=== PATIENT | female | born 1935 | race Caucasian/White ===

== ENCOUNTER 2022-08-09 04:10 | Day surgery (SDC) | payer MEDICARE, SELFPAY ==
[2022-08-06 17:20] VITALS: BMI 31.4
[2022-08-09] VITALS (9 sets, daily range): BP systolic 117–183; BP diastolic 61–91; PULSE 51–86; RESP 16–27; TEMP 36.6; O2SAT 96–98; BMI 34.6
--- NOTE | 2022-08-09 | ECG_ITS ---
Measurements Intervals [place] Rate: 76 P: 41 AK: 220 QRS: -6 QRSD: 93 T: 75 QT: 387 QTc: 436 Interpretive Statements SINUS RHYTHM WITH FIRST DEGREE AV BLOCK ATRIAL PREMATURE COMPLEX DELAYED PRECORDIAL R/S TRANSITION CONSIDER INFERIOR INFARCT, AGE INDETERMINATE BORDERLINE T WAVE ABNORMALITY- HIGH LATERAL LEADS BASELINE ARTIFACT- II, III, AVL ABNORMAL ECG COMPARED TO ECG 08/09/2022 14:21:09 SINUS RHYTHM NOW PRESENT FIRST DEGREE AV BLOCK NOW PRESENT Electronically Signed On 08-09-2022 15:43:46 CDT by Torrey Wood D.O.
--- NOTE | 2022-08-09 10:30 | ECG_ITS ---
Measurements Intervals [place] Rate: 80 P: [place]: 0 QRS: -6 QRSD: 92 T: 75 QT: 371 QTc: 430 Interpretive Statements ATRIAL FIBRILLATION DELAYED PRECORDIAL R/S TRANSITION CONSIDER INFERIOR INFARCT, AGE INDETERMINATE ABNORMAL ECG NO PREVIOUS ECG AVAILABLE FOR COMPARISON Electronically Signed On 08-09-2022 11:44:51 CDT by Torrey Wood D.O.
--- NOTE | 2022-08-09 10:30 | ECG_ITS ---
Measurements Intervals [place] Rate: 46 P: [place]: 0 QRS: -4 QRSD: 86 T: 109 QT: 432 QTc: 380 Interpretive Statements SINUS BRADYCARDIA WITH INTERMITTENT JUNCTIONAL RHYTHM VENTRICULAR PREMATURE COMPLEX CONSIDER INFERIOR INFARCT, AGE INDETERMINATE BORDERLINE ST-T WAVE ABNORMALITY- HIGH LATERAL LEADS ABNORMAL ECG COMPARED TO ECG 08/09/2022 11:41:34 NO SIGNIFICANT CHANGES Electronically Signed On 08-09-2022 14:32:41 CDT by Torrey Wood D.O.
--- NOTE | 2022-08-09 11:50 | WPDHPUPDATE1 ---
History and Physical Update Update Date/Time: 08/09/22 11:50 History and Physical has been reviewed, including an updated exam of the patient. There are NO changes in the patient's condition. Risks, benefits, and alternatives have been discussed and questions answered. Patient agrees to proceed with procedure.
[2022-08-09 12:15] LABS: Magnesium 2.1 mg/dL (1.6-2.3)
[2022-08-09 12:16] LABS: Anion Gap 10 mmol/L (8-16); Blood Urea Nitrogen 26 mg/dL (7-17); Carbon Dioxide 24 mmol/L (22-30); Chloride 105 mmol/L (98-107); Estimated CRCL calculation 34 ml/min; Estimated Glomerular Filt Rate 39; Glucose 96 mg/dL (65-110); Potassium 4.4 mmol/L (3.4-5.0); Sodium 139 mmol/L (137-145)
--- NOTE | 2022-08-09 13:20 | WPDANESEPPF ---
Anes - Initial Pre Proc Eval Procedure: Operation Date: 08/09/22 13:45 Proposed Procedures p Trans Esophageal Echo - Dariel Quintero MD s Possible Electrical Cardioversion - Dariel Quintero MD Date/Time: 08/09/22 13:20 Surgeon: Dariel Quintero MD Pre Op Diagnosis: A-FIB Patient Data Age: 86 Gender: F Height: 1.7 m Weight: 100.3 kg Last Vital Signs Temp 97.8 F 08/09/22 12:00 Pulse 86 08/09/22 12:00 Resp 20 08/09/22 12:00 BP 183/91 H 08/09/22 12:00 Pulse Ox 96 08/09/22 12:00 O2 Del Method Room Air 08/09/22 12:00 Allergies Allergy/AdvReac Type Severity Reaction Status Date / Time No Known Allergies Allergy Verified 08/06/22 17:13 Home Medications Medication Instructions Recorded Confirmed Type aspirin 81 mg tablet,delayed 81 mg PO DAILY 01/11/19 08/06/22 History release cholecalciferol (vitamin D3) 125 5,000 unit PO DAILY 01/11/19 08/06/22 History mcg (5,000 unit) capsule spironolactone 25 mg tablet 25 mg PO DAILY 01/11/19 08/06/22 History levothyroxine 50 mcg tablet See Rx Instructions .Route 09/17/21 08/06/22 Rx .COMPLEX #90 tabs diltiazem HCl 300 mg 300 mg PO DAILY #90 caps 06/29/22 08/06/22 Rx capsule,extended release 24 hr (Cartia XT) lisinopril 40 mg tablet See Rx Instructions .Route 06/29/22 08/06/22 Rx .COMPLEX #90 tabs apixaban 5 mg tablet (Eliquis) 5 mg PO BID 08/06/22 08/06/22 History diphenhydramine HCl 25 mg capsule 25 mg PO HS 08/06/22 08/06/22 History (Benadryl) Laboratory Tests 08/09/22 11:57 Sodium 139 mmol/L (137-145) Potassium 4.4 mmol/L (3.4-5.0) Chloride 105 mmol/L (98-107) Carbon Dioxide 24 mmol/L (22-30) Anion Gap 10 mmol/L (8-16) BUN 26 H mg/dL (7-17) Creatinine 1.30 H mg/dL (0.7-1.0) Estim Creat Clear Calc 34 ml/min Estimated GFR 39 L (59 - ) Glucose 96 mg/dL (65-110) Calcium 10.0 mg/dL (8.4-10.2) Magnesium 2.1 mg/dL (1.6-2.3) Patient hx anesthesia problems: none Family hx anesthesia problems: none Results Review: All pre-operative results and documents have been reviewed as part of the pre-operative evaluation. [facility] Past Medical History Medical History Anxiety Aortic stenosis moderate Hypertensive CKD (chronic kidney disease) Obesity Family History Family History Mother Patient's mother is in good health Father Family history of lung cancer Patient's father is Sibling Family history of coronary artery disease Social History Social History Years smoked: 15 Smoking status: Former smoker Tobacco type: cigarettes Second hand tobacco smoke exposure: No Smoking end date: 02/07/1966 Additional smoking assessment comments: Stopped in 60 or 70's Alcohol intake: never Substance use: never Substance use type: does not use Living arrangements: with family Occupation/Education: retired Gender identity (if verbalized by the patient): Female Spiritual care concerns: No Anes - Eval Final PreProcedure Day of Procedure 08/09/22 13:20 Patient weight: obese Heart: regular rate and rhythm Lungs: clear to auscultation Airway: Mallampati scale class III Neurological: alert and oriented Last oral intake: >/= 8 hours ASA classification: IV Emergent: no Anesthetic plan: proceed Anesthesia type and monitoring: general GIVS and standard monitoring Results Review: All pre-operative results and documents have been reviewed as part of the pre-operative evaluation. Informed Consent: The patient's anesthetic plan and its attendant risks and benefits were discussed with the patient/family/POA. Questions were solicited and answers provided to the satisfaction of the patient/family/POA.
--- NOTE | 2022-08-09 14:48 | WPDTECDV ---
MARCIE with Cardioversion Date of procedure: 08/09/22 Procedure Type: Transesophageal echocardiogram guided elective electrical cardioversion Diagnosis: Atrial fibrillation with rapid ventricular response Indications: Atrial fibrillation with rapid ventricular response Description of Procedure: Brief history present illness: Patient is a pleasant?86-year-old female with a history of hypertension, moderate aortic stenosis, hyperlipidemia, CKD stage 3 who recently developed atrial fibrillation with rapid ventricular response with complaints of worsening fatigue and lower extremity edema?referred for transesophageal echocardiogram-guided elective electrical cardioversion in attempt to restore sinus rhythm. Procedure in detail: After verbal and written informed consent was obtained the patient risks, benefits, and alternatives explained in detail the patient agreed to proceed with the plan of care as outlined above.? Patient was evaluated at bedside in the gastroenterology procedure room.? On examination, neck was supple with normal range of motion, no restrictions to opening of the oral cavity, jaw angle and posterior hypopharynx was clear.? Lungs were clear to auscultation. Patient was placed in appropriate 30 to 45 degree angle in a supine, slight left lateral decubitus position.? Patient was monitored throughout the study with telemetry, oxygen saturation, end-tidal CO2 monitoring, blood pressure, heart rate, and respirations.? Anterior and posterior defibrillator pads placed in the appropriate positions. The posterior hypopharynx was then locally anesthetized using administration of Hurricaine spray by Anesthesiology. After local anesthetic of the posterior hypopharynx was achieved and the oral bite block placed, sedation was administered by Anesthesiology. Through the oral bite block, the transesophageal echocardiogram probe was advanced into the posterior hypopharynx and into the esophagus easily and without complication.? Multiple, multiplanar echocardiographic images were obtained in multiple standard re-projections.? Pulsed wave, continuous-wave, and color-flow Doppler were utilized in conjunction with this study.? At the conclusion of the study, the transesophageal echocardiogram probe was removed easily and without complication.? Patient tolerated the procedure well without difficulty.? Patient was in atrial fibrillation throughout the study. Sedation: Moderate Sedation/Anesthesia administration: Patient denied previous intolerance or complications with anesthesia/sedation.? Please see Anesthesiology documentation for details and protocol. Findings: FINDINGS: LEFT VENTRICLE: Size and systolic function were within normal limits without wall motion abnormalities with ejection fraction of 60% and mild concentric left ventricular hypertrophy. RIGHT VENTRICLE:? Size and systolic function within normal limits. LEFT ATRIUM:? Upper limits of normal left atrial size. RIGHT ATRIUM: Normal size. INTERATRIAL SEPTUM:? ?Interatrial septum is anatomically normal without evidence of shunt with color-flow Doppler MITRAL VALVE:? ?Mitral valve is anatomically normal mildly thickened with preserved leaflet excursion and mild regurgitation with 2 small regurgitant jets identified.? AORTIC VALVE: The aortic valve was an anatomically normal 3 leaflet structure with [id number] calcification and mild to moderately reduced leaflet excursion. No regurgitation identified.? TRICUSPID VALVE: The tricuspid valve is anatomically normal with normal leaflet excursion with mild regurgitation identified.? No mobile elements identified.? PULMONIC VALVE: Pulmonic valve was not well visualized, however, trivial regurgitation was identified.?? LEFT ATRIAL APPENDAGE:? Large, anatomically normal structure with prominent pectinate muscles without thrombus or vegetation identified.? ?Left atrial appendage velocities averaged approximately 60-75 centimeters/second.?? LEFT UPPER PULM
== END 2022-08-09 17:08 | disposition home or self-care (01) ==
PROVIDERS: PCP Family Medicine; Visit Provider Internal Medicine Cardiovascular Disease
PROC: 5A2204Z Restoration of Cardiac Rhythm, Single (ICD-10-PCS; principal; 2022-08-09 13:45)
PROC: (CPT 93312; 2022-08-09 13:45)
DX: I48.91 Unspecified atrial fibrillation (principal); I12.9 Hypertensive chronic kidney disease with stage 1 through stage 4 chronic kidney disease, or unspecified chronic kidney disease; N18.30 Chronic kidney disease, stage 3 unspecified; I35.0 Nonrheumatic aortic (valve) stenosis; E78.2 Mixed hyperlipidemia; Z87.891 Personal history of nicotine dependence; Z79.82 Long term (current) use of aspirin; E66.9 Obesity, unspecified; Z68.34 Body mass index [BMI] 34.0-34.9, adult
CPT/HCPCS: 36415; 80048; 83735; 92960; 93312; 93320; 93325; J2704

== ENCOUNTER 2023-09-20 17:02 | Outpatient (CLI) | payer MEDICARE, SELFPAY ==
--- NOTE | ~2023-09-20 | XR_ITS ---
3 VIEWS LUMBAR SPINE Ordering provider: Timothy Oh MD History: . WORSENING LOW BACK PAIN. UNABLE TO LAY FLAT . Comparison: None. FINDINGS: VERTEBRAL BODIES: Anterolisthesis at the level of L5-S1. Dextroscoliosis. No visible fracture or sub luxation. Degenerative changes of the spine. DISK SPACES: Narrowing of the disc L3-L4, L4-L5 and L5-S1. Multilevel facet joint disease in the lowe r lumbar area SOFT TISSUES: Aortic calcification. IMPRESSION: No acute osseous abnormality lumbar spine. Anterolisthesis at the level of L5-S1. Multilevel degenerative disc disease. Reviewed, dictated and finalized at location A.
== END 2023-09-20 17:03 | disposition home or self-care (01) ==
PROVIDERS: PCP Family Medicine; Visit Provider Family Medicine
DX: M54.16 Radiculopathy, lumbar region (principal); M51.36 Other intervertebral disc degeneration, lumbar region
CPT/HCPCS: 72100

== ENCOUNTER 2024-02-28 16:08 | Inpatient (IN) | payer MEDICARE, SELFPAY ==
--- NOTE | ~2024-02-28 | XR_ITS ---
Exam: Abdomen 1V HISTORY: nausea, constipation COMPARISON: None. TECHNIQUE: Supine images of the abdomen. FINDINGS: Fecal stasis within the rectum, distending the rectum to almost 10 cm. Otherwise, nonspecific, nonobstructive bowel gas pattern. Lung bases are unremarkable. IMPRESSION: Findings suggesting fecal impaction, as detailed above. Reviewed, dictated and finalized at location A. TREE FARMER
--- NOTE | ~2024-02-28 | XR_ITS ---
EXAMINATION: XR abdomen/kub 1V DATE: 03/03/2024 10:37 INDICATION: Reassess fecal impaction TECHNIQUE: A supine view of the abdomen on 2 radiographs was obtained. COMPARISON: 02/28/2024 FINDINGS: The previously seen large ball of stool at the rectum has resolved. There is small to moderate amount of gas scattered throughout the large and small bowel with no dilated loops of bowel to suggest obst ruction. Elevation the right hemidiaphragm. Mild streaky atelectasis at the bilateral lower lung zone s. Heart size within normal limits for AP technique. Mild lumbar dextrocurvature with severe spondylo sis. IMPRESSION: 1. Nonspecific nonobstructive bowel gas pattern with resolution of the large ball of stool previously seen at the rectum. Reviewed, dictated and finalized at location A. ERING MACHINE FEEDER IMPRESSION: 1. Nonspecific nonobstructive bowel gas pattern with resolution of the large ba ll of stool previously seen at the rectum.
--- NOTE | ~2024-02-28 | CT_ITS ---
Non-contrast Head CT History: Status post fall Technique: Axial non-contrast imaging of the brain was performed. Dose reduction technique was used on this scan by utilizing automated exposure control and iterative reconstruction technique. The dose -length product (DLP) was 529.67 mGy-cm. Findings: There is no evidence of intracranial hemorrhage, mass lesion, or acute infarct. Brain par enchyma appears normal. The ventricles and subarachnoid spaces are normal in size. The calvarium ap pears normal. The visualized paranasal sinuses and mastoid air cells are clear. Impression: No significant abnormality seen. Reviewed, dictated and finalized at location . OGEN POWER PLANT MANAGER Impression: No significant abnormality seen.
[2024-02-28 12:58] VITALS: BMI 54.2
--- NOTE | 2024-02-28 13:13 | ADMGEN ---
This patient, Marina Forbes, was admitted to 3 [facility] Surg Room 305-01. Patient/family oriented to hospital policies and general routines including ID bracelet, bed and alarms, visiting hours, pain management, procedures, bathroom and other care routines, personal items, smoking policy, room service/diet, and visiting hours. Information on how to activate the Rapid Response Team has been discussed. Patient/Family are encouraged to report perceived risks to care and to ask questions if they do not understand what they are told or what they should do.
[2024-02-28 14:00] VITALS: BP 125/70; PULSE 84; RESP 18; TEMP 36.6; O2SAT 100
--- NOTE | 2024-02-28 17:24 | PM.IMHP ---
H&P: HPI History of Present Illness Date/Time: 02/28/24 17:24 Chief Complaint: Rectal bleeding Narrative: 88-year-old female presents here with rectal bleeding with PMH of hypertension, atrial fibrillation on anticoagulation, CKD, and hypothyroidism. The patient presents here from [facility] general surgery office for further evaluation of rectal bleeding. She reports she has had bleeding and pain with bowel movements for the past 3 months in the presence of hemorrhoids. She has a history of chronic constipation. The rectal bleeding is also accompanied by nausea, vomiting, intermittent abdominal pain (cramping), and decreased urine output. Denies fever, chills, body aches. The patient's last bowel movement was today. It was hard, small, and painful. She is currently on Eliquis secondary to atrial fibrillation. She does not have a history of GI bleeds. Initial VS at presentation: 97.8? F, HR 84, RR 18, 125/70, and 100% on RA. Review of Systems Review of Systems: All systems reviewed & are unremarkable except as noted in HPI and below PMFSH Past Medical History Medical History HLD (hyperlipidemia) Hypothyroidism CKD (chronic kidney disease), stage III Hypertension Cancer Lumbar degenerative disc disease Paroxysmal A-fib s/p cardioversion Aortic stenosis moderate Obesity Anxiety Family History Family History Mother Patient's mother is in good health Father Family history of lung cancer Patient's father is Sibling Family history of coronary artery disease Social History Social History Years smoked: 15 Smoking status: Former smoker Second hand tobacco smoke exposure: No Additional smoking assessment comments: Stopped in 60 or 70's Alcohol intake: never Drinks per week: 0 Substance use: never Substance use type: does not use Do You Feel Safe in your Home?: Yes Lack of Transportation: No Lack of Food: Never True Current Housing: I Have Housing Concerned About Future Housing: No Difficulty Paying Gas/Electric Bills: No Difficulty Paying for Meds: No Currently Unemployed: No Education: High School Diploma/GED Difficulty w/ Childcare or Family Care: No Living arrangements: with family Occupation/Education: retired Gender identity (if verbalized by the patient): Female Spiritual care concerns: No Meds Home Medications and Allergies Home Medications ?Medication ?Instructions ?Recorded ?Confirmed ?Type aspirin 81 mg tablet,delayed 81 mg PO DAILY 01/11/19 02/28/24 History release diltiazem HCl 300 mg 300 mg PO DAILY #90 caps 03/17/23 02/28/24 Rx capsule,extended release 24 hr (Cartia XT) levothyroxine 50 mcg tablet See Rx Instructions .Route 08/15/23 02/28/24 Rx .COMPLEX #90 tabs furosemide 20 mg tablet 20 mg PO BID #60 tabs 01/13/24 02/28/24 Rx acetaminophen 500 mg tablet 1,000 mg PO Q6H PRN fever or pain 02/28/24 02/28/24 History apixaban 5 mg tablet (Eliquis) 2.5 mg PO BID 02/28/24 02/28/24 History oxycodone 30 mg tablet 30 mg PO Q8H PRN pain 02/28/24 02/28/24 History oxycodone 5 mg tablet 5 mg PO Q6H PRN pain 02/28/24 02/28/24 History Allergies Allergy/AdvReac Type Severity Reaction Status Date / Time shellfish Allergy Unknown Unknown Uncoded 02/28/24 10:03 Vital Signs Vital Signs - 24 hr 02/28/24 14:00 Temperature 97.8 F Pulse Rate 84 Respiratory Rate 18 Blood Pressure 125/70 Pulse Oximetry 100 Exam Const: General: comfortable and no acute distress Other: , female, elderly, nontoxic appearance HENMT: Face/Nose/Sinus: Normal nares present Mouth: Yes moist mucous membranes Eyes: General: appearance normal, both eyes and all related structures Sclera: sclerae normal Pupils: Equal, round and reactive pupils present EOM: EOMs intact bilaterally Resp: Effort & Inspection: normal respiratory effort Auscultation: clear to auscultation bilaterally Cardio: Rate: regular rate Rhythm: regular rhythm Other: Occasional ectopy, no murmur or rub. GI: Other: Abdomen soft, nondistended. Diffuse tenderness with moderate palpation. Skin: General skin exam: normal color and no rashes or lesions noted Wounds: no wounds Neuro: Speech: normal speech Motor exam (neuro): 5/5 motor strength present throughout Sensory Exam: normal sensation Other: A&O x4 Extrem: Other: Trace nonpitting edema to bilateral ankles, symmetric. Psych: Mental Status: mental status grossly normal Affect: normal affect Other: Fair insight and judgment. Assessment and Plan Assessment and plan (1) Rectal bleeding: Code(s): K62.5 - Hemorrhage of anus and rectum Status: Acute Assessment and Plan: - CBC, BMP, and coags ordered - general surgery consulted - GI consulted - pantoprazole IV - monitor CBC and BP - hold Eliquis, will continue aspirin. Add SCDs. (2) Nausea and vomiting: Qualifiers: Vomiting type: unspecified Qualified Code(s): R11.2 - Nausea with vomiting, unspecified Code(s): R11.2 - Nausea with vomiting, unspecified Status: Acute Assessment and Plan: - KUB one view ordered - pantoprazole IV - antiemetic p.r.n. (3) CKD (chronic kidney disease), stage III: Qualifiers: Chronic kidney disease stage 3 subtype: unspecified whether 3a or 3b Qualified Code(s): N18.30 - Chronic kidney disease, stage 3 unspecified Code(s): N18.3 - Chronic kidney disease, stage 3 (moderate) Status: Chronic Assessment and Plan: - creatinine 2.35 and GFR 20 on 01/11/2024, CMP ordered - trend renal function - trend electrolytes, correct as needed 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 Qualified Code(s): I15.2 - Hypertension secondary to endocrine disorders Code(s): I10 - Essential (primary) hypertension Status: Chronic Assessment and Plan: - chronic, currently 125/70 - continue home medications: Diltiazem, Lasix - monitor Plan Diet: Heart healthy GI Prophylaxis: Pantoprazole DVT Prophylaxis: Hold Eliquis, SCDs Lines: Peripheral Code Status: DNR Quality VTE Prophylaxis VTE prophylaxis: mechanical ordered If No VTE Prophylaxis Answer both mechanical and pharmacologic: Reason no pharmacologic proph: medical contraindication Hospitalist MIPS Advance Care Plan I have confirmed that the patient's Advanced Care Plan is present, code status is documented, or surrogate decision maker is listed in patient medical record.: Yes Medication Reconciliation I have utilized all available resources to obtain, update and review the patients current medications (includes all prescriptions, OTC, herbals, cannabis, and nutritional supplements).: Yes
--- NOTE | 2024-02-28 18:10 | WPDCN ---
Assessment and Plan Assessment and plan (1) Nausea and vomiting: Qualifiers: Vomiting type: unspecified Qualified Code(s): R11.2 - Nausea with vomiting, unspecified Code(s): R11.2 - Nausea with vomiting, unspecified Status: Acute Assessment and Plan: Patient been having some nausea vomiting which could be to severe constipation/obstipation. Will see if this improves with promoting bowel movements. (2) Rectal bleeding: Code(s): K62.5 - Hemorrhage of anus and rectum Status: Acute Assessment and Plan: Patient does not have any obvious external bleeding hemorrhoids. There is old dark blood draining from the rectum on exam today. Digital rectal exam was difficult due to the amount of stool in the rectal vault. She may have bleeding hemorrhoids but she may also have rectal or colon neoplasm causing the bleeding. Recommend admission to the hospital for management of her pain and to workup for lower GI bleeding. (3) Abdominal pain: Qualifiers: Abdominal location: generalized Qualified Code(s): R10.84 - Generalized abdominal pain Code(s): R10.9 - Unspecified abdominal pain Status: Acute Assessment and Plan: May be due to her constipation/obstipation. We will see if this improves with abdomen is laxatives. (4) Metastatic malignant neuroendocrine tumor to liver: Code(s): C7B.8 - Other secondary neuroendocrine tumors Status: Acute Assessment and Plan: Apparently recent diagnosed with this condition at [facility]. Defer treatment to her oncologist. HPI Data of Consult Date/Time: 02/28/24 18:10 Requesting Physician: Miroslava Borja MD Primary Care Provider: Timothy Oh MD Consult Narrative Reason for consult: Lower GI bleeding, abdominal pain, nausea and vomiting Narrative: Marina Forbes is a 88 year old female who was referred to see me initially in the outpatient office today complaining of painful and bleeding hemorrhoids. Patient stations he has had fairly constant dripping of blood into the toilet when she tries to have bowel movements and spontaneous drainage of blood from her rectum. She has not had previous hemorrhoid surgery. 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 She has been getting radiation treatments to her right hip for metastatic disease. She states she has not been having good bowel movements for about the last 6 weeks. More recent last few days she has been had a very painful bowel movements with the bleeding. She was also complaining having some severe lower abdominal pain which she needed to have bowel movements and this more she had nausea and vomiting. The patient has chronic AFib which is resistant to cardioversion. She is on systemic anticoagulation with Eliquis. He has been continue take her Eliquis despite having lower GI bleeding. She also has advanced stage kidney disease but is not on dialysis. Review of Systems Review of Systems: The remainder of the review of systems to include constitutional, HEENT, cardiovascular, respiratory, GI, , integumentary, musculoskeletal, endocrine, immunologic, hematologic, psychiatric, and neurologic are all negative except for which is mentioned above in the HPI. [facility] Past Medical History Medical History HLD (hyperlipidemia) Hypothyroidism CKD (chronic kidney disease), stage III Hypertension Cancer Lumbar degenerative disc disease Paroxysmal A-fib s/p cardioversion Aortic stenosis moderate Obesity Anxiety Family History Family History Mother Patient's mother is in good health Father Family history of lung cancer Patient's father is Sibling Family history of coronary artery disease Social History Social History Years smoked: 15 Smoking status: Former smoker Second hand tobacco smoke exposure: No Additional smoking assessment comments: Stopped in 60 or 70's Alcohol intake: never Drinks per week: 0 Substance use: never Substance use type: does not use Do You Feel Safe in your Home?: Yes Lack of Transportation: No Lack of Food: Never True Current Housing: I Have Housing Concerned About Future Housing: No Difficulty Paying Gas/Electric Bills: No Difficulty Paying for Meds: No Currently Unemployed: No Education: High School Diploma/GED Difficulty w/ Childcare or Family Care: No Living arrangements: with family Occupation/Education: retired Gender identity (if verbalized by the patient): Female Spiritual care concerns: No Meds Home Medications and Allergies Home Medications ?Medication ?Instructions ?Recorded ?Confirmed ?Type aspirin 81 mg tablet,delayed 81 mg PO DAILY 01/11/19 02/28/24 History release diltiazem HCl 300 mg 300 mg PO DAILY #90 caps 03/17/23 02/28/24 Rx capsule,extended release 24 hr (Cartia XT) levothyroxine 50 mcg tablet See Rx Instructions .Route 08/15/23 02/28/24 Rx .COMPLEX #90 tabs furosemide 20 mg tablet 20 mg PO BID #60 tabs 01/13/24 02/28/24 Rx acetaminophen 500 mg tablet 1,000 mg PO Q6H PRN fever or pain 02/28/24 02/28/24 History apixaban 5 mg tablet (Eliquis) 2.5 mg PO BID 02/28/24 02/28/24 History oxycodone 30 mg tablet 30 mg PO Q8H PRN pain 02/28/24 02/28/24 History oxycodone 5 mg tablet 5 mg PO Q6H PRN pain 02/28/24 02/28/24 History Allergies Allergy/AdvReac Type Severity Reaction Status Date / Time shellfish Allergy Unknown Unknown Uncoded 02/28/24 10:03 Vital Signs Vital Signs - 24 hr 02/28/24 14:00 Temperature 36.6 C Pulse Rate 84 Respiratory Rate 18 Blood Pressure 125/70 Pulse Oximetry 100 Exam Const: General: in distress (Patient complaining of severe rectal pain and finds it difficult to sit up.) severe HENMT: Mouth: Yes moist mucous membranes Eyes: General: appearance normal, both eyes and all related structures Sclera: sclerae normal Pupils: Equal, round and reactive pupils present EOM: EOMs intact bilaterally Neck: Neck: supple and no JVD Resp: Effort & Inspection: normal respiratory effort Auscultation: clear to auscultation bilaterally Cardio: Rhythm: abnormal rhythm irregularly irregular GI: Other: Abdomen is soft and minimally distended. No masses appreciated. No guarding. Some mild diffuse tenderness. No ventral hernias. Rectal exam reveals minor posterior hemorrhoid was nonthrombosed at the 6 o'clock position with the patient lithotomy. Digital rectal exam reveals a rectal vault and anal canal filled with soft stool. Difficult to palpate any hemorrhoid tissue or anal or rectal masses. Skin: General skin exam: normal color and no rashes or lesions noted Neuro: General: gait normal Speech: normal speech Motor exam (neuro): 5/5 motor strength present throughout Sensory Exam: normal sensation Extrem: General: normal to inspection Psych: Mental Status: mental status grossly normal Affect: normal affect
[2024-02-28 18:31] LABS: Basophils Percent Auto 0.4 % (0.2-1.2); Eosinophils Percent Auto 0.3 % (0-4.4); Hemoglobin 10.4 g/dL (12.0-15.0); Immature Granulocyte Absolute 0.05 K/mm3 (0.00-0.031); Immature Granulocyte Percent A 0.5 % (0-0.5); Lymphocytes Absolute Auto 0.54 K/mm3 (0.9-3.2); Lymphocytes Percent Auto 5.2 % (18.3-44.2); Mean Corpuscular HGB Conc 31.5 g/dl (32-36); Mean Corpuscular Hemoglobin 32.5 pg (26-34); Mean Corpuscular Volume 103.1 fl (80-100); Mean Platelet Volume 9.8 fl (7.4-10.4); Monocytes Absolute Auto 0.7 K/mm3 (0.1-0.6); Monocytes Percent Auto 6.9 % (2.6-8.5); Neutrophils Percent Auto 86.7 % (45.5-73.1); Platelet Count Result 363 k/mm3 (150-375); Red Cell Distribution Width 14.6 % (11.5-14.5); White Blood Count 10.3 K/mm3 (4.5-10.0)
[2024-02-28 18:41] LABS: INR 1.1; Prothrombin Time 14.5 Seconds (11.1-14.7)
[2024-02-28 18:46] LABS: Alanine Aminotransferase 13 U/L (6-35); Albumin Level 3.4 g/dL (3.5-5.1); Alkaline Phosphatase 126 U/L (38-126); Anion Gap 11 mmol/L (4-12); Aspartate Amino Transferase 39 U/L (14-36); Bilirubin,Total 0.5 mg/dL (0.2-1.3); Blood Urea Nitrogen 53 mg/dL (7-17); Calcium 9.8 mg/dL (8.4-10.2); Carbon Dioxide 17 mmol/L (22-30); Chloride 107 mmol/L (98-107); Estimated CRCL calculation 27 ml/min; Estimated Glomerular Filt Rate 22; Glucose 149 mg/dL (65-110); Potassium 4.9 mmol/L (3.4-5.0); Sodium 135 mmol/L (137-145)
[2024-02-28] MEDS: oxyCODONE HCL (*CRX) 5 MG TAB IR PO (20:17)
[2024-02-28] MEDS: MAGNESIUM HYDROXIDE SUSP 30 ML UDC PO (20:18)
[2024-02-28 21:53] VITALS: BP 130/60; PULSE 106; RESP 16; TEMP 36.7; O2SAT 98
[2024-02-29] MEDS: oxyCODONE HCL (*CRX) 5 MG TAB IR PO ×3 (03:57→21:00)
[2024-02-29] MEDS: LEVOTHYROXINE SODIUM 50 MCG TABLET PO (05:48)
[2024-02-29 06:00] VITALS: BP 118/63; PULSE 106; RESP 18; TEMP 36.6; O2SAT 98
[2024-02-29 06:29] LABS: Hematocrit 30.7 % (37.0-47.0); Hemoglobin 9.7 g/dL (12.0-15.0); Mean Corpuscular HGB Conc 31.6 g/dl (32-36); Mean Corpuscular Hemoglobin 32.7 pg (26-34); Mean Corpuscular Volume 103.4 fl (80-100); Platelet Count Result 331 k/mm3 (150-375); Red Blood Count 2.97 M/mm3 (4.2-5.4); Red Cell Distribution Width 14.6 % (11.5-14.5); White Blood Count 8.8 K/mm3 (4.5-10.0)
[2024-02-29 06:38] LABS: Anion Gap 6 mmol/L (4-12); Blood Urea Nitrogen 56 mg/dL (7-17); Calcium 9.5 mg/dL (8.4-10.2); Carbon Dioxide 21 mmol/L (22-30); Chloride 109 mmol/L (98-107); Estimated CRCL calculation 31 ml/min; Estimated Glomerular Filt Rate 27; Glucose 94 mg/dL (65-110); Potassium 4.9 mmol/L (3.4-5.0); Sodium 136 mmol/L (137-145)
[2024-02-29 08:30] VITALS: BP 144/69; PULSE 99; O2SAT 100
[2024-02-29] MEDS: dilTIAZem HCL CD 300 MG CAP.24HR PO (08:39)
[2024-02-29] MEDS: TAMSULOSIN HCL 0.4 MG CAPSULE PO (08:39)
[2024-02-29] MEDS: PANTOPRAZOLE SODIUM IV 40 MG VIAL IV PUSH (08:39)
[2024-02-29] MEDS: FUROSEMIDE 20 MG TABLET PO ×2 (08:39→17:08)
[2024-02-29] MEDS: DOCUSATE SODIUM 100 MG CAPSULE PO ×2 (08:39→20:17)
[2024-02-29] MEDS: ASPIRIN 81 MG ENTERIC TABLET PO (08:39)
--- NOTE | 2024-02-29 09:21 | P.PNIM_ITS ---
Progress Note: A&P Assessment and Plan (1) Rectal bleeding: Code(s): K62.5 - Hemorrhage of anus and rectum Status: Acute Assessment and Plan: * Unknown cause Internal GI bleed vs hemorrhoids versus colon neoplasm * general surgery consulted * GI consulted * pantoprazole IV * may need colonoscopy * hold Eliquis, will continue aspirin. * Pain management (2) Nausea and vomiting: Qualifiers: Vomiting type: unspecified Qualified Code(s): R11.2 - Nausea with vomiting, unspecified Code(s): R11.2 - Nausea with vomiting, unspecified Status: Acute Assessment and Plan: * KUB showed fecal impaction could be cause * Need to monitor bowel obstruction if worsening my need NG tube for decompression * Unable to due CT ABD contrast due to CKD * monitor and replenish electrolytes * antiemetic p.r.n. (3) CKD (chronic kidney disease), stage III: Qualifiers: Chronic kidney disease stage 3 subtype: unspecified whether 3a or 3b Qualified Code(s): N18.30 - Chronic kidney disease, stage 3 unspecified Code(s): N18.3 - Chronic kidney disease, stage 3 (moderate) Status: Chronic Assessment and Plan: Acute on chronic renal failure * creatinine 2.09 POA>1.80 today 02/28 * Avoid nephrotoxic drugs. * Monitor antihypertensive drug therapy. * Avoid NSAIDs. * Routine CMP monitoring GFR. * Monitor electrolytes especially potassium. 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 Qualified Code(s): I15.2 - Hypertension secondary to endocrine disorders Code(s): I10 - Essential (primary) hypertension Status: Chronic Assessment and Plan: * chronic, currently 125/70 * continue home medications: Diltiazem, Lasix * BP per unit protocol (5) Fecal impaction in rectum: Code(s): K56.41 - Fecal impaction Status: Acute Assessment and Plan: * KUB showing fecal impaction in the rectum * Bowel regiment started * Surgery with limited evaluation to assess for hemorrhoids during digital exam due to fecal stasis Plan Code status: Full code per patient DVT prophylaxis: SCD's hold ASA and Eliquis Stress ulcer prophylaxis: Protonix 40 daily PT/OT notes: Pending Disposition: patient continues admission for possible GI bleed surgery and GI consulted and are following for further evaluation recommendations. will continue to monitor H&H transfuse if need patient may need colonoscopy. Time Spent With Patient Time with patient: 15 - 25 minutes Subjective Date/time seen: 02/29/24 09:21 Interval history: Patient was admitted for further evaluation of possible GI bleed, fecal impaction and N/V. Surgery and GI consulted for further evaluation hemorrhage anemia stable in to determine if bleeding continues hemorrhoids versus possible colon neoplasm/ 02/29/24: Assumed Care Patient still reporting rectum tenderness, ABD with scant distention but soft with minimal tenderness. HGb stable, started bowel regimen. Review of Systems Review of Systems: All systems reviewed & are unremarkable except as noted in HPI and below Exam Narrative: * GENERAL: Alert and oriented x 3. No acute distress. * HEENT: Moist mucous membranes. * LUNGS: Clear to auscultation bilaterally. No accessory muscle use. * CARDIOVASCULAR: Regular rate and rhythm. * ABDOMEN: Soft, tenderness and mild distention. No palpable masses. * EXTREMITIES: No edema. Non-tender * SKIN: No rashes or lesions. Skin warm, dry. * NEUROLOGIC: No focal neurological deficits. CN II-XII grossly intact * PSYCHIATRIC: Appropriate mood and affect. Objective Data Vital Signs Vital Signs: Vital Signs - 24 hr 02/28/24 14:00 02/28/24 20:00 02/28/24 21:53 Temperature 97.8 F 98.0 F Pulse Rate 84 106 H Respiratory Rate 18 16 Blood Pressure 125/70 130/60 Pulse Oximetry 100 98 Oxygen Delivery Room Air 02/29/24 06:00 02/29/24 08:30 02/29/24 08:30 Temperature 97.9 F Pulse Rate 106 H 99 Respiratory Rate 18 Blood Pressure 118/63 144/69 H Pulse Oximetry 98 100 Oxygen Delivery Room Air Intake/Output Intake/Output: Intake & Output 02/26/24 02/27/24 02/28/24 02/29/24 23:59 23:59 23:59 23:59 Intake Total 120 100 Output Total 950 Balance 120 -850 Meds/Results Medications: Active Medications Generic Name Dose Route Start Last Admin Trade Name Freq PRN Reason Stop Dose Admin Acetaminophen 650 mg 02/28/24 17:21 Acetaminophen 325 Mg Tablet PO Q4H PRN Mild Pain (1-3) or Fever Hydrocodone Bitart/Acetaminophen 1 tab 02/28/24 17:21 Hydrocodone/Acetaminophen (*Crx) 5-325 Mg Tablet PO Q4H PRN Moderate Pain (4-6) Aspirin 81 mg 02/29/24 09:00 02/29/24 08:39 Aspirin 81 Mg Enteric Tablet PO 81 mg DAILY [facility] Administration Diltiazem HCl 300 mg 02/29/24 09:00 02/29/24 08:39 Diltiazem Hcl Cd 300 Mg Cap.24hr PO 300 mg DAILY [facility] Administration Docusate Sodium 100 mg 02/28/24 21:00 02/29/24 08:39 Docusate Sodium 100 Mg Capsule PO 100 mg Q12HR [facility] Administration Furosemide 20 mg 02/29/24 09:00 02/29/24 08:39 Furosemide 20 Mg Tablet PO 20 mg BID [facility] Administration Lactulose 20 gm 02/29/24 12:00 Lactulose 20 Gm/30 Ml Udc PO Q6HR [facility] Levothyroxine Sodium 50 mcg 02/29/24 06:30 02/29/24 05:48 Levothyroxine Sodium 50 Mcg Tablet PO 50 mcg DAILY@0630 [facility] Administration Ondansetron HCl 4 mg 02/28/24 17:21 Ondansetron Inj 4 Mg/2 Ml Vial IV PUSH Q6H PRN Nausea And Vomiting Oxycodone HCl 5 mg 02/28/24 17:23 02/29/24 03:57 Oxycodone Hcl (*Crx) 5 Mg Tab Ir PO 5 mg Q6H PRN Administration pain 7-10 Pantoprazole Sodium 40 mg 02/29/24 09:00 02/29/24 08:39 Pantoprazole Sodium Iv 40 Mg Vial IV PUSH 40 mg QAM [facility] Administration Tamsulosin HCl 0.4 mg 02/29/24 09:00 02/29/24 08:39 Tamsulosin Hcl 0.4 Mg Capsule PO 0.4 mg QAM [facility] Administration Radiology Results: ITS Impressions Abdomen X-Ray 02/28/24 18:51 IMPRESSION: Findings suggesting fecal impaction, as detailed above. Labs Labs: Laboratory Results - last 24 hr 02/28/24 02/29/24 18:26 05:54 WBC 10.3 H 8.8 RBC 3.20 L 2.97 L Hgb 10.4 L 9.7 L Hct 33.0 L 30.7 L MCV 103.1 H 103.4 H MCH 32.5 32.7 MCHC 31.5 L 31.6 L RDW 14.6 H 14.6 H Plt Count 363 331 MPV 9.8 10.0 Immature Gran % (Auto) 0.5 Neut % (Auto) 86.7 H Lymph % (Auto) 5.2 L [place] % (Auto) 6.9 Eos % (Auto) 0.3 Baso % (Auto) 0.4 Lymph # (Auto) 0.54 L [place] # (Auto) 0.7 H Eos # (Auto) 0.0 Baso # (Auto) 0.0 Abs Immat Gran (auto) 0.05 H Absolute Neuts (auto) 9.0 H Absolute Nucleated RBC 0.000 Nucleated RBC % 0.0 PT 14.5 INR 1.1 APTT 38.0 H Sodium 135 L 136 L Potassium 4.9 4.9 Chloride 107 109 H Carbon Dioxide 17 L 21 L Anion Gap 11 6 BUN 53 H D 56 H Creatinine 2.09 H 1.80 H Estim Creat Clear Calc 27 31 Estimated GFR 22 L 27 L Glucose 149 H 94 Calcium 9.8 9.5 Total Bilirubin 0.5 AST 39 H ALT 13 Alkaline Phosphatase 126 Total Protein 6.0 L Albumin 3.4 L Quality VTE Prophylaxis VTE prophylaxis: mechanical ordered -Patient's previous records reviewed on admission -ER notes reviewed in detail on admission -discussed all findings and current treatment plan with patient/Family/POA -Consultations reviewed for recommendations -Patient's disposition for safe discharge discussed with protective services case worker Dictation performed by [employer] direct speech recognition software, therefore bread slicer machine variants and typographical errors may occur. Hospitalist MIPS Advance Care Plan I have confirmed that the patient's Advanced Care Plan is present, code status is documented, or surrogate decision maker is listed in patient medical record.: Yes Medication Reconciliation I have utilized all available resources to obtain, update and review the patients current medications (includes all prescriptions, OTC, herbals, cannabis, and nutritional supplements).: Yes The patient is not eligible for med reconciliation; the patient is in a emergent medical situation where delaying treatment would jeopardize the patients health.: No
--- NOTE | 2024-02-29 10:29 | PC.NURSE ---
This RN was given report that an enema was administered. During medication pass/assessment patient was requesting an enema. RN asked if patient had received one already. Patient stated no. This RN looked back at charting. Dr Mari ordered an enema to be administered once on patient yesterday 02/27/2023. Previous charting shows it was not administered. RN informed clinic mgr and manager eligibility. RN also put out a page to Dr. Mari at 1030 to figure out why enema was not administered and if RN can administer one as patient is in discomfort due to fecal impaction.
--- NOTE | 2024-02-29 10:51 | P.PN_ITS ---
Progress Note: A&P Assessment and Plan (1) Paroxysmal A-fib: Code(s): I48.0 - Paroxysmal atrial fibrillation Status: Acute Assessment and Plan: Rate controlled. Continue current medications. Will hold systemic anticoagulation for right out due to her lower GI bleeding. (2) Rectal bleeding: Code(s): K62.5 - Hemorrhage of anus and rectum Status: Acute Assessment and Plan: No obvious bleeding right now. Will need to evaluate the rectum large amount of stool present and then further evaluate for possible colonoscopy. (3) Fecal impaction in rectum: Code(s): K56.41 - Fecal impaction Status: Acute Assessment and Plan: We will give her fleets enema this morning. Also give her some GoLYTELY slowly to see if we can get her bowels moving. (4) Abdominal pain: Qualifiers: Abdominal location: generalized Qualified Code(s): R10.84 - Generalized abdominal pain Code(s): R10.9 - Unspecified abdominal pain Status: Acute Assessment and Plan: Likely due to obstipation. No evidence of small-bowel obstruction (5) Metastatic malignant neuroendocrine tumor to liver: Code(s): C7B.8 - Other secondary neuroendocrine tumors Status: Acute Assessment and Plan: Currently being managed by her oncologist. Subjective Date/time seen: 02/29/24 10:51 Interval history: Patient continues to complain of lower abdominal pain. A Fleet enema was ordered for yesterday but was not given last night. Patient is requesting the have an enema this morning. KUB yesterday showed a normal gas pattern but a very large amount of stool in the rectum was distention of the rectum to 10cm in diameter. Patient denies any nausea or vomiting. She did get some milk of magnesia last night. White blood count is normal. Electrolytes are it creatinine is slightly elevated likely due to poor p.o. intake. It was 2.1 on admission is now down to 1.8 with hydration. Eliquis was held has been placed on aspirin for now. Exam GI: Other: Abdomen is mildly distended. It is soft. She has some diffuse tenderness to palpation in lower quadrants. No rebound tenderness or guarding. Rectal exam no active bleeding. Objective Data Vital Signs Vital Signs: Vital Signs - 24 hr 02/28/24 14:00 02/28/24 20:00 02/28/24 21:53 Temperature 36.6 C 36.7 C Pulse Rate 84 106 H Respiratory Rate 18 16 Blood Pressure 125/70 130/60 Pulse Oximetry 100 98 Oxygen Delivery Room Air 02/29/24 06:00 02/29/24 08:30 02/29/24 08:30 Temperature 36.6 C Pulse Rate 106 H 99 Respiratory Rate 18 Blood Pressure 118/63 144/69 H Pulse Oximetry 98 100 Oxygen Delivery Room Air Intake/Output Intake/Output: Intake & Output 02/26/24 02/27/24 02/28/24 02/29/24 23:59 23:59 23:59 23:59 Intake Total 120 340 Output Total 950 Balance 120 -610 Meds/Results Medications: Active Medications Generic Name Dose Route Start Last Admin Trade Name Freq PRN Reason Stop Dose Admin Acetaminophen 650 mg 02/28/24 17:21 Acetaminophen 325 Mg Tablet PO Q4H PRN Mild Pain (1-3) or Fever Hydrocodone Bitart/Acetaminophen 1 tab 02/28/24 17:21 Hydrocodone/Acetaminophen (*Crx) 5-325 Mg Tablet PO Q4H PRN Moderate Pain (4-6) Aspirin 81 mg 02/29/24 09:00 02/29/24 08:39 Aspirin 81 Mg Enteric Tablet PO 81 mg DAILY [facility] Administration Diltiazem HCl 300 mg 02/29/24 09:00 02/29/24 08:39 Diltiazem Hcl Cd 300 Mg Cap.24hr PO 300 mg DAILY [facility] Administration Docusate Sodium 100 mg 02/28/24 21:00 02/29/24 08:39 Docusate Sodium 100 Mg Capsule PO 100 mg Q12HR [facility] Administration Furosemide 20 mg 02/29/24 09:00 02/29/24 08:39 Furosemide 20 Mg Tablet PO 20 mg BID [facility] Administration Lactulose 20 gm 02/29/24 12:00 Lactulose 20 Gm/30 Ml Udc PO Q6HR [facility] Levothyroxine Sodium 50 mcg 02/29/24 06:30 02/29/24 05:48 Levothyroxine Sodium 50 Mcg Tablet PO 50 mcg DAILY@0630 [facility] Administration Ondansetron HCl 4 mg 02/28/24 17:21 Ondansetron Inj 4 Mg/2 Ml Vial IV PUSH Q6H PRN Nausea And Vomiting Oxycodone HCl 5 mg 02/28/24 17:23 02/29/24 03:57 Oxycodone Hcl (*Crx) 5 Mg Tab Ir PO 5 mg Q6H PRN Administration pain 7-10 Pantoprazole Sodium 40 mg 02/29/24 09:00 02/29/24 08:39 Pantoprazole Sodium Iv 40 Mg Vial IV PUSH 40 mg QAM [facility] Administration Tamsulosin HCl 0.4 mg 02/29/24 09:00 02/29/24 08:39 Tamsulosin Hcl 0.4 Mg Capsule PO 0.4 mg QAM [facility] Administration Radiology Results: ITS Impressions Abdomen X-Ray 02/28/24 18:51 IMPRESSION: Findings suggesting fecal impaction, as detailed above. Labs Labs: Laboratory Results - last 24 hr 02/28/24 02/29/24 18:26 05:54 WBC 10.3 H 8.8 RBC 3.20 L 2.97 L Hgb 10.4 L 9.7 L Hct 33.0 L 30.7 L MCV 103.1 H 103.4 H MCH 32.5 32.7 MCHC 31.5 L 31.6 L RDW 14.6 H 14.6 H Plt Count 363 331 MPV 9.8 10.0 Immature Gran % (Auto) 0.5 Neut % (Auto) 86.7 H Lymph % (Auto) 5.2 L [place] % (Auto) 6.9 Eos % (Auto) 0.3 Baso % (Auto) 0.4 Lymph # (Auto) 0.54 L [place] # (Auto) 0.7 H Eos # (Auto) 0.0 Baso # (Auto) 0.0 Abs Immat Gran (auto) 0.05 H Absolute Neuts (auto) 9.0 H Absolute Nucleated RBC 0.000 Nucleated RBC % 0.0 PT 14.5 INR 1.1 APTT 38.0 H Sodium 135 L 136 L Potassium 4.9 4.9 Chloride 107 109 H Carbon Dioxide 17 L 21 L Anion Gap 11 6 BUN 53 H D 56 H Creatinine 2.09 H 1.80 H Estim Creat Clear Calc 27 31 Estimated GFR 22 L 27 L Glucose 149 H 94 Calcium 9.8 9.5 Total Bilirubin 0.5 AST 39 H ALT 13 Alkaline Phosphatase 126 Total Protein 6.0 L Albumin 3.4 L
[2024-02-29] MEDS: LACTULOSE 20 GM/30 ML UDC PO ×3 (12:19→23:56)
[2024-02-29] MEDS: PEG (High)/E-LYTE SOLN 4,000 ML BTL 3000 ML PO (12:19)
[2024-02-29 13:14] VITALS: BMI 25.0
[2024-02-29 14:00] VITALS: BP 115/64; PULSE 86; RESP 18; TEMP 35.9; O2SAT 96
--- NOTE | 2024-02-29 16:08 | WPDGICN ---
Assessment and Plan Assessment and plan (1) Rectal bleeding: Code(s): K62.5 - Hemorrhage of anus and rectum Status: Acute Assessment and Plan: The patient's rectal bleeding is likely due to hemorrhoids, although higher colonic sources like a colo rectal neoplasm cannot be entirely ruled out. She is currently on a strict laxative regimen, which should be continued until adequate bowel clearance is achieved. While colonoscopy is recommended to evaluate for other potential causes, optimal bowel preparation may require several days. Once adequate bowel evacuation is achieved, a formal two-day inpatient bowel preparation regimen will be discussed prior to scheduling the colonoscopy. Will continue to follow. 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 The patient has chronic constipation, always having [place] type 1 bowel movements in the best case scenario, sometimes spending more than a week without a bowel movement. She has been experiencing mixed bright and dark -maroon stools since yesterday. She has not had a colonoscopy in more than 30 years. Review of Systems Review of Systems: All systems reviewed & are unremarkable except as noted in HPI and below PMFSH Past Medical History Medical History HLD (hyperlipidemia) Hypothyroidism CKD (chronic kidney disease), stage III Hypertension Cancer Lumbar degenerative disc disease Paroxysmal A-fib s/p cardioversion Aortic stenosis moderate Obesity Anxiety Family History Family History Mother Patient's mother is in good health Father Family history of lung cancer Patient's father is Sibling Family history of coronary artery disease Social History Social History Years smoked: 15 Smoking status: Former smoker Second hand tobacco smoke exposure: No Additional smoking assessment comments: Stopped in 60 or 70's Alcohol intake: never Drinks per week: 0 Substance use: never Substance use type: does not use Do You Feel Safe in your Home?: Yes Lack of Transportation: No Lack of Food: Never True Current Housing: I Have Housing Concerned About Future Housing: No Difficulty Paying Gas/Electric Bills: No Difficulty Paying for Meds: No Currently Unemployed: No Education: High School Diploma/GED Difficulty w/ Childcare or Family Care: No Living arrangements: with family Occupation/Education: retired Gender identity (if verbalized by the patient): Female Spiritual care concerns: No Meds Home Medications and Allergies Home Medications ?Medication ?Instructions ?Recorded ?Confirmed ?Type aspirin 81 mg tablet,delayed 81 mg PO DAILY 01/11/19 02/28/24 History release diltiazem HCl 300 mg 300 mg PO DAILY #90 caps 03/17/23 02/28/24 Rx capsule,extended release 24 hr (Cartia XT) levothyroxine 50 mcg tablet See Rx Instructions .Route 08/15/23 02/28/24 Rx .COMPLEX #90 tabs furosemide 20 mg tablet 20 mg PO BID #60 tabs 01/13/24 02/28/24 Rx acetaminophen 500 mg tablet 1,000 mg PO Q6H PRN fever or pain 02/28/24 02/28/24 History apixaban 5 mg tablet (Eliquis) 2.5 mg PO BID 02/28/24 02/28/24 History oxycodone 30 mg tablet 30 mg PO Q8H PRN pain 02/28/24 02/28/24 History oxycodone 5 mg tablet 5 mg PO Q6H PRN pain 02/28/24 02/28/24 History Allergies Allergy/AdvReac Type Severity Reaction Status Date / Time shellfish Allergy Unknown Unknown Uncoded 02/28/24 10:03 Vital Signs Vital Signs - 24 hr 02/28/24 20:00 02/28/24 21:53 02/29/24 06:00 Temperature 98.0 F 97.9 F Pulse Rate 106 H 106 H Respiratory Rate 16 18 Blood Pressure 130/60 118/63 Pulse Oximetry 98 98 Oxygen Delivery Room Air 02/29/24 08:30 02/29/24 08:30 02/29/24 14:00 Temperature 96.7 F L Pulse Rate 99 86 Respiratory Rate 18 Blood Pressure 144/69 H 115/64 Pulse Oximetry 100 96 Oxygen Delivery Room Air Exam Narrative: Abdomen soft, nontender, nondistended. Rectal: Visible and tender prolapsed internal hemorrhoids. Rectal vault with brown stools mixed with blood. The rest of the exam within normal limits. Results Labs 02/29/24 05:54 02/29/24 05:54 Labs: Short CBC 02/28/24 02/29/24 Range/Units 18:26 05:54 WBC 10.3 H 8.8 (4.5-10.0) K/mm3 Hgb 10.4 L 9.7 L (12.0-15.0) g/dL Hct 33.0 L 30.7 L (37.0-47.0) % Plt Count 363 331 (150-375) k/mm3 BMP 02/28/24 02/29/24 18:26 05:54 Sodium 135 L 136 L Potassium 4.9 4.9 Chloride 107 109 H Carbon Dioxide 17 L 21 L BUN 53 H D 56 H Creatinine 2.09 H 1.80 H Glucose 149 H 94 Calcium 9.8 9.5 Liver Function 02/28/24 Range/Units 18:26 Total Bilirubin 0.5 (0.2-1.3) mg/dL AST 39 H (14-36) U/L ALT 13 (6-35) U/L Alkaline Phosphatase 126 (38-126) U/L Albumin 3.4 L (3.5-5.1) g/dL
[2024-02-29] MEDS: polyethylene glycoL 3350 17 GM POWD.PACK PO ×3 (17:08→23:56)
[2024-02-29 21:23] VITALS: BP 136/60; PULSE 106; RESP 14; TEMP 36.7; O2SAT 94
[2024-03-01] MEDS: oxyCODONE HCL (*CRX) 5 MG TAB IR PO ×4 (00:50→16:46)
[2024-03-01 02:10] VITALS: BP 117/61; PULSE 101; RESP 20; TEMP 37.2; O2SAT 100
--- NOTE | 2024-03-01 02:21 | PC.NURSE ---
In patient fall occurred around 0150. Pt assessed, vital signs taken, MD made aware, head CT ordered and to be obtained, post fall assessment and reassessment added to work list. Attempted to call patients at 0220- no answer.
[2024-03-01] MEDS: polyethylene glycoL 3350 17 GM POWD.PACK PO ×3 (04:16→12:01)
[2024-03-01] MEDS: LACTULOSE 20 GM/30 ML UDC PO ×3 (05:17→17:31)
[2024-03-01] MEDS: LEVOTHYROXINE SODIUM 50 MCG TABLET PO (05:17)
[2024-03-01 05:27] VITALS: BP 122/58; PULSE 95; RESP 14; TEMP 36.6; O2SAT 97
--- NOTE | 2024-03-01 06:52 | P.PNCROSS_ITS ---
Event Note Event Note Event Note: I was called overnight because patient was trying to get out of bed and fell st riking the left side of her head on the ground. Patient did not lose consciousness but did seem confused. She denied neck pain or any other injury. CT scan of head ordered as patient is on aspirin. CT was negative for bleed or acute findings.
--- NOTE | 2024-03-01 06:59 | PC.NURSE ---
This patient, Marina Forbes, was received from IMU on 03/01/24 at 0655. Patient/family oriented to unit policies and routines
[2024-03-01 08:49] VITALS: BP 119/51; PULSE 99; O2SAT 97
[2024-03-01] MEDS: dilTIAZem HCL CD 300 MG CAP.24HR PO (08:49)
[2024-03-01] MEDS: DOCUSATE SODIUM 100 MG CAPSULE PO ×2 (08:49→21:06)
[2024-03-01] MEDS: ASPIRIN 81 MG ENTERIC TABLET PO (08:49)
[2024-03-01] MEDS: TAMSULOSIN HCL 0.4 MG CAPSULE PO (08:49)
[2024-03-01] MEDS: FUROSEMIDE 20 MG TABLET PO ×2 (08:49→17:28)
--- NOTE | 2024-03-01 09:59 | P.PNIM_ITS ---
Progress Note: A&P Assessment and Plan (1) Rectal bleeding: Code(s): K62.5 - Hemorrhage of anus and rectum Status: Acute Assessment and Plan: * Unknown cause Internal GI bleed vs hemorrhoids versus colon neoplasm * general surgery consulted * GI consulted * pantoprazole IV * may need colonoscopy * hold Eliquis, will continue aspirin. * Pain management (2) Nausea and vomiting: Qualifiers: Vomiting type: unspecified Qualified Code(s): R11.2 - Nausea with vomiting, unspecified Code(s): R11.2 - Nausea with vomiting, unspecified Status: Acute Assessment and Plan: * KUB showed fecal impaction could be cause * Need to monitor bowel obstruction if worsening my need NG tube for decompression * Unable to due CT ABD contrast due to CKD * monitor and replenish electrolytes * antiemetic p.r.n. no acute issues since she had been here-monitor (3) CKD (chronic kidney disease), stage III: Qualifiers: Chronic kidney disease stage 3 subtype: unspecified whether 3a or 3b Qualified Code(s): N18.30 - Chronic kidney disease, stage 3 unspecified Code(s): N18.3 - Chronic kidney disease, stage 3 (moderate) Status: Chronic Assessment and Plan: Acute on chronic renal failure * creatinine 2.09 POA>1.80 today 02/28 * Avoid nephrotoxic drugs. * Monitor antihypertensive drug therapy. * Avoid NSAIDs. * Routine CMP monitoring GFR. * Monitor electrolytes especially potassium. 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 Qualified Code(s): I15.2 - Hypertension secondary to endocrine disorders Code(s): I10 - Essential (primary) hypertension Status: Chronic Assessment and Plan: * chronic, reviewed-stable * continue home medications: Diltiazem, Lasix * BP per unit protocol (5) Fecal impaction in rectum: Code(s): K56.41 - Fecal impaction Status: Acute Assessment and Plan: * KUB showing fecal impaction in the rectum * Bowel regiment started * Surgery with limited evaluation to assess for hemorrhoids during digital exam due to fecal stasis continue bowel regimen-gi following (6) Fall: Code(s): W19.XXXA - Unspecified fall, initial encounter Status: Acute Assessment and Plan: trying to get out of bed, fell hititng the left side of her head on the ground. Patient did not lose consciousness but confused per chart review (cross cover note). She denied neck pain or any other injury CT scan of head ordered -CT was negative for bleed or acute findings continue fall precautions, call light within reach Plan Code status: Full code per patient DVT prophylaxis: SCD's hold ASA and Eliquis Stress ulcer prophylaxis: Protonix 40 daily PT/OT notes: Pending Disposition: patient continues admission for possible GI bleed surgery and GI consulted and are following for further evaluation recommendations. will continue to monitor H&H transfuse if need patient may need colonoscopy. Time Spent With Patient Time with patient: 25 - 35 minutes Subjective Date/time seen: 03/01/24 09:59 Interval history: Patient was admitted for further evaluation of possible GI bleed, fecal impaction and N/V. Surgery and GI consulted for further evaluation hemorrhage anemia stable in to determine if bleeding continues hemorrhoids versus possible colon neoplasm/ 03/01 assuming care. Pt is seen and examined. reports abdominal discomfort is better. HGb stable, started bowel regimen. Documented 2 BMs . Per chart review- pt was trying to get out of bed and fell-hit her head on the ground. NO LOC. CT was ordered and completed. Negative for bleed or acute findings. Pt is doing well. Still have some discomfort but having BMs. NO headache or any discomfort from the fall earlier. at the bedside-both updated on care. Review of Systems Review of Systems: All systems reviewed & are unremarkable except as noted in HPI and below Exam Narrative: * GENERAL: Alert and oriented x 3. No acute distress. * HEENT: Moist mucous membranes. * LUNGS: Clear to auscultation bilaterally. No accessory muscle use. * CARDIOVASCULAR: Regular rate and rhythm. * ABDOMEN: Soft, tenderness and mild distention. No palpable masses. * EXTREMITIES: No edema. Non-tender * SKIN: No rashes or lesions. Skin warm, dry. * NEUROLOGIC: No focal neurological deficits. CN II-XII grossly intact * PSYCHIATRIC: Appropriate mood and affect. Const: General: comfortable and no acute distress Other: , female, elderly, nontoxic appearance HENMT: Face/Nose/Sinus: Normal nares present Mouth: Yes moist mucous membranes Eyes: General: appearance normal, both eyes and all related structures Sclera: sclerae normal Pupils: Equal, round and reactive pupils present EOM: EOMs intact bilaterally Resp: Effort & Inspection: normal respiratory effort Auscultation: clear to auscultation bilaterally Cardio: Rate: regular rate Rhythm: regular rhythm Other: Occasional ectopy, no murmur or rub. GI: Other: Abdomen soft, nondistended. Diffuse tenderness with moderate palpation. Skin: General skin exam: normal color and no rashes or lesions noted Wounds: no wounds Neuro: Cranial nerves: Yes Equal, round and reactive pupils present Speech: normal speech Motor exam (neuro): 5/5 motor strength present throughout Sensory Exam: normal sensation Other: A&O x4 Extrem: Other: Trace nonpitting edema to bilateral ankles, symmetric. Psych: Mental Status: mental status grossly normal Affect: normal affect Other: Fair insight and judgment. Objective Data Vital Signs Vital Signs: Vital Signs - 24 hr 02/29/24 14:00 02/29/24 21:23 03/01/24 02:10 Temperature 96.7 F L 98.1 F 99 F Pulse Rate 86 106 H 101 H Respiratory Rate 18 14 20 Blood Pressure 115/64 136/60 117/61 Pulse Oximetry 96 94 100 03/01/24 05:27 Temperature 97.9 F Pulse Rate 95 Respiratory Rate 14 Blood Pressure 122/58 L Pulse Oximetry 97 Intake/Output Intake/Output: Intake & Output 02/27/24 02/28/24 02/29/24 03/01/24 23:59 23:59 23:59 23:59 Intake Total 120 340 100 Output Total 1400 650 Balance 120 -1060 -550 Meds/Results Medications: Active Medications Generic Name Dose Route Start Last Admin Trade Name Freq PRN Reason Stop Dose Admin Acetaminophen 650 mg 02/28/24 17:21 Acetaminophen 325 Mg Tablet PO Q4H PRN Mild Pain (1-3) or Fever Hydrocodone Bitart/Acetaminophen 1 tab 02/28/24 17:21 Hydrocodone/Acetaminophen (*Crx) 5-325 Mg Tablet PO Q4H PRN Moderate Pain (4-6) Aspirin 81 mg 02/29/24 09:00 03/01/24 08:49 Aspirin 81 Mg Enteric Tablet PO 81 mg DAILY LAVON Administration Diltiazem HCl 300 mg 02/29/24 09:00 03/01/24 08:49 Diltiazem Hcl Cd 300 Mg Cap.24hr PO 300 mg DAILY LAVON Administration Docusate Sodium 100 mg 02/28/24 21:00 03/01/24 08:49 Docusate Sodium 100 Mg Capsule PO 100 mg Q12HR LAVON Administration Furosemide 20 mg 02/29/24 09:00 03/01/24 08:49 Furosemide 20 Mg Tablet PO 20 mg BID LAVON Administration Lactulose 20 gm 02/29/24 12:00 03/01/24 05:17 Lactulose 20 Gm/30 Ml Udc PO 20 gm Q6HR LAVON Administration Levothyroxine Sodium 50 mcg 02/29/24 06:30 03/01/24 05:17 Levothyroxine Sodium 50 Mcg Tablet PO 50 mcg DAILY@0630 LAVON Administration Ondansetron HCl 4 mg 02/28/24 17:21 Ondansetron Inj 4 Mg/2 Ml Vial IV PUSH Q6H PRN Nausea And Vomiting Oxycodone HCl 5 mg 02/28/24 17:23 03/01/24 05:17 Oxycodone Hcl (*Crx) 5 Mg Tab Ir PO 5 mg Q6H PRN Administration pain 7-10 Polyethylene Glycol 17 gm 02/29/24 16:15 03/01/24 08:49 Polyethylene Glycol 3350 17 Gm Powd.Pack PO 17 gm Q4H LAVON Administration Tamsulosin HCl 0.4 mg 02/29/24 09:00 03/01/24 08:49 Tamsulosin Hcl 0.4 Mg Capsule PO 0.4 mg QAM LAVON Administration Radiology Results: ITS Impressions Abdomen X-Ray 02/28/24 18:51 IMPRESSION: Findings suggesting fecal impaction, as detailed above. Head CT 03/01/24 05:44 Impression: No significant abnormality seen. Quality VTE Prophylaxis VTE prophylaxis: mechanical ordered
[2024-03-01] MEDS: polyethylene glycoL 3350 238 GM BOTTLE 119 GM PO (13:31)
[2024-03-01 13:56] VITALS: BP 118/55; PULSE 94; RESP 16; TEMP 36.4; O2SAT 96
--- NOTE | 2024-03-01 15:12 | WPDGIPROGNO ---
Progress Note: A&P Assessment and Plan (1) Rectal bleeding: Code(s): K62.5 - Hemorrhage of anus and rectum Status: Acute Assessment and Plan: The patient is experiencing severe constipation refractory to frequent doses of MiraLax. Her , the primary caregiver, reports a history of chronic constipation with limited response to previous stool softeners and laxatives. I emphasized the critical importance of establishing effective bowel movements to facilitate a diagnostic colonoscopy to investigate the source of her current bleeding. Achieving adequate bowel preparation may require time. I have prescribed MiraLax 32 oz every 8 hours to be continued until a bowel movement is achieved, which may take 24-48 hours or longer. A conventional colonoscopy preparation will be initiated after good bowel movements are evidenced. (2) Fecal impaction in rectum: Code(s): K56.41 - Fecal impaction Status: Acute Time Spent With Patient Time with patient: less than 15 minutes Subjective Date/time seen: 03/01/24 15:12 Interval history: The patient only had very small amounts of stool despite taking MiraLax 17 g every 4 hours. The stools still show some evidence of bleeding. However, she remains hemodynamically stable. Objective Data Vital Signs Vital Signs: Vital Signs - 24 hr 02/29/24 21:23 03/01/24 02:10 03/01/24 05:27 Temperature 98.1 F 99 F 97.9 F Pulse Rate 106 H 101 H 95 Respiratory Rate 14 20 14 Blood Pressure 136/60 117/61 122/58 L Pulse Oximetry 94 100 97 Oxygen Delivery 03/01/24 08:49 03/01/24 08:49 03/01/24 13:56 Temperature 97.6 F Pulse Rate 99 94 Respiratory Rate 16 Blood Pressure 119/51 L 118/55 L Pulse Oximetry 97 96 Oxygen Delivery Room Air Intake/Output Intake/Output: Intake & Output 02/27/24 02/28/24 02/29/24 03/01/24 23:59 23:59 23:59 23:59 Intake Total 120 340 100 Output Total 1400 650 Balance 120 -1060 -550 Meds/Results Medications: Active Medications Generic Name Dose Route Start Last Admin Trade Name Freq PRN Reason Stop Dose Admin Acetaminophen 650 mg 02/28/24 17:21 Acetaminophen 325 Mg Tablet PO Q4H PRN Mild Pain (1-3) or Fever Hydrocodone Bitart/Acetaminophen 1 tab 02/28/24 17:21 Hydrocodone/Acetaminophen (*Crx) 5-325 Mg Tablet PO Q4H PRN Moderate Pain (4-6) Aspirin 81 mg 02/29/24 09:00 03/01/24 08:49 Aspirin 81 Mg Enteric Tablet PO 81 mg DAILY LAVON Administration Diltiazem HCl 300 mg 02/29/24 09:00 03/01/24 08:49 Diltiazem Hcl Cd 300 Mg Cap.24hr PO 300 mg DAILY LAVON Administration Docusate Sodium 100 mg 02/28/24 21:00 03/01/24 08:49 Docusate Sodium 100 Mg Capsule PO 100 mg Q12HR LAVON Administration Furosemide 20 mg 02/29/24 09:00 03/01/24 08:49 Furosemide 20 Mg Tablet PO 20 mg BID LAVON Administration Lactulose 20 gm 02/29/24 12:00 03/01/24 12:01 Lactulose 20 Gm/30 Ml Udc PO 20 gm Q6HR LAVON Administration Levothyroxine Sodium 50 mcg 02/29/24 06:30 03/01/24 05:17 Levothyroxine Sodium 50 Mcg Tablet PO 50 mcg DAILY@0630 LAVON Administration Ondansetron HCl 4 mg 02/28/24 17:21 Ondansetron Inj 4 Mg/2 Ml Vial IV PUSH Q6H PRN Nausea And Vomiting Oxycodone HCl 5 mg 02/28/24 17:23 03/01/24 11:15 Oxycodone Hcl (*Crx) 5 Mg Tab Ir PO 5 mg Q6H PRN Administration pain 7-10 Polyethylene Glycol 119 gm 03/01/24 12:50 03/01/24 13:31 Polyethylene Glycol 3350 238 Gm Bottle PO 03/05/24 04:51 119 gm Q8H LAVON Administration Tamsulosin HCl 0.4 mg 02/29/24 09:00 03/01/24 08:49 Tamsulosin Hcl 0.4 Mg Capsule PO 0.4 mg QAM LAVON Administration Radiology Results: ITS Impressions Abdomen X-Ray 02/28/24 18:51 IMPRESSION: Findings suggesting fecal impaction, as detailed above. Head CT 03/01/24 05:44 Impression: No significant abnormality seen.
--- NOTE | 2024-03-01 15:42 | PM.PNGS ---
Progress Note: A&P Assessment and Plan (1) Rectal bleeding: Code(s): K62.5 - Hemorrhage of anus and rectum Status: Acute Assessment and Plan: Minimal rectal bleeding today when trying to have a bowel movement. GI following and planning to attempt more aggressive bowel stimulation with a goal of eventually doing a colonoscopy once she is cleared out and can be adequately prepped. (2) Fecal impaction in rectum: Code(s): K56.41 - Fecal impaction Status: Acute Assessment and Plan: Still has a large fecal impaction on exam. I was able to manually disimpact some stool but difficult for the patient to tolerate manual disimpaction. Will give another enema today. GI has ordered 1/2 bottle of Miralax Q8H. (3) Abdominal pain: Qualifiers: Abdominal location: generalized Qualified Code(s): R10.84 - Generalized abdominal pain Code(s): R10.9 - Unspecified abdominal pain Status: Acute Assessment and Plan: Likely due to obstipation. No evidence of small-bowel obstruction (4) Paroxysmal A-fib: Code(s): I48.0 - Paroxysmal atrial fibrillation Status: Acute Assessment and Plan: Continue to hold systemic anticoagulation for now due to lower GI bleed. 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 Plan I have discussed the patient's case and plan of care with Dr. Mari. Subjective Subjective Date/Time Seen: 03/01/24 15:42 Patient reports: no new complaints and afebrile Interval history: Patient seen today with her at the bedside. Her bowel stimulation has been changed to half bottle of MiraLax every 8 hours. She is tolerating liquids okay today. No nausea or vomiting. She has had about 4 small pebble like bowel movements in the past 24 hours. No significant bowel movement. Exam Const: General: comfortable and no acute distress Orientation/consciousness: patient oriented x3 GI: Inspection: distended GI Palp: Yes Soft to palpation, No Tenderness to palpation present (GI) and No Guarding due to palpation present (GI) Auscultation: Hypoactive bowel sounds present Other: Digital rectal exam performed with large stool ball palpable almost immediately. I attempted to manually disimpact as much nilam-like soft stool as possible that the patient could tolerate, which was less than a moderate amount. Objective Data Vital Signs Vital Signs: Vital Signs - 24 hr 02/29/24 21:23 03/01/24 02:10 03/01/24 05:27 Temperature 98.1 F 99 F 97.9 F Pulse Rate 106 H 101 H 95 Respiratory Rate 14 20 14 Blood Pressure 136/60 117/61 122/58 L Pulse Oximetry 94 100 97 Oxygen Delivery 03/01/24 08:49 03/01/24 08:49 03/01/24 13:56 Temperature 97.6 F Pulse Rate 99 94 Respiratory Rate 16 Blood Pressure 119/51 L 118/55 L Pulse Oximetry 97 96 Oxygen Delivery Room Air Intake/Output Intake/Output: Intake & Output 02/27/24 02/28/24 02/29/24 03/01/24 23:59 23:59 23:59 23:59 Intake Total 120 340 100 Output Total 1400 1050 Balance 120 -1060 -950 Meds/Results Medications: Active Medications Generic Name Dose Route Start Last Admin Trade Name Freq PRN Reason Stop Dose Admin Acetaminophen 650 mg 02/28/24 17:21 Acetaminophen 325 Mg Tablet PO Q4H PRN Mild Pain (1-3) or Fever Hydrocodone Bitart/Acetaminophen 1 tab 02/28/24 17:21 Hydrocodone/Acetaminophen (*Crx) 5-325 Mg Tablet PO Q4H PRN Moderate Pain (4-6) Aspirin 81 mg 02/29/24 09:00 03/01/24 08:49 Aspirin 81 Mg Enteric Tablet PO 81 mg DAILY LAVON Administration Diltiazem HCl 300 mg 02/29/24 09:00 03/01/24 08:49 Diltiazem Hcl Cd 300 Mg Cap.24hr PO 300 mg DAILY LAVON Administration Docusate Sodium 100 mg 02/28/24 21:00 03/01/24 08:49 Docusate Sodium 100 Mg Capsule PO 100 mg Q12HR LAVON Administration Furosemide 20 mg 02/29/24 09:00 03/01/24 08:49 Furosemide 20 Mg Tablet PO 20 mg BID LAVON Administration Lactulose 20 gm 02/29/24 12:00 03/01/24 12:01 Lactulose 20 Gm/30 Ml Udc PO 20 gm Q6HR LAVON Administration Levothyroxine Sodium 50 mcg 02/29/24 06:30 03/01/24 05:17 Levothyroxine Sodium 50 Mcg Tablet PO 50 mcg DAILY@0630 LAVON Administration Ondansetron HCl 4 mg 02/28/24 17:21 Ondansetron Inj 4 Mg/2 Ml Vial IV PUSH Q6H PRN Nausea And Vomiting Oxycodone HCl 5 mg 02/28/24 17:23 03/01/24 11:15 Oxycodone Hcl (*Crx) 5 Mg Tab Ir PO 5 mg Q6H PRN Administration pain 7-10 Polyethylene Glycol 119 gm 03/01/24 12:50 03/01/24 13:31 Polyethylene Glycol 3350 238 Gm Bottle PO 03/05/24 04:51 119 gm Q8H LAVON Administration Tamsulosin HCl 0.4 mg 02/29/24 09:00 03/01/24 08:49 Tamsulosin Hcl 0.4 Mg Capsule PO 0.4 mg QAM LAVON Administration Radiology Results: ITS Impressions Abdomen X-Ray 02/28/24 18:51 IMPRESSION: Findings suggesting fecal impaction, as detailed above. Head CT 03/01/24 05:44 Impression: No significant abnormality seen.
--- OUTSIDE RECORDS SUMMARY | 2024-03-01 19:53 | XMS_ITS | Clinical Summary ---
Author Organization [facility] [address] Address [address] [place] [address] Care Team Providers Care Director Community Organization Name Role Phone Timothy Oh MD Primary Care Provider Abram Tabares MD Unavailable [phone] Moises Conde MD Unavailable [phone] Allergies Active Allergy Reactions Criticality Noted Date Comments Shellfish Swelling Medium 09/07/2019 Swelling Medications dilTIAZem CD (CARTIA XT) 300 mg 24 hr capsule take 1 capsule by oral route every day 0 0 7 Active aspirin 81 mg chewable tablet chew 1 tablet by oral route every day 0 0 7 Active levothyroxine (SYNTHROID) 50 mcg tablet Take 1 tablet (50 mcg total) 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 1 Active acetaminophen (TYLENOL) 500 mg tablet Take 1 tablet (500 mg total) by mouth every 6 (six) hours as needed for pain Active apixaban (ELIQUIS) 2.5 mg tabletIndication s:atrial fibrillation Take 1 tablet (2.5 mg total) by mouth every 12 (twelve) hours 180 tablet 3 4 025 Active furosemide (LASIX) 40 mg tablet Take 1 tablet (40 mg total) by mouth 2 (two) times a day 60 tablet 11 4 025 Active HYDROcodone-acet aminophen (NORCO) 5-325 mg per tablet Take 1 tablet by mouth every 6 (six) hours as needed for pain 4 024 Discontinu ed(Therapy completed) oxyCODONE (ROXICODONE) 5 mg immediate release tabletIndication s:Pain Take 1 tablet (5 mg total) by mouth every 6 (six) hours as needed for pain for up to 14 days 56 tablet 4 024 Discontinu ed(Reorder ) oxyCODONE (ROXICODONE) 5 mg immediate release tabletIndication s:Pain Take 1 tablet (5 mg total) by mouth every 6 (six) hours as needed for pain for up to 14 days 56 tablet 4 025 Active Problems Problem Noted Date Diagnosed Date Lung mass 01/10/2024 Neuroendocrine carcinoma metastatic to liver 04/2023 Leg swelling 01/01/2024 Obstructive uropathy 12/21/2023 JONO (acute kidney injury) 12/20/2023 Dehydration 12/20/2023 Hypertension 12/20/2023 Adrenal mass, right 12/20/2023 Lesion of liver 12/20/2023 Hyperkalemia 12/20/2023 Hypercalcemia 12/20/2023 Generalized weakness 12/20/2023 Edema 12/20/2023 Pressure ulcer 12/20/2023 Constipation 12/20/2023 Chronic low back pain 09/27/2023 Trochanteric bursitis of right hip 09/27/2023 Right hip pain 09/27/2023 Primary osteoarthritis of right hip 09/27/2023 Chronic anticoagulation 02/10/2023 Cough 02/10/2023 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 Paroxysmal atrial fibrillation (CMS/HCC) 023 Nonrheumatic aortic valve stenosis 12/17/2021 Mixed hyperlipidemia 06/08/2021 Labile hypertension 06/29/2019 Benign hypertensive heart and renal disease 02/2017 Hypertension 06/11/2016 Overview (07/02/2016): Uncontrolled hypertension Dizziness 06/11/2016 Overview (07/02/2016): Dizziness Chronic kidney disease 06/11/2016 Overview (07/02/2016): Chronic kidney disease, unspecified CKD stage Acquired hypothyroidism 06/11/2016 Overview (07/02/2016): Hypothyroidism (acquired) Resolved Problems Problem Noted Date Diagnosed Date Resolved Date Systolic murmur 05/29/2020 07/12/2022 Dyslipidemia 01/21/2020 06/08/2021 Lipid screening 03/20/2018 12/17/2021 Encounters Date Type Department Care Team Description 02/09/2024 3:00 PM [facility] Treatment [facility] Office Building 2 Radiation Oncology [address] [place] [id number] Moises Conde MD 02/09/[address] [facility] Office Building 2 Radiation Oncology [address] [place] [phone] Moises Conde MD 02/09/2024 OTV [facility] Office Building 2 Radiation Oncology [address] [place] [phone] Moises Conde MD 02/09/2024 Orders Only RAD ONC TREATMENTS Miscellaneous, Not In File 02/07/2024 3:[address] [facility] Office Building 2 Radiation Oncology [address] [place] [id number] 02/07/2024 Orders Only RAD ONC TREATMENTS Miscellaneous, Not In File 02/06/2024 3:00 PM [employer] Treatment [facility] Office Building 2 Radiation Oncology [address] [place] [address] 02/06/2024 Orders Only RAD ONC TREATMENTS Miscellaneous, Not In File 02/03/2024 1:[address] [facility] Office Building 2 Radiation Oncology [address] [place] [address] 02/03/2024 Orders Only RAD ONC TREATMENTS Miscellaneous, Not In File 02/02/2024 12:45 PM [employer] OPERATOR [facility] Medical Office Building 2 Radiation Oncology [address] [place] [address] Moises Conde MD 02/02/2024 12:30 PM [employer] O[employer] Treatment [facility] Building 2 Radiation Oncology [address] [place] [phone] Timothy Abel MD 02/02/2024 Orders Only RAD ONC TREATMENTS Miscellaneous, Not In File 01/25/2024 7:40 PM [employer] O[employer]ATOR Treatment [facility] Building 2 Radiation Oncology [address] [place] [address] 01/25/2024 2:45 PM [employer] OPER[employer] Office Visit [facility] Oncology [address] [place] [phone] Abram Tabares MD Lung mass; 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) 01/24/2024 12:00 PM [employer]E [employer] OPERATOR Lab [facility] [address] [place] [address] 01/24/2024 11:00 AM [employer] OPERATOR Treatment [facility] Building 2 Radiation Oncology [address] [place] [address] Moises Conde MD 01/24/2024 10:00 AM [employer] OPERATOR Consult [facility] Building 2 Radiation Oncology [address] [place] [phone] Moises Conde MD 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); 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); Lytic bone lesion of hip 01/18/2024 10:57 AM [employer] OPERATOR - 01/18/2024 11:59 PM [employer] OPERATOR Hospital Encounter [facility] - [facility] [address] [place] [address] Discharge Disposition: Discharge to home or self care 01/18/2024 10:57 AM [employer] OPERATOR - 01/18/2024 11:59 PM [employer] OPERATOR Hospital Encounter [facility] - PET [address] [place] [address] Neuroendocrine tumor Discharge Disposition: Discharge to home or self care 01/13/2024 1:35 PM AC[employer]E [employer] OPERATOR Lab [facility] [address] [place] [address] 01/11/2024 1:30 PM [employer] OPER[employer] Office Visit [facility] [address] [place] [phone] Abram Tabares MD Lung mass (Primary Dx); 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); Lesion of liver; Lytic bone lesion of hip 01/11/2024 Home Care Visit [address] [place] [address] Margie Mendieta, RN TELEPHONE ENCOUNTER 01/10/2024 SHOP/CHAP Initial Outreach [facility] OP CASE MANAGEMENT [address] [place] [phone] Carla Saul LCSW 01/10/2024 Home Care Visit [address] [place] [address] Naomi Balderrama, RN TELEPHONE ENCOUNTER 01/09/2024 Home Care Visit [address] [place] [address] Naomi Balderrama, RN TELEPHONE ENCOUNTER 01/09/2024 Home Care Visit [address] [place] [address] Pb Rushing, PT TELEPHONE ENCOUNTER 01/08/2024 Home Care Visit [address] [place] [address] Kelsea Velez, RN TELEPHONE ENCOUNTER 01/07/2024 Home Care Visit [address] [place] [address] Annie Sibley, PT TELEPHONE ENCOUNTER 01/06/2024 SHOP/CHAP Initial Outreach [facility] OP CASE MANAGEMENT [address] [place] [phone] Carla Saul, CABINET ABRASIVE SANDBLASTER 01/05/2024 SHOP/CHAP Initial Outreach [facility] OP CASE MANAGEMENT [address] [place] [address] Aysha Lucero, RN 01/05/2024 SHOP/CHAP Initial Eligibility Review [facility] OP CASE MANAGEMENT [address] [place] [address] Lela Edwards, CABINET ABRASIVE SANDBLASTER 01/02/2024 Documentation [facility] Social Work [address] [place] [address] Shaquille Redman, LAB TESTER 01/01/2024 6:47 PM [employer] - 01/04/2024 6:08 PM [employer] OPERATOR Hospital Encounter [address] [phone] Joseph Mensah MD PhD Freilich, Michelle Amanda, MD Li, Han, MD Leg swelling (Primary Dx); Urinary retention; Other hypervolemia; Acute diastolic heart failure (CMS/HCC) (HCC); Pressure injury of skin of contiguous region involving buttock and hip, unspecified injury stage, unspecified laterality; Edema, unspecified type; Generalized weakness; JONO (acute kidney injury) (HCC); Neuroendocrine tumor; Pressure injury of skin of buttock, unspecified injury stage, unspecified laterality Discharge Disposition: Discharge to home or self care 12/30/2023 Orders [address] [facility] [address] [facility] [facility] [address] [place] [phone] Mónica Britton RN Lesion of liver (Primary Dx); Lung mass 12/20/2023 7:05 AM [employer] OPERATOR - 12/30/2023 3:56 PM [employer] OPERATOR Hospital Encounter [address] [address] Jesus Hrat MD Winston, Jared Todd, MD Mustafa, Saim, DO Elizondo, Daniel Elias, MD Patel, Satyen V., MD Singh, Anjanya Devendra, MD Mahasneh, Omar Ali Mohammed, MD JONO (acute kidney injury) (HCC) (Primary Dx); Hyperkalemia; Abnormal CT of the abdomen; Atrial fibrillation and flutter (HCC); Dizziness; Stage 3 chronic kidney disease, unspecified whether stage 3a or 3b CKD (HCC) Discharge Disposition: Discharge to home or self care 12/19/2023 3:30 PM [employer] OPER[employer] Office Visit [facility] Orthopedics and Sports Medicine [address] [place] [address] [address] [place] [phone] Ariel Webster PA Primary osteoarthritis of right hip (Primary Dx); Right hip pain; Chronic bilateral low back pain, unspecified whether sciatica present 12/07/2023 Documentation [facility] OP Physical Therapy [address] [place] [address] [address] [place] [address] Eva Carpenter, PT from Last 3 Months Surgical History Surgery Date Site/Laterality Comments ARM SURGERY FLUORO GUIDED INJECTION HIP RIGHT 11/15/2023 Right US GUIDED BIOPSY LIVER 12/26/2023 N/A Medical History Medical History Date Comments Arthritis Arthritis Cataract of both eyes Cataracts Bladder infection Bladder infect ion Hypertension High blood press ure Atrial fibrillation (CMS/HCC) (HCC) Lumbar facet arthropathy DDD (degenerative disc disease), lumbar 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 (HCC ) Spondylolisthesis, lumbar region Family History Medical History Relation Name Comments Heart attack Brother 3 Myocardial infa rction; Cause of : Myocardial infarction Other Brother 4 Alive and well; Other Father Water retention ; Cause of : Water retention Alzheimer's disease Mother Alzheime r's disease; Cause of : Alzheimer's disease Other Sister 3 Alive and well; COPD Sister 4 COPD; Cause of : COPD Relation Name Status Comments Brother 1 (Age 55) Brother 2 Alive Brother 3 Brother 4 Father (Age 78) Mother (Age 83) Sister 1 Alive Sister 2 (Age 70) Sister 3 Sister 4 Social History Tobacco Use Types Packs/Day Years Used Date Smoking Tobacco: Former Cigarettes Q uit: 03/10/1979 Smokeless Tobacco: Never Tobacco Cessation:Counseling Given: Not Answered Alcohol Use Standard Drinks/Week Comments No 0 (1 standard drink = 0.6 oz pur e alcohol) [facility] Utilities Answer Date Recorded In the past 12 months has th e electric, gas, oil, or water [employer] threatened to shut off services in your home? No 01/02/2024 Humiliation, Afraid, Rape, and Kick questionnair e Answer Date Recorded Within the last year, have y ou been afraid of your partner or ex-partner? No 01/02/2024 Within the last year, have y ou been humiliated or emotionally abused in other ways by your partner or ex-partner? No Within the last year, have y ou been kicked, hit, slapped, or otherwise physically hurt by your partner or ex-partner? No 01/02/2024 Within the last year, have y ou been raped or forced to have any kind of sexual activity by your partner or ex-partner? No 01/02/2024 Social Connection and Isolat ion Panel [NHANES] Answer Date Recorded In a typical week, how many times do you talk on the phone with family, friends, or neighbors? More than three times a week 01/02/2024 How often do you get togethe r with friends or relatives? More than three times a week 01/02/2024 How often do you attend chur ch or tenriism services? More than 4 times per year 01/02/2024 Do you belong to any clubs o r organizations such as druze groups, unions, fraternal or athletic groups, or school groups? No 01/02/2024 How often do you attend meet ings of the clubs or organizations you belong to? Never 01/02/2024 Are you , , di vorced, , never , or living with a partner? 01/02/2024 AUDIT-C Answer Date Recorded Q1: How often do you have a drink containing alcohol? Never 01/25/2024 Q2: How many drinks containi ng alcohol do you have on a typical day when you are drinking? Patient does not drink Q3: How often do you have si x or more drinks on one occasion? Never 01/25/2024 Overall Financial Resource Strain (CARDIA) Answe r Date Recorded How hard is it for you to pa y for the very basics like food, housing, medical care, and heating? Not hard at all 01/02/2024 [facility] [place] [facility] - Occupational Stress Questionnaire Answer Date Recorded Do you feel stress - tense, restless, nervous, or anxious, or unable to sleep at night because your mind is troubled all the time - these days? Not at all 01/02/2024 Exercise Vital Sign Answer Date Recorde d On average, how many days pe r week do you engage in moderate to strenuous exercise (like a brisk walk)? 6 days 01/02/2024 On average, how many minutes do you engage in exercise at this level? 30 min 01/02/2024 Hunger Vital Sign Answer Date Recorded Within the past 12 months, y ou worried that your food would run out before you got the money to buy more. Never true 01/02/20 24 Within the past 12 months, t he food you bought just didn't last and you didn't have money to get more. Never true 01/02/2024 PRAPARE - Transportation Answer Date Re corded In the past 12 months, has l ack of transportation kept you from medical appointments or from getting medications? No 12/09 In the past 12 months, has l ack of transportation kept you from meetings, work, or from getting things needed for daily living? No 01/02/2024 Housing Stability Vital Sign Answer Jem e Recorded In the last 12 months, was t here a time when you were not able to pay the mortgage or rent on time? No 01/02/2024 In the past 12 months, how m any times have you moved where you were living? 0 01/02/2024 At any time in the past 12 m [facility], were you homeless or living in a senior living (including now)? No 01/02/2024 Personal Safety Answer Date Recorded Have you ever been in or are you currently in a harmful physical or emotional relationship or is someone making you feel afraid or unsafe? Denies 01/01/2024 Comments No Sex and Gender Information Value Date Recorded Sex Assigned at Not on file Legal Sex Female 2:27 AM [employer] OPERATOR Gender Identity Female 06/01/2021 7:29 AM CDT Sexual Orientation Straight 06/01/2021 7: 29 AM CDT Obstetrics History Last Filed Vital Signs Vital Sign Reading Time Taken Comments Blood Pressure 158/69 02/09/2024 3:15 PM [employer] OPERATOR Pulse 97 02/09/2024 3:15 PM [employer] OPERATOR Temperature 36.8 ??C (98.3 ??F) 01/25/2024 3 :06 PM [employer]E [employer] OPERATOR Respiratory Rate 18 01/25/2024 3:06 PM [employer]E [employer] OPERATOR Oxygen Saturation 100% 02/09/2024 3:1 5 PM [employer] OPERATOR Inhaled Oxygen Concentration - - Weight 81.2 kg (179 lb) 01/25/2024 3:06 PM [employer] OPERATOR wheelchair weighs 41.8lbs Height 170.2 cm (5' 7.01 ) 01/02/2024 8 :25 PM [employer] OPERATOR Body Mass Index 28.03 01/02/2024 8:25 PM [employer] OPERATOR Plan of Treatment Health Maintenance Due Date Last Done Comments Depression Screening 1936 DTaP/Tdap/Td Vaccine (1 - Tdap) 09/18/1947 Hepatitis B Screening 1954 Zoster Vaccine (1 of 2) 09/18/1955 Well Visit 65+ 2001 Pneumococcal vaccine 65+ (2 of 2 - PPSV23 or PCV20) 01/29/2015 12/04/2014 Influenza Vaccine (#1) 2023 9, 12/02/2017, 12/02/2016, Additional history exists Fall Risk Assessment 01/23/2025 01/24/2024, 01/04/20 24 Procedures Procedure Name Priority Date/Time Associated Diagnosis Comments RAD ONC ARIA SESSION SUMMARY 02/09/2024 3:07 PM [employer] OPERATOR RAD ONC ARIA SESSION SUMMARY 02/07/2024 3:02 PM [employer] OPERATOR RAD ONC ARIA SESSION SUMMARY 02/06/2024 3:17 PM [employer]E [employer] OPERATOR RAD ONC ARIA SESSION SUMMARY 02/03/2024 1:27 PM [employer]E [employer] OPERATOR RAD ONC ARIA SESSION SUMMARY 02/02/2024 12:59 PM [employer] OPERATOR EGFR Routine 01/24/2024 12:00 PM [employer] OPERATOR COMPREHENSIVE METABOLIC PANEL Routine 01/24/2024 12:00 PM AC[employer]E PLANT OPERATOR PET/CT GA-68 DOTATATE SKULL TO THIGH Schedule Routine, Read Routine (OP Routine) 01/18/2024 2:46 PM [employer] OPERATOR Neuroendocrine tumor EGFR Routine 01/13/2024 1:45 PM [employer] OPERATOR COMPREHENSIVE METABOLIC PANEL Routine 01/13/2024 1:45 PM [employer] OPERATOR EGFR Timed 01/04/2024 12:23 PM [employer] OPERATOR PHOSPHORUS Timed 01/04/2024 12:23 PM [employer] OPERATOR MAGNESIUM Timed 01/04/2024 12:23 PM [employer] OPERATOR BASIC METABOLIC PANEL Timed 01/04/2024 12:23 PM [employer] OPERATOR CBC WITHOUT DIFFERENTIAL Routine 01/04/2024 5:02 AM [employer] OPERATOR EGFR Timed 01/03/2024 8:11 PM [employer] OPERATOR CHROMOGRANIN A Routine 01/03/2024 8:11 PM [employer] OPERATOR PHOSPHORUS Timed 01/03/2024 8:11 PM AC[employer] OPERATOR MAGNESIUM Timed 01/03/2024 8:11 PM [employer] OPERATOR BASIC METABOLIC PANEL Timed 01/03/2024 8:11 PM [employer] OPERATOR INFECTION PREVENTION JERONIMO AURIS PCR, SURVEILLANCE Routine 01/03/2024 6:38 PM [employer]E [employer] OPERATOR TRANSTHORACIC ECHO (TTE) COMPLETE W DOPPLER/CF W CONTRAST ED 01/03/2024 8:37 AM [employer]E [employer]ANT OPERATOR URIC ACID Timed 01/03/2024 8:00 AM [employer] OPERATOR LACTATE DEHYDROGENASE Timed 01/03/2024 8:00 AM AC[employer] OPERATOR EGFR Timed 01/03/2024 8:00 AM AC[employer]E PLANT OPERATOR PHOSPHORUS Timed 01/03/2024 8:00 AM AC[employer]E PLANT OPERATOR MAGNESIUM Timed 01/03/2024 8:00 AM AC[employer]E PLANT OPERATOR BASIC METABOLIC PANEL Timed 01/03/2024 8:00 AM AC[employer]E [employer]ANT OPERATOR LACTATE Routine 01/03/2024 5:06 AM AC[employer]E [employer]ANT OPERATOR COPPER, SERUM Routine 01/03/2024 5:06 AM AC[employer]E PLANT OPERATOR G6PD QUALITATIVE WITH REFLEX TO QUANTITATIVE Routine 01/02/2024 11:19 PM AC[employer] OPERATOR EGFR Timed 01/02/2024 11:19 PM AC[employer]E [employer]ANT OPERATOR CBC WITHOUT DIFFERENTIAL Routine 01/02/2024 11:19 PM ACETY[employer]E PLANT OPERATOR PHOSPHORUS Timed 01/02/2024 11:19 PM ACETY[employer]E PLANT OPERATOR MAGNESIUM Timed 01/02/2024 11:19 PM AC[employer]E [employer]ANT OPERATOR BASIC METABOLIC PANEL Timed 01/02/2024 11:19 PM AC[employer]E [employer] OPERATOR SODIUM, URINE, RANDOM Routine 01/02/2024 5:16 PM AC[employer]E [employer] OPERATOR CREATININE, URINE, RANDOM Routine 01/02/2024 5:16 PM AC[employer]E [employer]ANT OPERATOR UREA NITROGEN, URINE, RANDOM Routine 01/02/2024 5:16 PM AC[employer]E [employer]ANT OPERATOR CERULOPLASMIN Routine 01/02/2024 2:04 PM [employer]E [employer]ANT OPERATOR EXTRA SLIDE PREPARATION Routine 01/02/2024 2:04 PM AC[employer]E [employer]ANT OPERATOR METHYLMALONIC ACID, SERUM Routine 01/02/2024 2:04 PM AC[employer]E PLANT OPERATOR VITAMIN D 25 HYDROXY Routine 01/02/2024 2:04 PM AC[employer]E [employer]ANT OPERATOR PTH Routine 01/02/2024 2:04 PM AC[employer]E PLANT OPERATOR TSH Routine 01/02/2024 2:04 PM AC[employer]E PLANT OPERATOR TROPONIN I HIGH-SENSITIVITY 2-HOUR Timed 01/01/2024 9:57 PM [employer]E [employer] OPERATOR URINALYSIS AND REFLEX TO MICROSCOPIC AND CULTURE STAT 01/01/2024 9:57 PM [employer]E [employer] OPERATOR XR CHEST 1 VIEW ED 01/01/2024 7:17 PM [employer]E [employer] OPERATOR EGFR STAT 01/01/2024 6:52 PM AC[employer]E [employer]ANT OPERATOR DIFFERENTIAL AUTO STAT 01/01/2024 6:5 2 PM [employer] OPERATOR PRO B-TYPE NATRIURETIC PEPTIDE STAT 01/01/2024 6:52 PM AC[employer]E PLANT OPERATOR TROPONIN I HIGH-SENSITIVITY SERIES (BASELINE, 2HR, 4HR, 6HR) STAT 01/01/2024 6:52 PM AC[employer]E [employer]ANT OPERATOR COMPREHENSIVE METABOLIC PANEL STAT 01/01/2024 6:52 PM AC[employer]E [employer]ANT OPERATOR CBC WITH AUTO DIFFERENTIAL STAT 01/01/2024 6:52 PM ACETY[employer]E PLANT OPERATOR ECG 12-LEAD STAT 01/01/2024 6:15 PM AC[employer]E [employer] OPERATOR EGFR Routine 12/30/2023 7:05 AM AC[employer]E PLANT OPERATOR DIFFERENTIAL AUTO Routine 12/30/2023 7:0 5 AM AC[employer]E PLANT OPERATOR COMPREHENSIVE METABOLIC PANEL Routine 12/30/2023 7:05 AM ACETY[employer]E PLANT OPERATOR MAGNESIUM Routine 12/30/2023 7:05 AM AC[employer]E PLANT OPERATOR PHOSPHORUS Routine 12/30/2023 7:05 AM ACETY[employer]E PLANT OPERATOR CBC WITH AUTO DIFFERENTIAL Routine 12/30/2023 7:05 AM ACETY[employer]E PLANT OPERATOR EGFR Routine 12/29/2023 9:06 AM ACETY[employer]E PLANT OPERATOR DIFFERENTIAL AUTO Routine 12/29/2023 9:0 6 AM ACETY[employer]E PLANT OPERATOR COMPREHENSIVE METABOLIC PANEL Routine 12/29/2023 9:06 AM ACETY[employer]E PLANT OPERATOR MAGNESIUM Routine 12/29/2023 9:06 AM ACETY[employer]E PLANT OPERATOR PHOSPHORUS Routine 12/29/2023 9:06 AM ACETY[employer]E PLANT OPERATOR CBC WITH AUTO DIFFERENTIAL Routine 12/29/2023 9:06 AM ACETY[employer]E PLANT OPERATOR EGFR Routine 12/28/2023 7:35 AM AC[employer]E PLANT OPERATOR DIFFERENTIAL AUTO Routine 12/28/2023 7:3 5 AM AC[employer]E PLANT OPERATOR COMPREHENSIVE METABOLIC PANEL Routine 12/28/2023 7:35 AM ACETYLENE PLANT OPERATOR MAGNESIUM Routine 12/28/2023 7:35 AM ACETY[employer]E PLANT OPERATOR PHOSPHORUS Routine 12/28/2023 7:35 AM ACETY[employer]E PLANT OPERATOR CBC WITH AUTO DIFFERENTIAL Routine 12/28/2023 7:35 AM AC[employer]E PLANT OPERATOR CT CHEST W CONTRAST IP Routine 12/27/2023 1 0:34 PM [employer]E [employer]ANT OPERATOR ERYTHROCYTE SEDIMENTATION RATE Routine 12/27/2023 2:49 PM AC[employer]E PLANT OPERATOR CRP (ACUTE PHASE) Routine 12/27/2023 2:4 9 PM AC[employer]E PLANT OPERATOR IRON PROFILE W/ IBC Routine 12/27/2023 2 :49 PM ACETY[employer]E [employer]ANT OPERATOR FERRITIN Routine 12/27/2023 2:49 PM ACETY[employer]E [employer]ANT OPERATOR FOLATE Routine 12/27/2023 2:49 PM ACETY[employer]E PLANT OPERATOR VITAMIN B12 Routine 12/27/2023 2:49 PM ACETY[employer]E PLANT OPERATOR RETICULOCYTES Routine 12/27/2023 2:49 PM ACETY[employer]E PLANT OPERATOR HEPATIC FUNCTION PANEL Routine 12/27/2023 5:46 AM ACETY[employer]E PLANT OPERATOR EGFR Routine 12/27/2023 5:46 AM ACETY[employer]E PLANT OPERATOR DIFFERENTIAL AUTO Routine 12/27/2023 5:4 6 AM ACETY[employer]E PLANT OPERATOR CBC WITH AUTO DIFFERENTIAL Routine 12/27/2023 5:46 AM ACETYLENE PLANT OPERATOR BASIC METABOLIC PANEL Routine 12/27/2023 5:46 AM ACETY[employer]E PLANT OPERATOR US GUIDED BIOPSY LIVER IP Routine 12/26/2023 3:31 PM ACETY[employer]E PLANT OPERATOR SURGICAL PATHOLOGY Routine 12/26/2023 2: 19 PM AC[employer]E [employer]ANT OPERATOR EGFR Routine 12/26/2023 6:55 AM ACETY[employer]E PLANT OPERATOR DIFFERENTIAL AUTO Routine 12/26/2023 6:5 5 AM ACETY[employer]E PLANT OPERATOR PROTIME-INR Routine 12/26/2023 6:55 AM ACETY[employer]E PLANT OPERATOR CBC WITH AUTO DIFFERENTIAL Routine 12/26/2023 6:55 AM ACETY[employer]E PLANT OPERATOR BASIC METABOLIC PANEL Routine 12/26/2023 6:55 AM ACETY[employer]E PLANT OPERATOR APTT Routine 12/26/2023 6:55 AM ACETY[employer]E PLANT OPERATOR EGFR Routine 12/25/2023 7:31 AM ACETY[employer]E PLANT OPERATOR BASIC METABOLIC PANEL Routine 12/25/2023 7:31 AM ACETYLENE PLANT OPERATOR EGFR Routine 12/24/2023 5:15 AM ACETYLENE PLANT OPERATOR BASIC METABOLIC PANEL Routine 12/24/2023 5:15 AM ACETYLENE PLANT OPERATOR EGFR Routine 12/23/2023 6:47 AM ACETYLENE PLANT OPERATOR DIFFERENTIAL AUTO Routine 12/23/2023 6:4 7 AM ACETY[employer]E PLANT OPERATOR CBC WITH AUTO DIFFERENTIAL Routine 12/23/2023 6:47 AM ACETY[employer]E PLANT OPERATOR BASIC METABOLIC PANEL Routine 12/23/2023 6:47 AM ACETYLENE PLANT OPERATOR US KIDNEY COMPLETE IP Routine 12/22/2023 3: 56 PM [employer] EGFR Routine 12/22/2023 7:12 AM [employer] OPERATOR DIFFERENTIAL AUTO Routine 12/22/2023 7:1 2 AM [employer] O[employer]ATOR TSH Routine 12/22/2023 7:12 AM [employer] O[employer] CBC WITH AUTO DIFFERENTIAL Routine 12/22/2023 7:12 AM [employer] OPERATOR BASIC METABOLIC PANEL Routine 12/22/2023 7:12 AM [employer] LACTATE DEHYDROGENASE Routine 12/21/2023 2:41 PM [employer] O[employer]ATOR CANCER ANTIGEN 19-9 Routine 12/21/2023 2 :41 PM [employer] O[employer] CEA Routine 12/21/2023 2:41 PM [employer] O[employer]ATOR US VEIN DUPLEX LOWER EXTREMITY BILATERAL COMPLETE IP Routine 12/21/2023 12:07 PM [employer] EGFR Routine 12/21/2023 9:16 AM [employer] OPERATOR DIFFERENTIAL AUTO Routine 12/21/2023 9:1 6 AM [employer] OPERATOR CBC WITH AUTO DIFFERENTIAL Routine 12/21/2023 9:16 AM [employer] OPERATOR BASIC METABOLIC PANEL Routine 12/21/2023 9:16 AM [employer] O[employer]ATOR PTH Routine 12/21/2023 9:16 AM [employer] O[employer]ATOR POTASSIUM LEVEL Timed 12/20/2023 8:12 PM [employer] O[employer]ATOR CALCIUM, IONIZED Routine 12/20/2023 5:24 PM [employer] O[employer]ATOR VITAMIN D 25 HYDROXY Routine 12/20/2023 5:24 PM [employer] O[employer] POCT GLUCOSE DEVICE Routine 12/20/2023 5 :05 PM [employer] O[employer] POCT GLUCOSE DEVICE Routine 12/20/2023 3 :02 PM [employer] O[employer]ATOR MAGNESIUM Timed 12/20/2023 11:25 AM [employer] OPERATOR POTASSIUM LEVEL Timed 12/20/2023 11:25 AM [employer] OPERATOR ECG 12-LEAD STAT 12/20/2023 9:47 AM [employer] OPERATOR XR CHEST 1 VIEW ED 12/20/2023 9:27 AM [employer] OPERATOR POCT GLUCOSE DEVICE Routine 12/20/2023 9 :14 AM [employer] OPER[employer] CT ABDOMEN PELVIS WO CONTRAST ED 12/20/2023 9:00 AM [employer] O[employer]ATOR SEPSIS LACTATE WITH REFLEX STAT 12/20/2023 8:46 AM [employer] OPERATOR BLOOD CULTURE STAT 12/20/2023 8:46 AM [employer] OPERATOR BLOOD CULTURE STAT 12/20/2023 8:32 AM [employer] OPERATOR URINALYSIS, MICROSCOPIC ONLY STAT 12/20/2023 7:30 AM [employer] OPERATOR URINALYSIS AND REFLEX TO MICROSCOPIC AND CULTURE STAT 12/20/2023 7:30 AM [employer] OPERATOR CREATINE KINASE (CK), TOTAL STAT 12/20/2023 5:32 AM [employer] OPERATOR EGFR STAT 12/20/2023 5:32 AM [employer] OPERATOR DIFFERENTIAL AUTO STAT 12/20/2023 5:3 2 AM [employer] OPERATOR COMPREHENSIVE METABOLIC PANEL STAT 12/20/2023 5:32 AM [employer] OPERATOR CBC WITH AUTO DIFFERENTIAL STAT 12/20/2023 5:32 AM [employer] OPERATOR from Last 3 Months Results * RAD ONC ARIA SESSION SUMMARY (02/09/2024 3:07 PM [employer] OPERATOR) Course Name [email or web address]_ 2023 ARIA Course Plan Date 01/24/2024 12:03 PM ARIA Elapsed Days 7 ARIA Treatment Start Date 02/02/2024 ARIA Treatment Site RT_HIP ARIA Dose Given To Date (cGy) 2,000 ARIA Session Dosage Given (cGy) 400 ARIA Plan ID RT_HIP ARIA Fractions Treated 5 ARIA Prescribed Dose Per Fraction (cGy) 400 ARIA Prescribed Total Dose (cGy) 2,000 ARIA 02/09/2024 3:07 PM [employer] OPERATOR us Not In File Miscellaneous RADIATION ONCOLOGY ORD ERABLES Final Result Performing Organization Address City/[facility] Co de Phone Number ARIAlen * RAD ONC ARIA SESSION SUMMARY (02/07/2024 3:02 PM [employer] OPERATOR) Course Name [email or web address]_ 2023 ARIA Course Plan Date 01/24/2024 12:03 PM ARIA Elapsed Days 5 ARIA Treatment Start Date 02/02/2024 ARIA Treatment Site RT_HIP ARIA Dose Given To Date (cGy) 1,600 ARIA Session Dosage Given (cGy) 400 ARIA Plan ID RT_HIP ARIA Fractions Treated 4 ARIA Prescribed Dose Per Fraction (cGy) 400 ARIA Prescribed Total Dose (cGy) 2,000 ARIA 02/07/2024 3:02 PM [employer] OPERATOR us Not In File Miscellaneous RADIATION ONCOLOGY ORD ERABLES Final Result Performing Organization Address City/State/[facility] Co de Phone Number ARIA * RAD ONC ARIA SESSION SUMMARY (02/06/2024 3:17 PM [employer] OPERATOR) Course Name [email or web address]_ 2023 ARIA Course Plan Date 01/24/2024 12:03 PM ARIA Elapsed Days 4 ARIA Treatment Start Date 02/02/2024 ARIA Treatment Site RT_HIP ARIA Dose Given To Date (cGy) 1,200 ARIA Session Dosage Given (cGy) 400 ARIA Plan ID RT_HIP ARIA Fractions Treated 3 ARIA Prescribed Dose Per Fraction (cGy) 400 ARIA Prescribed Total Dose (cGy) 2,000 ARIA 02/06/2024 3:17 PM [employer] OPERATOR us Not In File Miscellaneous RADIATION ONCOLOGY ORD ERABLES Final Result Performing Organization Address [facility] Co de Phone Number ARIA * RAD ONC ARIA SESSION SUMMARY (02/03/2024 1:27 PM [employer] OPERATOR) Course Name [id number] ARIA Course Plan Date 01/24/2024 12:03 PM ARIA Elapsed Days 1 ARIA Treatment Start Date 02/02/2024 ARIA Treatment Site RT_HIP ARIA Dose Given To Date (cGy) 800 ARIA Session Dosage Given (cGy) 400 ARIA Plan ID RT_HIP ARIA Fractions Treated 2 ARIA Prescribed Dose Per Fraction (cGy) 400 ARIA Prescribed Total Dose (cGy) 2,000 ARIA 02/03/2024 1:27 PM [employer] OPERATOR us Not In File Miscellaneous RADIATION ONCOLOGY ORD ERABLES Final Result ARIA * RAD ONC ARIA SESSION SUMMARY (02/02/2024 12:59 PM [employer] OPERATOR) Course Name C1_RT_[email or web address]_ 2023 ARIA Course Plan Date 01/24/2024 12:03 PM ARIA Elapsed Days 0 ARIA Treatment Start Date 02/02/2024 ARIA Treatment Site RT_HIP ARIA Dose Given To Date (cGy) 400 ARIA Session Dosage Given (cGy) 400 ARIA Plan ID RT_HIP ARIA Fractions Treated 1 ARIA Prescribed Dose Per Fraction (cGy) 400 ARIA Prescribed Total Dose (cGy) 2,000 ARIA 02/02/2024 12:5 9 PM [employer] OPERATOR us Not In File Miscellaneous RADIATION ONCOLOGY ORD ERABLES Final Result ROBIN * (ABNORMAL) eGFR (01/24/2024 12:00 PM [employer] OPERATOR) eGFR 29(L) >=60 mL/min/1. 73 m2 Comment: Interpretive Data Reference Interval Normal ?>/= 90 mL/min/1.73m2 Mildly decreased* ? 60 - 89 mL/min/1.73m2 Mildly to moderately decreased ?45 - 59 mL/min/1.73m2 Moderately to severely decreased ??30 - 44 mL/min/1.73m2 Severely decreased ?15 - 29 mL/min/1.73m2 Kidney Failure ?< 15 ??mL/min/1.73m2 *Relative to young adult level Estimated glomerular filtration rate is determined by the 2020 CKD-EPI equation recommended by the National Kidney Foundation (A Unifying Approach to GFR Estimation: Recommendations of the NKF-ASK Task Force on Reassessing the Inclusion of Race in Diagnosing Kidney Disease, JASN 2020). The CKD-EPI equation should not be used for patients with unstable renal function and has not been validated in children and those over 70. Current interpretive data was last reviewed 2020. Testing performed by: [facility], [address] [place] [address]., [id number] Blood 01/24/2024 12:0 0 PM [employer] OPERATOR 01/24/2024 1:49 PM [employer] OPERATOR us Asael GUSMAN LAB BLOOD ORDERABLES Kaci schuster Result [facility] [address] [facility] Department [place] [address] * (ABNORMAL) Comprehensive metabolic panel (01/24/2024 12:00 PM [employer] OPERATOR) Sodium 135 135 - 145 mmol/L Comment:Testing performed by : [address] [address] Potassium, pl 5.6(H) 3.3 - 4.9 mmol/L [facility] Comment:Testing performed by : [address] [address] Chloride 100 97 - 110 mmol/L [facility] Comment:Testing performed by : [address] [address] CO2 22 22 - 32 mmol/L [facility] Comment:Testing performed by : [address] [address] Anion gap 13 2 - 15 mmol/L [facility] Comment:Testing performed by : [address] [address] BUN 37(H) 6 - 25 mg/dL [facility] Comment:Testing performed by : [address] [address] Creatinine 1.70(H) 0.60 - 1.10 mg/dL [facility] Comment:Testing performed by : [address] [address] Glucose 97 70 - 199 mg/dL [facility] Comment: Interpretive Data Fasting glucose >/= 126 mg/dl is diagnostic for diabetes. ?? Fasting is defined as no caloric intake for at least 8 hours. Fasting glucose between 100 mg/dl to 125 mg/dl is diagnostic of prediabetes. In a patient with classic symptoms of hyperglycemia or hyperglycemic crisis, a random glucose >/= 200 mg/dl is diagnostic for diabetes. In the absence of unequivocal hyperglycemia, results should be confirmed by repeat testing. The classification and Diagnosis of Diabetes Diabetes Care 2021; 46: S19-S40. Current interpretive data was last revised 2022. Testing performed by: [address] [address] Calcium 10.4(H) 8.5 - 10.3 mg/dL [facility] Comment:Testing performed by : [address] [address] Bilirubin, total 0.2 0.1 - 1.2 mg/dL [facility] Comment:Testing performed by : [address] [address] Protein, pl 7.2 6.5 - 8.5 g/dL [facility] Comment:Testing performed by : [address] [address] Albumin 3.9 3.5 - 5.0 g/dL [facility] Comment:Testing performed by : [address] [address] Alk phos 134(H) 40 - 130 Units/L [facility] Comment:Testing performed by : [address] [address] ALT 15 7 - 45 Units/L [facility] Comment:Testing performed by : [address] [address] AST 33 10 - 45 Units/L [facility] Comment:Testing performed by : [address] [address] Blood 01/24/2024 12:0 0 PM [employer] OPERATOR 01/24/2024 1:49 PM [employer] OPERATOR Asael GUSMAN LAB BLOOD ORDERABLES Kaci l Result [facility] [address] [facility] Department of Laboratories [place], [place] [id number] * PET/CT Dotatate Skull to Thigh (01/18/2024 2:46 PM AC[employer] OPERATOR) Anatomical Region Laterality Modality Positron Emissio n Tomography (PET) 01/18/2024 4:10 PM [employer] OPERATOR Impressions 01/18/2024 5:47 PM [employer] OPERATOR 1. ??Minimally tracer avid right upper lobe pulmonary lesion, paratracheal lymph nodes, consistent with primary lung neuroendocrine tumor. ?? 2. Peripherally tracer avid hepatic and adrenal lesions, consistent with metastatic disease 3. ??minimally tracer avid right ischial lesion consistent with osseous metastatic disease. 4. Given the poor level of DOTATATE activity, this would likely be better characterized with FDG PET imaging. Modified Krenning score = 1 Dictated by: Jennifer Finnegan MD The radiology attending physician has personally reviewed this study, and had reviewed and/or edited this written report and agrees with it. Electronically signed by: DO Regi Ba 01/18/2024 5:47 PM [employer] OPERATOR EXAMINATION: Cu-64 DOTATATE -PET/CT IMAGING DATE OF STUDY: ??01/18/2024 SCANNER: [facility] (SQ1). ??This is a high-resolution scanner, which can result in higher SUVs (and even detection of new small lesions) compared to older scanners. RADIOPHARMACEUTICAL: 4.69 mCi Cu-64 DOTATATE i.v. 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 ??Concern for primary malignancy in the lung.. ??The study is requested for diagnosis. Initial treatment strategy. TECHNIQUE: ??After intravenous administration of the radiopharmaceutical, noncontrast CT images were obtained for attenuation correction and for fusion with emission PET images to allow for anatomical localization of PET findings. ??Emission PET images were then obtained. ??The study was interpreted on the As Seen on TV workstation. ?? The total scanned area was skull vertex to proximal thighs. Images of the body were obtained starting 47 minutes after injection of tracer. REFERENCE TISSUE MAXIMUM SUVs: Liver 10.3 Spleen 28.4 Focal DOTATATE tracer uptake (visually classified on MIP images) in reference lesions on PET is graded as follows (Modified Krenning Score): 0. ??No uptake (Negative) 1. ??Uptake < ??liver (Minimal) 2. ??Uptake = liver (Mild) 3. ??Uptake > liver, but < spleen (Moderate) 4. ??Uptake > spleen (Intense) COMPARISON: CT dated 12/27/2023, 12/20/2023 FINDINGS: A right upper lobe pulmonary soft tissue mass measuring approximately 33 x 20 mm reveals minimal tracer uptake. ??This mass abuts the medial mediastinum. ??There are adjacent right upper tracheal lymph nodes with minimal tracer uptake. ?? There is a large right adrenal lesion measuring approximately 62 x 36 mm. There is peripheral minimal tracer uptake with central photopenia. There is a hypoattenuating large liver lesion measuring approximately 86 x 56 mm in segment V/ which reveals peripheral mild tracer uptake. ?? Central more hypoattenuating areas within these lesions are photopenic. Another smaller hypoattenuating hepatic lesion is present in segment /VII measuring approximately 17 mm, ??better seen on recent CT, does not reveal increased tracer uptake, and likely represents a benign etiology. Heterogenous sclerotic lesion involving ??the right ischial bone and posterior lip of right acetabulum reveals minimal FDG uptake. Tracer uptake along the left cervical spine at the C3-C4 level is likely degenerative. Additional CT findings: Interval resolution of bilateral pleural effusion. ??Hiatal hernia. ??Aortic and coronary calcifications. Calcified lung nodules represent old granulomatous disease. Hyperdense contents in the gallbladder. ??Diverticulosis. ??Bilateral renal cysts. ??Small fat-containing para umbilical hernia. Fat-containing uterine lesion. ??Degenerative changes in the spine. Procedure Note Norm Negro DO - 01/18/2024 EXAMINATION: Cu-64 DOTATATE -PET/CT IMAGING DATE OF STUDY: 01/18/2024 SCANNER: [facility] (SQ1). This is a high-resolution scanner, which can result in higher SUVs (and even detection of new small lesions) compared to older scanners. RADIOPHARMACEUTICAL: 4.69 mCi Cu-64 DOTATATE i.v. 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 Concern for primary malignancy in the lung.. The study is requested for diagnosis. Initial treatment strategy. TECHNIQUE: After intravenous administration of the radiopharmaceutical, noncontrast CT images were obtained for attenuation correction and for fusion with emission PET images to allow for anatomical localization of PET findings. Emission PET images were then obtained. The study was interpreted on the As Seen on TV workstation. The total scanned area was skull vertex to proximal thighs. Images of the body were obtained starting 47 minutes after injection of tracer. REFERENCE TISSUE MAXIMUM SUVs: Liver 10.3 Spleen 28.4 Focal DOTATATE tracer uptake (visually classified on MIP images) in reference lesions on PET is graded as follows (Modified Krenning Score): 0. No uptake (Negative) 1. Uptake < liver (Minimal) 2. Uptake = liver (Mild) 3. Uptake > liver, but < spleen (Moderate) 4. Uptake > spleen (Intense) COMPARISON: CT dated 12/27/2023, 12/20/2023 FINDINGS: A right upper lobe pulmonary soft tissue mass measuring approximately 33 x 20 mm reveals minimal tracer uptake. This mass abuts the medial mediastinum. There are adjacent right upper tracheal lymph nodes with minimal tracer uptake. There is a large right adrenal lesion measuring approximately 62 x 36 mm. There is peripheral minimal tracer uptake with central photopenia. There is a hypoattenuating large liver lesion measuring approximately 86 x 56 mm in segment V/ which reveals peripheral mild tracer uptake. Central more hypoattenuating areas within these lesions are photopenic. Another smaller hypoattenuating hepatic lesion is present in segment /VII measuring approximately 17 mm, better seen on recent CT, does not reveal increased tracer uptake, and likely represents a benign etiology. Heterogenous sclerotic lesion involving the right ischial bone and posterior lip of right acetabulum reveals minimal FDG uptake. Tracer uptake along the left cervical spine at the C3-C4 level is likely degenerative. Additional CT findings: Interval resolution of bilateral pleural effusion. Hiatal hernia. Aortic and coronary calcifications. Calcified lung nodules represent old granulomatous disease. Hyperdense contents in the gallbladder. Diverticulosis. Bilateral renal cysts. Small fat-containing para umbilical hernia. Fat-containing uterine lesion. Degenerative changes in the spine. IMPRESSION: 1. Minimally tracer avid right upper lobe pulmonary lesion, paratracheal lymph nodes, consistent with primary lung neuroendocrine tumor. 2. Peripherally tracer avid hepatic and adrenal lesions, consistent with metastatic disease 3. minimally tracer avid right ischial lesion consistent with osseous metastatic disease. 4. Given the poor level of DOTATATE activity, this would likely be better characterized with FDG PET imaging. Modified Krenning score = 1 Dictated by: Jennifer Finnegan MD The radiology attending physician has personally reviewed this study, and had reviewed and/or edited this written report and agrees with it. Electronically signed by: Norm Negor DO us Subhash Aranda MD IMG PET PROCEDURES Final Result * (ABNORMAL) eGFR (01/13/2024 1:45 PM AC[employer]E [employer] OPERATOR) eGFR 20(L) >=60 mL/min/1. 73 m2 Comment: Interpretive Data Reference Interval Normal ?>/= 90 mL/min/1.73m2 Mildly decreased* ? 60 - 89 mL/min/1.73m2 Mildly to moderately decreased ?45 - 59 mL/min/1.73m2 Moderately to severely decreased ??30 - 44 mL/min/1.73m2 Severely decreased ?15 - 29 mL/min/1.73m2 Kidney Failure ?< 15 ??mL/min/1.73m2 *Relative to young adult level Estimated glomerular filtration rate is determined by the 2020 CKD-EPI equation recommended by the National Kidney Foundation (A Unifying Approach to GFR Estimation: Recommendations of the NKF-ASK Task Force on Reassessing the Inclusion of Race in Diagnosing Kidney Disease, JASN 2020). The CKD-EPI equation should not be used for patients with unstable renal function and has not been validated in children and those over 70. Current interpretive data was last reviewed 2020. Testing performed by: [facility], [address] [place] [address], [place]., [address] Blood 01/13/2024 1:45 PM AC[employer]E PLANT OPERATOR 01/13/2024 2:28 PM ACETY[employer]E PL[employer] OPERATOR us Asael GUSMAN LAB BLOOD ORDERABLES Kaci l Result [id number] [address] [facility] [place] [address] * (ABNORMAL) Comprehensive metabolic panel (01/13/2024 1:45 PM ACETYLENE PLANT OPERATOR) [facility] Signature Sodium 132(L) 135 - 145 mmol/L Comment:Testing performed by : [address] [address] Potassium, pl 4.8 3.3 - 4.9 mmol/L [facility] Comment:Testing performed by : [address] [address] Chloride 96(L) 97 - 110 mmol/L [facility] Comment:Testing performed by : [address] [address] CO2 22 22 - 32 mmol/L [facility] Comment:Testing performed by : [address] [address] Anion gap 14 2 - 15 mmol/L [facility] Comment:Testing performed by : [address] [address] BUN 53(H) 6 - 25 mg/dL [facility] Comment:Testing performed by : [address] [address] Creatinine 2.30(H) 0.60 - 1.10 mg/dL [facility] Comment:Testing performed by : [address] [address] Glucose 104 70 - 199 mg/dL [facility] Comment: Interpretive Data Fasting glucose >/= 126 mg/dl is diagnostic for diabetes. ?? Fasting is defined as no caloric intake for at least 8 hours. Fasting glucose between 100 mg/dl to 125 mg/dl is diagnostic of prediabetes. In a patient with classic symptoms of hyperglycemia or hyperglycemic crisis, a random glucose >/= 200 mg/dl is diagnostic for diabetes. In the absence of unequivocal hyperglycemia, results should be confirmed by repeat testing. The classification and Diagnosis of Diabetes Diabetes Care 202; 46: S19-S40. Current interpretive data was last revised 2022. Testing performed by: [address] [address] Calcium 9.9 8.5 - 10.3 mg/dL [facility] Comment:Testing performed by : [address] [address] Bilirubin, total 0.2 0.1 - 1.2 mg/dL [facility] Comment:Testing performed by : [address] [address] Protein, pl 7.1 6.5 - 8.5 g/dL [facility] Comment:Testing performed by : [address] [address] Albumin 3.8 3.5 - 5.0 g/dL [facility] Comment:Testing performed by : [address], [place]., [address] Alk phos 139(H) 40 - 130 Units/L [facility] Comment:Testing performed by : [address] [address] ALT 22 7 - 45 Units/L [facility] Comment:Testing performed by : [address] [address] AST 43 10 - 45 Units/L [facility] Comment:Testing performed by : [address] [address] Blood 01/13/2024 1:45 PM ACETY[employer]E PLANT OPERATOR 01/13/2024 2:28 PM ACETYLENE PLANT OPERATOR us Asael GUSMAN LAB BLOOD ORDERABLES Kaci l Result Performing Organization Address City/State/[facility] Co de Phone Number [facility] [address] [facility] Department of Laboratories [place], [place] [id number] * (ABNORMAL) eGFR (01/04/2024 12:23 PM ACETYLENE PLANT OPERATOR) eGFR 28(L) >=60 mL/min/1. 73 m2 Comment: Interpretive Data Reference Interval Normal ?>/= 90 mL/min/1.73m2 Mildly decreased* ? 60 - 89 mL/min/1.73m2 Mildly to moderately decreased ?45 - 59 mL/min/1.73m2 Moderately to severely decreased ??30 - 44 mL/min/1.73m2 Severely decreased ?15 - 29 mL/min/1.73m2 Kidney Failure ?< 15 ??mL/min/1.73m2 *Relative to young adult level Estimated glomerular filtration rate is determined by the 2020 CKD-EPI equation recommended by the National Kidney Foundation (A Unifying Approach to GFR Estimation: Recommendations of the NKF-ASK Task Force on Reassessing the Inclusion of Race in Diagnosing Kidney Disease, JASN 2020). The CKD-EPI equation should not be used for patients with unstable renal function and has not been validated in children and those over 70. Current interpretive data was last reviewed 2020. Blood 01/04/2024 12:2 3 PM AC[employer]E PL[employer] OPERATOR 01/04/2024 12:34 PM ACETYLENE PLANT OPERATOR Esther Alfonso MD LAB BLOOD ORDERABLES Final Result [facility] [place] [place] [address] * Phosphorus (01/04/2024 12:23 PM ACETYLENE PLANT OPERATOR) Phosphorus, pl 3.3 2.3 - 4.5 mg/dL Blood 01/04/2024 12:2 3 PM ACETY[employer]E PLANT OPERATOR 01/04/2024 12:34 PM ACETYLENE PLANT OPERATOR us Esther Alfonso MD LAB BLOOD ORDERABLES Final Result [facility] [place] [place] [address] * Magnesium (01/04/2024 12:23 PM ACETYLENE PLANT OPERATOR) Magnesium 2.5 1.4 - 2.5 mg/dL Blood 01/04/2024 12:2 3 PM ACETYLENE PLANT OPERATOR 01/04/2024 12:34 PM ACETYLENE PLANT OPERATOR Esther Alfonso MD LAB BLOOD ORDERABLES Final Result Performing Organization Address City/[facility]/ZIP Co de Phone Number [facility] Department [place] [address] * (ABNORMAL) Basic metabolic panel (01/04/2024 12:23 PM ACETYLENE PLANT OPERATOR) [facility] Sodium 139 135 - 145 mmol/L Potassium, pl 4.9 3.3 - 4.9 mmol/L [facility] Chloride 101 97 - 110 mmol/L [facility] CO2 27 22 - 32 mmol/L [facility] Anion gap 11 2 - 15 mmol/L [facility] BUN 28(H) 6 - 25 mg/dL [facility] Creatinine 1.74(H) 0.60 - 1.10 mg/dL [facility] Glucose 127 70 - 199 mg/dL [facility] Comment: Interpretive Data Fasting glucose >/= 126 mg/dl is diagnostic for diabetes. ?? Fasting is defined as no caloric intake for at least 8 hours. Fasting glucose between 100 mg/dl to 125 mg/dl is diagnostic of prediabetes. In a patient with classic symptoms of hyperglycemia or hyperglycemic crisis, a random glucose >/= 200 mg/dl is diagnostic for diabetes. In the absence of unequivocal hyperglycemia, results should be confirmed by repeat testing. The classification and Diagnosis of Diabetes Diabetes Care 2021; 46: S19-S40. Current interpretive data was last revised 2022. Calcium 9.4 8.5 - 10.3 mg/dL [facility] Blood 01/04/2024 12:2 3 PM ACETY[employer]E PLANT OPERATOR 01/04/2024 12:34 PM ACETY[employer]E PLANT OPERATOR us Esther Alfonso MD LAB BLOOD ORDERABLES Final Result Performing Organization Address [facility] Co de Phone Number [facility] Department [place] [address] * (ABNORMAL) CBC without differential (01/04/2024 5:02 AM ACETYLENE PLANT OPERATOR) [facility] WBC 7.8 3.8 - 9.9 K/cumm Hgb 9.3(L) 11.9 - 15.5 g/dL [facility] Hct 28.3(L) 35.6 - 45.5 % [facility] Plt 326 150 - 400 K/cumm [facility] MPV 10.5 9.1 - 12.3 fL [facility] RBC 2.89(L) 3.90 - 5.20 M/cumm [facility] MCV 97.9(H) 81.3 - 96.4 fL [facility] MCH 32.2 27.1 - 33.3 pg [facility] MCHC 32.9 32.3 - 35.7 g/dL [facility] RDW CV 16.1(H) 11.1 - 14.9 % [facility] RDW SD 58.3(H) 35.7 - 48.1 fL [facility] NRBC abs 0.00 0.00 - 0.01 K/cumm [facility] Blood 01/04/2024 5:02 AM ACETYLENE PLANT OPERATOR 01/04/2024 7:19 AM ACETYLENE PLANT OPERATOR us Esther Alfonso MD LAB BLOOD ORDERABLES Final Result Performing Organization Address City/State/[facility] Co de Phone Number [facility] Department [place] [address] * (ABNORMAL) eGFR (01/03/2024 8:11 PM ACETYLENE PLANT OPERATOR) [facility] eGFR 25(L) >=60 mL/min/1. 73 m2 Comment: Interpretive Data Reference Interval Normal ?>/= 90 mL/min/1.73m2 Mildly decreased* ? 60 - 89 mL/min/1.73m2 Mildly to moderately decreased ?45 - 59 mL/min/1.73m2 Moderately to severely decreased ??30 - 44 mL/min/1.73m2 Severely decreased ?15 - 29 mL/min/1.73m2 Kidney Failure ?< 15 ??mL/min/1.73m2 *Relative to young adult level Estimated glomerular filtration rate is determined by the 2020 CKD-EPI equation recommended by the National Kidney Foundation (A Unifying Approach to GFR Estimation: Recommendations of the NKF-ASK Task Force on Reassessing the Inclusion of Race in Diagnosing Kidney Disease, JASN 2020). The CKD-EPI equation should not be used for patients with unstable renal function and has not been validated in children and those over 70. Current interpretive data was last reviewed 2020. Blood 01/03/2024 8:11 PM ACETYLENE PLANT OPERATOR 01/03/2024 8:30 PM ACETYLENE PLANT OPERATOR Esther Alfonso MD LAB BLOOD ORDERABLES Final Result [facility] Department [place] [address] * (ABNORMAL) Chromogranin A (01/03/2024 8:11 PM ACETYLENE PLANT OPERATOR) Chromogranin A 959(H) <93 ng/mL [facility] Comment: Impaired renal or hepatic function or treatment with proton pump inhibitors may result in artifactual elevations of Chromogranin A. ADDITIONAL INFORMATION The testing method is a homogeneous time-resolved immunofluorescent assay manufactured by [employer] and performed on the [employer] KrHitlantisor Compact Plus. ? Values obtained with different assay methods or kits may be different and cannot be used interchangeably. ? Test results cannot be interpreted as absolute evidence for the presence or absence of malignant disease. In some immunoassays, the presence of unusually high concentrations of analyte may result in a high-dose hook effect. This may result in a lower or even normal measured analyte concentration. If the reported result is inconsistent with the clinical presentation, the laboratory should be alerted for troubleshooting. For diagnostic purposes, these immunoassay results should always be assessed in conjunction with the patients medical history, clinical examination and other findings. Test Performed by: [facility] [address] [place] [address] Booth Cleaner: Leyda Kasper Ph.D.; CLIA# [id number] Blood 01/03/2024 8:11 PM ACETYLENE PLANT OPERATOR 01/03/2024 9:39 PM ACETYLENE PLANT OPERATOR us Subhash Aranda MD LAB BLOOD ORDERABLES Final Resul t Performing Organization Address City/[facility]/ZIP Co de Phone Number [facility] [place] [employer] [place] [address] [facility] * Phosphorus (01/03/2024 8:11 PM ACETYLENE PLANT OPERATOR) Phosphorus, pl 3.4 2.3 - 4.5 mg/dL Blood 01/03/2024 8:11 PM ACETYLENE PLANT OPERATOR 01/03/2024 8:30 PM ACETYLENE PLANT OPERATOR Esther Alfonso MD LAB BLOOD ORDERABLES Final Result Performing Organization Address [facility] Co de Phone Number [facility] [place] [address] * Magnesium (01/03/2024 8:11 PM ACETYLENE PLANT OPERATOR) Magnesium 2.5 1.4 - 2.5 mg/dL Blood 01/03/2024 8:11 PM ACETYLENE PLANT OPERATOR 01/03/2024 8:30 PM ACETYLENE PLANT OPERATOR Esther Alfonso MD LAB BLOOD ORDERABLES Final Result [facility] [place] [address] * (ABNORMAL) Basic metabolic panel (01/03/2024 8:11 PM ACETYLENE PLANT OPERATOR) Sodium 136 135 - 145 mmol/L Potassium, pl 4.6 3.3 - 4.9 mmol/L [facility] Chloride 99 97 - 110 mmol/L [facility] CO2 28 22 - 32 mmol/L [facility] Anion gap 9 2 - 15 mmol/L [facility] BUN 31(H) 6 - 25 mg/dL [facility] Creatinine 1.93(H) 0.60 - 1.10 mg/dL [facility] Glucose 136 70 - 199 mg/dL [facility] Comment: Interpretive Data Fasting glucose >/= 126 mg/dl is diagnostic for diabetes. ?? Fasting is defined as no caloric intake for at least 8 hours. Fasting glucose between 100 mg/dl to 125 mg/dl is diagnostic of prediabetes. In a patient with classic symptoms of hyperglycemia or hyperglycemic crisis, a random glucose >/= 200 mg/dl is diagnostic for diabetes. In the absence of unequivocal hyperglycemia, results should be confirmed by repeat testing. The classification and Diagnosis of Diabetes Diabetes Care 2021; 46: S19-S40. Current interpretive data was last revised 2022. Calcium 9.4 8.5 - 10.3 mg/dL [facility] Blood 01/03/2024 8:11 PM ACETYLENE PLANT OPERATOR 01/03/2024 8:30 PM ACETYLENE PLANT OPERATOR Esther Alfonso MD LAB BLOOD ORDERABLES Final Result [facility] Department [place] [address] * Infection Prevention Jeronimo auris PCR, surveillance Axilla/Groin (01/03/2024 6:38 PM ACETYLENE PLANT OPERATOR) Pathologist [facility] Jeronimo auris DNA Not Detected Not Detected [facility] Comment: Interpretive Data Testing performed by [facility] Molecular Infectious Disease Laboratory using the [employer] Liaison MDX Jeronimo auris assay. ??This assay detects DNA from Jeronimo auris using Real-Time PCR. ??This assay is laboratory developed and is not cleared by the [place] Food and Drug Administration. ??The performance characteristics have been verified by the [facility] Molecular Infectious Disease Laboratory. Interpretive data was last reviewed on 06/01/2023 Axilla/Groin 01/03/2024 6:38 PM ACETYLENE PLANT OPERATOR 01/03/2024 7:29 PM ACETYLENE PLANT OPERATOR Clau Weaver MD LAB MICROBIOLOGY - GENERAL O RDERABLES Final Result [facility] [place] [address] [facility] * TRANSTHORACIC ECHO (TTE) COMPLETE W DOPPLER/CF W CONTRAST (01/03/2024 8:37 AM ACETYLENE PLANT OPERATOR) LV EF 64 % [facility] Anatomical Region Laterality Modality Ultrasound 01/03/2024 7:00 AM ACETYLENE PLANT OPERATOR Narrative 01/03/2024 10:54 AM ACETYLENE PLANT OPERATOR Patient name: Ryan Forbes Date of test: 01/03/2024 Type of test: TTE w/Doppler Hospital #: [id number] Date of : 1935 (F) Business Specialist: Mary aLguna RDCS Referring Physician: SUBHASH ARANDA MD Contrast Agent: 0.30 ml Definity Administered, (1.20 ml wasted). Contrast Administered by: Kacey Lin RN Supervised/Interpreted by: Carla Valencia MD Diagnosis: Location: [facility] Reason for test: heart failure MV Structure: Normal, ?MV Motion: Normal, ?? Mitral Annulus: Normal AV Structure: tricuspid and is moderately thickened, ?? AV Motion: restricted Aotic root: Normal, ?TM: Normal, ?? PV: Normal Valvular Vegetations: none seen, ?Mass/Thrombi: none seen RA: Normal Measurements: ?M-Mode ?Normal ? Aotic Root: ? <3.8 ? LA: ? <3.8 ? RV: ? <2.8 ? LV(ED): ? <5.7 ? LV(ES): ? Variable ?2D Linear Normal ? Aotic Root: 3.3 cm ?<3.6 ? Ao Indexed: 1.6 cm/M2 <2.0 ? LA: ? <3.8 ? RV: ? 3.4 cm ?<4.2 ? LV(ED): ? 5.6 cm ?<5.3 ? LV(ES): ? 3.1 cm ?<3.5 ?2D Vol. ?? Normal ?Indexed ?? Indexed Normal RA: ? 41.0 ml ? 20.5 ml/M2 ?9-33 ? LA: ? 58.0 ml ? 28.9 ml/M2 ?16-34 ? RV: ? <11.6 ? LV(ED): ? 69.0 ml ?? 46-106 ?34.4 ml/M2 ?<62 ? LV(ES): ? 25.0 ml ?? 14-42 ? 12.5 ml/M2 ?<25 ?3D Vol. ? Indexed Normal LV(ED): ?<62 ? LV(ES): ?<24 ? LV EF: 64 % ?? (Normal: >=54%) ?? LV Septum: 1.1 cm ?(Normal: <0.9 cm) Wall Motion Scoring (1=Normal 2=Hypo 3=Akinetic 4=Dyskin./Aneurysm 0=Not visualized) Parasternal [place]:MAS=1 BAS=1 MIL=1 RENATO=1 Parasternal [place]:MAS=1 MIS=1 DE=1 MIL=1 MAL=1 MA=1 Apical 4 Chambers:=1 MIS=1 BIS=1 BAL=1 MAL=1 AL=1 AC=1 Apical 2 Chambers:AI=1 DE=1 BI=1 BA=1 MA=1 AA=1 AC=1 LV Global Longitudinal Strain: RV Global Longitudinal Strain: LV Function: Normal LV Ejection Fraction, ??(EF=54-74%) RV Function: Normal Septal Motion: Normal Pericardial Effusion: none seen Atrial Septum: Normal DOPPLER/COLOR FLOW DOPPLER RESULTS: Diastolic Function: indeterminate Tricuspid Valve: mild TR Pulmonic Valve: normal PV AV Regurgitation: No AR seen AV Stenosis: moderate AV Area: 1.2 cm2 AV Pressure Gradient (mmHg): Mean: 13, Peak:21 MV Regurgitation: Mild MR MV Stenosis: no MS MV Area: ??cm2 MV Pressure Gradient (mmHg): Mean: 0 MV ERO: ??cm Regurg. Vol.: ??ml/beat Regurg. Frac.: ??% PA Pressure: 32 mmHg DOPPLER/COLOR FOLOW DOPPLER COMMENTS: No AR seen, Mild MR, moderate , no MS, mild TR, normal PV. Diastolic function: indeterminate LVOTd 2.0 cm. LVOT/AV TVI = XX/XX. CONTRAST: 0.30 ml Definity Administered, (1.20 ml wasted). SUMMARY: AFib with rapid ventricular response limits quality of exam (VR 105-115 bpm). Normal LV and RV size and systolic function. Strain quality inadequate for accurate reporting. Mild concentric LVH with septal prominence. Normal LA and RA size. Moderate (MANDIE 1.2 cm2; AVAI 0.60 cm2/m2; mean/peak PG 13/21 mmHg; SVI 27 mL/m2; peak AV leydi 2.3 m/s). Mild MR and TR. PASP 32 mmHg. LV diastolic function indeterminant due to arrhythmia. Normal IVC and aorta. No prior studies available for comparison. Confirmed on ??01/03/2024 - 10:54:07 by Carla Valencia MD By signing this report, the attending interior design instructor certifies that he or she has personally supervised and interpreted the echocardiogram and has reviewed and or edited and agrees with the written comments contained within the report. Procedure Note De Carla Payan MD - 01/03/2024 Patient name: Ryan Forbes Date of test: 01/03/2024 Type of test: TTE w/Doppler [facility] #: 0 Date of : 1935 (F) Business Specialist: Mary Laguna [facility] Referring Physician: SUBHASH ARANDA MD Contrast Agent: 0.30 ml Definity Administered, (1.20 ml wasted). Contrast Administered by: Kacey Lin RN Supervised/Interpreted by: Carla Valencia MD Diagnosis: Location: [facility] Reason for test: heart failure MV Structure: Normal, MV Motion: Normal, Mitral Annulus: Normal AV Structure: tricuspid and is moderately thickened, AV Motion: restricted Aotic root: Normal, TM: Normal, PV: Normal Valvular Vegetations: none seen, Mass/Thrombi: none seen RA: Normal Measurements: M-Mode Normal Aotic Root: <3.8 LA: <3.8 RV: <2.8 LV(ED): <5.7 LV(ES): Variable 2D Linear Normal Aotic Root: 3.3 cm <3.6 Ao Indexed: 1.6 cm/M2 <2.0 LA: <3.8 RV: 3.4 cm <4.2 LV(ED): 5.6 cm <5.3 LV(ES): 3.1 cm <3.5 2D Vol. Normal Indexed Indexed Normal RA: 41.0 ml 20.5 ml/M2 9-33 LA: 58.0 ml 28.9 ml/M2 16-34 RV: <11.6 LV(ED): 69.0 ml 46-106 34.4 ml/M2 <62 LV(ES): 25.0 ml 14-42 12.5 ml/M2 <25 3D Vol. Indexed Normal LV(ED): <62 LV(ES): <24 LV EF: 64 % (Normal: >=54%) LV Septum: 1.1 cm (Normal: <0.9 cm) Wall Motion Scoring (1=Normal 2=Hypo 3=Akinetic 4=Dyskin./Aneurysm 0=Not visualized) Parasternal [place]:MAS=1 BAS=1 MIL=1 RENATO=1 Parasternal [place]:MAS=1 MIS=1 DE=1 MIL=1 MAL=1 MA=1 Apical 4 Chambers:=1 MIS=1 BIS=1 BAL=1 MAL=1 AL=1 AC=1 Apical 2 Chambers:AI=1 DE=1 BI=1 BA=1 MA=1 AA=1 AC=1 LV Global Longitudinal Strain: RV Global Longitudinal Strain: LV Function: Normal LV Ejection Fraction, (EF=54-74%) RV Function: Normal Septal Motion: Normal Pericardial Effusion: none seen Atrial Septum: Normal DOPPLER/COLOR FLOW DOPPLER RESULTS: Diastolic Function: indeterminate Tricuspid Valve: mild TR Pulmonic Valve: normal PV AV Regurgitation: No AR seen AV Stenosis: moderate AV Area: 1.2 cm2 AV Pressure Gradient (mmHg): Mean: 13, Peak:21 MV Regurgitation: Mild MR MV Stenosis: no MS MV Area: cm2 MV Pressure Gradient (mmHg): Mean: 0 MV ERO: cm Regurg. Vol.: ml/beat Regurg. Frac.: % PA Pressure: 32 mmHg DOPPLER/COLOR FOLOW DOPPLER COMMENTS: No AR seen, Mild MR, moderate , no MS, mild TR, normal PV. Diastolic function: indeterminate LVOTd 2.0 cm. LVOT/AV TVI = XX/XX. CONTRAST: 0.30 ml Definity Administered, (1.20 ml wasted). SUMMARY: AFib with rapid ventricular response limits quality of exam (VR 105-115 bpm). Normal LV and RV size and systolic function. Strain quality inadequate for accurate reporting. Mild concentric LVH with septal prominence. Normal LA and RA size. Moderate (MANDIE 1.2 cm2; AVAI 0.60 cm2/m2; mean/peak PG 13/21 mmHg; SVI 27 mL/m2; peak AV leydi 2.3 m/s). Mild MR and TR. PASP 32 mmHg. LV diastolic function indeterminant due to arrhythmia. Normal IVC and aorta. No prior studies available for comparison. Confirmed on 01/03/2024 - 10:54:07 by Carla Valencia MD By signing this report, the attending interior design instructor certifies that he or she has personally supervised and interpreted the echocardiogram and has reviewed and or edited and agrees with the written comments contained within the report. us Subhash Aranda MD CV ECHO PROCEDURES Final Result * (ABNORMAL) eGFR (01/03/2024 8:00 AM ACETYLENE PLANT OPERATOR) [facility] eGFR 24(L) >=60 mL/min/1. 73 m2 Comment: Interpretive Data Reference Interval Normal ?>/= 90 mL/min/1.73m2 Mildly decreased* ? 60 - 89 mL/min/1.73m2 Mildly to moderately decreased ?45 - 59 mL/min/1.73m2 Moderately to severely decreased ??30 - 44 mL/min/1.73m2 Severely decreased ?15 - 29 mL/min/1.73m2 Kidney Failure ?< 15 ??mL/min/1.73m2 *Relative to young adult level Estimated glomerular filtration rate is determined by the 2020 CKD-EPI equation recommended by the National Kidney Foundation (A Unifying Approach to GFR Estimation: Recommendations of the NKF-ASK Task Force on Reassessing the Inclusion of Race in Diagnosing Kidney Disease, JASN 202). The CKD-EPI equation should not be used for patients with unstable renal function and has not been validated in children and those over 70. Current interpretive data was last reviewed 2020. Blood 01/03/2024 8:00 AM ACETYLENE PLANT OPERATOR 01/02/2024 11:33 PM ACETYLENE PLANT OPERATOR us Esther Alfonso MD LAB BLOOD ORDERABLES Final Result Performing Organization Address City/[facility] Co de Phone Number [facility] [place] [address] * (ABNORMAL) Uric acid (01/03/2024 8:00 AM ACETYLENE PLANT OPERATOR) Uric acid 10.4(H) 2.5 - 7.0 mg/dL Blood 01/03/2024 8:00 AM ACETYLENE PLANT OPERATOR 01/02/2024 11:33 PM ACETYLENE PLANT OPERATOR Subhash Aranda MD LAB BLOOD ORDERABLES Final Resul t Performing Organization Address [facility] de Phone Number [facility] [place] [address] * Phosphorus (01/03/2024 8:00 AM ACETYLENE PLANT OPERATOR) Phosphorus, pl 3.4 2.3 - 4.5 mg/dL Blood 01/03/2024 8:00 AM ACETYLENE PLANT OPERATOR 01/02/2024 11:33 PM ACETYLENE PLANT OPERATOR us Esther Alfonso MD LAB BLOOD ORDERABLES Final Result Performing Organization Address [facility] Co de Phone Number [facility] [place] [address] * (ABNORMAL) Magnesium (01/03/2024 8:00 AM ACETYLENE PLANT OPERATOR) Magnesium 2.6(H) 1.4 - 2.5 mg/dL Blood 01/03/2024 8:00 AM ACETYLENE PLANT OPERATOR 01/02/2024 11:33 PM ACETYLENE PLANT OPERATOR Esther Alfonso MD LAB BLOOD ORDERABLES Final Result Performing Organization Address City/[facility] Co de Phone Number [facility] Department [place] [address] * (ABNORMAL) Lactate dehydrogenase (LD) (01/03/2024 8:00 AM ACETYLENE PLANT OPERATOR) Pathologist [facility] Lactate dehydrogenase (LDH) 358(H) 100 - 250 Units/L Blood 01/03/2024 8:00 AM ACETYLENE PLANT OPERATOR 01/02/2024 11:33 PM ACETYLENE PLANT OPERATOR Subhash Aranda MD LAB BLOOD ORDERABLES Final Resul t [facility] [place] [address] * (ABNORMAL) Basic metabolic panel (01/03/2024 8:00 AM ACETYLENE PLANT OPERATOR) Pathologist [facility] Sodium 139 135 - 145 mmol/L Potassium, pl 4.7 3.3 - 4.9 mmol/L [facility] Chloride 103 97 - 110 mmol/L [facility] CO2 26 22 - 32 mmol/L [facility] Anion gap 10 2 - 15 mmol/L [facility] BUN 31(H) 6 - 25 mg/dL [facility] Creatinine 1.99(H) 0.60 - 1.10 mg/dL [facility] Glucose 95 70 - 199 mg/dL [facility] Comment: Interpretive Data Fasting glucose >/= 126 mg/dl is diagnostic for diabetes. ?? Fasting is defined as no caloric intake for at least 8 hours. Fasting glucose between 100 mg/dl to 125 mg/dl is diagnostic of prediabetes. In a patient with classic symptoms of hyperglycemia or hyperglycemic crisis, a random glucose >/= 200 mg/dl is diagnostic for diabetes. In the absence of unequivocal hyperglycemia, results should be confirmed by repeat testing. The classification and Diagnosis of Diabetes Diabetes Care 202; 46: S19-S40. Current interpretive data was last revised 2022. Calcium 9.6 8.5 - 10.3 mg/dL [facility] Blood 01/03/2024 8:00 AM ACETYLENE PLANT OPERATOR 01/02/2024 11:33 PM ACETYLENE PLANT OPERATOR us Esther Alfonso MD LAB BLOOD ORDERABLES Final Result Performing Organization Address City/[facility] Co de Phone Number [facility] [place] [address] * (ABNORMAL) Lactate (01/03/2024 5:06 AM ACETYLENE PLANT OPERATOR) [facility] Lactate 0.6(L) 0.7 - 2.0 mmol/L Blood 01/03/2024 5:06 AM ACETYLENE PLANT OPERATOR 01/03/2024 5:24 AM ACETYLENE PLANT OPERATOR Subhash Aranda MD LAB BLOOD ORDERABLES Final Resul t Performing Organization Address [facility] de Phone Number [facility] [place] [address] * Copper, serum (01/03/2024 5:06 AM ACETYLENE PLANT OPERATOR) [facility] Copper 114 77 - 206 mcg/dL [facility] Comment: ADDITIONAL INFORMATION This test was developed and its performance characteristics determined by [facility] in a manner consistent with CLIA requirements. This test has not been cleared or approved by the U.S. Food and Drug Administration. Test Performed by: [facility] [place] [address] Booth Cleaner: Leyda Kasper Ph.D.; CLIA# [id number] Blood 01/03/2024 5:06 AM ACETYLENE PLANT OPERATOR 01/03/2024 5:18 AM ACETYLENE PLANT OPERATOR Subhash Aranda MD LAB BLOOD ORDERABLES Final Resul t Performing Organization Address [facility] Co de Phone Number [facility] [place] [place] [address] [facility] * G6PD qualitative with reflex to quantitative (01/02/2024 11:19 PM ACETYLENE PLANT OPERATOR) G6PD Normal Normal Comment: Interp data: G6PD activity should be interpreted in the context of a patient's hematocrit. Hematocrit < 20% may lead to a falsely deficient result, while hematocrit > 50% may lead to a falsely normal result. Current interpretive data was last revised on 2019. Blood 01/02/2024 11:1 9 PM ACETYLENE PLANT OPERATOR 01/02/2024 11:38 PM ACETYLENE PLANT OPERATOR us Subhash Aranda MD LAB BLOOD ORDERABLES Final Resul t [facility] Department [place] [address] * (ABNORMAL) eGFR (01/02/2024 11:19 PM ACETYLENE PLANT OPERATOR) eGFR 24(L) >=60 mL/min/1. 73 m2 Comment: Interpretive Data Reference Interval Normal ?>/= 90 mL/min/1.73m2 Mildly decreased* ? 60 - 89 mL/min/1.73m2 Mildly to moderately decreased ?45 - 59 mL/min/1.73m2 Moderately to severely decreased ??30 - 44 mL/min/1.73m2 Severely decreased ?15 - 29 mL/min/1.73m2 Kidney Failure ?< 15 ??mL/min/1.73m2 *Relative to young adult level Estimated glomerular filtration rate is determined by the 2020 CKD-EPI equation recommended by the National Kidney Foundation (A Unifying Approach to GFR Estimation: Recommendations of the NKF-ASK Task Force on Reassessing the Inclusion of Race in Diagnosing Kidney Disease, JASN 2020). The CKD-EPI equation should not be used for patients with unstable renal function and has not been validated in children and those over 70. Current interpretive data was last reviewed 2020. Blood 01/02/2024 11:1 9 PM ACETYLENE PLANT OPERATOR 01/02/2024 11:34 PM ACETYLENE PLANT OPERATOR us Esther Alfonso MD LAB BLOOD ORDERABLES Final Result Performing Organization Address [facility] Co de Phone Number [facility] Department [place] [address] * (ABNORMAL) CBC without differential (01/02/2024 11:19 PM ACETYLENE PLANT OPERATOR) WBC 11.0(H) 3.8 - 9.9 K/cumm Hgb 10.0(L) 11.9 - 15.5 g/dL [facility] Hct 29.8(L) 35.6 - 45.5 % [facility] Plt 376 150 - 400 K/cumm [facility] MPV 10.4 9.1 - 12.3 fL [facility] RBC 3.12(L) 3.90 - 5.20 M/cumm [facility] MCV 95.5 81.3 - 96.4 fL [facility] MCH 32.1 27.1 - 33.3 pg [facility] MCHC 33.6 32.3 - 35.7 g/dL [facility] RDW CV 16.5(H) 11.1 - 14.9 % [facility] RDW SD 57.1(H) 35.7 - 48.1 fL [facility] NRBC abs 0.00 0.00 - 0.01 K/cumm [facility] Blood 01/02/2024 11:1 9 PM ACETYLENE PLANT OPERATOR 01/02/2024 11:34 PM ACETYLENE PLANT OPERATOR us Esther Alfonso MD LAB BLOOD ORDERABLES Final Result Performing Organization Address City/[facility]/ZIP Co de Phone Number [facility] [place] [address] * Phosphorus (01/02/2024 11:19 PM ACETYLENE PLANT OPERATOR) Phosphorus, pl 3.5 2.3 - 4.5 mg/dL Blood 01/02/2024 11:1 9 PM ACETYLENE PLANT OPERATOR 01/02/2024 11:34 PM ACETYLENE PLANT OPERATOR Esther Alfonso MD LAB BLOOD ORDERABLES Final Result Performing Organization Address City/[facility] Co de Phone Number [facility] [place] [address] * Magnesium (01/02/2024 11:19 PM ACETYLENE PLANT OPERATOR) Pathologist [facility] Magnesium 2.5 1.4 - 2.5 mg/dL Blood 01/02/2024 11:1 9 PM [employer]E [employer] OPERATOR 01/02/2024 11:34 PM [employer]E [employer] OPERATOR Esther Alfonso MD LAB BLOOD ORDERABLES Final Result Performing Organization Address [facility] de Phone Number [facility] [place] [address] * (ABNORMAL) Basic metabolic panel (01/02/2024 11:19 PM ACETYLENE PLANT OPERATOR) [facility] Sodium 139 135 - 145 mmol/L Potassium, pl 4.7 3.3 - 4.9 mmol/L [facility] Chloride 101 97 - 110 mmol/L [facility] CO2 25 22 - 32 mmol/L [facility] Anion gap 13 2 - 15 mmol/L [facility] BUN 31(H) 6 - 25 mg/dL [facility] Creatinine 1.97(H) 0.60 - 1.10 mg/dL [facility] Glucose 94 70 - 199 mg/dL [facility] Comment: Interpretive Data Fasting glucose >/= 126 mg/dl is diagnostic for diabetes. ?? Fasting is defined as no caloric intake for at least 8 hours. Fasting glucose between 100 mg/dl to 125 mg/dl is diagnostic of prediabetes. In a patient with classic symptoms of hyperglycemia or hyperglycemic crisis, a random glucose >/= 200 mg/dl is diagnostic for diabetes. In the absence of unequivocal hyperglycemia, results should be confirmed by repeat testing. The classification and Diagnosis of Diabetes Diabetes Care 2022; 46: S19-S40. Current interpretive data was last revised 2022. Calcium 9.1 8.5 - 10.3 mg/dL [facility] Blood 01/02/2024 11:1 9 PM [employer] OPERATOR 01/02/2024 11:34 PM ACETYLENE [employer]ANT OPERATOR us Esther Alfonso MD LAB BLOOD ORDERABLES Final Result Performing Organization Address City/[facility] Co de Phone Number [facility] [place] [address] * Urea nitrogen, urine, random (01/02/2024 5:16 PM AC[employer] OPERATOR) Urea nitrogen, ur 118 mg/dL Comment: Interpretive Data No reference range established. Current interpretive data was last revised 2018. Urine 01/02/2024 5:16 PM [employer] OPERATOR 01/02/2024 5:43 PM AC[employer]E [employer] OPERATOR Subhash Aranda MD LAB URINE ORDERABLES Final Resul t Performing Organization Address [facility] de Phone Number [facility] [place] [address] * Sodium, urine, random (01/02/2024 5:16 PM AC[employer] OPERATOR) Sodium, ur 117 mmol/L Comment: Interpretive Data No reference range established. Current interpretive data was last revised 2018. Urine 01/02/2024 5:16 PM AC[employer] OPERATOR 01/02/2024 5:43 PM ACETY[employer]E [employer] OPERATOR us Subhash Aranda MD LAB URINE ORDERABLES Final Resul t Performing Organization Address [facility] Co de Phone Number [facility] [place] [address] * Creatinine, urine, random (01/02/2024 5:16 PM AC[employer] OPERATOR) Creatinine Ur 18.3 mg/dL Comment: Interpretive Data No reference range established. Current interpretive data was last revised 2018. Urine 01/02/2024 5:16 PM AC[employer]E [employer] OPERATOR 01/02/2024 5:43 PM ACETYLENE [employer]ANT OPERATOR us Subhash Aranda MD LAB URINE ORDERABLES Final Resul t Performing Organization Address [facility] de Phone Number [facility] [place] [place] [address] * Extra slide preparation (01/02/2024 2:04 PM AC[employer] OPERATOR) Pathologist [facility] Extra slide prep Slide available for pickup from the lab. Blood 01/02/2024 2:04 PM AC[employer] OPERATOR 01/02/2024 2:23 PM ACETY[employer]E [employer]ANT OPERATOR Narrative [facility] - 01/02/2024 3:13 PM AC[employer]E [employer] OPERATOR Peripheral smear Subhash Aranda MD LAB BLOOD ORDERABLES Final Resul t Performing Organization Address [facility] de Phone Number [facility] [place] [employer] [place] [address] * Methylmalonic acid, serum (01/02/2024 2:04 PM AC[employer]E [employer] OPERATOR) Pathologist [facility] MMA 0.22 <=0.40 nmol/mL [facility] Comment: ADDITIONAL INFORMATION This test was developed and its performance characteristics determined by [facility] in a manner consistent with CLIA requirements. This test has not been cleared or approved by the U.S. Food and Drug Administration. Test Performed by: [address] [address] Booth Cleaner: Leyda Kasper Ph.D.; CLIA# [id number] Blood 01/02/2024 2:04 PM [employer] OPERATOR 01/02/2024 5:45 PM ACETY[employer]E [employer] OPERATOR us Subhash Aranda MD LAB BLOOD ORDERABLES Final Resul t [facility] [place] [employer] [place] [address] [facility] * Ceruloplasmin (01/02/2024 2:04 PM AC[employer]E [employer] OPERATOR) Ceruloplasmin 27.5 16.0 - 45.0 mg/dL Blood 01/02/2024 2:04 PM AC[employer] OPERATOR 01/02/2024 2:23 PM ACETYLENE [employer] OPERATOR us Subhash Aranda MD LAB BLOOD ORDERABLES Final Resul t Performing Organization Address City/[facility] Co de Phone Number [facility] [place] [employer] [place] [address] * Vitamin D 25 hydroxy (01/02/2024 2:04 PM AC[employer]E [employer] OPERATOR) Vitamin D 25-OH 74 30 - 80 ng/mL Blood 01/02/2024 2:04 PM AC[employer] OPERATOR 01/02/2024 2:23 PM ACETYLENE [employer] OPERATOR us Subhash Aranda MD LAB BLOOD ORDERABLES Final Resul t Performing Organization Address City/[facility]/ZIP Co de Phone Number [facility] [place] [place] [address] * TSH (01/02/2024 2:04 PM AC[employer]E [employer] OPERATOR) Thyroid Stimulating Hormone 2.66 0.30 - 4.20 mcIUnit/mL Blood 01/02/2024 2:04 PM AC[employer] OPERATOR 01/02/2024 2:23 PM ACETY[employer]E [employer] OPERATOR us Esther Alfonso MD LAB BLOOD ORDERABLES Final Result [facility] [place] [address] * PTH (01/02/2024 2:04 PM ACETY[employer]E [employer] OPERATOR) Pathologist [facility] PTH 54 15 - 65 pg/mL Blood 01/02/2024 2:04 PM AC[employer]E [employer] OPERATOR 01/02/2024 2:23 PM ACETYLENE [employer] OPERATOR Subhash Aranda MD LAB BLOOD ORDERABLES Final Resul t Performing Organization Address [facility] Co de Phone Number [facility] Department [place] [address] * Troponin I high-sensitivity 2-hour (01/01/2024 9:57 PM AC[employer]E PL[employer] OPERATOR) Pathologist [facility] Trop I hs 8 <=17 ng/L Comment: Interpretive Data For further hscTnI resources including the diagnostic algorithm and an aid in interpretation, copy and paste this link: https://bjhlab.testcatalog.org/show/[email or web address] Current Interpretive Data last revised 2019. Trop I hs delta See Comment ng/L [facility] Comment:Inappropriate collec tion time to report a delta. Trop I hs pct delta See Comment % [facility] Comment:Inappropriate collec tion time to report a delta. Trop I hs interp See Comment [facility] Comment:Inappropriate collec tion time to report a delta. Blood 01/01/2024 9:57 PM AC[employer]E [employer] OPERATOR 01/01/2024 10:19 PM ACETY[employer]E [employer] OPERATOR Boyd Chamorro MD LAB BLOOD ORDERABLES F inal Result Performing Organization Address [facility] Co de Phone Number [facility] [place] [address] * Urinalysis reflex to microscopic and culture Urine (01/01/2024 9:57 PM AC[employer]E [employer] OPERATOR) Color, ur Straw Yellow Clarity, ur Clear Clear [facility] Specific gravity, ur 1.007 1.003 - 1.030 [facility] pH, urine 6.0 [facility] Comment: Interpretive Data ? Urine pH is affected by diet, medications, systemic acid-base disturbances, and renal tubular function. ??pH may affect urinary stone formation. ??For example, urine pH below 6.0 may help reduce the tendency for calcium phosphate stones and pH greater than 6.0 may reduce the tendency for uric acid stone formation. Source: [facility] [employer] Current Interpretive Data was last revised on 2017 Protein, ur ql Negative Negative [facility] Glucose, ur ql Negative Negative [facility] Ketones, ur Negative Negative [facility] Bilirubin, ur Negative Negative [facility] Blood, ur Negative Negative [facility] Urobilinogen, ur <2.0 <2.0 mg/dL [facility] Nitrite, ur Negative Negative [facility] Leukocyte esterase, ur Negative Negative [facility] UA reflex comment Reflex conditions for microscopic UA and culture not met. [facility] Urine 01/01/2024 9:57 PM AC[employer]E [employer]ANT OPERATOR 01/01/2024 10:08 PM ACETYLENE PLANT OPERATOR Rissa Acosta MD LAB MICROBIOLOGY - GENE [facility] ORDERABLES Final Result [facility] [place] [address] * XR Chest 1 Vw Portable (01/01/2024 7:17 PM ACETY[employer]E PLANT OPERATOR) Anatomical Region Laterality Modality Body, Chest N/A Computed Radiogr aphy 01/01/2024 7:28 PM AC[employer]E PL[employer] OPERATOR Impressions 01/01/2024 7:51 PM ACETYLENE PLANT OPERATOR Comparison is made to chest radiograph of 12/20/2023. The patient is rotated. Mild bibasilar atelectasis. ??Small bilateral pleural effusions are better characterized by CT of 12/27/2023. ??No pneumothorax. Cardiomediastinal silhouette is similar to prior study accounting for patient rotation. Dictated by: Bobbi Cardenas MD The radiology attending physician has personally reviewed this study, and had reviewed and/or edited this written report and agrees with it. Electronically signed by: Reyna Kaiser M.D. Narrative 01/01/2024 7:51 PM AC[employer]E PL[employer] OPERATOR EXAMINATION: 1 view chest radiograph Procedure Note Reyna Kaiser MD - 01/01/2024 EXAMINATION: 1 view chest radiograph IMPRESSION: Comparison is made to chest radiograph of 12/20/2023. The patient is rotated. Mild bibasilar atelectasis. Small bilateral pleural effusions are better characterized by CT of 12/27/2023. No pneumothorax. Cardiomediastinal silhouette is similar to prior study accounting for patient rotation. Dictated by: Bobbi Cardenas MD The radiology attending physician has personally reviewed this study, and had reviewed and/or edited this written report and agrees with it. Electronically signed by: Reyna Kaiser M.D. us Boyd Chamorro MD IMG XR PROCEDURES Kaci l Result * Troponin I high-sensitivity series (baseline, 2hr, 4hr, 6hr) (01/01/2024 6:52 PM ACETYLENE PLANT OPERATOR) [facility] Trop I hs 8 <=17 ng/L Comment: Interpretive Data For further hscTnI resources including the diagnostic algorithm and an aid in interpretation, copy and paste this link: https://bjhlab.[email or web address]/show/[email or web address] Current Interpretive Data last revised 2019. Blood 01/01/2024 6:52 PM ACETYLENE PLANT OPERATOR 01/01/2024 7:32 PM ACETYLENE PLANT OPERATOR Boyd Chamorro MD LAB BLOOD ORDERABLES F inal Result [facility] Department [place] [address] * (ABNORMAL) eGFR (01/01/2024 6:52 PM ACETYLENE PLANT OPERATOR) [facility] eGFR 24(L) >=60 mL/min/1. 73 m2 Comment: Interpretive Data Reference Interval Normal ?>/= 90 mL/min/1.73m2 Mildly decreased* ? 60 - 89 mL/min/1.73m2 Mildly to moderately decreased ?45 - 59 mL/min/1.73m2 Moderately to severely decreased ??30 - 44 mL/min/1.73m2 Severely decreased ?15 - 29 mL/min/1.73m2 Kidney Failure ?< 15 ??mL/min/1.73m2 *Relative to young adult level Estimated glomerular filtration rate is determined by the 2020 CKD-EPI equation recommended by the National Kidney Foundation (A Unifying Approach to GFR Estimation: Recommendations of the NKF-ASK Task Force on Reassessing the Inclusion of Race in Diagnosing Kidney Disease, JASN 2020). The CKD-EPI equation should not be used for patients with unstable renal function and has not been validated in children and those over 70. Current interpretive data was last reviewed 2020. Blood 01/01/2024 6:52 PM ACETYLENE PLANT OPERATOR 01/01/2024 7:28 PM ACETYLENE PLANT OPERATOR us Boyd Chamorro MD LAB BLOOD ORDERABLES F inal Result [facility] [place] [address] * (ABNORMAL) Differential, auto (01/01/2024 6:52 PM ACETYLENE PLANT OPERATOR) Neutrophil abs 10.4(H) 1.5 - 6.5 K/cumm Imm gran abs 0.1 0.0 - 0.1 K/cumm [facility] Lymphocyte abs 0.9 0.8 - 3.3 K/cumm [facility] Monocyte abs 0.9(H) 0.2 - 0.8 K/cumm [facility] Eosinophil abs 0.0 0.0 - 0.5 K/cumm [facility] Basophil abs 0.0 0.0 - 0.1 K/cumm [facility] Neutrophil pct 84.1 % [facility] Comment: Interpretive Data Percent cell count reference ranges are not reported, since discordance with absolute values may lead to misinterpretation of CBC data. Current Interpretive Data was last revised on 2017. Imm gran pct 0.9 % [facility] Comment: Interpretive Data Percent cell count reference ranges are not reported, since discordance with absolute values may lead to misinterpretation of CBC data. Current Interpretive Data was last revised on 2017. Lymphocyte pct 7.3 % [facility] Comment: Interpretive Data Percent cell count reference ranges are not reported, since discordance with absolute values may lead to misinterpretation of CBC data. Current Interpretive Data was last revised on 2017. Monocyte pct 7.4 % [facility] Comment: Interpretive Data Percent cell count reference ranges are not reported, since discordance with absolute values may lead to misinterpretation of CBC data. Current Interpretive Data was last revised on 2017. Eosinophil pct 0.2 % [facility] Comment: Interpretive Data Percent cell count reference ranges are not reported, since discordance with absolute values may lead to misinterpretation of CBC data. Current Interpretive Data was last revised on 2017. Basophil pct 0.1 % [facility] Comment: Interpretive Data Percent cell count reference ranges are not reported, since discordance with absolute values may lead to misinterpretation of CBC data. Current Interpretive Data was last revised on 2017. Blood 01/01/2024 6:52 PM ACETYLENE PLANT OPERATOR 01/01/2024 7:27 PM ACETYLENE PLANT OPERATOR us Boyd Chamorro MD LAB BLOOD ORDERABLES F inal Result [facility] [place] [address] * (ABNORMAL) Pro B-type natriuretic peptide (01/01/2024 6:52 PM ACETYLENE PLANT OPERATOR) NT-proBNP 2,371(H) <=450 pg/mL Comment: Interpretive Comments: A. Dyspnea in Acute Care Setting All Ages: ?< 300 pg/ml, acute heart failure unlikely. < 50 yrs: ?300 - 450 pg/ml, further investigation warranted. ? > 450 pg/ml, acute heart failure likely. 50 - 74 yrs: ? 300 - 900 pg/ml, further investigation warranted. ? > 900 pg/ml, acute heart failure likely . > or = 75 yrs: ? 450 - 1800 pg/ml, further investigation warranted. ? > 1800 pg/ml, acute heart failure likely. B. Non-acute Setting < 75 yrs ? < 125 pg/ml, rules out heart failure. ? > or = 125 pg/ml, further investigation warranted. > or = 75 yrs ?< 450 pg/ml, rules out heart failure. ? > or = 450 pg/ml, further investigation warranted. - Knowledge of each individual patient's NT-proBNP range may be more useful than using similar cut-points for every patient. Please note that marked elevations in NT-proBNP levels may be observed in state other than Left Ventricular Congestive Failure, including: acute coronary syndromes, right heart strain/failure (including pulmonary embolism and cor pulmonale), critical illness, renal failure, as well as advanced age. - References: 1. Rubin ZIEGLER et.al. Eur Heart J. 2006:27:330-337. 2. Susy RW, Hussein TRAMMELL. J. AM Umesh Cardiol: Cardiovasc Imag. 2009;2: 216- 225. Interpretive Data Last Revised Date: 2017. Blood 01/01/2024 6:52 PM ACETYLENE PLANT OPERATOR 01/01/2024 7:28 PM ACETYLENE PLANT OPERATOR us Boyd Chamorro MD LAB BLOOD ORDERABLES F inal Result [facility] [place] [address] * (ABNORMAL) CBC with auto differential (01/01/2024 6:52 PM ACETYLENE PLANT OPERATOR) [facility] WBC 12.4(H) 3.8 - 9.9 K/cumm Hgb 9.6(L) 11.9 - 15.5 g/dL [facility] Hct 29.7(L) 35.6 - 45.5 % [facility] Plt 335 150 - 400 K/cumm [facility] MPV 10.5 9.1 - 12.3 fL [facility] RBC 3.05(L) 3.90 - 5.20 M/cumm [facility] MCV 97.4(H) 81.3 - 96.4 fL [facility] MCH 31.5 27.1 - 33.3 pg [facility] MCHC 32.3 32.3 - 35.7 g/dL [facility] RDW CV 16.5(H) 11.1 - 14.9 % [facility] RDW SD 58.4(H) 35.7 - 48.1 fL [facility] NRBC abs 0.00 0.00 - 0.01 K/cumm [facility] Blood 01/01/2024 6:52 PM ACETYLENE PLANT OPERATOR 01/01/2024 7:27 PM ACETYLENE PLANT OPERATOR Boyd Chamorro MD LAB BLOOD ORDERABLES F inal Result [facility] [place] [address] * (ABNORMAL) Comprehensive metabolic panel (01/01/2024 6:52 PM ACETYLENE PLANT OPERATOR) [facility] Sodium 136 135 - 145 mmol/L Potassium, pl 4.5 3.3 - 4.9 mmol/L [facility] Chloride 99 97 - 110 mmol/L [facility] CO2 23 22 - 32 mmol/L [facility] Anion gap 14 2 - 15 mmol/L [facility] BUN 34(H) 6 - 25 mg/dL [facility] Creatinine 1.96(H) 0.60 - 1.10 mg/dL [facility] Glucose 111 70 - 199 mg/dL [facility] Comment: Interpretive Data Fasting glucose >/= 126 mg/dl is diagnostic for diabetes. ?? Fasting is defined as no caloric intake for at least 8 hours. Fasting glucose between 100 mg/dl to 125 mg/dl is diagnostic of prediabetes. In a patient with classic symptoms of hyperglycemia or hyperglycemic crisis, a random glucose >/= 200 mg/dl is diagnostic for diabetes. In the absence of unequivocal hyperglycemia, results should be confirmed by repeat testing. The classification and Diagnosis of Diabetes Diabetes Care 2021; 46: S19-S40. Current interpretive data was last revised 2022. Calcium 9.6 8.5 - 10.3 mg/dL [facility] Bilirubin, total 0.2 0.1 - 1.2 mg/dL [facility] Protein, pl 6.6 6.5 - 8.5 g/dL [facility] Albumin 3.6 3.5 - 5.0 g/dL [facility] Alk phos 123 40 - 130 Units/L [facility] ALT 36 7 - 45 Units/L [facility] AST 106(H) 10 - 45 Units/L [facility] Blood 01/01/2024 6:52 PM ACETYLENE PLANT OPERATOR 01/01/2024 7:28 PM ACETYLENE PLANT OPERATOR Boyd Chamorro MD LAB BLOOD ORDERABLES F inal Result [facility] [place] [address] * ECG 12-LEAD (01/01/2024 6:15 PM ACETYLENE PLANT OPERATOR) Narrative [facility] - 01/01/2024 6:15 PM ACETYLENE PLANT OPERATOR Qasim Perez MD ? 01/01/2024 ??6:18 PM ECG 12 lead Date/Time: 01/01/2024 6:15 PM Performed by: Qasim Perez MD Authorized by: Qasim Perez MD ?? Rate: ??ECG rate: ??94 beats per minute ??ECG rate assessment: normal ?? Rhythm: ??Rhythm: atrial fibrillation ?? QRS: ??QRS axis: ??Normal ??QRS intervals: ??Normal Conduction: ??Conduction: normal ?? ST segments: ??ST segments: ??Normal T waves: ??T waves: normal ?? Previous ECG: ??Previous ECG: ??Compared to current ??Date of previous ECG: ??12/20/2023 ??Similarity: ??No change Interpretation: ??Interpretation: No significant change ?? Recommended Follow-up: ??Recommended follow up: further workup in the ED ?? Joseph Mensah MD PhD ECG ORDERABLES Fin al Result [facility] * (ABNORMAL) eGFR (12/30/2023 7:05 AM ACETYLENE PLANT OPERATOR) [facility] Signature eGFR 22(L) >=60 mL/min/1. 73 m2 Comment: Interpretive Data Reference Interval Normal ?>/= 90 mL/min/1.73m2 Mildly decreased* ? 60 - 89 mL/min/1.73m2 Mildly to moderately decreased ?45 - 59 mL/min/1.73m2 Moderately to severely decreased ??30 - 44 mL/min/1.73m2 Severely decreased ?15 - 29 mL/min/1.73m2 Kidney Failure ?< 15 ??mL/min/1.73m2 *Relative to young adult level Estimated glomerular filtration rate is determined by the 2020 CKD-EPI equation recommended by the National Kidney Foundation (A Unifying Approach to GFR Estimation: Recommendations of the NKF-ASK Task Force on Reassessing the Inclusion of Race in Diagnosing Kidney Disease, JASN 2020). The CKD-EPI equation should not be used for patients with unstable renal function and has not been validated in children and those over 70. Current interpretive data was last reviewed 2020. Blood 12/30/2023 7:05 AM ACETYLENE PLANT OPERATOR 12/30/2023 7:17 AM ACETYLENE PLANT OPERATOR Ramone Evans MD LAB BLOOD ORDERABL ES Final Result [facility] [address] [facility] [place] [address] * (ABNORMAL) Differential, auto (12/30/2023 7:05 AM ACETYLENE PLANT OPERATOR) Neutrophil abs 7.0(H) 1.5 - 6.5 K/cumm Imm gran abs 0.1 0.0 - 0.1 K/cumm [facility] Lymphocyte abs 0.9 0.8 - 3.3 K/cumm [facility] Monocyte abs 0.9(H) 0.2 - 0.8 K/cumm [facility] Eosinophil abs 0.0 0.0 - 0.5 K/cumm [facility] Basophil abs 0.0 0.0 - 0.1 K/cumm [facility] Neutrophil pct 78.3 % [facility] Comment: Interpretive Data Percent cell count reference ranges are not reported, since discordance with absolute values may lead to misinterpretation of CBC data. Current Interpretive Data was last revised on 2017. Imm gran pct 1.0 % [facility] Comment: Interpretive Data Percent cell count reference ranges are not reported, since discordance with absolute values may lead to misinterpretation of CBC data. Current Interpretive Data was last revised on 2017. Lymphocyte pct 10.2 % [facility] Comment: Interpretive Data Percent cell count reference ranges are not reported, since discordance with absolute values may lead to misinterpretation of CBC data. Current Interpretive Data was last revised on 2017. Monocyte pct 9.9 % [facility] Comment: Interpretive Data Percent cell count reference ranges are not reported, since discordance with absolute values may lead to misinterpretation of CBC data. Current Interpretive Data was last revised on 2017. Eosinophil pct 0.4 % [facility] Comment: Interpretive Data Percent cell count reference ranges are not reported, since discordance with absolute values may lead to misinterpretation of CBC data. Current Interpretive Data was last revised on 2017. Basophil pct 0.2 % [facility] Comment: Interpretive Data Percent cell count reference ranges are not reported, since discordance with absolute values may lead to misinterpretation of CBC data. Current Interpretive Data was last revised on 2017. Blood 12/30/2023 7:05 AM ACETYLENE PLANT OPERATOR 12/30/2023 7:17 AM ACETYLENE PLANT OPERATOR Julia Espinosa MD LAB BLOOD ORDERABLES Final Re sult Performing Organization Address City/[facility] Co de Phone Number [facility] [address] [facility] [place] [address] * (ABNORMAL) CBC with auto differential (12/30/2023 7:05 AM ACETYLENE PLANT OPERATOR) Pathologist [facility] WBC 9.0 3.8 - 9.9 K/cumm Hgb 9.4(L) 11.9 - 15.5 g/dL [facility] Hct 28.5(L) 35.6 - 45.5 % [facility] Plt 240 150 - 400 K/cumm [facility] MPV 10.4 9.1 - 12.3 fL [facility] RBC 2.93(L) 3.90 - 5.20 M/cumm [facility] MCV 97.3(H) 81.3 - 96.4 fL [facility] MCH 32.1 27.1 - 33.3 pg [facility] MCHC 33.0 32.3 - 35.7 g/dL [facility] RDW CV 17.1(H) 11.1 - 14.9 % [facility] RDW SD 60.4(H) 35.7 - 48.1 fL [facility] NRBC abs 0.00 0.00 - 0.01 K/cumm [facility] Blood 12/30/2023 7:05 AM ACETYLENE PLANT OPERATOR 12/30/2023 7:17 AM ACETYLENE PLANT OPERATOR us Julia Espinosa MD LAB BLOOD ORDERABLES Final Re sult Performing Organization Address City/State/[facility] Co de Phone Number [id number] [place] [address] * Phosphorus (12/30/2023 7:05 AM ACETYLENE PLANT OPERATOR) [facility] Phosphorus, pl 3.3 2.3 - 4.5 mg/dL Blood 12/30/2023 7:05 AM ACETYLENE PLANT OPERATOR 12/30/2023 7:17 AM ACETYLENE PLANT OPERATOR Ramone Evans MD LAB BLOOD ORDERABL ES Final Result Performing Organization Address [facility] Co de Phone Number [address] [place] [address] * Magnesium (12/30/2023 7:05 AM ACETYLENE PLANT OPERATOR) [facility] Magnesium 1.9 1.4 - 2.5 mg/dL Blood 12/30/2023 7:05 AM ACETYLENE PLANT OPERATOR 12/30/2023 7:17 AM ACETYLENE PLANT OPERATOR Ramone Evans MD LAB BLOOD ORDERABL ES Final Result Performing Organization Address [facility] de Phone Number [address] [place] [address] * (ABNORMAL) Comprehensive metabolic panel (12/30/2023 7:05 AM ACETYLENE PLANT OPERATOR) [facility] Sodium 135 135 - 145 mmol/L Potassium, pl 3.7 3.3 - 4.9 mmol/L [facility] Chloride 102 97 - 110 mmol/L [facility] CO2 24 22 - 32 mmol/L [facility] Anion gap 9 2 - 15 mmol/L [facility] BUN 22 6 - 25 mg/dL [facility] Creatinine 2.10(H) 0.60 - 1.10 mg/dL [facility] Glucose 79 70 - 199 mg/dL [facility] Comment: Interpretive Data Fasting glucose >/= 126 mg/dl is diagnostic for diabetes. ?? Fasting is defined as no caloric intake for at least 8 hours. Fasting glucose between 100 mg/dl to 125 mg/dl is diagnostic of prediabetes. In a patient with classic symptoms of hyperglycemia or hyperglycemic crisis, a random glucose >/= 200 mg/dl is diagnostic for diabetes. In the absence of unequivocal hyperglycemia, results should be confirmed by repeat testing. The classification and Diagnosis of Diabetes Diabetes Care 202; 46: S19-S40. Current interpretive data was last revised 2022. Calcium 9.4 8.5 - 10.3 mg/dL [facility] Bilirubin, total 0.2 0.1 - 1.2 mg/dL [facility] Protein, pl 5.3(L) 6.5 - 8.5 g/dL [facility] Albumin 3.0(L) 3.5 - 5.0 g/dL [facility] Alk phos 98 40 - 130 Units/L [facility] ALT 27 7 - 45 Units/L [facility] AST 106(H) 10 - 45 Units/L [facility] Blood 12/30/2023 7:05 AM ACETYLENE PLANT OPERATOR 12/30/2023 7:17 AM ACETYLENE PLANT OPERATOR Ramone Evans MD LAB BLOOD ORDERABL ES Final Result [facility] [address] [facility] Department [place] [address] * (ABNORMAL) eGFR (12/29/2023 9:06 AM ACETYLENE PLANT OPERATOR) eGFR 22(L) >=60 mL/min/1. 73 m2 Comment: Interpretive Data Reference Interval Normal ?>/= 90 mL/min/1.73m2 Mildly decreased* ? 60 - 89 mL/min/1.73m2 Mildly to moderately decreased ?45 - 59 mL/min/1.73m2 Moderately to severely decreased ??30 - 44 mL/min/1.73m2 Severely decreased ?15 - 29 mL/min/1.73m2 Kidney Failure ?< 15 ??mL/min/1.73m2 *Relative to young adult level Estimated glomerular filtration rate is determined by the 2020 CKD-EPI equation recommended by the National Kidney Foundation (A Unifying Approach to GFR Estimation: Recommendations of the NKF-ASK Task Force on Reassessing the Inclusion of Race in Diagnosing Kidney Disease, JASN 202). The CKD-EPI equation should not be used for patients with unstable renal function and has not been validated in children and those over 70. Current interpretive data was last reviewed 2020. Blood 12/29/2023 9:06 AM ACETYLENE PLANT OPERATOR 12/29/2023 9:21 AM ACETYLENE PLANT OPERATOR Ramone Evans MD LAB BLOOD ORDERABL ES Final Result [place] [id number] [facility] Department [place] [address] * (ABNORMAL) Differential, auto (12/29/2023 9:06 AM ACETYLENE PLANT OPERATOR) Neutrophil abs 7.9(H) 1.5 - 6.5 K/cumm Imm gran abs 0.1 0.0 - 0.1 K/cumm [facility] Lymphocyte abs 0.8 0.8 - 3.3 K/cumm [facility] Monocyte abs 0.8 0.2 - 0.8 K/cumm [facility] Eosinophil abs 0.0 0.0 - 0.5 K/cumm [facility] Basophil abs 0.0 0.0 - 0.1 K/cumm [facility] Neutrophil pct 81.3 % [facility] Comment: Interpretive Data Percent cell count reference ranges are not reported, since discordance with absolute values may lead to misinterpretation of CBC data. Current Interpretive Data was last revised on 2017. Imm gran pct 0.9 % [facility] Comment: Interpretive Data Percent cell count reference ranges are not reported, since discordance with absolute values may lead to misinterpretation of CBC data. Current Interpretive Data was last revised on 2017. Lymphocyte pct 8.5 % [facility] Comment: Interpretive Data Percent cell count reference ranges are not reported, since discordance with absolute values may lead to misinterpretation of CBC data. Current Interpretive Data was last revised on 2017. Monocyte pct 8.7 % [facility] Comment: Interpretive Data Percent cell count reference ranges are not reported, since discordance with absolute values may lead to misinterpretation of CBC data. Current Interpretive Data was last revised on 2017. Eosinophil pct 0.4 % [facility] Comment: Interpretive Data Percent cell count reference ranges are not reported, since discordance with absolute values may lead to misinterpretation of CBC data. Current Interpretive Data was last revised on 2017. Basophil pct 0.2 % [facility] Comment: Interpretive Data Percent cell count reference ranges are not reported, since discordance with absolute values may lead to misinterpretation of CBC data. Current Interpretive Data was last revised on 2017. Blood 12/29/2023 9:06 AM ACETYLENE PLANT OPERATOR 12/29/2023 9:21 AM ACETYLENE PLANT OPERATOR us Julia Espinosa MD LAB BLOOD ORDERABLES Final Re sult [facility] [address] [facility] Department [place] [address] * (ABNORMAL) CBC with auto differential (12/29/2023 9:06 AM ACETYLENE PLANT OPERATOR) WBC 9.7 3.8 - 9.9 K/cumm Hgb 9.6(L) 11.9 - 15.5 g/dL [facility] Hct 29.3(L) 35.6 - 45.5 % [facility] Plt 271 150 - 400 K/cumm [facility] MPV 10.4 9.1 - 12.3 fL [facility] RBC 2.99(L) 3.90 - 5.20 M/cumm [facility] MCV 98.0(H) 81.3 - 96.4 fL [facility] MCH 32.1 27.1 - 33.3 pg [facility] MCHC 32.8 32.3 - 35.7 g/dL [facility] RDW CV 17.3(H) 11.1 - 14.9 % [facility] RDW SD 60.7(H) 35.7 - 48.1 fL [facility] NRBC abs 0.00 0.00 - 0.01 K/cumm [facility] Blood 12/29/2023 9:06 AM ACETYLENE PLANT OPERATOR 12/29/2023 9:21 AM ACETYLENE PLANT OPERATOR Julia Espinosa MD LAB BLOOD ORDERABLES Final Re sult Performing Organization Address City/[facility]/ZIP Co de Phone Number [address] [place] [address] * Phosphorus (12/29/2023 9:06 AM ACETYLENE PLANT OPERATOR) [facility] Phosphorus, pl 2.8 2.3 - 4.5 mg/dL Blood 12/29/2023 9:06 AM ACETYLENE PLANT OPERATOR 12/29/2023 9:21 AM ACETYLENE PLANT OPERATOR Ramone Evans MD LAB BLOOD ORDERABL ES Final Result Performing Organization Address [facility] Co de Phone Number [address] [place] [address] * Magnesium (12/29/2023 9:06 AM ACETYLENE PLANT OPERATOR) [facility] Magnesium 1.6 1.4 - 2.5 mg/dL Blood 12/29/2023 9:06 AM ACETYLENE PLANT OPERATOR 12/29/2023 9:21 AM ACETYLENE PLANT OPERATOR Ramone Evans MD LAB BLOOD ORDERABL ES Final Result Performing Organization Address [facility] Co de Phone Number [address] [place] [address] * (ABNORMAL) Comprehensive metabolic panel (12/29/2023 9:06 AM ACETYLENE PLANT OPERATOR) [facility] Sodium 138 135 - 145 mmol/L Potassium, pl 3.8 3.3 - 4.9 mmol/L [facility] Chloride 103 97 - 110 mmol/L [facility] CO2 25 22 - 32 mmol/L [facility] Anion gap 10 2 - 15 mmol/L [facility] BUN 17 6 - 25 mg/dL [facility] Creatinine 2.15(H) 0.60 - 1.10 mg/dL [facility] Glucose 121 70 - 199 mg/dL [facility] Comment: Interpretive Data Fasting glucose >/= 126 mg/dl is diagnostic for diabetes. ?? Fasting is defined as no caloric intake for at least 8 hours. Fasting glucose between 100 mg/dl to 125 mg/dl is diagnostic of prediabetes. In a patient with classic symptoms of hyperglycemia or hyperglycemic crisis, a random glucose >/= 200 mg/dl is diagnostic for diabetes. In the absence of unequivocal hyperglycemia, results should be confirmed by repeat testing. The classification and Diagnosis of Diabetes Diabetes Care 202; 46: S19-S40. Current interpretive data was last revised 2022. Calcium 9.1 8.5 - 10.3 mg/dL [facility] Bilirubin, total 0.2 0.1 - 1.2 mg/dL [facility] Protein, pl 5.1(L) 6.5 - 8.5 g/dL [facility] Albumin 2.9(L) 3.5 - 5.0 g/dL [facility] Alk phos 98 40 - 130 Units/L [facility] ALT 28 7 - 45 Units/L [facility] AST 116(H) 10 - 45 Units/L [facility] Blood 12/29/2023 9:06 AM ACETYLENE PLANT OPERATOR 12/29/2023 9:21 AM ACETYLENE PLANT OPERATOR Ramone Evans MD LAB BLOOD ORDERABL ES Final Result [facility] [address] [facility] Department [place] [address] * (ABNORMAL) eGFR (12/28/2023 7:35 AM ACETYLENE PLANT OPERATOR) eGFR 30(L) >=60 mL/min/1. 73 m2 Comment: Interpretive Data Reference Interval Normal ?>/= 90 mL/min/1.73m2 Mildly decreased* ? 60 - 89 mL/min/1.73m2 Mildly to moderately decreased ?45 - 59 mL/min/1.73m2 Moderately to severely decreased ??30 - 44 mL/min/1.73m2 Severely decreased ?15 - 29 mL/min/1.73m2 Kidney Failure ?< 15 ??mL/min/1.73m2 *Relative to young adult level Estimated glomerular filtration rate is determined by the 2020 CKD-EPI equation recommended by the National Kidney Foundation (A Unifying Approach to GFR Estimation: Recommendations of the NKF-ASK Task Force on Reassessing the Inclusion of Race in Diagnosing Kidney Disease, JASN 2020). The CKD-EPI equation should not be used for patients with unstable renal function and has not been validated in children and those over 70. Current interpretive data was last reviewed 2020. Blood 12/28/2023 7:35 AM ACETYLENE PLANT OPERATOR 12/28/2023 8:12 AM ACETYLENE PLANT OPERATOR Ramone Evans MD LAB BLOOD ORDERABL ES Final Result [facility] [address] [facility] Department [place] [address] * (ABNORMAL) Differential, auto (12/28/2023 7:35 AM ACETYLENE PLANT OPERATOR) Neutrophil abs 8.1(H) 1.5 - 6.5 K/cumm Imm gran abs 0.1 0.0 - 0.1 K/cumm [facility] Lymphocyte abs 0.7(L) 0.8 - 3.3 K/cumm [facility] Monocyte abs 0.9(H) 0.2 - 0.8 K/cumm [facility] Eosinophil abs 0.1 0.0 - 0.5 K/cumm [facility] Basophil abs 0.0 0.0 - 0.1 K/cumm [facility] Neutrophil pct 82.2 % [facility] Comment: Interpretive Data Percent cell count reference ranges are not reported, since discordance with absolute values may lead to misinterpretation of CBC data. Current Interpretive Data was last revised on 2017. Imm gran pct 0.8 % [facility] Comment: Interpretive Data Percent cell count reference ranges are not reported, since discordance with absolute values may lead to misinterpretation of CBC data. Current Interpretive Data was last revised on 2017. Lymphocyte pct 7.5 % [facility] Comment: Interpretive Data Percent cell count reference ranges are not reported, since discordance with absolute values may lead to misinterpretation of CBC data. Current Interpretive Data was last revised on 2017. Monocyte pct 8.8 % [facility] Comment: Interpretive Data Percent cell count reference ranges are not reported, since discordance with absolute values may lead to misinterpretation of CBC data. Current Interpretive Data was last revised on 2017. Eosinophil pct 0.5 % [facility] Comment: Interpretive Data Percent cell count reference ranges are not reported, since discordance with absolute values may lead to misinterpretation of CBC data. Current Interpretive Data was last revised on 2017. Basophil pct 0.2 % [facility] Comment: Interpretive Data Percent cell count reference ranges are not reported, since discordance with absolute values may lead to misinterpretation of CBC data. Current Interpretive Data was last revised on 2017. Blood 12/28/2023 7:35 AM ACETYLENE PLANT OPERATOR 12/28/2023 8:12 AM ACETYLENE PLANT OPERATOR Julia Espinosa MD LAB BLOOD ORDERABLES Final Re sult [facility] [address] [facility] Department [place] [address] * (ABNORMAL) CBC with auto differential (12/28/2023 7:35 AM ACETYLENE PLANT OPERATOR) WBC 9.9 3.8 - 9.9 K/cumm Hgb 9.3(L) 11.9 - 15.5 g/dL [facility] Hct 28.3(L) 35.6 - 45.5 % [facility] Plt 259 150 - 400 K/cumm [facility] MPV 10.3 9.1 - 12.3 fL [facility] RBC 2.89(L) 3.90 - 5.20 M/cumm [facility] MCV 97.9(H) 81.3 - 96.4 fL [facility] MCH 32.2 27.1 - 33.3 pg [facility] MCHC 32.9 32.3 - 35.7 g/dL [facility] RDW CV 17.2(H) 11.1 - 14.9 % [facility] RDW SD 61.9(H) 35.7 - 48.1 fL [facility] NRBC abs 0.00 0.00 - 0.01 K/cumm [facility] Blood 12/28/2023 7:35 AM ACETYLENE PLANT OPERATOR 12/28/2023 8:12 AM ACETYLENE PLANT OPERATOR Julia Espinosa MD LAB BLOOD ORDERABLES Final Re sult Performing Organization Address City/[facility]/ZIP Co de Phone Number [address] [place] [address] * Phosphorus (12/28/2023 7:35 AM ACETYLENE PLANT OPERATOR) Phosphorus, pl 2.3 2.3 - 4.5 mg/dL Blood 12/28/2023 7:35 AM ACETYLENE PLANT OPERATOR 12/28/2023 8:12 AM ACETYLENE PLANT OPERATOR Ramone Evans MD LAB BLOOD ORDERABL ES Final Result Performing Organization Address [facility] Co de Phone Number [address] [place] [address] * Magnesium (12/28/2023 7:35 AM ACETYLENE PLANT OPERATOR) Magnesium 1.6 1.4 - 2.5 mg/dL Blood 12/28/2023 7:35 AM ACETYLENE PLANT OPERATOR 12/28/2023 8:12 AM ACETYLENE PLANT OPERATOR Ramone Evans MD LAB BLOOD ORDERABL ES Final Result Performing Organization Address [facility]/ZIP Co de Phone Number [facility] [address] [facility] Department [place] [address] * (ABNORMAL) Comprehensive metabolic panel (12/28/2023 7:35 AM ACETYLENE PLANT OPERATOR) Sodium 138 135 - 145 mmol/L Potassium, pl 3.9 3.3 - 4.9 mmol/L [facility] Chloride 108 97 - 110 mmol/L [facility] CO2 21(L) 22 - 32 mmol/L [facility] Anion gap 9 2 - 15 mmol/L [facility] BUN 13 6 - 25 mg/dL [facility] Creatinine 1.63(H) 0.60 - 1.10 mg/dL [facility] Glucose 100 70 - 199 mg/dL [facility] Comment: Interpretive Data Fasting glucose >/= 126 mg/dl is diagnostic for diabetes. ?? Fasting is defined as no caloric intake for at least 8 hours. Fasting glucose between 100 mg/dl to 125 mg/dl is diagnostic of prediabetes. In a patient with classic symptoms of hyperglycemia or hyperglycemic crisis, a random glucose >/= 200 mg/dl is diagnostic for diabetes. In the absence of unequivocal hyperglycemia, results should be confirmed by repeat testing. The classification and Diagnosis of Diabetes Diabetes Care 202; 46: S19-S40. Current interpretive data was last revised 2022. Calcium 9.3 8.5 - 10.3 mg/dL [facility] Bilirubin, total <0.2 0.1 - 1.2 mg/dL [facility] Protein, pl 4.9(L) 6.5 - 8.5 g/dL [facility] Albumin 3.0(L) 3.5 - 5.0 g/dL [facility] Alk phos 91 40 - 130 Units/L [facility] ALT 30 7 - 45 Units/L [facility] AST 106(H) 10 - 45 Units/L [facility] Blood 12/28/2023 7:35 AM ACETYLENE PLANT OPERATOR 12/28/2023 8:12 AM ACETYLENE PLANT OPERATOR Ramone Evans MD LAB BLOOD ORDERABL ES Final Result Performing Organization Address [facility]/ZIP Co de Phone Number [facility] [address] [facility] [place] [address] * CT chest with contrast (12/27/2023 10:34 PM ACETYLENE PLANT OPERATOR) Anatomical Region Laterality Modality Body N/A Computed Tomogra phy 12/28/2023 12:5 8 AM ACETYLENE PLANT OPERATOR Narrative 12/28/2023 1:05 AM ACETYLENE PLANT OPERATOR EXAM DESCRIPTION: CT CHEST W CONTRAST REASON FOR STUDY: evaluate for possible metastatic disease ?? Pt has liver mass, pt had a biopsy on the mass, concern for mets ? TECHNIQUE: CT scan of the chest performed with intravenous contrast using helical scanning technique with dynamic intravenous contrast injection. ?? Reconstructed coronal and sagittal MPR images reviewed. All images stored on PACS. ??Automated exposure control was used as a dose optimization technique for this examination. CONTRAST TYPE/DOSE: 100mL of IOVERSOL 350 MG IODINE/ML INTRAVENOUS SYRINGE ?? injected via ??intravenous COMPARISON: 12/20/2023 FINDINGS: LUNGS: ??There is 4 cm 3 cm mass of the right upper lung which abuts the right upper mediastinum. 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 ??No other definite lung parenchyma lesion is seen. ?? Patient motion somewhat hampers the exam. PLEURA: ??There is a small right pleural effusion and a tiny left pleural effusion. ??No definite pleural lesions are identified. MEDIASTINUM/RIKKI: ?? There are mildly prominent mediastinal lymph nodes in the paratracheal region close to the right lung mass. ??The largest measures about 1.2 cm in short axis diameter. HEART: ??Heart size is normal with no pericardial effusion. VASCULATURE: ??No thoracic aortic aneurysm. AXILLA: ??No adenopathy. CHEST WALL: ??No masses. ??No subcutaneous air. HARDWARE/LINES/TUBES: ?? None. UPPER ABDOMEN: ??Large hepatic mass and suspected right adrenal mass are again noted similar to previous. MUSCULOSKELETAL: ??There is a lucency in the anterior body of T9 which has an appearance most suggestive of a benign hemangioma. OTHER: ??No other significant abnormality. 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 Small right and tiny left pleural effusions. Mildly prominent mediastinal lymph nodes in the paratracheal region close to the right lung mass. Large hepatic mass and suspected right adrenal mass similar to previous. Lucent lesion in the anterior body of T9 which has an appearance most suggestive of a benign hemangioma. THIS IS AN ELECTRONICALLY VERIFIED FINAL REPORT 12/28/2023 1:05 AM - Electronically signed by ??Gunner Johnson M.D. D: ??12/28/2023 1:05 AM T: Report ID: [id number] Reading Location: ??[id number] Procedure Note Gunner Johnson MD - 12/28/2023 EXAM DESCRIPTION: CT CHEST W CONTRAST REASON FOR STUDY: evaluate for possible metastatic disease Pt has liver mass, pt had a biopsy on the mass, concern for mets TECHNIQUE: CT scan of the chest performed with intravenous contrast using helical scanning technique with dynamic intravenous contrast injection. Reconstructed coronal and sagittal MPR images reviewed. All images storedon PACS. Automated exposure control was used as a dose optimizationtechnique for this examination. CONTRAST TYPE/DOSE: 100mL of IOVERSOL 350 MG IODINE/ML INTRAVENOUS SYRINGE injected via intravenous COMPARISON: 12/20/2023 FINDINGS: LUNGS: There is 4 cm 3 cm mass of the right upper lung whichabuts the right upper mediastinum. This is a heterogeneous soft tissue massmost concerning for neoplasia. No other definite lung parenchyma lesion isseen. Patient motion somewhat hampers the exam. PLEURA: There is a small right pleural effusion and a tiny left pleural effusion. No definite pleural lesions are identified. MEDIASTINUM/RIKKI: There are mildly prominent mediastinal lymph nodes inthe paratracheal region close to the right lung mass. The largest measuresabout 1.2 cm in short axis diameter. HEART: Heart size is normal with no pericardial effusion. VASCULATURE: No thoracic aortic aneurysm. AXILLA: No adenopathy. CHEST WALL: No masses. No subcutaneous air. HARDWARE/LINES/TUBES: None. UPPER ABDOMEN: Large hepatic mass and suspected right adrenal mass areagain noted similar to previous. MUSCULOSKELETAL: There is a lucency in the anterior body of T9 which hasan appearance most suggestive of a benign hemangioma. OTHER: No other significant abnormality. 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 Small right and tiny left pleural effusions. Mildly prominent mediastinal lymph nodes in the paratracheal region closeto the right lung mass. Large hepatic mass and suspected right adrenal mass similar toprevious. Lucent lesion in the anterior body of T9 which has an appearance most suggestive of a benign hemangioma. THIS IS AN ELECTRONICALLY VERIFIED FINAL REPORT 12/28/2023 1:05 AM - Electronically signed by Gunner Johnson M.D. T: Report ID: [id number] Reading Location: [place] [id number] Stacia Meade NP IMG CT PROCEDURES Final Result * (ABNORMAL) Iron profile w/ IBC (12/27/2023 2:49 PM ACETYLENE PLANT OPERATOR) [facility] Iron 59 35 - 145 mcg/dL TIBC 205(L) 250 - 400 mcg/dL [facility] Transferrin saturation 29 20 - 50 % [facility] Blood 12/27/2023 2:49 PM ACETYLENE PLANT OPERATOR 12/27/2023 2:54 PM ACETYLENE PLANT OPERATOR Result [facility] Ramone Evans MD LAB BLOOD ORDERABL ES Final Result Performing Organization Address [facility] Co de Phone Number [address] [employer] [place] [address] * (ABNORMAL) Erythrocyte sedimentation rate (12/27/2023 2:49 PM AC[employer]LENE [employer] OPERATOR) [facility] Erythrocyte sedimentation rate 35(H) 1 - 30 mm/hr Blood 12/27/2023 2:49 PM [employer] OPERATOR 12/27/2023 2:54 PM [employer] OPERATOR Ramone Evans MD LAB BLOOD ORDERABL ES Final Result Performing Organization Address [facility] Co de Phone Number [address] [place] [address] * (ABNORMAL) Reticulocyte Count (12/27/2023 2:49 PM AC[employer] OPERATOR) [facility] Retics, absolute 0.040 0.020 - 0.087 M/cumm Retics 1.2 0.4 - 2.9 % [facility] Reticulocyte Hgb 39.0(H) 30.5 - 38.0 pg [facility] Blood 12/27/2023 2:49 PM [employer] OPERATOR 12/27/2023 2:54 PM [employer] OPERATOR Ramone Evans MD LAB BLOOD ORDERABL ES Final Result Performing Organization Address [facility] Co de Phone Number [address] [place] [address] * CRP (acute phase) (12/27/2023 2:49 PM AC[employer] OPERATOR) [facility] CRP 8.7 <=10.0 mg/L Blood 12/27/2023 2:49 PM [employer] OPERATOR 12/27/2023 2:54 PM [employer] OPERATOR Ramone Evans MD LAB BLOOD ORDERABL ES Final Result Performing Organization Address [facility] de Phone Number [address] [place] [address] * Folate (12/27/2023 2:49 PM AC[employer]E [employer] OPERATOR) [facility] Folic acid >20.0 >=5.0 ng/mL Blood 12/27/2023 2:49 PM [employer] OPERATOR 12/27/2023 2:54 PM [employer] OPERATOR Ramone Evans MD LAB BLOOD ORDERABL ES Final Result Performing Organization Address [facility] Co de Phone Number [address] [place] [address] * Ferritin (12/27/2023 2:49 PM AC[employer] OPERATOR) [facility] Ferritin 130 15 - 150 ng/mL Blood 12/27/2023 2:49 PM AC[employer] OPERATOR 12/27/2023 2:54 PM [employer] OPERATOR Ramone Evans MD LAB BLOOD ORDERABL ES Final Result Performing Organization Address [facility] Co de Phone Number [address] [address] * Vitamin B12 (12/27/2023 2:49 PM AC[employer]E [employer] OPERATOR) [facility] Vitamin B12 686 230 - 1,250 pg/mL Blood 12/27/2023 2:49 PM AC[employer] OPERATOR 12/27/2023 2:54 PM [employer] OPERATOR Ramone Evans MD LAB BLOOD ORDERABL ES Final Result Performing Organization Address [facility] de Phone Number [address] [place] [address] * (ABNORMAL) eGFR (12/27/2023 5:46 AM AC[employer]E [employer] OPERATOR) [facility] eGFR 35(L) >=60 mL/min/1. 73 m2 Comment: Interpretive Data Reference Interval Normal ?>/= 90 mL/min/1.73m2 Mildly decreased* ? 60 - 89 mL/min/1.73m2 Mildly to moderately decreased ?45 - 59 mL/min/1.73m2 Moderately to severely decreased ??30 - 44 mL/min/1.73m2 Severely decreased ?15 - 29 mL/min/1.73m2 Kidney Failure ?< 15 ??mL/min/1.73m2 *Relative to young adult level Estimated glomerular filtration rate is determined by the 2020 CKD-EPI equation recommended by the National Kidney Foundation (A Unifying Approach to GFR Estimation: Recommendations of the NKF-ASK Task Force on Reassessing the Inclusion of Race in Diagnosing Kidney Disease, JASN 2020). The CKD-EPI equation should not be used for patients with unstable renal function and has not been validated in children and those over 70. Current interpretive data was last reviewed 2020. Blood 12/27/2023 5:46 AM [employer] OPERATOR 12/27/2023 5:57 AM [employer]E [employer] OPERATOR Julia Espinosa MD LAB BLOOD ORDERABLES Final Re sult [facility] [address] [facility] Department of Laboratories [place], [place] [id number] * Differential, auto (12/27/2023 5:46 AM AC[employer]E [employer] OPERATOR) Neutrophil abs 5.8 1.5 - 6.5 K/cumm Imm gran abs 0.1 0.0 - 0.1 K/cumm [facility] Lymphocyte abs 0.9 0.8 - 3.3 K/cumm [facility] Monocyte abs 0.7 0.2 - 0.8 K/cumm [facility] Eosinophil abs 0.0 0.0 - 0.5 K/cumm [facility] Basophil abs 0.0 0.0 - 0.1 K/cumm [facility] Neutrophil pct 77.5 % [facility] Comment: Interpretive Data Percent cell count reference ranges are not reported, since discordance with absolute values may lead to misinterpretation of CBC data. Current Interpretive Data was last revised on 2017. Imm gran pct 1.3 % [facility] Comment: Interpretive Data Percent cell count reference ranges are not reported, since discordance with absolute values may lead to misinterpretation of CBC data. Current Interpretive Data was last revised on 2017. Lymphocyte pct 11.6 % [facility] Comment: Interpretive Data Percent cell count reference ranges are not reported, since discordance with absolute values may lead to misinterpretation of CBC data. Current Interpretive Data was last revised on 2017. Monocyte pct 8.9 % [facility] Comment: Interpretive Data Percent cell count reference ranges are not reported, since discordance with absolute values may lead to misinterpretation of CBC data. Current Interpretive Data was last revised on 2017. Eosinophil pct 0.4 % [facility] Comment: Interpretive Data Percent cell count reference ranges are not reported, since discordance with absolute values may lead to misinterpretation of CBC data. Current Interpretive Data was last revised on 2017. Basophil pct 0.3 % [facility] Comment: Interpretive Data Percent cell count reference ranges are not reported, since discordance with absolute values may lead to misinterpretation of CBC data. Current Interpretive Data was last revised on 2017. Blood 12/27/2023 5:46 AM [employer] OPERATOR 12/27/2023 5:57 AM AC[employer]E [employer] OPERATOR us Julia Espinosa MD LAB BLOOD ORDERABLES Final Re sult [place] [id number] [facility] [place] [address] * (ABNORMAL) CBC with auto differential (12/27/2023 5:46 AM AC[employer] OPERATOR) WBC 7.5 3.8 - 9.9 K/cumm Hgb 9.5(L) 11.9 - 15.5 g/dL [facility] Hct 29.6(L) 35.6 - 45.5 % [facility] Plt 266 150 - 400 K/cumm [facility] MPV 10.3 9.1 - 12.3 fL [facility] RBC 2.99(L) 3.90 - 5.20 M/cumm [facility] MCV 99.0(H) 81.3 - 96.4 fL [facility] MCH 31.8 27.1 - 33.3 pg [facility] MCHC 32.1(L) 32.3 - 35.7 g/dL [facility] RDW CV 17.0(H) 11.1 - 14.9 % [facility] RDW SD 60.2(H) 35.7 - 48.1 fL [facility] NRBC abs 0.00 0.00 - 0.01 K/cumm [facility] Blood 12/27/2023 5:46 AM AC[employer] OPERATOR 12/27/2023 5:57 AM AC[employer]E [employer] OPERATOR Julia Espinosa MD LAB BLOOD ORDERABLES Final Re sult Performing Organization Address [facility] Co de Phone Number [address] [place] [address] * (ABNORMAL) Hepatic function panel (12/27/2023 5:46 AM AC[employer]E [employer] OPERATOR) Pathologist [facility] Bilirubin, total <0.2 0.1 - 1.2 mg/dL Bilirubin, direct <0.2 0.1 - 0.3 mg/dL [facility] Protein, pl 5.2(L) 6.5 - 8.5 g/dL [facility] Albumin 2.9(L) 3.5 - 5.0 g/dL [facility] Alk phos 88 40 - 130 Units/L [facility] ALT 25 7 - 45 Units/L [facility] AST 60(H) 10 - 45 Units/L [facility] Blood 12/27/2023 5:46 AM AC[employer]E [employer] OPERATOR 12/27/2023 5:57 AM AC[employer]E [employer] OPERATOR Ramone Evans MD LAB BLOOD ORDERABL ES Final Result Performing Organization Address [facility] de Phone Number [address] [place] [address] * (ABNORMAL) Basic metabolic panel (12/27/2023 5:46 AM AC[employer]E [employer] OPERATOR) Pathologist [facility] Sodium 137 135 - 145 mmol/L Potassium, pl 4.7 3.3 - 4.9 mmol/L [facility] Chloride 112(H) 97 - 110 mmol/L [facility] CO2 18(L) 22 - 32 mmol/L [facility] Anion gap 7 2 - 15 mmol/L [facility] BUN 13 6 - 25 mg/dL [facility] Creatinine 1.45(H) 0.60 - 1.10 mg/dL [facility] Glucose 84 70 - 199 mg/dL [facility] Comment: Interpretive Data Fasting glucose >/= 126 mg/dl is diagnostic for diabetes. ?? Fasting is defined as no caloric intake for at least 8 hours. Fasting glucose between 100 mg/dl to 125 mg/dl is diagnostic of prediabetes. In a patient with classic symptoms of hyperglycemia or hyperglycemic crisis, a random glucose >/= 200 mg/dl is diagnostic for diabetes. In the absence of unequivocal hyperglycemia, results should be confirmed by repeat testing. The classification and Diagnosis of Diabetes Diabetes Care 2021; 46: S19-S40. Current interpretive data was last revised 2022. Calcium 9.3 8.5 - 10.3 mg/dL [facility] Blood 12/27/2023 5:46 AM AC[employer]E [employer] OPERATOR 12/27/2023 5:57 AM ACETY[employer]E PL[employer] OPERATOR us Julia Espinosa MD LAB BLOOD ORDERABLES Final Re sult [facility] [address] [facility] [place] [address] * US Guided Biopsy Liver (12/26/2023 3:31 PM ACETYLENE [employer] OPERATOR) Anatomical Region Laterality Modality Leg N/A Ultrasound, Comp uted Radiography 12/26/2023 3:40 PM AC[employer]E PL[employer] OPERATOR Narrative 12/26/2023 3:42 PM AC[employer]E [employer] OPERATOR EXAM DESCRIPTION: ?? US GUIDED BIOPSY LIVER HISTORY: ?? liver mass, concern for CA ?? COMPARISON: ?? CT abdomen and pelvis 12/20/2023 TECHNIQUE AND FINDINGS: Prior to the start of the procedure, a timeout was performed in which the patient's identity, site of procedure, and type of procedure was verified. The patient was placed in a supine position and a limited ultrasound of the liver was performed. An approach was chosen for biopsy of an inferior right hepatic lobe mass. ??The overlying skin was prepped and draped in sterile fashion. ??Local anesthesia was obtained with 1% lidocaine. Conscious sedation was administered with continuous monitoring of patients vital signs and oxygenation by a qualified dedicated nurse. Total monitored time was ??34 ??minutes. Medications administered as follows: Lidocaine 1% Versed ??0.5 ??mg, IV Fentanyl ??12.5 ??mcg, IV Under ultrasound guidance, a 17 gauge coaxial needle was advanced into the hyperechoic mass in the inferior right hepatic lobe. ??Needle placement was documented with sonographic images. Two 18 gauge core biopsies were obtained. ?? Sampling adequacy was confirmed by a pathologist. Estimated blood loss: ??<20 ??mL COMPLICATIONS: ?? None. IMPRESSION: ?? Successful ultrasound guided percutaneous core biopsy of a right hepatic lobe mass. THIS IS AN ELECTRONICALLY VERIFIED FINAL REPORT 12/26/2023 3:42 PM - Electronically signed by ??Gunner LASSITER D: ??12/26/2023 3:42 PM T: Report ID: [id number] Reading Location: ??[id number] Procedure Note Gunner Cassidy MD - 12/26/2023 EXAM DESCRIPTION: US GUIDED BIOPSY LIVER HISTORY: liver mass, concern for CA COMPARISON: CT abdomen and pelvis 12/20/2023 TECHNIQUE AND FINDINGS: Prior to the start of the procedure, a timeout was performed in which the patient's identity, site of procedure, and type of procedure was verified. The patient was placed in a supine position and a limited ultrasound ofthe liver was performed. An approach was chosen for biopsy of an inferiorright hepatic lobe mass. The overlying skin was prepped and draped in sterile fashion. Local anesthesia was obtained with 1% lidocaine. Conscious sedation was administered with continuous monitoring of patients vital signs and oxygenation by a qualified dedicated nurse. Totalmonitored time was 34 minutes. Medications administered as follows: Lidocaine 1% Versed 0.5 mg, IV Fentanyl 12.5 mcg, IV Under ultrasound guidance, a 17 gauge coaxial needle was advanced into the hyperechoic mass in the inferior right hepatic lobe. Needle placement was documented with sonographic images. Two 18 gauge core biopsies wereobtained. Sampling adequacy was confirmed by a pathologist. Estimated blood loss: <20 mL COMPLICATIONS: None. IMPRESSION: Successful ultrasound guided percutaneous core biopsy of aright hepatic lobe mass. THIS IS AN ELECTRONICALLY VERIFIED FINAL REPORT 12/26/2023 3:42 PM - Electronically signed by Gunner LASSITER T: Report ID: [id number] Reading Location: [id number] us Saim Gannon DO IMG US PROCEDURES Final Result * Surgical pathology (12/26/2023 2:19 PM AC[employer]E [employer] OPERATOR) Liver, Biopsy - [facility] 12/26/2023 2:19 PM ACETYLENE PLANT OPERATOR 12/26/2023 3:02 PM ACETYLENE PLANT OPERATOR Narrative 12/30/2023 4:03 PM ACETYLENE PLANT OPERATOR [facility] Department of Pathology [address] [place] [id number] ?? Note to Patients: ??This report may contain a detailed description of human tissue sent by a health care provider to the laboratory for pathologic evaluation. ??The content of this report is essential for diagnosis and may provide important critical findings. ??This information may be unfamiliar to patients to review without a medical professional present. ?? It is advised that the patient review this report in the presence of a health care provider who can answer questions and explain the details. Final Report Patient Name: RYAN FORBES : ??1935 (Age: 88) Gender: ??F Address: ??[address], [place] [facility] #: [id number] Service: Medical Location: Patient Type: [facility] INPATIENT ? Taken: 12/26/2023 Received: 12/26/2023 Accessioned: 12/27/2023 Reported: 12/30/2023 Physician(s): Gunner Cassidy M.D. DO Timothy Mo M.D. Diagnosis: A. ??Liver, mass, biopsy ? - Neuroendocrine neoplasm, favor atypical carcinoid Diagnosis Comment: This result was flagged as significant and was sent to Fide Reno NP via [employer] on 12/30/2023. Reason(s): To the best of our knowledge, this is the first diagnosis of this type of neoplasm rendered for this patient. Zhane Gonzales MD Report Electronically Reviewed and Signed Out By ??Zhane Gonzales MD 12/30/2023 16:03:08 Specimen(s) Received: A: Liver mass Intraoperative Diagnosis: Rapid On-Site Evaluation A. ??Liver mass, core biopsy touch prep Evaluation Episode #1: ??Adequate Preliminary Diagnosis if Provided: ??N/a Total Evaluation Episodes: 1 Dr. Tim Altman 12/26/2023 at 2:19 PM Tim Altman M.D. Microscopic Description: The tumor cells are positive for CK7, synaptophysin, and chromogranin. They are negative for CK20 and p63. Ki-67 highlights a proliferation index of 25%. The clinical history of a lung mass is noted. This is concerning for a metastasis from a lung primary. Correlation with imaging is recommended to exclude other sites. This case was reviewed in consultation with Dr. Tyler Gómez and she concurs. The tumor cells are positive for CK7, synaptophysin, and chromogranin. They are negative for CK20 and p63. Ki-67 highlights a proliferation index of 25%. The clinical history of a lung mass is noted. This is concerning for a metastasis from a lung primary. Correlation with imaging is recommended to exclude other sites. This case was reviewed in consultation with Dr. Tyler Gómez and she concurs. Clinical History: The patient is an 88-year-old woman with acute kidney injury, hyperkalemia, abnormal CT scan of the abdomen an atrial fibrillation and flutter. ??Operative procedure: ??Ultrasound-guided liver mass needle core biopsies. Gross Description Received in formalin, labeled with the patient? ? s identifiers and liver mass and consists of two arevalo to arevalo-brown, friable tissue cores each measuring 0.1 cm in diameter and 1.4-1.6 cm in length. ??Entirely submitted. ?? Labeled A1 to A2. Jar 0. ?? jjmhb/12/27/2023 08:33 RONALD Alvarez, [facility] ([facility] Microscopic slide review and interpretation for this case was performed at [facility], Department of Surgical Pathology, [address] [facility] [place] [id number], ??[place], [place] ??[address] ?? CLIA # [id number] us Gunner Cassidy MD LAB PATHOLOGY ORDERABL ES Final Result * (ABNORMAL) eGFR (12/26/2023 6:55 AM ACETYLENE PLANT OPERATOR) Pathologist [facility] eGFR 38(L) >=60 mL/min/1. 73 m2 Comment: Interpretive Data Reference Interval Normal ?>/= 90 mL/min/1.73m2 Mildly decreased* ? 60 - 89 mL/min/1.73m2 Mildly to moderately decreased ?45 - 59 mL/min/1.73m2 Moderately to severely decreased ??30 - 44 mL/min/1.73m2 Severely decreased ?15 - 29 mL/min/1.73m2 Kidney Failure ?< 15 ??mL/min/1.73m2 *Relative to young adult level Estimated glomerular filtration rate is determined by the 2020 CKD-EPI equation recommended by the National Kidney Foundation (A Unifying Approach to GFR Estimation: Recommendations of the NKF-ASK Task Force on Reassessing the Inclusion of Race in Diagnosing Kidney Disease, JASN 2020). The CKD-EPI equation should not be used for patients with unstable renal function and has not been validated in children and those over 70. Current interpretive data was last reviewed 2020. Blood 12/26/2023 6:55 AM ACETYLENE PLANT OPERATOR 12/26/2023 7:27 AM ACETYLENE PLANT OPERATOR us Julia Espinosa MD LAB BLOOD ORDERABLES Final Re sult [facility] [address] [employer] [facility] [place] [address] * Differential, auto (12/26/2023 6:55 AM ACETYLENE PLANT OPERATOR) Pathologist [facility] Neutrophil abs 5.8 1.5 - 6.5 K/cumm Imm gran abs 0.1 0.0 - 0.1 K/cumm [facility] Lymphocyte abs 0.9 0.8 - 3.3 K/cumm [facility] Monocyte abs 0.6 0.2 - 0.8 K/cumm [facility] Eosinophil abs 0.1 0.0 - 0.5 K/cumm [facility] Basophil abs 0.0 0.0 - 0.1 K/cumm [facility] Neutrophil pct 78.2 % [facility] Comment: Interpretive Data Percent cell count reference ranges are not reported, since discordance with absolute values may lead to misinterpretation of CBC data. Current Interpretive Data was last revised on 2017. Imm gran pct 1.4 % [facility] Comment: Interpretive Data Percent cell count reference ranges are not reported, since discordance with absolute values may lead to misinterpretation of CBC data. Current Interpretive Data was last revised on 2017. Lymphocyte pct 11.9 % [facility] Comment: Interpretive Data Percent cell count reference ranges are not reported, since discordance with absolute values may lead to misinterpretation of CBC data. Current Interpretive Data was last revised on 2017. Monocyte pct 7.5 % [facility] Comment: Interpretive Data Percent cell count reference ranges are not reported, since discordance with absolute values may lead to misinterpretation of CBC data. Current Interpretive Data was last revised on 2017. Eosinophil pct 0.7 % [facility] Comment: Interpretive Data Percent cell count reference ranges are not reported, since discordance with absolute values may lead to misinterpretation of CBC data. Current Interpretive Data was last revised on 2017. Basophil pct 0.3 % [facility] Comment: Interpretive Data Percent cell count reference ranges are not reported, since discordance with absolute values may lead to misinterpretation of CBC data. Current Interpretive Data was last revised on 2017. Blood 12/26/2023 6:55 AM ACETYLENE PLANT OPERATOR 12/26/2023 7:26 AM ACETYLENE PLANT OPERATOR us Julia Espinosa MD LAB BLOOD ORDERABLES Final Re sult [facility] [address] [place] [address] * (ABNORMAL) CBC with auto differential (12/26/2023 6:55 AM ACETYLENE PLANT OPERATOR) [facility] WBC 7.3 3.8 - 9.9 K/cumm Hgb 9.7(L) 11.9 - 15.5 g/dL [facility] Hct 30.5(L) 35.6 - 45.5 % [facility] Plt 243 150 - 400 K/cumm [facility] MPV 10.5 9.1 - 12.3 fL [facility] RBC 3.06(L) 3.90 - 5.20 M/cumm [facility] MCV 99.7(H) 81.3 - 96.4 fL [facility] MCH 31.7 27.1 - 33.3 pg [facility] MCHC 31.8(L) 32.3 - 35.7 g/dL [facility] RDW CV 17.0(H) 11.1 - 14.9 % [facility] RDW SD 61.6(H) 35.7 - 48.1 fL [facility] NRBC abs 0.00 0.00 - 0.01 K/cumm [facility] Blood 12/26/2023 6:55 AM ACETYLENE PLANT OPERATOR 12/26/2023 7:26 AM ACETYLENE PLANT OPERATOR Julia Espinosa MD LAB BLOOD ORDERABLES Final Re sult [address] [address] * aPTT (12/26/2023 6:55 AM ACETYLENE PLANT OPERATOR) [facility] aPTT 27 22 - 37 sec Comment: Interpretive data aPTT test has not been evaluated for monitoring heparin therapy. The anti-Xa is the preferred test. Current interpretive data was last revised on 2019. Blood 12/26/2023 6:55 AM ACETYLENE PLANT OPERATOR 12/26/2023 7:26 AM ACETYLENE PLANT OPERATOR Julia Espinosa MD LAB BLOOD ORDERABLES Final Re sul Performing Organization Address [facility] de Phone Number [address] [place] [address] * Protime-INR (12/26/2023 6:55 AM ACETYLENE PLANT OPERATOR) [facility] PT 13.1 12.0 - 14.6 sec INR 1.0 0.9 - 1.2 [facility] Comment: Ref Range High Interpretive data Oral anticoagulant therapeutic ranges: Venous thromboembolism prophylaxis or treatment: 2.0-3.0 CARDIOLOGY Standard range: 2.0-3.0 High-intensity range: 2.5-3.5 Refer to indication-specific guidelines for appropriate target ranges for prosthetic heart valve replacement. Current interpretive data was last revised on 2019. Blood 12/26/2023 6:55 AM ACETYLENE PLANT OPERATOR 12/26/2023 7:26 AM ACETYLENE PLANT OPERATOR Julia Espinosa MD LAB BLOOD ORDERABLES Final Re [facility] Performing Organization Address [facility] de Phone Number [place] [phone] [facility] [place] [employer] [place] [address] * (ABNORMAL) Basic metabolic panel (12/26/2023 6:55 AM ACETYLENE PLANT OPERATOR) [facility] Sodium 138 135 - 145 mmol/L Potassium, pl 4.6 3.3 - 4.9 mmol/L [facility] Chloride 114(H) 97 - 110 mmol/L [facility] CO2 17(L) 22 - 32 mmol/L [facility] Anion gap 7 2 - 15 mmol/L [facility] BUN 14 6 - 25 mg/dL [facility] Creatinine 1.35(H) 0.60 - 1.10 mg/dL [facility] Glucose 88 70 - 199 mg/dL [facility] Comment: Interpretive Data Fasting glucose >/= 126 mg/dl is diagnostic for diabetes. ?? Fasting is defined as no caloric intake for at least 8 hours. Fasting glucose between 100 mg/dl to 125 mg/dl is diagnostic of prediabetes. In a patient with classic symptoms of hyperglycemia or hyperglycemic crisis, a random glucose >/= 200 mg/dl is diagnostic for diabetes. In the absence of unequivocal hyperglycemia, results should be confirmed by repeat testing. The classification and Diagnosis of Diabetes Diabetes Care 202; 46: S19-S40. Current interpretive data was last revised 2022. Calcium 10.0 8.5 - 10.3 mg/dL GREGORIO Blood 12/26/2023 6:55 AM [employer] OPERATOR 12/26/2023 7:27 AM [employer]E [employer] OPERATOR us Julia Espinosa MD LAB BLOOD ORDERABLES Final Re sult GREGORIO [address] [facility] Department [place] [address] * (ABNORMAL) eGFR (12/25/2023 7:31 AM AC[employer]E [employer] OPERATOR) eGFR 35(L) >=60 mL/min/1. 73 m2 Comment: Interpretive Data Reference Interval Normal ?>/= 90 mL/min/1.73m2 Mildly decreased* ? 60 - 89 mL/min/1.73m2 Mildly to moderately decreased ?45 - 59 mL/min/1.73m2 Moderately to severely decreased ??30 - 44 mL/min/1.73m2 Severely decreased ?15 - 29 mL/min/1.73m2 Kidney Failure ?< 15 ??mL/min/1.73m2 *Relative to young adult level Estimated glomerular filtration rate is determined by the 2020 CKD-EPI equation recommended by the National Kidney Foundation (A Unifying Approach to GFR Estimation: Recommendations of the NKF-ASK Task Force on Reassessing the Inclusion of Race in Diagnosing Kidney Disease, JASN 202). The CKD-EPI equation should not be used for patients with unstable renal function and has not been validated in children and those over 70. Current interpretive data was last reviewed 2020. Blood 12/25/2023 7:31 AM [employer] OPERATOR 12/25/2023 7:47 AM [employer] OPERATOR Julia Espinosa MD LAB BLOOD ORDERABLES Final Re sult Performing Organization Address [facility] Co de Phone Number GREGORIO [address] [place] [address] * (ABNORMAL) Basic metabolic panel (12/25/2023 7:31 AM AC[employer]E PL[employer] OPERATOR) [facility] Sodium 138 135 - 145 mmol/L Potassium, pl 4.6 3.3 - 4.9 mmol/L [facility] Chloride 113(H) 97 - 110 mmol/L [facility] CO2 18(L) 22 - 32 mmol/L [facility] Anion gap 7 2 - 15 mmol/L [facility] BUN 17 6 - 25 mg/dL [facility] Creatinine 1.45(H) 0.60 - 1.10 mg/dL [facility] Glucose 84 70 - 199 mg/dL [facility] Comment: Interpretive Data Fasting glucose >/= 126 mg/dl is diagnostic for diabetes. ?? Fasting is defined as no caloric intake for at least 8 hours. Fasting glucose between 100 mg/dl to 125 mg/dl is diagnostic of prediabetes. In a patient with classic symptoms of hyperglycemia or hyperglycemic crisis, a random glucose >/= 200 mg/dl is diagnostic for diabetes. In the absence of unequivocal hyperglycemia, results should be confirmed by repeat testing. The classification and Diagnosis of Diabetes Diabetes Care 2021; 46: S19-S40. Current interpretive data was last revised 2022. Calcium 9.6 8.5 - 10.3 mg/dL [facility] Blood 12/25/2023 7:31 AM [employer] OPERATOR 12/25/2023 7:47 AM [employer] OPERATOR Julia Espinosa MD LAB BLOOD ORDERABLES Final Re sult Performing Organization Address [facility] Co de Phone Number [address] [place] [address] * (ABNORMAL) eGFR (12/24/2023 5:15 AM [employer] OPERATOR) eGFR 34(L) >=60 mL/min/1. 73 m2 Comment: Interpretive Data Reference Interval Normal ?>/= 90 mL/min/1.73m2 Mildly decreased* ? 60 - 89 mL/min/1.73m2 Mildly to moderately decreased ?45 - 59 mL/min/1.73m2 Moderately to severely decreased ??30 - 44 mL/min/1.73m2 Severely decreased ?15 - 29 mL/min/1.73m2 Kidney Failure ?< 15 ??mL/min/1.73m2 *Relative to young adult level Estimated glomerular filtration rate is determined by the 2020 CKD-EPI equation recommended by the National Kidney Foundation (A Unifying Approach to GFR Estimation: Recommendations of the NKF-ASK Task Force on Reassessing the Inclusion of Race in Diagnosing Kidney Disease, JASN 2020). The CKD-EPI equation should not be used for patients with unstable renal function and has not been validated in children and those over 70. Current interpretive data was last reviewed 2020. Testing performed by: [facility], [address] [place] [address]., [address] Blood 12/24/2023 5:15 AM [employer] OPERATOR 12/24/2023 5:25 AM ACETY[employer]E [employer] OPERATOR us Natalie GUSMAN LAB BLOOD ORDERABLES Final Re sult YESSICAHVZ [address] [facility] Department [place] [address] * (ABNORMAL) Basic metabolic panel (12/24/2023 5:15 AM AC[employer]E [employer] OPERATOR) Pathologist [facility] Sodium 139 135 - 145 mmol/L Comment:Testing performed by : [address] [address] Potassium, pl 4.8 3.3 - 4.9 mmol/L [facility] Comment:Testing performed by : [address] [address] Chloride 114(H) 97 - 110 mmol/L [facility] Comment:Testing performed by : [address] [address] CO2 17(L) 22 - 32 mmol/L [facility] Comment:Testing performed by : [address] [address] Anion gap 8 2 - 15 mmol/L [facility] Comment:Testing performed by : [address] [address] BUN 23 6 - 25 mg/dL [facility] Comment:Testing performed by : [address] [address] Creatinine 1.50(H) 0.60 - 1.10 mg/dL [facility] Comment:Testing performed by : [address] [address] Glucose 99 70 - 199 mg/dL [facility] Comment: Interpretive Data Fasting glucose >/= 126 mg/dl is diagnostic for diabetes. ?? Fasting is defined as no caloric intake for at least 8 hours. Fasting glucose between 100 mg/dl to 125 mg/dl is diagnostic of prediabetes. In a patient with classic symptoms of hyperglycemia or hyperglycemic crisis, a random glucose >/= 200 mg/dl is diagnostic for diabetes. In the absence of unequivocal hyperglycemia, results should be confirmed by repeat testing. The classification and Diagnosis of Diabetes Diabetes Care 202; 46: S19-S40. Current interpretive data was last revised 2022. Testing performed by: [address] [address] Calcium 10.1 8.5 - 10.3 mg/dL [facility] Comment:Testing performed by : [address] [address] Blood 12/24/2023 5:15 AM [employer] OPERATOR 12/24/2023 5:25 AM AC[employer]E [employer] OPERATOR us Natalie GUSMAN LAB BLOOD ORDERABLES Final Re sult Performing Organization Address [facility] Co de Phone Number GREGORIO [address] [facility] Department [place] [address] * (ABNORMAL) eGFR (12/23/2023 6:47 AM [employer] OPERATOR) eGFR 31(L) >=60 mL/min/1. 73 m2 Comment: Interpretive Data Reference Interval Normal ?>/= 90 mL/min/1.73m2 Mildly decreased* ? 60 - 89 mL/min/1.73m2 Mildly to moderately decreased ?45 - 59 mL/min/1.73m2 Moderately to severely decreased ??30 - 44 mL/min/1.73m2 Severely decreased ?15 - 29 mL/min/1.73m2 Kidney Failure ?< 15 ??mL/min/1.73m2 *Relative to young adult level Estimated glomerular filtration rate is determined by the 2020 CKD-EPI equation recommended by the National Kidney Foundation (A Unifying Approach to GFR Estimation: Recommendations of the NKF-ASK Task Force on Reassessing the Inclusion of Race in Diagnosing Kidney Disease, JASN 202). The CKD-EPI equation should not be used for patients with unstable renal function and has not been validated in children and those over 70. Current interpretive data was last reviewed 2020. Testing performed by: [facility], [address] [place] [address]., [address] Blood 12/23/2023 6:47 AM [employer] OPERATOR 12/23/2023 7:35 AM [employer] OPERATOR Natalie GUSMAN LAB BLOOD ORDERABLES Final Re sult Performing Organization Address [facility] Co de Phone Number GREGORIO [address] [facility] Department [place] [address] * (ABNORMAL) Differential, auto (12/23/2023 6:47 AM AC[employer] OPERATOR) Neutrophil abs 6.6(H) 1.5 - 6.5 K/cumm Comment:Testing performed by : [address] [address] Imm gran abs 0.1 0.0 - 0.1 K/cumm GREGORIO Comment:Testing performed by : [address] [address] Lymphocyte abs 0.8 0.8 - 3.3 K/cumm [facility] Comment:Testing performed by : [address] [address] Monocyte abs 0.7 0.2 - 0.8 K/cumm [facility] Comment:Testing performed by : [address] [address] Eosinophil abs 0.1 0.0 - 0.5 K/cumm [facility] Comment:Testing performed by : [address] [address] Basophil abs 0.0 0.0 - 0.1 K/cumm [facility] Comment:Testing performed by : [address] [address] Neutrophil pct 79.6 % [facility] Comment: Interpretive Data Percent cell count reference ranges are not reported, since discordance with absolute values may lead to misinterpretation of CBC data. Current Interpretive Data was last revised on 2017. Testing performed by: [address] [address] Imm gran pct 0.9 % [facility] Comment: Interpretive Data Percent cell count reference ranges are not reported, since discordance with absolute values may lead to misinterpretation of CBC data. Current Interpretive Data was last revised on 2017. Testing performed by: [address] [address] Lymphocyte pct 10.2 % CERNER Comment: Interpretive Data Percent cell count reference ranges are not reported, since discordance with absolute values may lead to misinterpretation of CBC data. Current Interpretive Data was last revised on 2017. Testing performed by: [address] [place] [address] Monocyte pct 8.0 % GREGORIO Comment: Interpretive Data Percent cell count reference ranges are not reported, since discordance with absolute values may lead to misinterpretation of CBC data. Current Interpretive Data was last revised on 2017. Testing performed by: [address] [address] Eosinophil pct 0.9 % GREGORIO Comment: Interpretive Data Percent cell count reference ranges are not reported, since discordance with absolute values may lead to misinterpretation of CBC data. Current Interpretive Data was last revised on 2017. Testing performed by: [address] [address] Basophil pct 0.4 % GREGORIO Comment: Interpretive Data Percent cell count reference ranges are not reported, since discordance with absolute values may lead to misinterpretation of CBC data. Current Interpretive Data was last revised on 2017. Testing performed by: [address] [address] Blood 12/23/2023 6:47 AM [employer] OPERATOR 12/23/2023 7:36 AM AC[employer]E [employer] OPERATOR us Natalie GUSMAN LAB BLOOD ORDERABLES Final Re sult GREGORIO [address] [facility] Department [place] [address] * (ABNORMAL) CBC with auto differential (12/23/2023 6:47 AM ACETY[employer]E PL[employer] OPERATOR) WBC 8.2 3.8 - 9.9 K/cumm Comment:Testing performed by : [address] [address] Hgb 10.2(L) 11.9 - 15.5 g/dL GREGORIO ENRIQUEZ Comment:Testing performed by : [address] [address] Hct 31.8(L) 35.6 - 45.5 % GREGORIO Comment:Testing performed by : [address] [address] Plt 249 150 - 400 K/cumm GREOGRIO ENRIQUEZ Comment:Testing performed by : [address] [address] MPV 11.2 9.1 - 12.3 fL GREGORIO ENRIQUEZ Comment:Testing performed by : [address] [address] RBC 3.22(L) 3.90 - 5.20 M/cumm GREGORIO ENRIQUEZ Comment:Testing performed by : [address] [address] MCV 98.8(H) 81.3 - 96.4 fL GREGORIO Comment:Testing performed by : [address], [address] MCH 31.7 27.1 - 33.3 pg GREGORIO Comment:Testing performed by : [address] [address] MCHC 32.1(L) 32.3 - 35.7 g/dL GREGORIO Comment:Testing performed by : [address], [address] RDW CV 16.4(H) 11.1 - 14.9 % GREGORIO Comment:Testing performed by : [address], [address] RDW SD 59.5(H) 35.7 - 48.1 fL GREGORIO Comment:Testing performed by : [address] [address] NRBC abs 0.00 0.00 - 0.01 K/cumm GREGORIO Comment:Testing performed by : [address], [address] Blood 12/23/2023 6:47 AM AC[employer] OPERATOR 12/23/2023 7:36 AM [employer]E [employer] OPERATOR us Natalie GUSMAN LAB BLOOD ORDERABLES Final Re sult GREGORIO [address] [facility] Department [place] [address] * (ABNORMAL) Basic metabolic panel (12/23/2023 6:47 AM AC[employer]E PL[employer] OPERATOR) Sodium 137 135 - 145 mmol/L Comment:Testing performed by : [facility], [address] [place] [address]., [address] Potassium, pl 4.6 3.3 - 4.9 mmol/L GREGORIO Comment:Testing performed by : [address], [place]., [address] Chloride 111(H) 97 - 110 mmol/L GREGORIO Comment:Testing performed by : [address], [place]., [address] CO2 16(L) 22 - 32 mmol/L GREGORIO Comment:Testing performed by : [address], [place]., [address] Anion gap 10 2 - 15 mmol/L GREGORIO Comment:Testing performed by : [address], [place]., [address] BUN 28(H) 6 - 25 mg/dL GREGORIO Comment:Testing performed by : [address] [address] Creatinine 1.60(H) 0.60 - 1.10 mg/dL GREGORIO Comment:Testing performed by : [address] [address] Glucose 86 70 - 199 mg/dL GREGORIO Comment: Interpretive Data Fasting glucose >/= 126 mg/dl is diagnostic for diabetes. ?? Fasting is defined as no caloric intake for at least 8 hours. Fasting glucose between 100 mg/dl to 125 mg/dl is diagnostic of prediabetes. In a patient with classic symptoms of hyperglycemia or hyperglycemic crisis, a random glucose >/= 200 mg/dl is diagnostic for diabetes. In the absence of unequivocal hyperglycemia, results should be confirmed by repeat testing. The classification and Diagnosis of Diabetes Diabetes Care 202; 46: S19-S40. Current interpretive data was last revised 2022. Testing performed by: [address], [place]., [address] Calcium 10.4(H) 8.5 - 10.3 mg/dL GREGORIO Comment:Testing performed by : [address], [place]., [address] Blood 12/23/2023 6:47 AM AC[employer]E [employer] OPERATOR 12/23/2023 7:35 AM AC[employer]E PLANT OPERATOR us Natalie GUSMAN LAB BLOOD ORDERABLES Final Re sult GREGORIO [address] [facility] Department [place] [address] * US Kidney Complete (aka RENAL) (12/22/2023 3:56 PM ACETY[employer]E PLANT OPERATOR) Anatomical Region Laterality Modality Kidney N/A Ultrasound 12/22/2023 5:59 PM ACETY[employer]E PLANT OPERATOR Narrative 12/22/2023 6:01 PM ACETY[employer]E PL[employer] OPERATOR EXAM DESCRIPTION: US KIDNEY COMPLETE REASON FOR STUDY: Kidney failure, acute ?? TECHNIQUE: Ultrasound of the kidneys and urinary bladder was performed with grayscale imaging. COMPARISON: CT abdomen and pelvis 12/20/2023 FINDINGS: RIGHT KIDNEY: The right kidney measures ??9.3 cm in length. ??There is no hydronephrosis. There is normal cortical thickness and echogenicity. ?? There is a 3.1 x 2.1 x 2.8 cm anechoic simple cyst in the upper pole of the right kidney. LEFT KIDNEY: The left kidney measures ??8.8 cm in length. ??There is no hydronephrosis. There is normal cortical thickness and echogenicity. ?? There is a 1.4 x 1.0 x 0.9 cm anechoic simple cyst in the interpolar left kidney URINARY BLADDER: ?? The urinary bladder, as visualized, appears unremarkable. The bilateral ureteral jets are visualized. OTHER: ?? No other additional findings. IMPRESSION: Simple bilateral renal cysts. No evidence of renal obstruction. THIS IS AN ELECTRONICALLY VERIFIED FINAL REPORT 12/22/2023 6:01 PM - Electronically signed by ??Megan Flores M.D. FT: FT D: ??12/22/2023 6:01 PM T: ??12/22/2023 6:01 PM Report ID: [id number] Reading Location: ??[id number] Procedure Note Megan Granados MD - 12/22/2023 EXAM DESCRIPTION: US KIDNEY COMPLETE REASON FOR STUDY: Kidney failure, acute TECHNIQUE: Ultrasound of the kidneys and urinary bladder was performedwith grayscale imaging. COMPARISON: CT abdomen and pelvis 12/20/2023 FINDINGS: RIGHT KIDNEY: The right kidney measures 9.3 cm in length.There is no hydronephrosis. There is normal cortical thickness and echogenicity. There is a 3.1 x 2.1 x 2.8 cm anechoic simple cyst in the upper pole ofthe right kidney. LEFT KIDNEY: The left kidney measures 8.8 cm in length. There is no hydronephrosis. There is normal cortical thickness and echogenicity.There is a 1.4 x 1.0 x 0.9 cm anechoic simple cyst in the interpolar left kidney URINARY BLADDER: The urinary bladder, as visualized, appearsunremarkable. The bilateral ureteral jets are visualized. OTHER: No other additional findings. IMPRESSION: Simple bilateral renal cysts. No evidence of renal obstruction. THIS IS AN ELECTRONICALLY VERIFIED FINAL REPORT 12/22/2023 6:01 PM - Electronically signed by Megan Flores M.D. FT: FT Report ID: [id number] Reading Location: [id number] us Evens Jh Collins MD IMG US PROCEDURES Final Re sult * (ABNORMAL) eGFR (12/22/2023 7:12 AM AC[employer]E PLANT OPERATOR) eGFR 27(L) >=60 mL/min/1. 73 m2 Comment: Interpretive Data Reference Interval Normal ?>/= 90 mL/min/1.73m2 Mildly decreased* ? 60 - 89 mL/min/1.73m2 Mildly to moderately decreased ?45 - 59 mL/min/1.73m2 Moderately to severely decreased ??30 - 44 mL/min/1.73m2 Severely decreased ?15 - 29 mL/min/1.73m2 Kidney Failure ?< 15 ??mL/min/1.73m2 *Relative to young adult level Estimated glomerular filtration rate is determined by the 2020 CKD-EPI equation recommended by the National Kidney Foundation (A Unifying Approach to GFR Estimation: Recommendations of the NKF-ASK Task Force on Reassessing the Inclusion of Race in Diagnosing Kidney Disease, JASN 2020). The CKD-EPI equation should not be used for patients with unstable renal function and has not been validated in children and those over 70. Current interpretive data was last reviewed 2020. Testing performed by: [address] [address] Blood 12/22/2023 7:12 AM AC[employer]E PLANT OPERATOR 12/22/2023 7:21 AM ACETY[employer]E PLANT OPERATOR us Natalie GUSMAN LAB BLOOD ORDERABLES Final Re sult GREGORIO [address] [facility] Department [place] [address] * (ABNORMAL) Differential, auto (12/22/2023 7:12 AM AC[employer]E PLANT OPERATOR) Neutrophil abs 7.6(H) 1.5 - 6.5 K/cumm Comment:Testing performed by : [address] [address] Imm gran abs 0.1 0.0 - 0.1 K/cumm GREGORIO Comment:Testing performed by : [address] [address] Lymphocyte abs 0.8 0.8 - 3.3 K/cumm GREGORIO Comment:Testing performed by : [address] [address] Monocyte abs 0.7 0.2 - 0.8 K/cumm GREGORIO Comment:Testing performed by : [address] [address] Eosinophil abs 0.1 0.0 - 0.5 K/cumm [facility] Comment:Testing performed by : [address] [address] Basophil abs 0.0 0.0 - 0.1 K/cumm [facility] Comment:Testing performed by : [address] [address] Neutrophil pct 82.1 % [facility] Comment: Interpretive Data Percent cell count reference ranges are not reported, since discordance with absolute values may lead to misinterpretation of CBC data. Current Interpretive Data was last revised on 2017. Testing performed by: [address] [address] Imm gran pct 1.3 % [facility] Comment: Interpretive Data Percent cell count reference ranges are not reported, since discordance with absolute values may lead to misinterpretation of CBC data. Current Interpretive Data was last revised on 2017. Testing performed by: [address] [address] Lymphocyte pct 8.4 % [facility] Comment: Interpretive Data Percent cell count reference ranges are not reported, since discordance with absolute values may lead to misinterpretation of CBC data. Current Interpretive Data was last revised on 2017. Testing performed by: [address] [address] Monocyte pct 7.2 % [facility] Comment: Interpretive Data Percent cell count reference ranges are not reported, since discordance with absolute values may lead to misinterpretation of CBC data. Current Interpretive Data was last revised on 2017. Testing performed by: [address] [address] Eosinophil pct 0.8 % [facility] Comment: Interpretive Data Percent cell count reference ranges are not reported, since discordance with absolute values may lead to misinterpretation of CBC data. Current Interpretive Data was last revised on 2017. Testing performed by: [address] [address] Basophil pct 0.2 % [facility] Comment: Interpretive Data Percent cell count reference ranges are not reported, since discordance with absolute values may lead to misinterpretation of CBC data. Current Interpretive Data was last revised on 2017. Testing performed by: [address] [address] Blood 12/22/2023 7:12 AM AC[employer]E PLANT OPERATOR 12/22/2023 7:25 AM ACETYLENE PLANT OPERATOR us Natalie GUSMAN LAB BLOOD ORDERABLES Final Re sult [facility] [address] [facility] Department [place] [address] * (ABNORMAL) CBC with auto differential (12/22/2023 7:12 AM ACETYLENE PLANT OPERATOR) WBC 9.2 3.8 - 9.9 K/cumm Comment:Testing performed by : [address] [address] Hgb 10.1(L) 11.9 - 15.5 g/dL GREGORIO Comment:Testing performed by : [address] [address] Hct 31.5(L) 35.6 - 45.5 % GREGORIO Comment:Testing performed by : [address] [address] Plt 234 150 - 400 K/cumm GREGORIO Comment:Testing performed by : [address] [address] MPV 10.8 9.1 - 12.3 fL GREGORIO Comment:Testing performed by : [address] [address] RBC 3.21(L) 3.90 - 5.20 M/cumm GREGORIO Comment:Testing performed by : [address] [address] MCV 98.1(H) 81.3 - 96.4 fL GREGORIO Comment:Testing performed by : [address] [address] MCH 31.5 27.1 - 33.3 pg GREGORIO Comment:Testing performed by : [address] [address] MCHC 32.1(L) 32.3 - 35.7 g/dL GREGORIO ENRIQUEZ Comment:Testing performed by : [address] [address] RDW CV 16.5(H) 11.1 - 14.9 % GREGORIO ENRIQUEZ Comment:Testing performed by : [address], [address] RDW SD 59.6(H) 35.7 - 48.1 fL GREGORIO Comment:Testing performed by : [address], [address] NRBC abs 0.00 0.00 - 0.01 K/cumm GREGORIO Comment:Testing performed by : [address], [address] Blood 12/22/2023 7:12 AM AC[employer]E PLANT OPERATOR 12/22/2023 7:25 AM ACETYLENE PLANT OPERATOR us Natalie GUSMAN LAB BLOOD ORDERABLES Final Re sult Performing Organization Address City/[facility]/ZIP Co de Phone Number [address] [place] [address] * TSH (12/22/2023 7:12 AM ACETYLENE PLANT OPERATOR) Pathologist [facility] Thyroid Stimulating Hormone 1.82 0.30 - 4.20 mcIUnit/mL Comment:Testing performed by : [address], [address] Blood 12/22/2023 7:12 AM ACETYLENE PLANT OPERATOR 12/22/2023 7:21 AM ACETYLENE PLANT OPERATOR us Evens Collins MD LAB BLOOD ORDERABLES Final Result Performing Organization Address City/[facility]/ZIP Co de Phone Number [address] [place] [address] * (ABNORMAL) Basic metabolic panel (12/22/2023 7:12 AM ACETYLENE PLANT OPERATOR) Pathologist [facility] Sodium 135 135 - 145 mmol/L Comment:Testing performed by : [address] [place] [address] Potassium, pl 5.0(H) 3.3 - 4.9 mmol/L [facility] Comment:Testing performed by : [address] [address] Chloride 110 97 - 110 mmol/L [facility] Comment:Testing performed by : [address] [address] CO2 16(L) 22 - 32 mmol/L [facility] Comment:Testing performed by : [address] [address] Anion gap 9 2 - 15 mmol/L [facility] Comment:Testing performed by : [address] [address] BUN 38(H) 6 - 25 mg/dL [facility] Comment:Testing performed by : [address] [address] Creatinine 1.80(H) 0.60 - 1.10 mg/dL [facility] Comment:Testing performed by : [address] [address] Glucose 80 70 - 199 mg/dL [facility] Comment: Interpretive Data Fasting glucose >/= 126 mg/dl is diagnostic for diabetes. ?? Fasting is defined as no caloric intake for at least 8 hours. Fasting glucose between 100 mg/dl to 125 mg/dl is diagnostic of prediabetes. In a patient with classic symptoms of hyperglycemia or hyperglycemic crisis, a random glucose >/= 200 mg/dl is diagnostic for diabetes. In the absence of unequivocal hyperglycemia, results should be confirmed by repeat testing. The classification and Diagnosis of Diabetes Diabetes Care 202; 46: S19-S40. Current interpretive data was last revised 2022. Testing performed by: [address] [address] Calcium 10.7(H) 8.5 - 10.3 mg/dL [facility] Comment:Testing performed by : [address] [id number] Blood 12/22/2023 7:12 AM [employer] OPERATOR 12/22/2023 7:21 AM [employer]E [employer] OPERATOR Natalie GUSMAN LAB BLOOD ORDERABLES Final Re sult Performing Organization Address [facility] de Phone Number [address] [place] [address] * Cancer antigen 19-9 (12/21/2023 2:41 PM AC[employer]E PLANT OPERATOR) Pathologist [facility] CA 19-9 ag 24.6 0.0 - 35.0 units/mL Comment: Interpretive Data The Rodrick CA 19-9 assay procedure was used. Results from different manufacturers or methods may not be comparable. Serial testing should be performed using the same method. Testing performed by: [facility], [address] [place] [address]., [id number] Blood 12/21/2023 2:41 PM [employer] OPERATOR 12/21/2023 3:05 PM ACETYLENE [employer]ANT OPERATOR Fide Reno NP LAB BLOOD ORDERABLES Edit ed Result - Final Performing Organization Address [facility] de Phone Number [address] [place] [address] * Lactate dehydrogenase (LD) (12/21/2023 2:41 PM [employer] OPERATOR) [facility] Lactate dehydrogenase (LDH) 203 100 - 250 Units/L Blood 12/21/2023 2:41 PM [employer] OPERATOR 12/21/2023 4:39 PM [employer] OPERATOR Fide Reno NP LAB BLOOD ORDERABLES Kaci l Result Performing Organization Address [facility] Co de Phone Number [address] [place] [address] * (ABNORMAL) CEA (12/21/2023 2:41 PM AC[employer]E [employer] OPERATOR) [facility] CEA 11.5(H) <=5.0 ng/mL Comment: Interpretive Data: Reference Range: Non-Smokers: 0.0 ? 5.0 ng/mL Smokers: 0.0 ? 6.5 ng/mL The Rodrick CEA assay procedure was used. Results from different manufacturers or methods may not be comparable. Serial testing should be performed using the same method. Current interpretive data was last revised 2022. Testing performed by: [facility], [address] [place] [address]., [id number] Blood 12/21/2023 2:41 PM [employer] OPERATOR 12/21/2023 3:05 PM [employer] OPERATOR us Fide Reno NP LAB BLOOD ORDERABLES Kaci schuster Result GREGORIO [address] [facility] Department [place] [address] * US Vein Duplex Lower Extremity Bilateral Complete (12/21/2023 12:07 PM AC[employer]E [employer] OPERATOR) Anatomical Region Laterality Modality Vascular Bilateral Ultrasound 12/21/2023 Narrative 12/26/2023 7:09 AM AC[employer]E PLANT OPERATOR LaunchSide Job ID: [id number] LaunchSide Document ID: [id number] Dictated date/time: [id number] BILATERAL LOWER EXTREMITY VENOUS DUPLEX. REASON FOR EXAM Edema. FINDINGS ON THE RIGHT The right common femoral, femoral, popliteal, posterior tibial, peroneal, greater saphenous demonstrate spontaneous phasic flow that augment and are compressible. FINDINGS ON THE LEFT The left common femoral, femoral, popliteal, posterior tibial, peroneal, greater saphenous demonstrate spontaneous phasic flow that augment and are compressible. INTERPRETATION No evidence of deep or superficial venous thrombosis in bilateral lower extremities. Job ID/Internal Job ID: ??[id number] Natalie GUSMAN IMG US PROCEDURES Final Resul t * (ABNORMAL) eGFR (12/21/2023 9:16 AM AC[employer]E [employer] OPERATOR) eGFR 22(L) >=60 mL/min/1. 73 m2 Comment: Interpretive Data Reference Interval Normal ?>/= 90 mL/min/1.73m2 Mildly decreased* ? 60 - 89 mL/min/1.73m2 Mildly to moderately decreased ?45 - 59 mL/min/1.73m2 Moderately to severely decreased ??30 - 44 mL/min/1.73m2 Severely decreased ?15 - 29 mL/min/1.73m2 Kidney Failure ?< 15 ??mL/min/1.73m2 *Relative to young adult level Estimated glomerular filtration rate is determined by the 2020 CKD-EPI equation recommended by the National Kidney Foundation (A Unifying Approach to GFR Estimation: Recommendations of the NKF-ASK Task Force on Reassessing the Inclusion of Race in Diagnosing Kidney Disease, JASN 2020). The CKD-EPI equation should not be used for patients with unstable renal function and has not been validated in children and those over 70. Current interpretive data was last reviewed 2020. Testing performed by: [address] [address] Blood 12/21/2023 9:16 AM [employer] OPERATOR 12/21/2023 9:21 AM ACETYLENE PLANT OPERATOR us Natalie GUSMAN LAB BLOOD ORDERABLES Final Re sult [facility] [address] [facility] Department [place] [address] * (ABNORMAL) Differential, auto (12/21/2023 9:16 AM [employer] OPERATOR) Neutrophil abs 8.7(H) 1.5 - 6.5 K/cumm Comment:Testing performed by : [address] [address] Imm gran abs 0.1 0.0 - 0.1 K/cumm GREGORIO Comment:Testing performed by : [address] [address] Lymphocyte abs 0.8 0.8 - 3.3 K/cumm GREGORIO Comment:Testing performed by : [address] [address] Monocyte abs 0.7 0.2 - 0.8 K/cumm [facility] Comment:Testing performed by : [address] [address] Eosinophil abs 0.1 0.0 - 0.5 K/cumm [facility] Comment:Testing performed by : [address] [address] Basophil abs 0.0 0.0 - 0.1 K/cumm [facility] Comment:Testing performed by : [address] [address] Neutrophil pct 84.2 % [facility] Comment: Interpretive Data Percent cell count reference ranges are not reported, since discordance with absolute values may lead to misinterpretation of CBC data. Current Interpretive Data was last revised on 2017. Testing performed by: [address] [address] Imm gran pct 0.7 % [facility] Comment: Interpretive Data Percent cell count reference ranges are not reported, since discordance with absolute values may lead to misinterpretation of CBC data. Current Interpretive Data was last revised on 2017. Testing performed by: [address] [address] Lymphocyte pct 7.5 % [facility] Comment: Interpretive Data Percent cell count reference ranges are not reported, since discordance with absolute values may lead to misinterpretation of CBC data. Current Interpretive Data was last revised on 2017. Testing performed by: [address] [address] Monocyte pct 6.9 % [facility] Comment: Interpretive Data Percent cell count reference ranges are not reported, since discordance with absolute values may lead to misinterpretation of CBC data. Current Interpretive Data was last revised on 2017. Testing performed by: [address] [address] Eosinophil pct 0.5 % [facility] Comment: Interpretive Data Percent cell count reference ranges are not reported, since discordance with absolute values may lead to misinterpretation of CBC data. Current Interpretive Data was last revised on 2017. Testing performed by: [address] [address] Basophil pct 0.2 % GREGORIO ENRIQUEZ Comment: Interpretive Data Percent cell count reference ranges are not reported, since discordance with absolute values may lead to misinterpretation of CBC data. Current Interpretive Data was last revised on 2017. Testing performed by: [address] [address] Blood 12/21/2023 9:16 AM [employer] OPERATOR 12/21/2023 9:21 AM AC[employer]E [employer] OPERATOR us Natalie GUSMAN LAB BLOOD ORDERABLES Final Re sult GREGORIO [facility] Department [place] [address] * (ABNORMAL) CBC with auto differential (12/21/2023 9:16 AM [employer] OPERATOR) WBC 10.3(H) 3.8 - 9.9 K/cumm Comment:Testing performed by : [address] [address] Hgb 10.9(L) 11.9 - 15.5 g/dL GREGORIO ENRIQUEZ Comment:Testing performed by : [address] [address] Hct 33.7(L) 35.6 - 45.5 % GREGORIO ENRIQUEZ Comment:Testing performed by : [address] [address] Plt 286 150 - 400 K/cumm GREGORIO ENRIQUEZ Comment:Testing performed by : [address] [address] MPV 10.7 9.1 - 12.3 fL GREGORIO ENRIQUEZ Comment:Testing performed by : [address] [address] RBC 3.42(L) 3.90 - 5.20 M/cumm GREGORIO ENRIQUEZ Comment:Testing performed by : [address] [address] MCV 98.5(H) 81.3 - 96.4 fL CERNER MH Comment:Testing performed by : [address] [address] MCH 31.9 27.1 - 33.3 pg GREGORIO ENRIQUEZ Comment:Testing performed by : [address] [address] MCHC 32.3 32.3 - 35.7 g/dL GREGORIO ENRIQUEZ Comment:Testing performed by : [address] [address] RDW CV 16.5(H) 11.1 - 14.9 % GREGORIO Comment:Testing performed by : [address], [address] RDW SD 59.5(H) 35.7 - 48.1 fL GREGORIO ENRIQUEZ Comment:Testing performed by : [address] [address] NRBC abs 0.00 0.00 - 0.01 K/cumm GREGORIO Comment:Testing performed by : [address], [address] Blood 12/21/2023 9:16 AM AC[employer]E [employer] OPERATOR 12/21/2023 9:21 AM ACETYLENE PLANT OPERATOR Naatlie GUSMAN LAB BLOOD ORDERABLES Final Re sult Performing Organization Address City/[facility]/ZIP Co de Phone Number [address] [place] [address] * PTH (12/21/2023 9:16 AM AC[employer]E PLANT OPERATOR) PTH 25 15 - 65 pg/mL Comment:Testing performed by : [address] [address] Blood 12/21/2023 9:16 AM AC[employer]E [employer] OPERATOR 12/21/2023 9:21 AM AC[employer]E [employer] OPERATOR Natalie GUSMAN LAB BLOOD ORDERABLES Final Re sult Performing Organization Address City/[facility]/ZIP Co de Phone Number YESSICA[address] [place] [address] * (ABNORMAL) Basic metabolic panel (12/21/2023 9:16 AM AC[employer]E [employer] OPERATOR) Sodium 138 135 - 145 mmol/L Comment:Testing performed by : [address] [address] Potassium, pl 5.3(H) 3.3 - 4.9 mmol/L GREGORIO Comment:Testing performed by : [address] [address] Chloride 112(H) 97 - 110 mmol/L GREGORIO Comment:Testing performed by : [address] [address] CO2 16(L) 22 - 32 mmol/L GREGORIO Comment:Testing performed by : [address] [address] Anion gap 10 2 - 15 mmol/L [facility] Comment:Testing performed by : [address] [address] BUN 47(H) 6 - 25 mg/dL [facility] Comment:Testing performed by : [address] [address] Creatinine 2.10(H) 0.60 - 1.10 mg/dL [facility] Comment:Testing performed by : [address] [address] Glucose 84 70 - 199 mg/dL [facility] Comment: Interpretive Data Fasting glucose >/= 126 mg/dl is diagnostic for diabetes. ?? Fasting is defined as no caloric intake for at least 8 hours. Fasting glucose between 100 mg/dl to 125 mg/dl is diagnostic of prediabetes. In a patient with classic symptoms of hyperglycemia or hyperglycemic crisis, a random glucose >/= 200 mg/dl is diagnostic for diabetes. In the absence of unequivocal hyperglycemia, results should be confirmed by repeat testing. The classification and Diagnosis of Diabetes Diabetes Care 202; 46: S19-S40. Current interpretive data was last revised 2022. Testing performed by: [address] [address] Calcium 12.1(H) 8.5 - 10.3 mg/dL [facility] Comment:Testing performed by : [facility], [address] [place] [address]., [address] Blood 12/21/2023 9:16 AM AC[employer]E PLANT OPERATOR 12/21/2023 9:21 AM AC[employer]E PLANT OPERATOR Natalie GUSMAN LAB BLOOD ORDERABLES Final Re sult Performing Organization Address City/[facility]/ZIP Co de Phone Number [address] [place] [address] * Potassium (12/20/2023 8:12 PM ACETYLENE PLANT OPERATOR) Potassium, pl 4.7 3.3 - 4.9 mmol/L Comment:Testing performed by : [facility], [address] [place] [address]., [address] Blood 12/20/2023 8:12 PM AC[employer]E PLANT OPERATOR 12/20/2023 8:32 PM AC[employer]E PL[employer] OPERATOR Jesus Hart MD LAB BLOOD ORDERABLES F inal Result Performing Organization Address [facility] Co de Phone Number [address] [address] * (ABNORMAL) Calcium, ionized (12/20/2023 5:24 PM ACETY[employer]E PLANT OPERATOR) Pathologist [facility] Calcium, Ionized 6.91(C) 4.50 - 5.10 mg/dL Comment:Critical result call ed to and read back by ÁNGELA Bashir on 12/20/2023 19:44:10 ACETYLENE PLANT OPERATOR to [id number]. Blood 12/20/2023 5:24 PM ACETYLENE PLANT OPERATOR 12/20/2023 6:39 PM ACETY[employer]E PL[employer] OPERATOR Natalie GUSMAN LAB BLOOD ORDERABLES Final Re sult Performing Organization Address City/[facility]/ZIP Co de Phone Number [address] [address] * (ABNORMAL) Vitamin D 25 hydroxy (12/20/2023 5:24 PM AC[employer]E PLANT OPERATOR) [facility] Vitamin D 25-OH 89.0(H) 30.0 - 80.0 ng/mL Blood 12/20/2023 5:24 PM AC[employer]E PLANT OPERATOR 12/20/2023 8:36 PM ACETYLENE PLANT OPERATOR Natalie GUSMAN LAB BLOOD ORDERABLES Final Re sult Performing Organization Address City/[facility]/ZIP Co de Phone Number [address] [place] [address] * POCT glucose (12/20/2023 5:05 PM ACETY[employer]E PLANT OPERATOR) [facility] Glucose, POC 77 70 - 199 mg/dL Comment:Testing performed by : [address] [address] Blood 12/20/2023 5:05 PM AC[employer]E PL[employer] OPERATOR 12/20/2023 5:05 PM ACETY[employer]E PLANT OPERATOR Evens Collins MD LAB POCT ORDERABLES - ANGEL CE Final Result Performing Organization Address [facility] Co de Phone Number [address] [address] * POCT glucose (12/20/2023 3:02 PM ACETY[employer]E PLANT OPERATOR) [facility] Glucose, POC 81 70 - 199 mg/dL Comment:Testing performed by : [address] [address] Blood 12/20/2023 3:02 PM ACETY[employer]E PLANT OPERATOR 12/20/2023 3:02 PM ACETYLENE PLANT OPERATOR Evens Collins MD LAB POCT ORDERABLES - ANGEL CE Final Result Performing Organization Address City/[facility] Co de Phone Number [address] [address] * Potassium (12/20/2023 11:25 AM ACETYLENE PLANT OPERATOR) [facility] Potassium, pl 4.9 3.3 - 4.9 mmol/L Comment:Testing performed by : [address] [address] Blood 12/20/2023 11:2 5 AM AC[employer]YLENE PLANT OPERATOR 12/20/2023 11:29 AM ACETYLENE PLANT OPERATOR us Jesus Hart MD LAB BLOOD ORDERABLES F inal Result Performing Organization Address [facility] Co de Phone Number YESSICA[address] [address] * (ABNORMAL) Magnesium (12/20/2023 11:25 AM ACETYLENE PLANT OPERATOR) [facility] Magnesium 2.6(H) 1.4 - 2.5 mg/dL Comment:Testing performed by : [address] [address] Blood 12/20/2023 11:2 5 AM ACETYLENE PLANT OPERATOR 12/20/2023 11:29 AM ACETYLENE PLANT OPERATOR us Evens Collins MD LAB BLOOD ORDERABLES Final Result Performing Organization Address [facility] de Phone Number [address] [address] * ECG 12 lead (12/20/2023 9:47 AM ACETYLENE PLANT OPERATOR) Pathologist [facility] Ventricular Rate EKG/Min 102 BPM [facility] Atrial Rate 375 BPM [facility] QRS-Interval (MSEC) 80 ms [facility] QT-Interval (MSEC) 286 ms [facility] QTc 372 ms [facility] R [employer] -3 degrees [facility] T [employer] -14 degrees [facility] Diagnosis Atrial fibrillation with rapid ventricular response 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 ([id number]) on 12/20/2023 2:43:17 PM [facility] 12/20/2023 9:47 AM ACETYLENE PLANT OPERATOR 12/20/2023 2:43 PM ACETYLENE PLANT OPERATOR us Jesus Hart MD ECG ORDERABLES Final Result [facility] * XR Chest 1 Vw Portable (12/20/2023 9:27 AM ACETYLENE PLANT OPERATOR) Anatomical Region Laterality Modality Body, Chest N/A Computed Radiogr aphy 12/20/2023 9:46 AM ACETYLENE PLANT OPERATOR Narrative 12/20/2023 9:48 AM ACETYLENE PLANT OPERATOR EXAM DESCRIPTION: XR CHEST 1 VIEW REASON FOR STUDY: dyspnea ?? Urinary symptoms, constipation, swelling to feet and ankles x2 days ?? TECHNIQUE: 1 ??radiographic view(s) of the chest. COMPARISON: None available FINDINGS: LUNGS: ??Small lung volumes. ??Mild bibasilar atelectasis. ??No overt pulmonary edema. ??There is small granuloma in the right lower lobe. ?? No pneumothorax. ??No pleural effusion. HEART/MEDIASTINUM: ??Mild cardiomegaly. ??Aortic calcifications are seen. LINES/TUBES: ??None. BONES: ??No acute osseous abnormality. IMPRESSION: No acute cardiopulmonary abnormality. THIS IS AN ELECTRONICALLY VERIFIED FINAL REPORT 12/20/2023 9:48 AM - Electronically signed by ??Gunner Jean M.D. KN: HERBERT D: ??12/20/2023 9:48 AM T: ??12/20/2023 9:48 AM Report ID: [id number] Reading Location: ??[id number] Procedure Note Gunner Jean MD - 12/20/2023 EXAM DESCRIPTION: XR CHEST 1 VIEW REASON FOR STUDY: dyspnea Urinary symptoms, constipation, swelling to feet and ankles x2 days TECHNIQUE: 1 radiographic view(s) of the chest. COMPARISON: None available FINDINGS: LUNGS: Small lung volumes. Mild bibasilar atelectasis. Noovert pulmonary edema. There is small granuloma in the right lower lobe. No pneumothorax. No pleural effusion. HEART/MEDIASTINUM: Mild cardiomegaly. Aortic calcifications are seen. LINES/TUBES: None. BONES: No acute osseous abnormality. IMPRESSION: No acute cardiopulmonary abnormality. THIS IS AN ELECTRONICALLY VERIFIED FINAL REPORT 12/20/2023 9:48 AM - Electronically signed by Gunner Jean M.D. KN: HERBERT Report ID: [id number] Reading Location: [id number] Jesus Hart MD IMG XR PROCEDURES Kaci l Result * POCT glucose (12/20/2023 9:14 AM ACETYLENE PLANT OPERATOR) Glucose, POC 106 70 - 199 mg/dL Comment:Testing performed by : [facility], [address] [place] [address]., [id number] Blood 12/20/2023 9:14 AM ACETYLENE PLANT OPERATOR 12/20/2023 9:14 AM ACETYLENE PLANT OPERATOR Jesus Hart MD LAB POCT ORDERABLES - DEVICE Final Result [facility] [address] [facility] Department [place] [address] * CT Abdomen Pelvis WO Contrast (12/20/2023 9:00 AM ACETYLENE PLANT OPERATOR) Anatomical Region Laterality Modality Body N/A Computed Tomogra phy 12/20/2023 9:06 AM ACETYLENE PLANT OPERATOR Narrative 12/20/2023 9:18 AM ACETYLENE PLANT OPERATOR EXAM DESCRIPTION: ?? CT ABDOMEN PELVIS WO CONTRAST REASON FOR STUDY: Sepsis ?? Urinary problems ?? TECHNIQUE: CT scan of the abdomen and pelvis performed without intravenous and ??without ??oral contrast using helical scanning technique. Reconstructed coronal and sagittal MPR images reviewed. All images stored on PACS. ?? Automated exposure control was used as a dose optimization technique for this examination. COMPARISON: None FINDINGS: The sensitivity for detection of visceral lesions is diminished without the use of intravenous contrast. LOWER CHEST: ??Coronary artery calcifications. LIVER: ??There is a 9 x 7.3 cm right hepatic lobe mass (axial image 45) and adjacent 1.8 cm right hepatic lobe lesion (axial image 36). GALLBLADDER: ??No radiodense gallstones. SPLEEN: ??Normal length. PANCREAS: ??No peripancreatic inflammation or fluid collection. ADRENALS: ?? Right adrenal mass measuring 5.8 x 3.7 cm. ??No left adrenal nodules. KIDNEYS/URINARY TRACT: ??No hydronephrosis. ?? There are water density renal cysts. ??There is a hyperdense left renal cyst. ??There is an indeterminate 5 mm right renal lesion (axial image 65) which is too small to accurately characterize. ?? No urolithiasis. ?? GI: ?? No bowel obstruction. ?? Colonic diverticulosis without acute diverticulitis. ??Normal appendix. ??Small hiatal hernia. PERITONEUM: ??No ascites or free air. VASCULATURE: ??No abdominal aortic aneurysm. ?? Vascular calcifications. MUSCULOSKELETAL: ??No acute skeletal abnormality. ?? Multilevel lumbar spondylosis. ??Grade 1 anterolisthesis of L4 on L5 and L5 on S1 T9 vertebral body hemangioma. ??Heterogeneous sclerotic lesion of the right ischium involving the posterior acetabulum. OTHER: ??Macroscopic fat containing uterine lesion measuring 9 mm. ??Small fat containing paraumbilical hernia. IMPRESSION: No acute findings to correspond with reported urinary symptoms. ?? Hepatic and right adrenal masses. ??In a patient of this age, malignancy would be of concern, and these should be further evaluated with multiphase CT or MRI. Indeterminate sclerotic right ischial lesion. ??The differential could include metastatic disease. Additional findings as above. ?? THIS IS AN ELECTRONICALLY VERIFIED FINAL REPORT 12/20/2023 9:18 AM - Electronically signed by ??Angel Shaffer M.D. JR: D: ??12/20/2023 9:18 AM T: ??12/20/2023 9:18 AM Report ID: [id number] Reading Location: ??[id number] Procedure Note Angel Shaffer MD - 12/20/2023 EXAM DESCRIPTION: CT ABDOMEN PELVIS WO CONTRAST REASON FOR STUDY: Sepsis Urinary problems TECHNIQUE: CT scan of the abdomen and pelvis performed without intravenousand without oral contrast using helical scanning technique. Reconstructed coronal and sagittal MPR images reviewed. All images stored on PACS. Automated exposure control was used as a dose optimization technique forthis examination. COMPARISON: None FINDINGS: The sensitivity for detection of visceral lesions is diminished without the use of intravenous contrast. LOWER CHEST: Coronary artery calcifications. LIVER: There is a 9 x 7.3 cm right hepatic lobe mass (axial image 45) and adjacent 1.8 cm right hepatic lobe lesion (axial image 36). GALLBLADDER: No radiodense gallstones. SPLEEN: Normal length. PANCREAS: No peripancreatic inflammation or fluid collection. ADRENALS: Right adrenal mass measuring 5.8 x 3.7 cm. No left adrenal nodules. KIDNEYS/URINARY TRACT: No hydronephrosis. There are water density renal cysts. There is a hyperdense left renal cyst. There is an indeterminate5 mm right renal lesion (axial image 65) which is too small to accurately characterize. No urolithiasis. GI: No bowel obstruction. Colonic diverticulosis without acute diverticulitis. Normal appendix. Small hiatal hernia. PERITONEUM: No ascites or free air. VASCULATURE: No abdominal aortic aneurysm. Vascular calcifications. MUSCULOSKELETAL: No acute skeletal abnormality. Multilevel lumbar spondylosis. Grade 1 anterolisthesis of L4 on L5 and L5 on S1 [id number] body hemangioma. Heterogeneous sclerotic lesion of the right ischium involving the posterior acetabulum. OTHER: Macroscopic fat containing uterine lesion measuring 9 mm. Smallfat containing paraumbilical hernia. IMPRESSION: No acute findings to correspond with reported urinary symptoms. Hepatic and right adrenal masses. In a patient of this age, malignancywould be of concern, and these should be further evaluated with multiphase CT or MRI. Indeterminate sclerotic right ischial lesion. The differential couldinclude metastatic disease. Additional findings as above. THIS IS AN ELECTRONICALLY VERIFIED FINAL REPORT 12/20/2023 9:18 AM - Electronically signed by Angel GUTIERREZ JR Report ID: [id number] Reading Location: [place] [id number] us Jesus Hart MD IMG CT PROCEDURES Kaci l Result * Sepsis Lactate w/ Reflex (12/20/2023 8:46 AM ACETYLENE PLANT OPERATOR) Sepsis Lactate 1.1 0.7 - 2.0 mmol/L Comment:Testing performed by : [facility], [address] [place] [address], [place]., [address] Blood 12/20/2023 8:46 AM ACETYLENE PLANT OPERATOR 12/20/2023 8:54 AM ACETYLENE PLANT OPERATOR us Jesus Hart MD LAB BLOOD ORDERABLES F inal Result [facility] [address] [facility] Department [place] [address] * Blood culture Blood Peripheral (12/20/2023 8:46 AM ACETYLENE PLANT OPERATOR) Pathologist [facility] Report Final Report: No growth Comment:Testing performed by : [facility], [address] [facility] [place] [address] Blood (Peripheral) 12/20/2023 8:46 AM ACETYLENE PLANT OPERATOR 12/20/2023 1:33 PM ACETYLENE PLANT OPERATOR Narrative GREGORIO - 12/24/2023 4:00 PM ACETYLENE PLANT OPERATOR From a different site than #1. Draw Blood cultures before administration of Antibiotics Collection->Peripheral 1. ?Blood cultures are incubated for 4 days on a continuously monitored blood culture system. The first report of a negative culture is issued within 24 hours of receipt of the specimen in the laboratory. 2. ?Positive culture results are reported as soon as they are detected. 3. ?The most important factor for detection of microbes in the setting of bloodstream infection is the volume of blood submitted for culture. Failure to collect an optimal blood volume can result in false negative blood cultures. For pediatric patients, the recommended blood volume to collect is 1 mL of blood per year of patient age (up to 20 mL) per blood culture set. For adult patients, 20 mL of blood, divided equally between aerobic and anaerobic blood culture bottles, is recommended for each blood culture set. 4. ?For blood cultures with Gram-positive cocci, a rapid molecular test for organism identification may be performed using the Paracosmigene Gram-Positive Blood Culture Assay. This assay detects microbial DNA in positive blood culture broth via hybridization of target DNA to capture oligonucleotides on a microarray. This assay has been cleared by the [place] Food and Drug Administration and its performance characteristics have been verified by the [facility]biology Laboratory. 5. ?For questions about this culture, contact the Microbiology Laboratory at [phone]. Interpretive data was last revised on 2019. Jesus Hart MD LAB MICROBIOLOGY - GEN ERAL ORDERABLES Final Result GREGORIO [address] [facility] Department [place] [address] * Blood culture Blood Peripheral (12/20/2023 8:32 AM ACETYLENE PLANT OPERATOR) Report Final Report: No growth Comment:Testing performed by : [facility], [address] [facility] [place]., [address] Blood (Peripheral) 12/20/2023 8:32 AM ACETYLENE PLANT OPERATOR 12/20/2023 1:33 PM ACETYLENE PLANT OPERATOR Narrative GREGORIO - 12/24/2023 4:00 PM ACETYLENE PLANT OPERATOR Draw Blood cultures before administration of Antibiotics Collection->Peripheral 1. ?Blood cultures are incubated for 4 days on a continuously monitored blood culture system. The first report of a negative culture is issued within 24 hours of receipt of the specimen in the laboratory. 2. ?Positive culture results are reported as soon as they are detected. 3. ?The most important factor for detection of microbes in the setting of bloodstream infection is the volume of blood submitted for culture. Failure to collect an optimal blood volume can result in false negative blood cultures. For pediatric patients, the recommended blood volume to collect is 1 mL of blood per year of patient age (up to 20 mL) per blood culture set. For adult patients, 20 mL of blood, divided equally between aerobic and anaerobic blood culture bottles, is recommended for each blood culture set. 4. ?For blood cultures with Gram-positive cocci, a rapid molecular test for organism identification may be performed using the Paracosmigene Gram-Positive Blood Culture Assay. This assay detects microbial DNA in positive blood culture broth via hybridization of target DNA to capture oligonucleotides on a microarray. This assay has been cleared by the [place] Food and Drug Administration and its performance characteristics have been verified by the [facility]biology Laboratory. 5. ?For questions about this culture, contact the Microbiology Laboratory at [phone]. Interpretive data was last revised on 2019. Jesus Hart MD LAB MICROBIOLOGY - GEN ERAL ORDERABLES Final Result [facility] [address] [facility] Department [place] [address] * (ABNORMAL) Urinalysis reflex to microscopic and culture Urine (12/20/2023 7:30 AM ACETYLENE PLANT OPERATOR) Color, ur Yellow Yellow Comment:Testing performed by : [address] [address] Clarity, ur Clear Clear GREGORIO Comment:Testing performed by : [address] [address] Specific gravity, ur 1.021 1.003 - 1.030 GREGORIO Comment:Testing performed by : [address] [address] pH, urine 5.0 GREGORIO Comment: Interpretive Data ? Urine pH is affected by diet, medications, systemic acid-base disturbances, and renal tubular function. ??pH may affect urinary stone formation. ??For example, urine pH below 6.0 may help reduce the tendency for calcium phosphate stones and pH greater than 6.0 may reduce the tendency for uric acid stone formation. Source: [facility] [employer] Current Interpretive Data was last revised on 2017 Testing performed by: [address] [address] Protein, ur ql Trace(A) Negative GREGORIO Comment:Testing performed by : [address] [address] Glucose, ur ql Negative Negative GREGORIO Comment:Testing performed by : [address] [address] Ketones, ur Negative Negative GREGORIO Comment:Testing performed by : [address] [address] Bilirubin, ur Negative Negative GREGORIO ENRIQUEZ Comment:Testing performed by : [facility] [address] [place] [address], [place]., [address] Blood, ur Negative Negative GREGORIO ENRIQUEZ Comment:Testing performed by : [address], [place]., [address] Urobilinogen, ur <2.0 <2.0 mg/dL GREGORIO ENRIQUEZ Comment:Testing performed by : [address], [place]., [address] Nitrite, ur Negative Negative GREGORIO ENRIQUEZ Comment:Testing performed by : [address], [place]., [address] Leukocyte esterase, ur Negative Negative GREGORIO ENRIQUEZ Comment:Testing performed by : [address], [place]., [address] UA reflex comment Reflex to microscopic UA will be performed. GREGORIO ENRIQUEZ Comment:Testing performed by : [address], [place]., [address] Urine 12/20/2023 7:30 AM ACETYLENE PLANT OPERATOR 12/20/2023 7:33 AM ACETYLENE PLANT OPERATOR us Jesus Hart MD LAB MICROBIOLOGY - GEN ERAL ORDERABLES Final Result GREGORIO ENRIQUEZ [address] [facility] Department [place] [address] * (ABNORMAL) Urinalysis, microscopic only (12/20/2023 7:30 AM ACETYLENE PLANT OPERATOR) WBC, ur 0-5 0 - 5 /HPF Comment:Testing performed by : [address] [address] RBC, ur 0-2 0 - 2 /HPF GREGORIO ENRIQUEZ Comment:Testing performed by : [address] [address] Mucous, ur Present(A) GREGORIO ENRIQUEZ Comment:Testing performed by : [address] [address] Hyaline casts, ur 1-5 0 - 10 /LPF GREGORIO ENRIQUEZ Comment:Testing performed by : [address] [address] Culture Reflex Comment Reflex conditions for urine culture (WBC >10) not met. GREGORIO Comment:Testing performed by : [facility], [address] [place] [address]., [address] Urine 12/20/2023 7:30 AM ACETYLENE PLANT OPERATOR 12/20/2023 7:33 AM ACETYLENE PLANT OPERATOR us Jesus Hart MD LAB URINE ORDERABLES F inal Result GREGORIO [address] [facility] Department [place] [address] * (ABNORMAL) eGFR (12/20/2023 5:32 AM ACETYLENE PLANT OPERATOR) eGFR 15(L) >=60 mL/min/1. 73 m2 Comment: Interpretive Data Reference Interval Normal ?>/= 90 mL/min/1.73m2 Mildly decreased* ? 60 - 89 mL/min/1.73m2 Mildly to moderately decreased ?45 - 59 mL/min/1.73m2 Moderately to severely decreased ??30 - 44 mL/min/1.73m2 Severely decreased ?15 - 29 mL/min/1.73m2 Kidney Failure ?< 15 ??mL/min/1.73m2 *Relative to young adult level Estimated glomerular filtration rate is determined by the 2020 CKD-EPI equation recommended by the National Kidney Foundation (A Unifying Approach to GFR Estimation: Recommendations of the NKF-ASK Task Force on Reassessing the Inclusion of Race in Diagnosing Kidney Disease, JASN 202). The CKD-EPI equation should not be used for patients with unstable renal function and has not been validated in children and those over 70. Current interpretive data was last reviewed 2020. Testing performed by: [facility], [address] [place] [address]., [address] Blood 12/20/2023 5:32 AM ACETYLENE PLANT OPERATOR 12/20/2023 5:35 AM ACETYLENE PLANT OPERATOR us Jesus Hart MD LAB BLOOD ORDERABLES F inal Result GREGORIO [address] [facility] Department [place] [address] * (ABNORMAL) Differential, auto (12/20/2023 5:32 AM ACETYLENE PLANT OPERATOR) Neutrophil abs 10.6(H) 1.5 - 6.5 K/cumm Comment:Testing performed by : [address] [address] Imm gran abs 0.1 0.0 - 0.1 K/cumm GREGORIO Comment:Testing performed by : [address] [address] Lymphocyte abs 1.1 0.8 - 3.3 K/cumm GREGORIO Comment:Testing performed by : [address] [address] Monocyte abs 1.1(H) 0.2 - 0.8 K/cumm GREGORIO Comment:Testing performed by : [address] [address] Eosinophil abs 0.0 0.0 - 0.5 K/cumm GREGORIO Comment:Testing performed by : [address] [address] Basophil abs 0.0 0.0 - 0.1 K/cumm GREGORIO Comment:Testing performed by : [address] [address] Neutrophil pct 82.1 % GREGORIO Comment: Interpretive Data Percent cell count reference ranges are not reported, since discordance with absolute values may lead to misinterpretation of CBC data. Current Interpretive Data was last revised on 2017. Testing performed by: [address] [address] Imm gran pct 0.7 % GREGORIO Comment: Interpretive Data Percent cell count reference ranges are not reported, since discordance with absolute values may lead to misinterpretation of CBC data. Current Interpretive Data was last revised on 2017. Testing performed by: [address] [address] Lymphocyte pct 8.3 % [facility] Comment: Interpretive Data Percent cell count reference ranges are not reported, since discordance with absolute values may lead to misinterpretation of CBC data. Current Interpretive Data was last revised on 2017. Testing performed by: [address] [address] Monocyte pct 8.5 % [facility] Comment: Interpretive Data Percent cell count reference ranges are not reported, since discordance with absolute values may lead to misinterpretation of CBC data. Current Interpretive Data was last revised on 2017. Testing performed by: [address] [address] Eosinophil pct 0.2 % [facility] Comment: Interpretive Data Percent cell count reference ranges are not reported, since discordance with absolute values may lead to misinterpretation of CBC data. Current Interpretive Data was last revised on 2017. Testing performed by: [address] [address] Basophil pct 0.2 % [facility] Comment: Interpretive Data Percent cell count reference ranges are not reported, since discordance with absolute values may lead to misinterpretation of CBC data. Current Interpretive Data was last revised on 2017. Testing performed by: [address] [address] Blood 12/20/2023 5:32 AM ACETYLENE PLANT OPERATOR 12/20/2023 5:35 AM ACETYLENE PLANT OPERATOR us Jesus Hart MD LAB BLOOD ORDERABLES F inal Result GREGORIO ENRIQUEZ [address] [facility] Department [place] [address] * (ABNORMAL) CBC with auto differential (12/20/2023 5:32 AM ACETYLENE PLANT OPERATOR) WBC 12.9(H) 3.8 - 9.9 K/cumm Comment:Testing performed by : [address] [address] Hgb 11.5(L) 11.9 - 15.5 g/dL GREGORIO Comment:Testing performed by : [address] [address] Hct 35.2(L) 35.6 - 45.5 % CERVELIA Comment:Testing performed by : [address] [address] Plt 315 150 - 400 K/cumm GREGORIO Comment:Testing performed by : [address], [address] MPV 10.6 9.1 - 12.3 fL GREGORIO Comment:Testing performed by : [address] [address] RBC 3.59(L) 3.90 - 5.20 M/cumm GREGORIO Comment:Testing performed by : [address], [address] MCV 98.1(H) 81.3 - 96.4 fL CERVELIA Comment:Testing performed by : [address] [address] MCH 32.0 27.1 - 33.3 pg CERVELIA Comment:Testing performed by : [address] [address] MCHC 32.7 32.3 - 35.7 g/dL CERVELIA Comment:Testing performed by : [address], [address] RDW CV 16.6(H) 11.1 - 14.9 % GREGORIO Comment:Testing performed by : [address], [address] RDW SD 59.3(H) 35.7 - 48.1 fL CERVELIA Comment:Testing performed by : [address], [address] NRBC abs 0.00 0.00 - 0.01 K/cumm GREGORIO Comment:Testing performed by : [address], [address] Blood 12/20/2023 5:32 AM ACETYLENE PLANT OPERATOR 12/20/2023 5:35 AM ACETYLENE PLANT OPERATOR Jesus Hart MD LAB BLOOD ORDERABLES F inal Result Performing Organization Address [facility] Co de Phone Number [email or web address] [address] * Creatine kinase (CK), total (12/20/2023 5:32 AM ACETYLENE PLANT OPERATOR) Pathologist [facility] CK 46 30 - 200 Units/L Comment:Testing performed by : [address] [address] Blood 12/20/2023 5:32 AM ACETYLENE PLANT OPERATOR 12/20/2023 5:35 AM ACETYLENE PLANT OPERATOR Jesus Hart MD LAB BLOOD ORDERABLES F inal Result Performing Organization Address [facility] de Phone Number [email or web address] [place] [address] * (ABNORMAL) Comprehensive metabolic panel (12/20/2023 5:32 AM ACETYLENE PLANT OPERATOR) [facility] Sodium 137 135 - 145 mmol/L Comment:Testing performed by : [address] [address] Potassium, pl 5.8(H) 3.3 - 4.9 mmol/L GREGORIO Comment:Testing performed by : [address] [address] Chloride 109 97 - 110 mmol/L GREGORIO Comment:Testing performed by : [address] [address] CO2 17(L) 22 - 32 mmol/L GREGORIO Comment:Testing performed by : [address] [address] Anion gap 11 2 - 15 mmol/L GREGORIO Comment:Testing performed by : [address] [address] BUN 62(H) 6 - 25 mg/dL GREGORIO Comment:Testing performed by : [address] [address] Creatinine 2.90(H) 0.60 - 1.10 mg/dL GREGORIO Comment:Testing performed by : [address] [address] Glucose 87 70 - 199 mg/dL GREGORIO Comment: Interpretive Data Fasting glucose >/= 126 mg/dl is diagnostic for diabetes. ?? Fasting is defined as no caloric intake for at least 8 hours. Fasting glucose between 100 mg/dl to 125 mg/dl is diagnostic of prediabetes. In a patient with classic symptoms of hyperglycemia or hyperglycemic crisis, a random glucose >/= 200 mg/dl is diagnostic for diabetes. In the absence of unequivocal hyperglycemia, results should be confirmed by repeat testing. The classification and Diagnosis of Diabetes Diabetes Care 2021; 46: S19-S40. Current interpretive data was last revised 2022. Testing performed by: [address] [address] Calcium 13.1(H) 8.5 - 10.3 mg/dL GREGORIO Comment:Testing performed by : [address] [address] Bilirubin, total 0.3 0.1 - 1.2 mg/dL GREGORIO Comment:Testing performed by : [address] [address] Protein, pl 6.7 6.5 - 8.5 g/dL GREGORIO Comment:Testing performed by : [address] [address] Albumin 3.7 3.5 - 5.0 g/dL GREGORIO Comment:Testing performed by : [address] [address] Alk phos 127 40 - 130 Units/L GREGORIO Comment:Testing performed by : [address] [address] ALT 23 7 - 45 Units/L GREGORIO Comment:Testing performed by : [address], [address] AST 51(H) 10 - 45 Units/L GREGORIO Comment:Testing performed by : [facility], [address] [place] [address]., [address] Blood 12/20/2023 5:32 AM ACETYLENE PLANT OPERATOR 12/20/2023 5:35 AM ACETYLENE PLANT OPERATOR us Jesus Hart MD LAB BLOOD ORDERABLES F inal Result YESSICANER [address] [facility] [place] [address] from Last 3 Months Insurance [employer] CHO[employer] MEDICARE PPO [employer] CHOICE MEDICARE PPO [employer] CHOICE MEDICARE PPO Advance Directives For more information, please contact: [phone] * LIMITED - No CPR (Latest Code Status on File) Date Activated Date Inactivated Comments 01/02/2024 1:05 PM 01/04/2024 10:08 PM Question Answer Comments Provide aggressive medical m anagement before a full cardiopulmonary arrest occurs. Use antibiotics, IV Fluids, and medical treatment unless specifically selected below: No intubation * Full Code Date Activated Date Inactivated Comments 12/20/2023 3:22 PM 12/30/2023 7:56 PM Care Teams Director Community Organization Relationship Specialty Start Date End Date Timothy Oh MD [address] [place] [address] PCP - General 05/26/16 Abram Tabares MD [address] [place] [address] Internal Medicine 01/12/24 Moises Conde MD [address] [facility] [address] [place] [address] Radiation Oncologist Radiation Oncology 01/12/24
--- OUTSIDE RECORDS SUMMARY | 2024-03-01 19:53 | XMS_ITS | Clinical Summary ---
Author Organization [facility] Address [address] [place] [address] Phone Care Team Providers Care Environmental Emergencies Assistant Name Role Phone Timothy Oh MD Primary Care Provider [phone] Allergies No known active allergies Medications Medication Sig Dispensed Refills Start Date End Date Status aspirin 81 MG chewable tablet 81 mg 06/11/2016 Active cholecalciferol, vitamin D3, (D-5000) 5,000 Units tablet tablet take 1 by Oral route once 06/11/2016 Active dilTIAZem CD (CARDIZEM CD) 300 MG 24 hr capsule 04/21/2020 Active hydrALAZINE (APRESOLINE) 50 MG tablet TK 1 T PO QID PRA 12/05/2019 Active levothyroxine (SYNTHROID) 50 MCG tablet 04/18/2020 Active lisinopril (PRINIVIL) 40 MG tablet 04/21/2020 Active spironolactone (ALDACTONE) 25 MG tablet 04/18/2020 Active Active Problems Problem Noted Date Diagnosed Date Systolic murmur 05/29/2020 Dyslipidemia 01/21/2020 Intermittent hypertension 06/29/2019 Overview (06/11/2020): Uncontrolled hypertension Patient encounter status 03/20/2018 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 Acquired hypothyroidism 06/11/2016 Overview (06/11/2020): Hypothyroidism (acquired) Chronic kidney disease 06/11/2016 Overview (06/11/2020): Chronic kidney disease, unspecified CKD stage Dizziness 06/11/2016 Overview (06/11/2020): Dizziness Family History Medical History Relation Comments Lung cancer Father Relation Status Comments Father Social History Tobacco Use Types Packs/Day Years Used Date Smoking Tobacco: Former Cigarettes Q uit: 02/07/1966 Smokeless Tobacco: Never Alcohol Use Standard Drinks/Week Comments Never 0 (1 standard drink = 0.6 oz pur e alcohol) AUDIT-C Answer Date Recorded Q1: How often do you have a drink containing alc ohol? Never 06/04/2020 Q2: How many drinks containi ng alcohol do you have on a typical day when you are drinking? Not asked 06/04/2020 Q3: How often do you have six or more drinks on one occasion? Never 06/04/2020 Sex and Gender Information Value Date Recorded Sex Assigned at Not on file Gender Identity Not on file Sexual Orientation Not on file Last Filed Vital Signs Vital Sign Reading Time Taken Comments Blood Pressure 164/88 06/04/2020 3:22 PM CDT Pulse - - Temperature 36.4 ??C (97.6 ??F) 06/04/2020 3:22 PM CD T Respiratory Rate 18 06/04/2020 3:22 PM CDT Oxygen Saturation - - Inhaled Oxygen Concentration - - Weight 99.3 kg (219 lb) 06/04/2020 3:22 PM CDT Height 167.6 cm (5' 6 ) 06/04/2020 3:22 PM CDT Body Mass Index 35.35 06/04/2020 3:22 PM CDT Plan of Treatment Health Maintenance Due Date Last Done Comments Pneumococcal PPSV23/PCV13 65 + Years / Low and Medium Risk (1 of 4 - PCV) 2001 Influenza Vaccine (#1) 2023 Care Teams Environmental Emergencies Assistant Relationship Specialty Start Date End Date Timothy Oh MD [address] [facility] [address] [place] [address] PCP - General Internal Medicine 04/16/20
--- OUTSIDE RECORDS SUMMARY | 2024-03-01 19:54 | XMS_ITS | Encounter Summary ---
Author Organization [facility] Address [address] [facility] [address] [place] [address] Care Team Providers Care Jigger Crown Pouncing Machine Operator Name Role Phone Timothy Oh MD Primary Care Provider Fide Reno NP Unavailable [phone] Carla Saul [facility] Unavailable [phone] Abram Tabares MD Unavailable [phone] Moises Conde MD Unavailable [phone] Encounter Details Date Type Department Care Team (Late st Contact Info) Description 06/25/2016 Orders Only [facility] Provider, MD [address] [place] [address] Social History Tobacco Use Types Packs/Day Years Used Date Smoking Tobacco: Never Alcohol Use Standard Drinks/Week Comments No 0 (1 standard drink = 0.6 oz pur e alcohol) Comments Unknown Sex and Gender Information Value Date Recorded Sex Assigned at Not on file 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 us Historical Provider [facility] ZEYNEP LIMON Final Result documented in this encounter Visit Diagnoses Not on filedocumented in this encounter Additional Health Concerns Infection Onset Date Last Indicated Resolved Time Ring Surveillance Comment:This flag is used to identify patient who are in house who are being monitored by Infection Prevention. If the patient is discharged and a swab has not been collected, if patient returns to hospital within 7 days a surveillance swab is to be collected (Reach out to IP for order) Patient does NOT need isolation, patient can travel off the floor. C auris 01/03/2024 01/03/2024 01/06/2024 11:22 AM APARTMENT MANAGER documented as of this encounter Care Teams Jigger Crown Pouncing Machine Operator Relationship Specialty Start Date End Date Timothy Oh MD [address] [facility] [address] [place] [address] PCP - General 05/26/16 Fide Reno NP [address] [place] [address] Nurse Practitioner Medical Oncology 12/30/23 01/23/24 Carla Saul [facility] [address] [facility] ([facility]) Mailstop [phone] [place] [address] [facility] Outpatient Commercial Appraiser 01/05/24 01/09/24 Abram Tabares MD [address] [place] [address] Internal Medicine 01/12/24 Moises Conde MD [address] [facility] [address] [place] [address] Radiation Oncologist Radiation Oncology 01/12/24 documented as of this encounter
--- OUTSIDE RECORDS SUMMARY | 2024-03-01 19:54 | XMS_ITS | Referral Summary ---
Author Organization [facility] [place] [address] Address [address] [place] [address] Care Team Providers Care Underwriting Sales Representative Name Role Phone Timothy Oh MD Primary Care Provider Abram Tabares MD Unavailable [phone] Moises Conde MD Unavailable [phone] Encounters Date Type Department Care Team Description 02/09/2024 Completion of Therapy [facility] Medical Office Building 2 Radiation Oncology [address] [place] [address] [phone] Moises Conde MD 02/09/2024 OTV [facility] Medical Office Building 2 Radiation Oncology [address] [place] [address] [phone] Moises Conde MD 02/09/2024 Orders Only RAD ONC TREATMENTS Miscellaneous, Not In File 02/09/2024 3:00 PM STENCIL MAKER Treatment [facility] Medical Office Building 2 Radiation Oncology [address] [place] [address] [phone] Moises Conde MD 02/07/2024 Orders Only RAD ONC TREATMENTS Miscellaneous, Not In File 02/07/2024 3:00 PM STENCIL MAKER Treatment [facility] Medical Office Building 2 Radiation Oncology [address] [place] [phone] 02/06/2024 Orders Only RAD ONC TREATMENTS Miscellaneous, Not In File 02/06/2024 3:00 PM STENCIL MAKER Treatment [facility] Medical Office Building 2 Radiation Oncology [address] [place] [phone] 02/03/2024 Orders Only RAD ONC TREATMENTS Miscellaneous, Not In File 02/03/2024 1:30 PM STENCIL MAKER Treatment [facility] Medical Office Building 2 Radiation Oncology [address] [place] [address] [phone] 02/02/2024 Orders Only RAD ONC TREATMENTS Miscellaneous, Not In File 02/02/2024 12:30 PM STENCIL MAKER Treatment [facility] Medical Office Building 2 Radiation Oncology [address] [place] [address] [phone] Timothy Abel MD 02/02/2024 12:45 PM STENCIL MAKER Treatment [facility] Medical Office Building 2 Radiation Oncology [address] [place] [address] [phone] Moises Conde MD 01/25/2024 7:40 PM STENCIL MAKER Treatment [facility] Medical Office Building 2 Radiation Oncology [address] [place] [phone] 01/25/2024 2:45 PM STENCIL MAKER Office Visit [facility] Oncology [address] [place] [phone] Abram Tabares MD Lung mass; 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) 01/24/2024 12:00 PM STENCIL MAKER Lab [facility] Lab [facility] [place] [address] 01/24/2024 11:00 AM STENCIL MAKER Treatment [facility] Medical Office Building 2 Radiation Oncology [address] [place] [address] [phone] Moises Conde MD 01/24/2024 10:00 AM STENCIL MAKER Consult [facility] Medical Office Building 2 Radiation Oncology [address] [place] [phone] Moises Conde MD 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); 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); Lytic bone lesion of hip 01/18/2024 10:57 AM STENCIL MAKER - 01/18/2024 11:59 PM STENCIL MAKER Hospital Encounter [facility] - PET [address] [facility] [address] [place] [address] Discharge Disposition: Discharge to home or self care 01/18/2024 10:57 AM STENCIL MAKER - 01/18/2024 11:59 PM STENCIL MAKER Hospital Encounter [facility] - PET [address] Floor 8 [place] [address] Neuroendocrine tumor Discharge Disposition: Discharge to home or self care 01/13/2024 1:35 PM STENCIL MAKER Lab [facility] Lab [address] [place] [address] 01/11/2024 Home Care Visit [address] [place] [address] Margie Mendieta, RN TELEPHONE ENCOUNTER 01/11/2024 1:30 PM STENCIL MAKER Office Visit [facility] Oncology [address] [facility] [address] [place] [address] Abram Tabares MD Lung mass (Primary Dx); 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); Lesion of liver; Lytic bone lesion of hip 01/10/2024 SHOP/CHAP Initial Outreach [facility] OP CASE MANAGEMENT 1 [place] [address] Carla Saul, CAITLIN 01/10/2024 Home Care Visit [address] [place] [address] Naomi Balderrama, RN TELEPHONE ENCOUNTER 01/09/2024 Home Care Visit [address] [place] [address] Naomi Balderrama, RN TELEPHONE ENCOUNTER 01/09/2024 Home Care Visit [address] [place] [address] Pb Rushing, PT TELEPHONE ENCOUNTER 01/08/2024 Home Care Visit [address] [place] [address] Kelsea Velez, RN TELEPHONE ENCOUNTER 01/07/2024 Home Care Visit [facility] [address] [facility] [address] [place] [address] Annie Sibley, PT TELEPHONE ENCOUNTER 01/06/2024 SHOP/CHAP Initial Outreach [facility] OP CASE MANAGEMENT 1 [place] [address] Carla Saul, KOSHER BUTCHER 01/05/2024 SHOP/CHAP Initial Outreach [facility] OP CASE MANAGEMENT 1 [place] [address] Aysha Lucero, RN 01/05/2024 SHOP/CHAP Initial Eligibility Review [facility] OP CASE MANAGEMENT 1 [place] [address] Lela Edwards, KOSHER BUTCHER 01/01/2024 6:47 PM STENCIL MAKER - 01/04/2024 6:08 PM STENCIL MAKER Hospital Encounter [address] [address] Joseph Mensah MD PhD Esther Alfonso MD Li, Han, MD Leg swelling (Primary [...] Disposition: Discharge to home or self care 01/02/2024 Documentation [facility] Social Work [address] [place] [address] [place] [address] Shaquille Redman, AUTOMATIC PATTERN EDGER 12/30/2023 Orders Only [facility] Oncology [address] [facility] [address] [place] [address] Mónica Britton RN Lesion of liver (Primary Dx); Lung mass 12/20/2023 7:05 AM STENCIL MAKER - 12/30/2023 3:56 PM STENCIL MAKER Hospital Encounter [facility] 2 Center [address] [place] [address] Jesus Hart MD Winston, MD Teressa Lainez Saim, DO Elizondo, MD Jesús Scales Satyen V., MD Singh, Anjanya Devendra, MD Mahasneh, Ramone Heaton MD JONO (acute kidney injury) (HCC) (Primary Dx); Hyperkalemia; Abnormal CT of the abdomen; Atrial fibrillation and flutter (HCC); Dizziness; Stage 3 chronic kidney disease, unspecified whether stage 3a or 3b CKD (HCC) Discharge Disposition: Discharge to home or self care 12/19/2023 3:30 PM STENCIL MAKER Office Visit [facility] [address] [place] [address] [address] [place] [phone] Ariel Webster PA Primary osteoarthritis of right hip (Primary Dx); Right hip pain; Chronic bilateral low back pain, unspecified whether sciatica present 12/07/2023 Documentation [facility] OP Physical Therapy [address] [place] [address] [address] [place] [address] Eva Carpenter, PT from Last 3 Months Allergies Active Allergy Reactions Criticality Noted Date [...] 1 tablet (50 mcg total) by mouth bottle dealer before breakfast 1 Active acetaminophen (TYLENOL) 500 [...] Dyslipidemia 01/21/2020 06/08/2021 Lipid screening 03/20/2018 12/17/2021 Social History Tobacco Use Types Packs/Day Years Used Date Smoking Tobacco: Former Cigarettes Q uit: 03/10/1979 Smokeless Tobacco: Never Tobacco Cessation:Counseling Given: Not Answered Alcohol Use Standard Drinks/Week Comments No 0 (1 standard drink = 0.6 oz pur e alcohol) [facility] [employer] Answer Date Recorded In the past 12 months has [employer], gas, oil, or water [employer] threatened to shut off services in your [...] 01/02/2024 How often do you attend chur or methodist services? More than 4 times per year 01/02/2024 Do you belong to any clubs o r organizations such as presybeterian groups, unions, fraternal or athletic groups, or [...] and heating? Not hard at all 01/02/2024 [facility] - Occupational Stress [...] any time in the past 12 m [facility], were you homeless or living in a fpc (including now)? No 01/02/2024 Personal Safety Answer Date Recorded Have you ever been in or are you currently in a harmful physical or emotional relationship or is someone making you feel afraid or unsafe? Denies 01/01/2024 Comments No Sex and Gender Information Value Date Recorded Sex Assigned at Not on file Legal Sex Female 2:27 AM STENCIL MAKER Gender Identity Female 06/01/2021 7:29 AM CDT Sexual Orientation Straight 06/01/2021 7: 29 AM CDT Last Filed Vital Signs Vital Sign Reading Time Taken Comments Blood Pressure 158/69 02/09/2024 3:15 PM STENCIL MAKER Pulse 97 02/09/2024 3:15 PM STENCIL MAKER Temperature 36.8 ??C (98.3 ??F) 01/25/2024 3 :06 PM STENCIL MAKER Respiratory Rate 18 01/25/2024 3:06 PM STENCIL MAKER Oxygen Saturation 100% 02/09/2024 3:1 5 PM STENCIL MAKER Inhaled Oxygen Concentration - - Weight 81.2 kg (179 lb) 01/25/2024 3:06 PM STENCIL MAKER wheelchair weighs 41.8lbs Height 170.2 cm (5' 7.01 ) 01/02/2024 8 :25 PM STENCIL MAKER Body Mass Index 28.03 01/02/2024 8:25 PM STENCIL MAKER Plan of Treatment Not on file Procedures Procedure Name Priority Date/Time Associated Diagnosis Comments RAD ONC ARIA SESSION SUMMARY 02/09/2024 3:07 PM STENCIL MAKER RAD ONC ARIA SESSION SUMMARY 02/07/2024 3:02 PM STENCIL MAKER RAD ONC ARIA SESSION SUMMARY 02/06/2024 3:17 PM STENCIL MAKER RAD ONC ARIA SESSION SUMMARY 02/03/2024 1:27 PM STENCIL MAKER RAD ONC ARIA SESSION SUMMARY 02/02/2024 12:59 PM STENCIL MAKER EGFR Routine 01/24/2024 12:00 PM STENCIL MAKER COMPREHENSIVE METABOLIC PANEL Routine 01/24/2024 12:00 PM STENCIL MAKER PET/CT GA-68 DOTATATE SKULL TO THIGH Schedule Routine, Read Routine (OP Routine) 01/18/2024 2:46 PM STENCIL MAKER Neuroendocrine tumor EGFR Routine 01/13/2024 1:45 PM STENCIL MAKER COMPREHENSIVE METABOLIC PANEL Routine 01/13/2024 1:45 PM STENCIL MAKER EGFR Timed 01/04/2024 12:23 PM STENCIL MAKER PHOSPHORUS Timed 01/04/2024 12:23 PM STENCIL MAKER MAGNESIUM Timed 01/04/2024 12:23 PM STENCIL MAKER BASIC METABOLIC PANEL Timed 01/04/2024 12:23 PM STENCIL MAKER CBC WITHOUT DIFFERENTIAL Routine 01/04/2024 5:02 AM STENCIL MAKER EGFR Timed 01/03/2024 8:11 PM STENCIL MAKER CHROMOGRANIN A Routine 01/03/2024 8:11 PM STENCIL MAKER PHOSPHORUS Timed 01/03/2024 8:11 PM STENCIL MAKER MAGNESIUM Timed 01/03/2024 8:11 PM STENCIL MAKER BASIC METABOLIC PANEL Timed 01/03/2024 8:11 PM STENCIL MAKER INFECTION PREVENTION JERONIMO AURIS PCR, SURVEILLANCE Routine 01/03/2024 6:38 PM STENCIL MAKER TRANSTHORACIC ECHO (TTE) COMPLETE W DOPPLER/CF W CONTRAST ED 01/03/2024 8:37 AM STENCIL MAKER URIC ACID Timed 01/03/2024 8:00 AM STENCIL MAKER LACTATE DEHYDROGENASE Timed 01/03/2024 8:00 AM STENCIL MAKER EGFR Timed 01/03/2024 8:00 AM STENCIL MAKER PHOSPHORUS Timed 01/03/2024 8:00 AM STENCIL MAKER MAGNESIUM Timed 01/03/2024 8:00 AM STENCIL MAKER BASIC METABOLIC PANEL Timed 01/03/2024 8:00 AM STENCIL MAKER LACTATE Routine 01/03/2024 5:06 AM STENCIL MAKER COPPER, SERUM Routine 01/03/2024 5:06 AM STENCIL MAKER G6PD QUALITATIVE WITH REFLEX TO QUANTITATIVE Routine 01/02/2024 11:19 PM STENCIL MAKER EGFR Timed 01/02/2024 11:19 PM STENCIL MAKER CBC WITHOUT DIFFERENTIAL Routine 01/02/2024 11:19 PM STENCIL MAKER PHOSPHORUS Timed 01/02/2024 11:19 PM STENCIL MAKER MAGNESIUM Timed 01/02/2024 11:19 PM STENCIL MAKER BASIC METABOLIC PANEL Timed 01/02/2024 11:19 PM STENCIL MAKER SODIUM, URINE, RANDOM Routine 01/02/2024 5:16 PM STENCIL MAKER CREATININE, URINE, RANDOM Routine 01/02/2024 5:16 PM STENCIL MAKER UREA NITROGEN, URINE, RANDOM Routine 01/02/2024 5:16 PM STENCIL MAKER CERULOPLASMIN Routine 01/02/2024 2:04 PM STENCIL MAKER EXTRA SLIDE PREPARATION Routine 01/02/2024 2:04 PM STENCIL MAKER METHYLMALONIC ACID, SERUM Routine 01/02/2024 2:04 PM STENCIL MAKER VITAMIN D 25 HYDROXY Routine 01/02/2024 2:04 PM STENCIL MAKER PTH Routine 01/02/2024 2:04 PM STENCIL MAKER TSH Routine 01/02/2024 2:04 PM STENCIL MAKER TROPONIN I HIGH-SENSITIVITY 2-HOUR Timed 01/01/2024 9:57 PM STENCIL MAKER URINALYSIS AND REFLEX TO MICROSCOPIC AND CULTURE STAT 01/01/2024 9:57 PM STENCIL MAKER XR CHEST 1 VIEW ED 01/01/2024 7:17 PM STENCIL MAKER EGFR STAT 01/01/2024 6:52 PM STENCIL MAKER DIFFERENTIAL AUTO STAT 01/01/2024 6:5 2 PM STENCIL MAKER PRO B-TYPE NATRIURETIC PEPTIDE STAT 01/01/2024 6:52 PM STENCIL MAKER TROPONIN I HIGH-SENSITIVITY SERIES (BASELINE, 2HR, 4HR, 6HR) STAT 01/01/2024 6:52 PM STENCIL MAKER COMPREHENSIVE METABOLIC PANEL STAT 01/01/2024 6:52 PM STENCIL MAKER CBC WITH AUTO DIFFERENTIAL STAT 01/01/2024 6:52 PM STENCIL MAKER ECG 12-LEAD STAT 01/01/2024 6:15 PM STENCIL MAKER EGFR Routine 12/30/2023 7:05 AM STENCIL MAKER DIFFERENTIAL AUTO Routine 12/30/2023 7:0 5 AM STENCIL MAKER COMPREHENSIVE METABOLIC PANEL Routine 12/30/2023 7:05 AM STENCIL MAKER MAGNESIUM Routine 12/30/2023 7:05 AM STENCIL MAKER PHOSPHORUS Routine 12/30/2023 7:05 AM STENCIL MAKER CBC WITH AUTO DIFFERENTIAL Routine 12/30/2023 7:05 AM STENCIL MAKER EGFR Routine 12/29/2023 9:06 AM STENCIL MAKER DIFFERENTIAL AUTO Routine 12/29/2023 9:0 6 AM STENCIL MAKER COMPREHENSIVE METABOLIC PANEL Routine 12/29/2023 9:06 AM STENCIL MAKER MAGNESIUM Routine 12/29/2023 9:06 AM STENCIL MAKER PHOSPHORUS Routine 12/29/2023 9:06 AM STENCIL MAKER CBC WITH AUTO DIFFERENTIAL Routine 12/29/2023 9:06 AM STENCIL MAKER EGFR Routine 12/28/2023 7:35 AM STENCIL MAKER DIFFERENTIAL AUTO Routine 12/28/2023 7:3 5 AM STENCIL MAKER COMPREHENSIVE METABOLIC PANEL Routine 12/28/2023 7:35 AM STENCIL MAKER MAGNESIUM Routine 12/28/2023 7:35 AM STENCIL MAKER PHOSPHORUS Routine 12/28/2023 7:35 AM STENCIL MAKER CBC WITH AUTO DIFFERENTIAL Routine 12/28/2023 7:[address] CHEST W CONTRAST IP Routine 12/27/2023 1 0:34 PM STENCIL MAKER ERYTHROCYTE SEDIMENTATION RATE Routine 12/27/2023 2:49 PM STENCIL MAKER CRP (ACUTE PHASE) Routine 12/27/2023 2:4 9 PM STENCIL MAKER IRON PROFILE W/ IBC Routine 12/27/2023 2 :49 PM STENCIL MAKER FERRITIN Routine 12/27/2023 2:49 PM STENCIL MAKER FOLATE Routine 12/27/2023 2:49 PM STENCIL MAKER VITAMIN B12 Routine 12/27/2023 2:49 PM STENCIL MAKER RETICULOCYTES Routine 12/27/2023 2:49 PM STENCIL MAKER HEPATIC FUNCTION PANEL Routine 12/27/2023 5:46 AM STENCIL MAKER EGFR Routine 12/27/2023 5:46 AM STENCIL MAKER DIFFERENTIAL AUTO Routine 12/27/2023 5:4 6 AM STENCIL MAKER CBC WITH AUTO DIFFERENTIAL Routine 12/27/2023 5:46 AM STENCIL MAKER BASIC METABOLIC PANEL Routine 12/27/2023 5:46 AM STENCIL MAKER US GUIDED BIOPSY LIVER IP Routine 12/26/2023 3:31 PM STENCIL MAKER SURGICAL PATHOLOGY Routine 12/26/2023 2: 19 PM STENCIL MAKER EGFR Routine 12/26/2023 6:55 AM STENCIL MAKER DIFFERENTIAL AUTO Routine 12/26/2023 6:5 5 AM STENCIL MAKER PROTIME-INR Routine 12/26/2023 6:55 AM STENCIL MAKER CBC WITH AUTO DIFFERENTIAL Routine 12/26/2023 6:55 AM STENCIL MAKER BASIC METABOLIC PANEL Routine 12/26/2023 6:55 AM STENCIL MAKER APTT Routine 12/26/2023 6:55 AM STENCIL MAKER EGFR Routine 12/25/2023 7:31 AM STENCIL MAKER BASIC METABOLIC PANEL Routine 12/25/2023 7:31 AM STENCIL MAKER EGFR Routine 12/24/2023 5:15 AM STENCIL MAKER BASIC METABOLIC PANEL Routine 12/24/2023 5:15 AM STENCIL MAKER EGFR Routine 12/23/2023 6:47 AM STENCIL MAKER DIFFERENTIAL AUTO Routine 12/23/2023 6:4 7 AM STENCIL MAKER CBC WITH AUTO DIFFERENTIAL Routine 12/23/2023 6:47 AM STENCIL MAKER BASIC METABOLIC PANEL Routine 12/23/2023 6:47 AM STENCIL MAKER US KIDNEY COMPLETE IP Routine 12/22/2023 3: 56 PM STENCIL MAKER EGFR Routine 12/22/2023 7:12 AM STENCIL MAKER DIFFERENTIAL AUTO Routine 12/22/2023 7:1 2 AM STENCIL MAKER TSH Routine 12/22/2023 7:12 AM STENCIL MAKER CBC WITH AUTO DIFFERENTIAL Routine 12/22/2023 7:12 AM STENCIL MAKER BASIC METABOLIC PANEL Routine 12/22/2023 7:12 AM STENCIL MAKER LACTATE DEHYDROGENASE Routine 12/21/2023 2:41 PM STENCIL MAKER CANCER ANTIGEN 19-9 Routine 12/21/2023 2 :41 PM STENCIL MAKER CEA Routine 12/21/2023 2:41 PM STENCIL MAKER US VEIN DUPLEX LOWER EXTREMITY BILATERAL COMPLETE IP Routine 12/21/2023 12:07 PM STENCIL MAKER EGFR Routine 12/21/2023 9:16 AM STENCIL MAKER DIFFERENTIAL AUTO Routine 12/21/2023 9:1 6 AM STENCIL MAKER CBC WITH AUTO DIFFERENTIAL Routine 12/21/2023 9:16 AM STENCIL MAKER BASIC METABOLIC PANEL Routine 12/21/2023 9:16 AM STENCIL MAKER PTH Routine 12/21/2023 9:16 AM STENCIL MAKER POTASSIUM LEVEL Timed 12/20/2023 8:12 PM STENCIL MAKER CALCIUM, IONIZED Routine 12/20/2023 5:24 PM STENCIL MAKER VITAMIN D 25 HYDROXY Routine 12/20/2023 5:24 PM STENCIL MAKER POCT GLUCOSE DEVICE Routine 12/20/2023 5 :05 PM STENCIL MAKER POCT GLUCOSE DEVICE Routine 12/20/2023 3 :02 PM STENCIL MAKER MAGNESIUM Timed 12/20/2023 11:25 AM STENCIL MAKER POTASSIUM LEVEL Timed 12/20/2023 11:25 AM STENCIL MAKER ECG 12-LEAD STAT 12/20/2023 9:47 AM STENCIL MAKER XR CHEST 1 VIEW ED 12/20/2023 9:27 AM STENCIL MAKER POCT GLUCOSE DEVICE Routine 12/20/2023 9 :[address] ABDOMEN PELVIS WO CONTRAST ED 12/20/2023 9:00 AM STENCIL MAKER SEPSIS LACTATE WITH REFLEX STAT 12/20/2023 8:46 AM STENCIL MAKER BLOOD CULTURE STAT 12/20/2023 8:46 AM STENCIL MAKER BLOOD CULTURE STAT 12/20/2023 8:32 AM STENCIL MAKER URINALYSIS, MICROSCOPIC ONLY STAT 12/20/2023 7:30 AM STENCIL MAKER URINALYSIS AND REFLEX TO MICROSCOPIC AND CULTURE STAT 12/20/2023 7:30 AM STENCIL MAKER CREATINE KINASE (CK), TOTAL STAT 12/20/2023 5:32 AM STENCIL MAKER EGFR STAT 12/20/2023 5:32 AM STENCIL MAKER DIFFERENTIAL AUTO STAT 12/20/2023 5:3 2 AM STENCIL MAKER COMPREHENSIVE METABOLIC PANEL STAT 12/20/2023 5:32 AM STENCIL MAKER CBC WITH AUTO DIFFERENTIAL STAT 12/20/2023 5:32 AM STENCIL MAKER from Last 3 Months Results * RAD ONC ARIA SESSION SUMMARY (02/09/2024 3:07 PM STENCIL MAKER) Course Name [email or web address]_[email or web address]_ 2023 ARIA Course Plan Date 01/24/2024 12:03 PM ARIA Elapsed Days 7 ARIA Treatment Start Date 02/02/2024 ARIA Treatment Site RT_HIP ARIA Dose Given To Date (cGy) 2,000 ARIA Session Dosage Given (cGy) 400 ARIA Plan ID RT_HIP ARIA Fractions Treated 5 ARIA Prescribed Dose Per Fraction (cGy) 400 ARIA Prescribed Total Dose (cGy) 2,000 ARIA 02/09/2024 3:07 PM STENCIL MAKER us Not In File Miscellaneous RADIATION ONCOLOGY ORD ERABLES Final Result ROBIN * RAD ONC ARIA SESSION SUMMARY (02/07/2024 3:02 PM STENCIL MAKER) Course Name [email or web address]_RT_[email or web address]_ 2023 ARIA Course Plan Date 01/24/2024 12:03 PM ARIA Elapsed Days 5 ARIA Treatment Start Date 02/02/2024 ARIA Treatment Site RT_HIP ARIA Dose Given To Date (cGy) 1,600 ARIA Session Dosage Given (cGy) 400 ARIA Plan ID RT_HIP ARIA Fractions Treated 4 ARIA Prescribed Dose Per Fraction (cGy) 400 ARIA Prescribed Total Dose (cGy) 2,000 ARIA 02/07/2024 3:02 PM STENCIL MAKER us Not In File Miscellaneous RADIATION ONCOLOGY ORD ERABLES Final Result ARIAlen * RAD ONC ARIA SESSION SUMMARY (02/06/2024 3:17 PM STENCIL MAKER) Course Name C1_RT_HIP_ 2023 ARIA Course Plan Date 01/24/2024 12:03 PM ARIA Elapsed Days 4 ARIA Treatment Start Date 02/02/2024 ARIA Treatment Site RT_HIP ARIA Dose Given To Date (cGy) 1,200 ARIA Session Dosage Given (cGy) 400 ARIA Plan ID RT_HIP ARIA Fractions Treated 3 ARIA Prescribed Dose Per Fraction (cGy) 400 ARIA Prescribed Total Dose (cGy) 2,000 ARIA 02/06/2024 3:17 PM STENCIL MAKER us Not In File Miscellaneous RADIATION ONCOLOGY ORD ERABLES Final Result Performing Organization Address [facility] de Phone Number ROBIN * RAD ONC ARIA SESSION SUMMARY (02/03/2024 1:27 PM STENCIL MAKER) Course Name C1_RT_HIP_ 2023 ARIA Course Plan Date 01/24/2024 12:03 PM ARIA Elapsed Days 1 ARIA Treatment Start Date 02/02/2024 ARIA Treatment Site RT_HIP ARIA Dose Given To Date (cGy) 800 ARIA Session Dosage Given (cGy) 400 ARIA Plan ID RT_HIP ARIA Fractions Treated 2 ARIA Prescribed Dose Per Fraction (cGy) 400 ARIA Prescribed Total Dose (cGy) 2,000 ARIA 02/03/2024 1:27 PM STENCIL MAKER us Not In File Miscellaneous RADIATION ONCOLOGY ORD ERABLES Final Result ROBIN * RAD ONC ARIA SESSION SUMMARY (02/02/2024 12:59 PM STENCIL MAKER) Course Name C1_RT_HIP_ 2023 ARIA Course Plan Date 01/24/2024 12:03 PM ARIA Elapsed Days 0 ARIA Treatment Start Date 02/02/2024 ARIA Treatment Site RT_HIP ARIA Dose Given To Date (cGy) 400 ARIA Session Dosage Given (cGy) 400 ARIA Plan ID RT_HIP ARIA Fractions Treated 1 ARIA Prescribed Dose Per Fraction (cGy) 400 ARIA Prescribed Total Dose (cGy) 2,000 ARIA 02/02/2024 12:5 9 PM STENCIL MAKER us Not In File Miscellaneous RADIATION ONCOLOGY ORD ERABLES Final Result ROBIN * (ABNORMAL) eGFR (01/24/2024 12:00 PM STENCIL MAKER) Pathologist [facility] [place] eGFR 29(L) >=60 mL/min/1. 73 m2 Comment: [...] was last reviewed 2020. Testing performed by: [address] [address] Blood 01/24/2024 12:0 0 PM STENCIL MAKER 01/24/2024 1:49 PM STENCIL MAKER us Asael [facility] LAB BLOOD ORDERABLES Kaci l Result [facility] [address] [facility] Department [place] [address] * (ABNORMAL) Comprehensive metabolic panel (01/24/2024 12:00 PM STENCIL MAKER) Sodium 135 135 - 145 mmol/L Comment:Testing performed by : [address] [address] Potassium, pl 5.6(H) 3.3 - 4.9 mmol/L [facility] Comment:Testing performed by : [address] [address] Chloride 100 97 - 110 mmol/L [facility] Comment:Testing performed by : [address] [address] CO2 22 22 - 32 mmol/L G[facility] Comment:Testing performed by : [address] [address] Anion gap 13 2 - 15 mmol/L G[facility]IO Comment:Testing performed by : [address] [address] BUN 37(H) 6 - 25 mg/dL [facility] Comment:Testing performed by : [address] [address] Creatinine 1.70(H) 0.60 - 1.10 mg/dL [facility] Comment:Testing performed by : [address] [address] Glucose 97 70 - 199 mg/dL GREG[facility]IO [...] was last revised 2022. Testing performed by: [address] [address] Calcium 10.4(H) 8.5 - 10.3 mg/dL G[facility]IO Comment:Testing performed by : [address] [address] Bilirubin, total 0.2 0.1 - 1.2 mg/dL G[facility]IO Comment:Testing performed by : [address] [address] Protein, pl 7.2 6.5 - 8.5 g/dL GREGROIO Comment:Testing performed by : [address] [address] Albumin 3.9 3.5 - 5.0 g/dL GREGORIO Comment:Testing performed by : [address] [address] Alk phos 134(H) 40 - 130 Units/L GREGORIO Comment:Testing performed by : [address] [address] ALT 15 7 - 45 Units/L GREGORIO Comment:Testing performed by : [address] [address] AST 33 10 - 45 Units/L GREG[facility]IO Comment:Testing performed by : [address] [address] Blood 01/24/2024 12:0 0 PM STENCIL MAKER 01/24/2024 1:49 PM STENCIL MAKER us Asael [facility] LAB BLOOD ORDERABLES Kaci schuster Result [facility] [address] [facility] Department [place] [address] * PET/CT Dotatate Skull to Thigh (01/18/2024 2:46 PM STENCIL MAKER) Anatomical Region Laterality Modality Positron Emissio n Tomography (PET) 01/18/2024 4:10 PM STENCIL MAKER Impressions 01/18/2024 5:47 PM STENCIL MAKER 1. ??Minimally tracer avid right upper lobe [...] by: DO Regi Ba 01/18/2024 5:47 PM STENCIL MAKER EXAMINATION: Cu-64 DOTATATE -PET/CT IMAGING DATE OF STUDY: ??01/18/2024 SCANNER: [facility] [employer] (SQ1). ??This is a high-resolution scanner, which [...] obtained. ??The study was interpreted on the Play[employer] workstation. ?? The total scanned area was [...] -PET/CT IMAGING DATE OF STUDY: 01/18/2024 SCANNER: [employer] (SQ1). This is a high-resolution scanner, which [...] obtained. The study was interpreted on the [employer] workstation. The total scanned area was skull [...] agrees with it. Electronically signed by: Norm Negro DO [employer] Provider Result Type Result Stat Subhash Aranda MD IMG PET PROCEDURES Final Result * (ABNORMAL) eGFR (01/13/2024 1:45 PM STENCIL MAKER) eGFR 20(L) >=60 mL/min/1. 73 m2 Comment: [...] was last reviewed 2020. Testing performed by: [address] [id number] Blood 01/13/2024 1:45 PM [employer]ENCIL [employer]ER 01/13/2024 2:28 PM STENCIL MA[employer]ER Asael [facility] BLOOD ORDERABLES Kaci l Result [facility] [address] [facility] Department of [place] [address] * (ABNORMAL) Comprehensive metabolic panel (01/13/2024 1:45 PM STENCIL MAKER) Sodium 132(L) 135 - 145 mmol/L Comment:Testing performed by : [address] [address] Potassium, pl 4.8 3.3 - 4.9 mmol/L [facility] Comment:Testing performed by : [address] [address] Chloride 96(L) 97 - 110 mmol/L [facility] Comment:Testing performed by : [address] [address] CO2 22 22 - 32 mmol/L [facility] Comment:Testing performed by : [address] [address] Anion gap 14 2 - 15 mmol/L [facility] Comment:Testing performed by : [address] [address] BUN 53(H) 6 - 25 mg/dL [facility] Comment:Testing performed by : [address] [address] Creatinine 2.30(H) 0.60 - 1.10 mg/dL [facility] Comment:Testing performed by : [address] [address] Glucose 104 70 - 199 mg/dL [facility] Comment: Interpretive [...] was last revised 2022. Testing performed by: [address] [address] Calcium 9.9 8.5 - 10.3 mg/dL [facility] Comment:Testing performed by : [address] [address] Bilirubin, total 0.2 0.1 - 1.2 mg/dL [facility] Comment:Testing performed by : [address] [address] Protein, pl 7.1 6.5 - 8.5 g/dL [facility] Comment:Testing performed by : [address], [address] Albumin 3.8 3.5 - 5.0 g/dL [facility] Comment:Testing performed by : [address] [address] Alk phos 139(H) 40 - 130 Units/L [facility] Comment:Testing performed by : [address] [address] ALT 22 7 - 45 Units/L [facility] Comment:Testing performed by : [address] [address] AST 43 10 - 45 Units/L [facility] Comment:Testing performed by : [address] [address] Blood 01/13/2024 1:45 PM STENCIL MAKER 01/13/2024 2:28 PM STENCIL MAKER us Asael GUSMAN LAB BLOOD ORDERABLES Kaci l Result [facility] [address] [facility] Department of Laboratories [place], [place] [id number] * (ABNORMAL) eGFR (01/04/2024 12:23 PM STENCIL MAKER) eGFR 28(L) >=60 mL/min/1. 73 m2 Comment: [...] reviewed 2020. Blood 01/04/2024 12:2 3 PM STENCIL MAKER 01/04/2024 12:34 PM STENCIL MAKER us Esther Alfonso MD LAB BLOOD ORDERABLES Final Result [facility] Department [place] [address] * Phosphorus (01/04/2024 12:23 PM STENCIL MAKER) Phosphorus, pl 3.3 2.3 - 4.5 mg/dL Blood 01/04/2024 12:2 3 PM STENCIL MAKER 01/04/2024 12:34 PM STENCIL MAKER Esther Alfonso MD LAB BLOOD ORDERABLES Final Result [facility] [place] [address] * Magnesium (01/04/2024 12:23 PM STENCIL MAKER) Pathologist [facility] [place] Magnesium 2.5 1.4 - 2.5 mg/dL Blood 01/04/2024 12:2 3 PM STENCIL MAKER 01/04/2024 12:34 PM STENCIL MAKER Esther Alfonso MD LAB BLOOD ORDERABLES Final Result Performing Organization Address [facility] Co de Phone Number [facility] [place] [address] * (ABNORMAL) Basic metabolic panel (01/04/2024 12:23 PM STENCIL MAKER) [facility] Sodium 139 135 - 145 mmol/L Potassium, pl 4.9 3.3 - 4.9 mmol/L [facility] Chloride 101 97 - 110 mmol/L [facility] CO2 27 22 - 32 mmol/L [facility] Anion gap 11 2 - 15 mmol/L [facility] BUN 28(H) 6 - 25 mg/dL [facility] Creatinine 1.74(H) 0.60 - 1.10 mg/dL [facility] Glucose 127 70 - 199 mg/dL [facility] Comment: Interpretive Data Fasting glucose >/= 126 [...] 2022. Calcium 9.4 8.5 - 10.3 mg/dL [facility] Blood 01/04/2024 12:2 3 PM STENCIL MAKER 01/04/2024 12:34 PM STENCIL MAKER us Esther Alfonso MD LAB BLOOD ORDERABLES Final Result Performing Organization Address [facility]/ZIP Co de Phone Number [facility] [place] [address] * (ABNORMAL) CBC without differential (01/04/2024 5:02 AM STENCIL MAKER) Pathologist [facility] [place] WBC 7.8 3.8 - 9.9 K/cumm Hgb 9.3(L) 11.9 - 15.5 g/dL [facility] Hct 28.3(L) 35.6 - 45.5 % [facility] Plt 326 150 - 400 K/cumm [facility] MPV 10.5 9.1 - 12.3 fL [facility] RBC 2.89(L) 3.90 - 5.20 M/cumm [facility] MCV 97.9(H) 81.3 - 96.4 fL [facility] MCH 32.2 27.1 - 33.3 pg [facility] MCHC 32.9 32.3 - 35.7 g/dL [facility] RDW CV 16.1(H) 11.1 - 14.9 % [facility] RDW SD 58.3(H) 35.7 - 48.1 fL [facility] NRBC abs 0.00 0.00 - 0.01 K/cumm [facility] Blood 01/04/2024 5:02 AM STENCIL MAKER 01/04/2024 7:19 AM STENCIL MAKER us Esther Alfonso MD LAB BLOOD ORDERABLES Final Result [facility] [place] [address] * (ABNORMAL) eGFR (01/03/2024 8:11 PM STENCIL MAKER) eGFR 25(L) >=60 mL/min/1. 73 m2 Comment: [...] last reviewed 2020. Blood 01/03/2024 8:11 PM STENCIL MAKER 01/03/2024 8:30 PM STENCIL MAKER us Esther Alfonso MD LAB BLOOD ORDERABLES Final Result [facility] Department [place] [address] * (ABNORMAL) Chromogranin A (01/03/2024 8:11 PM STENCIL MAKER) Pathologist [facility] [place] Chromogranin A 959(H) <93 ng/mL [place] [facility] Comment: Impaired renal or hepatic function or treatment with proton pump inhibitors may result in artifactual elevations of Chromogranin A. ADDITIONAL INFORMATION The testing method is a homogeneous time-resolved immunofluorescent assay manufactured by [employer] and performed on the [employer] Kr[employer] Compact Plus. ? Values obtained with different [...] examination and other findings. Test Performed by: [place] [address] Interpreter For The [employer]: Leyda Kasper Ph.D.; CLIA# [id number] Blood 01/03/2024 8:11 PM STENCIL MAKER 01/03/2024 9:39 PM STENCIL MAKER Subhash Aranda MD LAB BLOOD ORDERABLES Final Resul t Performing Organization Address City/[facility] [place] [address] [place] [facility] * Phosphorus (01/03/2024 8:11 PM STENCIL MAKER) Phosphorus, pl 3.4 2.3 - 4.5 mg/dL Blood 01/03/2024 8:11 PM STENCIL MAKER 01/03/2024 8:30 PM STENCIL MAKER us Esther Alfonso MD LAB BLOOD ORDERABLES Final Result Performing Organization Address City/[facility]/ZIP Co de Phone Number [facility] [place] [address] * Magnesium (01/03/2024 8:11 PM STENCIL MAKER) Magnesium 2.5 1.4 - 2.5 mg/dL Blood 01/03/2024 8:11 PM STENCIL MAKER 01/03/2024 8:30 PM STENCIL MAKER Esther Alfonso MD LAB BLOOD ORDERABLES Final Result [facility] [place] [address] * (ABNORMAL) Basic metabolic panel (01/03/2024 8:11 PM STENCIL MAKER) [facility] Sodium 136 135 - 145 mmol/L Potassium, pl 4.6 3.3 - 4.9 mmol/L [facility] Chloride 99 97 - 110 mmol/L [facility] CO2 28 22 - 32 mmol/L [facility] Anion gap 9 2 - 15 mmol/L [facility] BUN 31(H) 6 - 25 mg/dL [facility] Creatinine 1.93(H) 0.60 - 1.10 mg/dL [facility] Glucose 136 70 - 199 mg/dL [facility] Comment: Interpretive Data Fasting glucose >/= 126 [...] 2022. Calcium 9.4 8.5 - 10.3 mg/dL [facility] Blood 01/03/2024 8:11 PM STENCIL MAKER 01/03/2024 8:30 PM STENCIL MAKER Esther Alfonso MD LAB BLOOD ORDERABLES Final Result Performing Organization Address [facility]/ZIP Co de Phone Number [facility] [place] [address] * Infection Prevention Jeronimo auris PCR, surveillance Axilla/Groin (01/03/2024 6:38 PM STENCIL MAKER) Jeronimo auris DNA Not Detected Not Detected [facility] Comment: Interpretive Data Testing performed by [facility] Molecular Infectious Disease Laboratory using the [employer] Liaison MDX Jeronimo auris assay. ??This assay detects DNA from Jeronimo auris using Real-Time PCR. ??This assay is laboratory developed and is not cleared by the [facility] Food and Drug Administration. ??The performance characteristics have been verified by the [facility] Molecular Infectious Disease Laboratory. Interpretive data was last reviewed on 06/01/2023 Axilla/Groin 01/03/2024 6:38 PM STENCIL MAKER 01/03/2024 7:29 PM STENCIL MAKER Clau Weaver MD LAB MICROBIOLOGY - GENERAL O RDERABLES Final Result [facility] [place] [address] [facility] * TRANSTHORACIC ECHO (TTE) COMPLETE W DOPPLER/CF W CONTRAST (01/03/2024 8:37 AM STENCIL MAKER) Pathologist [facility] [place] LV EF 64 % CARDIOREPORT Anatomical Region Laterality Modality Ultrasound 01/03/2024 7:00 AM STENCIL MAKER Narrative 01/03/2024 10:54 AM STENCIL MAKER Patient name: Ryan Forbes Date of test: 01/03/2024 Type of test: TTE w/Doppler Hospital #: 0 Date of : 1935 (F) Music Assistant: Mary Laguna RDCS Referring Physician: SUBHASH ARANDA MD Contrast Agent: 0.30 ml Definity Administered, (1.20 ml wasted). Contrast Administered by: Kacey Lin RN Supervised/Interpreted by: Carla Contreras MD Diagnosis: Location: [facility] Reason for test: heart failure MV Structure: [...] 2=Hypo 3=Akinetic 4=Dyskin./Aneurysm 0=Not visualized) Parasternal [place]:MAS=1 BAS=1 MIL=1 RENATO=1 Parasternal [place]:MAS=1 MIS=1 OR=1 MIL=1 MAL=1 MA=1 Apical 4 Chambers:=1 MIS=1 BIS=1 BAL=1 MAL=1 AL=1 AC=1 Apical 2 Chambers:AI=1 OR=1 BI=1 BA=1 MA=1 AA=1 AC=1 LV Global [...] Confirmed on ??01/03/2024 - 10:54:07 by Carla Contreras MD By signing this report, the attending adjunct physical education instructor certifies that he or she has personally supervised and interpreted the echocardiogram and has reviewed and or edited and agrees with the written comments contained within the report. Procedure Note Carla Contreras MD - 01/03/2024 Patient name: Ryan Forbes Date of test: 01/03/2024 Type of test: TTE w/Doppler Hospital #: 0 Date of : 1935 (F) Music Assistant: Mary Laguna [facility] Referring Physician: SUBHASH ARANDA MD Contrast Agent: 0.30 ml Definity Administered, (1.20 ml wasted). Contrast Administered by: Kacey Lin RN Supervised/Interpreted by: Carla Contreras MD Diagnosis: Location: [facility] Reason for test: heart failure MV Structure: [...] 2=Hypo 3=Akinetic 4=Dyskin./Aneurysm 0=Not visualized) Parasternal [place]:MAS=1 BAS=1 MIL=1 RENATO=1 Parasternal [place]:MAS=1 MIS=1 OR=1 MIL=1 MAL=1 MA=1 Apical 4 Chambers:=1 MIS=1 BIS=1 BAL=1 MAL=1 AL=1 AC=1 Apical 2 Chambers:AI=1 OR=1 BI=1 BA=1 MA=1 AA=1 AC=1 LV Global [...] Confirmed on 01/03/2024 - 10:54:07 by Carla Contreras MD By signing this report, the attending adjunct physical education instructor certifies that he or she has personally supervised and interpreted the echocardiogram and has reviewed and or edited and agrees with the written comments contained within the report. us Subhash Aranda MD CV ECHO PROCEDURES Final Result * (ABNORMAL) eGFR (01/03/2024 8:00 AM STENCIL MAKER) [facility] eGFR 24(L) >=60 mL/min/1. 73 m2 Comment: [...] last reviewed 2020. Blood 01/03/2024 8:00 AM STENCIL MAKER 01/02/2024 11:33 PM STENCIL MAKER us Esther Alfonso MD LAB BLOOD ORDERABLES Final Result Performing Organization Address [facility] Co de Phone Number [facility] [place] [address] * (ABNORMAL) Uric acid (01/03/2024 8:00 AM STENCIL MAKER) Uric acid 10.4(H) 2.5 - 7.0 mg/dL Blood 01/03/2024 8:00 AM STENCIL MAKER 01/02/2024 11:33 PM STENCIL MAKER Subhash Aranda MD LAB BLOOD ORDERABLES Final Resul t Performing Organization Address [facility] de Phone Number [facility] [place] [address] * Phosphorus (01/03/2024 8:00 AM STENCIL MAKER) Phosphorus, pl 3.4 2.3 - 4.5 mg/dL Blood 01/03/2024 8:00 AM STENCIL MAKER 01/02/2024 11:33 PM STENCIL MAKER us Esther Alfonso MD LAB BLOOD ORDERABLES Final Result Performing Organization Address [facility] Co de Phone Number [facility] [place] [address] * (ABNORMAL) Magnesium (01/03/2024 8:00 AM STENCIL MAKER) Pathologist [facility] [place] Magnesium 2.6(H) 1.4 - 2.5 mg/dL Blood 01/03/2024 8:00 AM STENCIL MAKER 01/02/2024 11:33 PM STENCIL MAKER Esther Alfonso MD LAB BLOOD ORDERABLES Final Result Performing Organization Address [facility]/ZIP Co de Phone Number [facility] [place] [address] * (ABNORMAL) Lactate dehydrogenase (LD) (01/03/2024 8:00 AM STENCIL MAKER) [facility] Lactate dehydrogenase (LDH) 358(H) 100 - 250 Units/L Blood 01/03/2024 8:00 AM STENCIL MAKER 01/02/2024 11:33 PM STENCIL MAKER Subhash Aranda MD LAB BLOOD ORDERABLES Final Resul t Performing Organization Address [facility] de Phone Number [facility] [place] [address] * (ABNORMAL) Basic metabolic panel (01/03/2024 8:00 AM STENCIL MAKER) [facility] Sodium 139 135 - 145 mmol/L Potassium, pl 4.7 3.3 - 4.9 mmol/L [facility] Chloride 103 97 - 110 mmol/L [facility] CO2 26 22 - 32 mmol/L [facility] Anion gap 10 2 - 15 mmol/L [facility] BUN 31(H) 6 - 25 mg/dL [facility] Creatinine 1.99(H) 0.60 - 1.10 mg/dL [facility] Glucose 95 70 - 199 mg/dL [facility] Comment: Interpretive Data Fasting glucose >/= 126 [...] 2022. Calcium 9.6 8.5 - 10.3 mg/dL [facility] Blood 01/03/2024 8:00 AM STENCIL MAKER 01/02/2024 11:33 PM STENCIL MAKER Esther Alfonso MD LAB BLOOD ORDERABLES Final Result Performing Organization Address [facility] Co de Phone Number [place] [address] * (ABNORMAL) Lactate (01/03/2024 5:06 AM STENCIL MAKER) Lactate 0.6(L) 0.7 - 2.0 mmol/L Blood 01/03/2024 5:06 AM STENCIL MAKER 01/03/2024 5:24 AM STENCIL MAKER Subhash Aranda MD LAB BLOOD ORDERABLES Final Resul t Performing Organization Address [facility] de Phone Number [facility] [address] [place] [address] * Copper, serum (01/03/2024 5:06 AM STENCIL MAKER) Copper 114 77 - 206 mcg/dL [place] [facility] Comment: ADDITIONAL INFORMATION This test was developed and its performance characteristics determined by [facility] in a manner consistent with CLIA requirements. This test has not been cleared or approved by the U.S. Food and Drug Administration. Test Performed by: [facility] - [address] [address] Interpreter [employer]: Leyda Kasper Ph.D.; CLIA# [id number] Blood 01/03/2024 5:06 AM STENCIL MAKER 01/03/2024 5:18 AM STENCIL MAKER Subhash Aranda MD LAB BLOOD ORDERABLES Final Resul t Performing Organization Address [facility] de Phone Number [facility] STEVENS [facility]i [facility] [place] [address] [place] [facility] * G6PD qualitative with reflex to quantitative (01/02/2024 11:19 PM STENCIL MAKER) G6PD Normal Normal Comment: Interp data: G6PD activity should be interpreted in the context of a patient's hematocrit. Hematocrit < 20% may lead to a falsely deficient result, while hematocrit > 50% may lead to a falsely normal result. Current interpretive data was last revised on 2019. Blood 01/02/2024 11:1 9 PM STENCIL MAKER 01/02/2024 11:38 PM STENCIL MAKER Subhash Aranda MD LAB BLOOD ORDERABLES Final Resul t Performing Organization Address [facility] de Phone Number [facility] [place] [address] * (ABNORMAL) eGFR (01/02/2024 11:19 PM STENCIL MAKER) eGFR 24(L) >=60 mL/min/1. 73 m2 Comment: [...] reviewed 2020. Blood 01/02/2024 11:1 9 PM STENCIL MAKER 01/02/2024 11:34 PM STENCIL MAKER us Esther Alfonso MD LAB BLOOD ORDERABLES Final Result [facility] [place] [address] * (ABNORMAL) CBC without differential (01/02/2024 11:19 PM STENCIL MAKER) WBC 11.0(H) 3.8 - 9.9 K/cumm Hgb 10.0(L) 11.9 - 15.5 g/dL [facility] Hct 29.8(L) 35.6 - 45.5 % [facility] Plt 376 150 - 400 K/cumm [facility] MPV 10.4 9.1 - 12.3 fL [facility] RBC 3.12(L) 3.90 - 5.20 M/cumm [facility] MCV 95.5 81.3 - 96.4 fL [facility] MCH 32.1 27.1 - 33.3 pg [facility] MCHC 33.6 32.3 - 35.7 g/dL [facility] RDW CV 16.5(H) 11.1 - 14.9 % [facility] RDW SD 57.1(H) 35.7 - 48.1 fL [facility] NRBC abs 0.00 0.00 - 0.01 K/cumm [facility] Blood 01/02/2024 11:1 9 PM STENCIL MAKER 01/02/2024 11:34 PM STENCIL MAKER us Esther Alfonso MD LAB BLOOD ORDERABLES Final Result Performing Organization Address City/[facility] Co de Phone Number [facility] [place] [address] * Phosphorus (01/02/2024 11:19 PM STENCIL MAKER) Pathologist [facility] [place] Phosphorus, pl 3.5 2.3 - 4.5 mg/dL Blood 01/02/2024 11:1 9 PM STENCIL MAKER 01/02/2024 11:34 PM STENCIL MAKER us Esther Alfonso MD LAB BLOOD ORDERABLES Final Result Performing Organization Address [facility] Co de Phone Number [facility] [place] [address] * Magnesium (01/02/2024 11:19 PM STENCIL MAKER) Pathologist [facility] [place] Magnesium 2.5 1.4 - 2.5 mg/dL Blood 01/02/2024 11:1 9 PM STENCIL MAKER 01/02/2024 11:34 PM STENCIL MAKER us Esther Alfonso MD LAB BLOOD ORDERABLES Final Result Performing Organization Address [facility] Co de Phone Number [facility] [place] [address] * (ABNORMAL) Basic metabolic panel (01/02/2024 11:19 PM STENCIL MAKER) Sodium 139 135 - 145 mmol/L Potassium, pl 4.7 3.3 - 4.9 mmol/L [facility] Chloride 101 97 - 110 mmol/L [facility] CO2 25 22 - 32 mmol/L [facility] Anion gap 13 2 - 15 mmol/L [facility] BUN 31(H) 6 - 25 mg/dL [facility] Creatinine 1.97(H) 0.60 - 1.10 mg/dL [facility] Glucose 94 70 - 199 mg/dL [facility] Comment: Interpretive Data Fasting glucose >/= 126 [...] 2022. Calcium 9.1 8.5 - 10.3 mg/dL [facility] Blood 01/02/2024 11:1 9 PM STENCIL MAKER 01/02/2024 11:34 PM STENCIL MAKER us Esther Alfonso MD LAB BLOOD ORDERABLES Final Result Performing Organization Address City/[facility]/ZIP Co de Phone Number [facility] [place] [address] * Urea nitrogen, urine, random (01/02/2024 5:16 PM STENCIL MAKER) Urea nitrogen, ur 118 mg/dL Comment: Interpretive Data No reference range established. Current interpretive data was last revised 2018. Urine 01/02/2024 5:16 PM STENCIL MAKER 01/02/2024 5:43 PM STENCIL MAKER us Subhash Aranda MD LAB URINE ORDERABLES Final Resul t Performing Organization Address City/[facility] Co de Phone Number [facility] [place] [address] * Sodium, urine, random (01/02/2024 5:16 PM STENCIL MAKER) Sodium, ur 117 mmol/L Comment: Interpretive Data No reference range established. Current interpretive data was last revised 2018. Urine 01/02/2024 5:16 PM STENCIL MAKER 01/02/2024 5:43 PM STENCIL MAKER us Subhash Aranda MD LAB URINE ORDERABLES Final Resul t Performing Organization Address [facility] de Phone Number [facility] [place] [address] * Creatinine, urine, random (01/02/2024 5:16 PM STENCIL MAKER) Creatinine Ur 18.3 mg/dL Comment: Interpretive Data No reference range established. Current interpretive data was last revised 2018. Urine 01/02/2024 5:16 PM STENCIL MAKER 01/02/2024 5:43 PM STENCIL MAKER us Subhash Aranda MD LAB URINE ORDERABLES Final Resul t Performing Organization Address [facility] Phone Number [facility] [place] [address] * Extra slide preparation (01/02/2024 2:04 PM STENCIL MAKER) Pathologist [facility] [place] Extra slide prep Slide available for pickup from the lab. Blood 01/02/2024 2:04 PM STENCIL MAKER 01/02/2024 2:23 PM STENCIL MAKER Narrative [facility] - 01/02/2024 3:13 PM STENCIL MAKER Peripheral smear us Subhash Aranda MD LAB BLOOD ORDERABLES Final Resul t Performing Organization Address [facility] de Phone Number [place] [place] [address] * Methylmalonic acid, serum (01/02/2024 2:04 PM STENCIL MAKER) MMA 0.22 <=0.40 nmol/mL [place] [facility] Comment: ADDITIONAL INFORMATION This test was developed and its performance characteristics determined by [facility] in a manner consistent with CLIA requirements. This test has not been cleared or approved by the U.S. Food and Drug Administration. Test Performed by: [facility] [address] [address] [employer]: Leyda Kasper Ph.D.; CLIA# [id number] Blood 01/02/2024 2:04 PM STENCIL MAKER 01/02/2024 5:45 PM STENCIL MAKER us Subhash Aranda MD LAB BLOOD ORDERABLES Final Resul t Performing Organization Address [facility] Co de Phone Number [place] [address] [facility] * Ceruloplasmin (01/02/2024 2:04 PM STENCIL MAKER) Ceruloplasmin 27.5 16.0 - 45.0 mg/dL Blood 01/02/2024 2:04 PM STENCIL MAKER 01/02/2024 2:23 PM STENCIL MAKER us Subhash Aranda MD LAB BLOOD ORDERABLES Final Resul t Performing Organization Address [facility] de Phone Number [facility] [place] [address] * Vitamin D 25 hydroxy (01/02/2024 2:04 PM STENCIL MAKER) Vitamin D 25-OH 74 30 - 80 ng/mL Blood 01/02/2024 2:04 PM STENCIL MAKER 01/02/2024 2:23 PM STENCIL MAKER us Subhash Aranda MD LAB BLOOD ORDERABLES Final Resul t Performing Organization Address [facility] Co de Phone Number [facility] [place] [address] * TSH (01/02/2024 2:04 PM STENCIL MAKER) Thyroid Stimulating Hormone 2.66 0.30 - 4.20 mcIUnit/mL Blood 01/02/2024 2:04 PM STENCIL MAKER 01/02/2024 2:23 PM STENCIL MAKER Esther Alfonso MD LAB BLOOD ORDERABLES Final Result Performing Organization Address [facility] de Phone Number [facility] [place] [address] * PTH (01/02/2024 2:04 PM STENCIL MAKER) [facility] PTH 54 15 - 65 pg/mL Blood 01/02/2024 2:04 PM STENCIL MAKER 01/02/2024 2:23 PM STENCIL MAKER Subhash Aranda MD LAB BLOOD ORDERABLES Final Resul t Performing Organization Address [facility] de Phone Number [facility] [place] [address] * Troponin I high-sensitivity 2-hour (01/01/2024 9:57 PM STENCIL MAKER) [facility] Trop I hs 8 <=17 ng/L Comment: Interpretive Data For further [facility] resources including the diagnostic algorithm and an aid in interpretation, copy and paste this link: [email or web address]/[email or web address] Current Interpretive Data last revised 2019. Trop I hs delta See Comment ng/L [facility] Comment:Inappropriate collec tion time to report a delta. Trop I hs pct delta See Comment % [facility] Comment:Inappropriate collec tion time to report a delta. Trop I hs interp See Comment [facility] Comment:Inappropriate collec tion time to report a delta. Blood 01/01/2024 9:57 PM STENCIL MAKER 01/01/2024 10:19 PM STENCIL MAKER [place] Chamorro MD LAB BLOOD ORDERABLES F inal Result GREGORIO STEVENS [facility] [place] [address] * Urinalysis reflex to microscopic and culture Urine (01/01/2024 9:57 PM STENCIL MAKER) Color, ur Straw Yellow Clarity, ur Clear Clear [facility] Specific gravity, ur 1.007 1.003 - 1.030 [facility] pH, urine 6.0 [facility] Comment: Interpretive Data ? Urine pH is affected by diet, medications, systemic acid-base disturbances, and renal tubular function. ??pH may affect urinary stone formation. ??For example, urine pH below 6.0 may help reduce the tendency for calcium phosphate stones and pH greater than 6.0 may reduce the tendency for uric acid stone formation. Source: [facility] [employer] Current Interpretive Data was last revised on 2017 Protein, ur ql Negative Negative [facility] Glucose, ur ql Negative Negative [facility] Ketones, ur Negative Negative [facility] Bilirubin, ur Negative Negative [facility] Blood, ur Negative Negative [facility] Urobilinogen, ur <2.0 <2.0 mg/dL [facility] Nitrite, ur Negative Negative [facility] Leukocyte esterase, ur Negative Negative [facility] UA reflex comment Reflex conditions for microscopic UA and culture not met. [facility] Urine 01/01/2024 9:57 PM STENCIL MAKER 01/01/2024 10:08 PM STENCIL MAKER Rissa Acosta MD LAB MICROBIOLOGY - GENE [facility] ORDERABLES Final Result Performing Organization Address City/[facility]/ZIP Co de Phone Number GREGORIO STEVENS [facility] [place] [address] * XR Chest 1 Vw Portable (01/01/2024 7:17 PM STENCIL MAKER) Anatomical Region Laterality Modality Body, Chest N/A Computed Radiogr aphy 01/01/2024 7:28 PM STENCIL MAKER Impressions 01/01/2024 7:51 PM STENCIL MAKER Comparison is made to chest radiograph of [...] Reyna Kaiser M.D. Narrative 01/01/2024 7:51 PM STENCIL MAKER EXAMINATION: 1 view chest radiograph Procedure Note [...] it. Electronically signed by: Reyna Kaiser M.D. Boyd Chamorro MD IMG XR PROCEDURES Kaci l Result * Troponin I high-sensitivity series (baseline, 2hr, 4hr, 6hr) (01/01/2024 6:52 PM STENCIL MAKER) Trop I hs 8 <=17 ng/L Comment: Interpretive Data For further hscTnI resources including the diagnostic algorithm and an aid in interpretation, copy and paste this link: [email or web address].testcatalog.org/[email or web address] Current Interpretive Data last revised 2019. Blood 01/01/2024 6:52 PM STENCIL MAKER 01/01/2024 7:32 PM STENCIL MAKER Boyd Chamorro MD LAB BLOOD ORDERABLES F inal Result GREGORIO STEVENS [facility] [place] [address] * (ABNORMAL) eGFR (01/01/2024 6:52 PM STENCIL MAKER) [facility] eGFR 24(L) >=60 mL/min/1. 73 m2 Comment: [...] last reviewed 2020. Blood 01/01/2024 6:52 PM STENCIL MAKER 01/01/2024 7:28 PM STENCIL MAKER us Boyd Chamorro MD LAB BLOOD ORDERABLES F inal Result GREGORIO STEVENS Brandi [facility] [place] [address] * (ABNORMAL) Differential, auto (01/01/2024 6:52 PM STENCIL MAKER) Neutrophil abs 10.4(H) 1.5 - 6.5 K/cumm Imm gran abs 0.1 0.0 - 0.1 K/cumm [facility] Lymphocyte abs 0.9 0.8 - 3.3 K/cumm [facility] Monocyte abs 0.9(H) 0.2 - 0.8 K/cumm [facility] Eosinophil abs 0.0 0.0 - 0.5 K/cumm [facility] Basophil abs 0.0 0.0 - 0.1 K/cumm [facility] Neutrophil pct 84.1 % [facility] Comment: Interpretive Data Percent cell count reference ranges are not reported, since discordance with absolute values may lead to misinterpretation of CBC data. Current Interpretive Data was last revised on 2017. Imm gran pct 0.9 % [facility] Comment: Interpretive Data Percent cell count reference ranges are not reported, since discordance with absolute values may lead to misinterpretation of CBC data. Current Interpretive Data was last revised on 2017. Lymphocyte pct 7.3 % [facility] Comment: Interpretive Data Percent cell count reference ranges are not reported, since discordance with absolute values may lead to misinterpretation of CBC data. Current Interpretive Data was last revised on 2017. Monocyte pct 7.4 % [facility] Comment: Interpretive Data Percent cell count reference ranges are not reported, since discordance with absolute values may lead to misinterpretation of CBC data. Current Interpretive Data was last revised on 2017. Eosinophil pct 0.2 % [facility] Comment: Interpretive Data Percent cell count reference ranges are not reported, since discordance with absolute values may lead to misinterpretation of CBC data. Current Interpretive Data was last revised on 2017. Basophil pct 0.1 % [facility] Comment: Interpretive Data Percent cell count reference ranges are not reported, since discordance with absolute values may lead to misinterpretation of CBC data. Current Interpretive Data was last revised on 2017. Blood 01/01/2024 6:52 PM STENCIL MAKER 01/01/2024 7:27 PM STENCIL MAKER us Boyd Chamorro MD LAB BLOOD ORDERABLES F inal Result [employer] [place] [address] * (ABNORMAL) Pro B-type natriuretic peptide (01/01/2024 6:52 PM STENCIL MAKER) NT-proBNP 2,371(H) <=450 pg/mL Comment: Interpretive Comments: [...] et.al. Eur Heart J. 2006:27:330-337. 2. Susy MILLER, Hussein TRAMMELL. J. AM Umesh Cardiol: Cardiovasc Imag. 2009;2: 216- 225. Interpretive Data Last Revised Date: 2017. Blood 01/01/2024 6:52 PM STENCIL MAKER 01/01/2024 7:28 PM STENCIL MAKER Boyd Chamorro MD LAB BLOOD ORDERABLES F inal Result Performing Organization Address City/[facility] Co de Phone Number [facility] [place] [address] * (ABNORMAL) CBC with auto differential (01/01/2024 6:52 PM STENCIL MAKER) WBC 12.4(H) 3.8 - 9.9 K/cumm Hgb 9.6(L) 11.9 - 15.5 g/dL [facility] Hct 29.7(L) 35.6 - 45.5 % [facility] Plt 335 150 - 400 K/cumm [facility] MPV 10.5 9.1 - 12.3 fL [facility] RBC 3.05(L) 3.90 - 5.20 M/cumm [facility] MCV 97.4(H) 81.3 - 96.4 fL [facility] MCH 31.5 27.1 - 33.3 pg [facility] MCHC 32.3 32.3 - 35.7 g/dL [facility] RDW CV 16.5(H) 11.1 - 14.9 % [facility] RDW SD 58.4(H) 35.7 - 48.1 fL [facility] NRBC abs 0.00 0.00 - 0.01 K/cumm [facility] Blood 01/01/2024 6:52 PM STENCIL MAKER 01/01/2024 7:27 PM STENCIL MAKER Boyd Chamorro MD LAB BLOOD ORDERABLES F inal Result Performing Organization Address [facility] Co de Phone Number [facility] [place] [address] * (ABNORMAL) Comprehensive metabolic panel (01/01/2024 6:52 PM STENCIL MAKER) Sodium 136 135 - 145 mmol/L Potassium, pl 4.5 3.3 - 4.9 mmol/L [facility] Chloride 99 97 - 110 mmol/L [facility] CO2 23 22 - 32 mmol/L [facility] Anion gap 14 2 - 15 mmol/L [facility] BUN 34(H) 6 - 25 mg/dL [facility] Creatinine 1.96(H) 0.60 - 1.10 mg/dL [facility] Glucose 111 70 - 199 mg/dL [facility] Comment: Interpretive Data Fasting glucose >/= 126 [...] 2022. Calcium 9.6 8.5 - 10.3 mg/dL [facility] Bilirubin, total 0.2 0.1 - 1.2 mg/dL [facility] Protein, pl 6.6 6.5 - 8.5 g/dL [facility] Albumin 3.6 3.5 - 5.0 g/dL [facility] Alk phos 123 40 - 130 Units/L [facility] ALT 36 7 - 45 Units/L [facility] AST 106(H) 10 - 45 Units/L [facility] Blood 01/01/2024 6:52 PM STENCIL MAKER 01/01/2024 7:28 PM STENCIL MAKER us Boyd Chamorro MD LAB BLOOD ORDERABLES F inal Result [facility] [place] [address] * ECG 12-LEAD (01/01/2024 6:15 PM STENCIL MAKER) Narrative [facility] - 01/01/2024 6:15 PM STENCIL MAKER Qasim Perez MD ? 01/01/2024 ??6:18 PM [...] ?? Joseph Mensah MD PhD ECG ORDERABLES [facility] Result [facility] * (ABNORMAL) eGFR (12/30/2023 7:05 AM STENCIL MAKER) eGFR 22(L) >=60 mL/min/1. 73 m2 Comment: [...] last reviewed 2020. Blood 12/30/2023 7:05 AM STENCIL MAKER 12/30/2023 7:17 AM STENCIL MAKER Ramone Evans MD LAB BLOOD ORDERABL ES Final Result [facility] [address] [facility] Department [place] [address] * (ABNORMAL) Differential, auto (12/30/2023 7:05 AM STENCIL MAKER) Pathologist [facility] Neutrophil abs 7.0(H) 1.5 - 6.5 K/cumm Imm gran abs 0.1 0.0 - 0.1 K/cumm [facility] Lymphocyte abs 0.9 0.8 - 3.3 K/cumm [facility] Monocyte abs 0.9(H) 0.2 - 0.8 K/cumm [facility] Eosinophil abs 0.0 0.0 - 0.5 K/cumm [facility] Basophil abs 0.0 0.0 - 0.1 K/cumm [facility] Neutrophil pct 78.3 % [facility] Comment: Interpretive Data Percent cell count reference ranges are not reported, since discordance with absolute values may lead to misinterpretation of CBC data. Current Interpretive Data was last revised on 2017. Imm gran pct 1.0 % [facility] Comment: Interpretive Data Percent cell count reference ranges are not reported, since discordance with absolute values may lead to misinterpretation of CBC data. Current Interpretive Data was last revised on 2017. Lymphocyte pct 10.2 % [facility] Comment: Interpretive Data Percent cell count reference ranges are not reported, since discordance with absolute values may lead to misinterpretation of CBC data. Current Interpretive Data was last revised on 2017. Monocyte pct 9.9 % [facility] Comment: Interpretive Data Percent cell count reference ranges are not reported, since discordance with absolute values may lead to misinterpretation of CBC data. Current Interpretive Data was last revised on 2017. Eosinophil pct 0.4 % [facility] Comment: Interpretive Data Percent cell count reference ranges are not reported, since discordance with absolute values may lead to misinterpretation of CBC data. Current Interpretive Data was last revised on 2017. Basophil pct 0.2 % [facility] Comment: Interpretive Data Percent cell count reference ranges are not reported, since discordance with absolute values may lead to misinterpretation of CBC data. Current Interpretive Data was last revised on 2017. Blood 12/30/2023 7:05 AM STENCIL MAKER 12/30/2023 7:17 AM STENCIL MAKER us Julia Espinosa MD LAB BLOOD ORDERABLES Final Re sult [facility] [address] [facility] Department [place] [address] * (ABNORMAL) CBC with auto differential (12/30/2023 7:05 AM STENCIL MAKER) Pathologist [facility] [place] WBC 9.0 3.8 - 9.9 K/cumm Hgb 9.4(L) 11.9 - 15.5 g/dL [facility] Hct 28.5(L) 35.6 - 45.5 % [facility] Plt 240 150 - 400 K/cumm [facility] MPV 10.4 9.1 - 12.3 fL [facility] RBC 2.93(L) 3.90 - 5.20 M/cumm [facility] MCV 97.3(H) 81.3 - 96.4 fL [facility] MCH 32.1 27.1 - 33.3 pg [facility] MCHC 33.0 32.3 - 35.7 g/dL [facility] RDW CV 17.1(H) 11.1 - 14.9 % [facility] RDW SD 60.4(H) 35.7 - 48.1 fL [facility] NRBC abs 0.00 0.00 - 0.01 K/cumm [facility] Blood 12/30/2023 7:05 AM STENCIL MAKER 12/30/2023 7:17 AM STENCIL MAKER Julia Espinosa MD LAB BLOOD ORDERABLES Final Re sult Performing Organization Address [facility] Co de Phone Number [address] [place] [place] [address] * Phosphorus (12/30/2023 7:05 AM STENCIL MAKER) [facility] Phosphorus, pl 3.3 2.3 - 4.5 mg/dL Blood 12/30/2023 7:05 AM STENCIL MAKER 12/30/2023 7:17 AM STENCIL MAKER Ramone Evans MD LAB BLOOD ORDERABL ES Final Result Performing Organization Address [facility] de Phone Number [address] [place] [place] [address] * Magnesium (12/30/2023 7:05 AM STENCIL MAKER) [facility] Magnesium 1.9 1.4 - 2.5 mg/dL Blood 12/30/2023 7:05 AM STENCIL MAKER 12/30/2023 7:17 AM STENCIL MAKER Ramone Evans MD LAB BLOOD ORDERABL ES Final Result Performing Organization Address [facility] Co de Phone Number [address] [place] [place] [address] * (ABNORMAL) Comprehensive metabolic panel (12/30/2023 7:05 AM STENCIL MAKER) [facility] Sodium 135 135 - 145 mmol/L Potassium, pl 3.7 3.3 - 4.9 mmol/L [facility] Chloride 102 97 - 110 mmol/L [facility] CO2 24 22 - 32 mmol/L [facility] Anion gap 9 2 - 15 mmol/L [facility] BUN 22 6 - 25 mg/dL [facility] Creatinine 2.10(H) 0.60 - 1.10 mg/dL [facility] Glucose 79 70 - 199 mg/dL [facility] Comment: Interpretive Data Fasting glucose >/= [...] 2022. Calcium 9.4 8.5 - 10.3 mg/dL [facility] Bilirubin, total 0.2 0.1 - 1.2 mg/dL [facility] Protein, pl 5.3(L) 6.5 - 8.5 g/dL [facility] Albumin 3.0(L) 3.5 - 5.0 g/dL [facility] Alk phos 98 40 - 130 Units/L [facility] ALT 27 7 - 45 Units/L [facility] AST 106(H) 10 - 45 Units/L [facility] Blood 12/30/2023 7:05 AM STENCIL MAKER 12/30/2023 7:17 AM STENCIL MAKER Ramone Evans MD LAB BLOOD ORDERABL ES Final Result [facility] [address] [facility] Department [place] [address] * (ABNORMAL) eGFR (12/29/2023 9:06 AM STENCIL MAKER) Pathologist [facility] [place] eGFR 22(L) >=60 mL/min/1. 73 m2 Comment: [...] last reviewed 2020. Blood 12/29/2023 9:06 AM STENCIL MAKER 12/29/2023 9:21 AM STENCIL MAKER Ramone Evans MD LAB BLOOD ORDERABL ES Final Result [facility] [address] [facility] Department [place] [address] * (ABNORMAL) Differential, auto (12/29/2023 9:06 AM STENCIL MAKER) Pathologist [facility] Neutrophil abs 7.9(H) 1.5 - 6.5 K/cumm Imm gran abs 0.1 0.0 - 0.1 K/cumm [facility] Lymphocyte abs 0.8 0.8 - 3.3 K/cumm [facility] Monocyte abs 0.8 0.2 - 0.8 K/cumm [facility] Eosinophil abs 0.0 0.0 - 0.5 K/cumm [facility] Basophil abs 0.0 0.0 - 0.1 K/cumm [facility] Neutrophil pct 81.3 % [facility] Comment: Interpretive Data Percent cell count reference ranges are not reported, since discordance with absolute values may lead to misinterpretation of CBC data. Current Interpretive Data was last revised on 2017. Imm gran pct 0.9 % [facility] Comment: Interpretive Data Percent cell count reference ranges are not reported, since discordance with absolute values may lead to misinterpretation of CBC data. Current Interpretive Data was last revised on 2017. Lymphocyte pct 8.5 % [facility] Comment: Interpretive Data Percent cell count reference ranges are not reported, since discordance with absolute values may lead to misinterpretation of CBC data. Current Interpretive Data was last revised on 2017. Monocyte pct 8.7 % [facility] Comment: Interpretive Data Percent cell count reference ranges are not reported, since discordance with absolute values may lead to misinterpretation of CBC data. Current Interpretive Data was last revised on 2017. Eosinophil pct 0.4 % [facility] Comment: Interpretive Data Percent cell count reference ranges are not reported, since discordance with absolute values may lead to misinterpretation of CBC data. Current Interpretive Data was last revised on 2017. Basophil pct 0.2 % [facility] Comment: Interpretive Data Percent cell count reference ranges are not reported, since discordance with absolute values may lead to misinterpretation of CBC data. Current Interpretive Data was last revised on 2017. Blood 12/29/2023 9:06 AM STENCIL MAKER 12/29/2023 9:21 AM STENCIL MAKER us Julia Espinosa MD LAB BLOOD ORDERABLES Final Re sult [facility] [address] [facility] Department [place] [address] * (ABNORMAL) CBC with auto differential (12/29/2023 9:06 AM STENCIL MAKER) WBC 9.7 3.8 - 9.9 K/cumm Hgb 9.6(L) 11.9 - 15.5 g/dL [facility] Hct 29.3(L) 35.6 - 45.5 % [facility] Plt 271 150 - 400 K/cumm [facility] MPV 10.4 9.1 - 12.3 fL [facility] RBC 2.99(L) 3.90 - 5.20 M/cumm [facility] MCV 98.0(H) 81.3 - 96.4 fL [facility] MCH 32.1 27.1 - 33.3 pg [facility] MCHC 32.8 32.3 - 35.7 g/dL [facility] RDW CV 17.3(H) 11.1 - 14.9 % [facility] RDW SD 60.7(H) 35.7 - 48.1 fL [facility] NRBC abs 0.00 0.00 - 0.01 K/cumm [facility] Blood 12/29/2023 9:06 AM STENCIL MAKER 12/29/2023 9:21 AM STENCIL MAKER Julia Espinosa MD LAB BLOOD ORDERABLES Final Re sult Performing Organization Address City/[facility]/ZIP Co de Phone Number [address] [employer] [place] [address] * Phosphorus (12/29/2023 9:06 AM STENCIL MAKER) Pathologist [facility] [place] Phosphorus, pl 2.8 2.3 - 4.5 mg/dL Blood 12/29/2023 9:06 AM STENCIL MAKER 12/29/2023 9:21 AM STENCIL MAKER Ramone Evans MD LAB BLOOD ORDERABL ES Final Result [address] [employer] [place] [address] * Magnesium (12/29/2023 9:06 AM STENCIL MAKER) Pathologist [facility] Magnesium 1.6 1.4 - 2.5 mg/dL Blood 12/29/2023 9:06 AM STENCIL MAKER 12/29/2023 9:21 AM STENCIL MAKER Ramone Evans MD LAB BLOOD ORDERABL ES Final Result [facility] [address] [facility] Department [place] [address] * (ABNORMAL) Comprehensive metabolic panel (12/29/2023 9:06 AM STENCIL MAKER) Sodium 138 135 - 145 mmol/L Potassium, pl 3.8 3.3 - 4.9 mmol/L [facility] Chloride 103 97 - 110 mmol/L [facility] CO2 25 22 - 32 mmol/L [facility] Anion gap 10 2 - 15 mmol/L [facility] BUN 17 6 - 25 mg/dL [facility] Creatinine 2.15(H) 0.60 - 1.10 mg/dL [facility] Glucose 121 70 - 199 mg/dL [facility] Comment: Interpretive Data Fasting glucose >/= [...] 2022. Calcium 9.1 8.5 - 10.3 mg/dL [facility] Bilirubin, total 0.2 0.1 - 1.2 mg/dL [facility] Protein, pl 5.1(L) 6.5 - 8.5 g/dL [facility] Albumin 2.9(L) 3.5 - 5.0 g/dL [facility] Alk phos 98 40 - 130 Units/L [facility] ALT 28 7 - 45 Units/L [facility] AST 116(H) 10 - 45 Units/L [facility] Blood 12/29/2023 9:06 AM STENCIL MAKER 12/29/2023 9:21 AM STENCIL MAKER Ramone Evans MD LAB BLOOD ORDERABL ES Final Result [facility] [address] [facility] Department [place] [address] * (ABNORMAL) eGFR (12/28/2023 7:35 AM STENCIL MAKER) Pathologist [facility] [place] eGFR 30(L) >=60 mL/min/1. 73 m2 Comment: [...] last reviewed 2020. Blood 12/28/2023 7:35 AM STENCIL MAKER 12/28/2023 8:12 AM STENCIL MAKER us Ramone Evans MD LAB BLOOD ORDERABL ES Final Result Performing Organization Address City/[facility]/ZIP Co de Phone Number [facility] [address] [facility] Department [place] [address] * (ABNORMAL) Differential, auto (12/28/2023 7:35 AM STENCIL MAKER) Neutrophil abs 8.1(H) 1.5 - 6.5 K/cumm Imm gran abs 0.1 0.0 - 0.1 K/cumm [facility] Lymphocyte abs 0.7(L) 0.8 - 3.3 K/cumm [facility] Monocyte abs 0.9(H) 0.2 - 0.8 K/cumm [facility] Eosinophil abs 0.1 0.0 - 0.5 K/cumm [facility] Basophil abs 0.0 0.0 - 0.1 K/cumm [facility] Neutrophil pct 82.2 % [facility] Comment: Interpretive Data Percent cell count reference ranges are not reported, since discordance with absolute values may lead to misinterpretation of CBC data. Current Interpretive Data was last revised on 2017. Imm gran pct 0.8 % [facility] Comment: Interpretive Data Percent cell count reference ranges are not reported, since discordance with absolute values may lead to misinterpretation of CBC data. Current Interpretive Data was last revised on 2017. Lymphocyte pct 7.5 % [facility] Comment: Interpretive Data Percent cell count reference ranges are not reported, since discordance with absolute values may lead to misinterpretation of CBC data. Current Interpretive Data was last revised on 2017. Monocyte pct 8.8 % [facility] Comment: Interpretive Data Percent cell count reference ranges are not reported, since discordance with absolute values may lead to misinterpretation of CBC data. Current Interpretive Data was last revised on 2017. Eosinophil pct 0.5 % [facility] Comment: Interpretive Data Percent cell count reference ranges are not reported, since discordance with absolute values may lead to misinterpretation of CBC data. Current Interpretive Data was last revised on 2017. Basophil pct 0.2 % [facility] Comment: Interpretive Data Percent cell count reference ranges are not reported, since discordance with absolute values may lead to misinterpretation of CBC data. Current Interpretive Data was last revised on 2017. Blood 12/28/2023 7:35 AM STENCIL MAKER 12/28/2023 8:12 AM STENCIL MAKER Julia Espinosa MD LAB BLOOD ORDERABLES Final Re sult [address] [address] * (ABNORMAL) CBC with auto differential (12/28/2023 7:35 AM STENCIL MAKER) Pathologist [facility] [place] WBC 9.9 3.8 - 9.9 K/cumm Hgb 9.3(L) 11.9 - 15.5 g/dL [facility] Hct 28.3(L) 35.6 - 45.5 % [facility] Plt 259 150 - 400 K/cumm [facility] MPV 10.3 9.1 - 12.3 fL [facility] RBC 2.89(L) 3.90 - 5.20 M/cumm [facility] MCV 97.9(H) 81.3 - 96.4 fL [facility] MCH 32.2 27.1 - 33.3 pg [facility] MCHC 32.9 32.3 - 35.7 g/dL [facility] RDW CV 17.2(H) 11.1 - 14.9 % [facility] RDW SD 61.9(H) 35.7 - 48.1 fL [facility] NRBC abs 0.00 0.00 - 0.01 K/cumm [facility] Blood 12/28/2023 7:35 AM STENCIL MAKER 12/28/2023 8:12 AM STENCIL MAKER us Julia Espinosa MD LAB BLOOD ORDERABLES Final Re sult Performing Organization Address [facility] Co de Phone Number [address] [place] [address] * Phosphorus (12/28/2023 7:35 AM STENCIL MAKER) Pathologist [facility] [place] Phosphorus, pl 2.3 2.3 - 4.5 mg/dL Blood 12/28/2023 7:35 AM STENCIL MAKER 12/28/2023 8:12 AM STENCIL MAKER Ramone Evans MD LAB BLOOD ORDERABL ES Final Result Performing Organization Address [facility]/ZIP Co de Phone Number [place] [address] [facility] [place] [address] * Magnesium (12/28/2023 7:35 AM STENCIL MAKER) [facility] Magnesium 1.6 1.4 - 2.5 mg/dL Blood 12/28/2023 7:35 AM STENCIL MAKER 12/28/2023 8:12 AM STENCIL MAKER Ramone Evans MD LAB BLOOD ORDERABL ES Final Result [facility] [address] [facility] [place] [address] * (ABNORMAL) Comprehensive metabolic panel (12/28/2023 7:35 AM STENCIL MAKER) [facility] Sodium 138 135 - 145 mmol/L Potassium, pl 3.9 3.3 - 4.9 mmol/L [facility] Chloride 108 97 - 110 mmol/L [facility] CO2 21(L) 22 - 32 mmol/L [facility] Anion gap 9 2 - 15 mmol/L [facility] BUN 13 6 - 25 mg/dL [facility] Creatinine 1.63(H) 0.60 - 1.10 mg/dL [facility] Glucose 100 70 - 199 mg/dL [facility] Comment: Interpretive Data Fasting glucose >/= [...] 2022. Calcium 9.3 8.5 - 10.3 mg/dL [facility] Bilirubin, total <0.2 0.1 - 1.2 mg/dL [facility] Protein, pl 4.9(L) 6.5 - 8.5 g/dL [facility] Albumin 3.0(L) 3.5 - 5.0 g/dL [facility] Alk phos 91 40 - 130 Units/L [facility] ALT 30 7 - 45 Units/L [facility] AST 106(H) 10 - 45 Units/L [facility] Blood 12/28/2023 7:35 AM STENCIL MAKER 12/28/2023 8:12 AM STENCIL MAKER Ramone Evans MD LAB BLOOD ORDERABL ES Final Result [facility] [address] [facility] Department [place] [address] * CT chest with contrast (12/27/2023 10:34 PM STENCIL MAKER) Anatomical Region Laterality Modality Body N/A Computed Tomogra phy 12/28/2023 12:5 8 AM STENCIL MAKER Narrative 12/28/2023 1:05 AM STENCIL MAKER EXAM DESCRIPTION: CT CHEST W CONTRAST REASON [...] 1:05 AM - Electronically signed by ??Gunner PEÑA D: ??12/28/2023 1:05 AM T: Report ID: [id number] Reading Location: ??[id number] Procedure Note Gunner Johnson MD - 12/28/2023 [...] by Gunner Johnson M.D. T: Report ID: [id number] Reading Location: [place] [address] Stacia Meade NP IMG CT PROCEDURES Final Result * (ABNORMAL) Iron profile w/ IBC (12/27/2023 2:49 PM STENCIL MAKER) [facility] Iron 59 35 - 145 mcg/dL TIBC 205(L) 250 - 400 mcg/dL [facility] Transferrin saturation 29 20 - 50 % [facility] Blood 12/27/2023 2:49 PM STENCIL MAKER 12/27/2023 2:54 PM STENCIL MAKER Ramone Evans MD LAB BLOOD ORDERABL ES Final Result [facility] [address] [facility] Department [place] [address] * (ABNORMAL) Erythrocyte sedimentation rate (12/27/2023 2:49 PM STENCIL MAKER) [facility] Erythrocyte sedimentation rate 35(H) 1 - 30 mm/hr Blood 12/27/2023 2:49 PM STENCIL MAKER 12/27/2023 2:54 PM STENCIL MAKER Ramone Evans MD LAB BLOOD ORDERABL ES Final Result Performing Organization Address [facility] Co de Phone Number [address] [place] [address] * (ABNORMAL) Reticulocyte Count (12/27/2023 2:49 PM STENCIL MAKER) Pathologist [facility] [place] Retics, absolute 0.040 0.020 - 0.087 M/cumm Retics 1.2 0.4 - 2.9 % [facility] Reticulocyte Hgb 39.0(H) 30.5 - 38.0 pg [facility] Blood 12/27/2023 2:49 PM STENCIL MAKER 12/27/2023 2:54 PM STENCIL MAKER Ramone Evans MD LAB BLOOD ORDERABL ES Final Result Performing Organization Address [facility] Co de Phone Number [address] [place] [address] * CRP (acute phase) (12/27/2023 2:49 PM STENCIL MAKER) [facility] CRP 8.7 <=10.0 mg/L Blood 12/27/2023 2:49 PM STENCIL MAKER 12/27/2023 2:54 PM STENCIL MAKER Result [facility] Ramone Evans MD LAB BLOOD ORDERABL ES Final Result Performing Organization Address City/[facility] Co de Phone Number [address] [place] [address] * Folate (12/27/2023 2:49 PM STENCIL MAKER) [facility] Folic acid >20.0 >=5.0 ng/mL Blood 12/27/2023 2:49 PM STENCIL MAKER 12/27/2023 2:54 PM STENCIL MAKER Ramone Evans MD LAB BLOOD ORDERABL ES Final Result Performing Organization Address [facility] Co de Phone Number [address] [place] [address] * Ferritin (12/27/2023 2:49 PM STENCIL MAKER) [facility] Ferritin 130 15 - 150 ng/mL Blood 12/27/2023 2:49 PM STENCIL MAKER 12/27/2023 2:54 PM STENCIL MAKER Ramone Evans MD LAB BLOOD ORDERABL ES Final Result Performing Organization Address [facility] Phone Number [address] [place] [address] * Vitamin B12 (12/27/2023 2:49 PM STENCIL MAKER) [facility] Vitamin B12 686 230 - 1,250 pg/mL Blood 12/27/2023 2:49 PM STENCIL MAKER 12/27/2023 2:54 PM STENCIL MAKER Ramone Evans MD LAB BLOOD ORDERABL ES Final Result Performing Organization Address [facility] de Phone Number [address] [place] [address] * (ABNORMAL) eGFR (12/27/2023 5:46 AM STENCIL MAKER) [facility] eGFR 35(L) >=60 mL/min/1. 73 m2 Comment: [...] last reviewed 2020. Blood 12/27/2023 5:46 AM STENCIL MAKER 12/27/2023 5:57 AM STENCIL MAKER Julia Espinosa MD LAB BLOOD ORDERABLES Final Re sult [facility] [address] [facility] Department [place] [address] * Differential, auto (12/27/2023 5:46 AM STENCIL MAKER) Neutrophil abs 5.8 1.5 - 6.5 K/cumm Imm gran abs 0.1 0.0 - 0.1 K/cumm [facility] Lymphocyte abs 0.9 0.8 - 3.3 K/cumm [facility] Monocyte abs 0.7 0.2 - 0.8 K/cumm [facility] Eosinophil abs 0.0 0.0 - 0.5 K/cumm [facility] Basophil abs 0.0 0.0 - 0.1 K/cumm [facility] Neutrophil pct 77.5 % [facility] Comment: Interpretive Data Percent cell count reference ranges are not reported, since discordance with absolute values may lead to misinterpretation of CBC data. Current Interpretive Data was last revised on 2017. Imm gran pct 1.3 % [facility] Comment: Interpretive Data Percent cell count reference ranges are not reported, since discordance with absolute values may lead to misinterpretation of CBC data. Current Interpretive Data was last revised on 2017. Lymphocyte pct 11.6 % [facility] Comment: Interpretive Data Percent cell count reference ranges are not reported, since discordance with absolute values may lead to misinterpretation of CBC data. Current Interpretive Data was last revised on 2017. Monocyte pct 8.9 % [facility] Comment: Interpretive Data Percent cell count reference ranges are not reported, since discordance with absolute values may lead to misinterpretation of CBC data. Current Interpretive Data was last revised on 2017. Eosinophil pct 0.4 % [facility] Comment: Interpretive Data Percent cell count reference ranges are not reported, since discordance with absolute values may lead to misinterpretation of CBC data. Current Interpretive Data was last revised on 2017. Basophil pct 0.3 % [facility] Comment: Interpretive Data Percent cell count reference ranges are not reported, since discordance with absolute values may lead to misinterpretation of CBC data. Current Interpretive Data was last revised on 2017. Blood 12/27/2023 5:46 AM STENCIL MAKER 12/27/2023 5:57 AM STENCIL MAKER us Julia Espinosa MD LAB BLOOD ORDERABLES Final Re sult [facility] [address] [facility] Department [place] [address] * (ABNORMAL) CBC with auto differential (12/27/2023 5:46 AM STENCIL MAKER) Pathologist [facility] [place] WBC 7.5 3.8 - 9.9 K/cumm Hgb 9.5(L) 11.9 - 15.5 g/dL [facility] Hct 29.6(L) 35.6 - 45.5 % [facility] Plt 266 150 - 400 K/cumm [facility] MPV 10.3 9.1 - 12.3 fL [facility] RBC 2.99(L) 3.90 - 5.20 M/cumm [facility] MCV 99.0(H) 81.3 - 96.4 fL [facility] MCH 31.8 27.1 - 33.3 pg [facility] MCHC 32.1(L) 32.3 - 35.7 g/dL [facility] RDW CV 17.0(H) 11.1 - 14.9 % [facility] RDW SD 60.2(H) 35.7 - 48.1 fL [facility] NRBC abs 0.00 0.00 - 0.01 K/cumm [facility] Blood 12/27/2023 5:46 AM STENCIL MAKER 12/27/2023 5:57 AM STENCIL MAKER Julia Espinosa MD LAB BLOOD ORDERABLES Final Re sult Performing Organization Address City/[facility]/ZIP Co de Phone Number [address] [employer] [place], [place] [id number] * (ABNORMAL) Hepatic function panel (12/27/2023 5:46 AM STENCIL MAKER) Bilirubin, total <0.2 0.1 - 1.2 mg/dL Bilirubin, direct <0.2 0.1 - 0.3 mg/dL [facility] Protein, pl 5.2(L) 6.5 - 8.5 g/dL [facility] Albumin 2.9(L) 3.5 - 5.0 g/dL [facility] Alk phos 88 40 - 130 Units/L [facility] ALT 25 7 - 45 Units/L [facility] AST 60(H) 10 - 45 Units/L [facility] Blood 12/27/2023 5:46 AM STENCIL MAKER 12/27/2023 5:57 AM STENCIL MAKER Ramone Evans MD LAB BLOOD ORDERABL ES Final Result Performing Organization Address City/[facility]/ZIP Co de Phone Number [address] [employer] [place] [address] * (ABNORMAL) Basic metabolic panel (12/27/2023 5:46 AM STENCIL MAKER) Sodium 137 135 - 145 mmol/L Potassium, pl 4.7 3.3 - 4.9 mmol/L [facility] Chloride 112(H) 97 - 110 mmol/L [facility] CO2 18(L) 22 - 32 mmol/L [facility] Anion gap 7 2 - 15 mmol/L [facility] BUN 13 6 - 25 mg/dL [facility] Creatinine 1.45(H) 0.60 - 1.10 mg/dL [facility] Glucose 84 70 - 199 mg/dL [facility] Comment: Interpretive Data Fasting glucose >/= [...] 2022. Calcium 9.3 8.5 - 10.3 mg/dL [facility] Blood 12/27/2023 5:46 AM STENCIL MAKER 12/27/2023 5:57 AM STENCIL MAKER us Julia Espinosa MD LAB BLOOD ORDERABLES Final Re sult [facility] [address] [facility] Department [place] [address] * US Guided Biopsy Liver (12/26/2023 3:31 PM STENCIL MAKER) Anatomical Region Laterality Modality Leg N/A Ultrasound, Comp uted Radiography 12/26/2023 3:40 PM STENCIL MAKER Narrative 12/26/2023 3:42 PM STENCIL MAKER EXAM DESCRIPTION: ?? US GUIDED BIOPSY LIVER [...] D: ??12/26/2023 3:42 PM T: Report ID: [id number] Reading Location: ??[id number] Procedure Note Gunner Cassidy MD - 12/26/2023 [...] 3:42 PM - Electronically signed by Gunner Cassidy M.D. KR T: Report ID: [id number] Reading Location: [id number] us Saim Gannon DO IMG US PROCEDURES Final Result * Surgical pathology (12/26/2023 2:19 PM STENCIL MAKER) Liver, Biopsy - [facility] 12/26/2023 2:19 PM STENCIL MAKER 12/26/2023 3:02 PM STENCIL MAKER Narrative 12/30/2023 4:03 PM STENCIL MAKER [facility] Department of Pathology [address] [place] [address] ?? Note to Patients: ??This report may [...] ??1935 (Age: 88) Gender: ??F Address: ??[address] [place], [place] [facility] #: [id number] Service: Medical Location: Patient Type: B INPATIENT ? Taken: 12/26/2023 Received: 12/26/2023 Accessioned: 12/27/2023 Reported: 12/30/2023 Physician(s): Gunner Cassidy M.D. DO Timothy Mo M.D. Diagnosis: A. ??Liver, mass, biopsy ? - Neuroendocrine neoplasm, favor atypical carcinoid Diagnosis Comment: This result was flagged as significant and was sent to Fide Reno NP via [employer] on 12/30/2023. Reason(s): To the best of [...] Jar 0. ?? jjmhb/12/27/2023 08:33 RONALD Alvarez, NASEEM ([facility]) Microscopic slide review and interpretation for this case was performed at [facility], Department of Surgical Pathology, [address] [facility] [place], [place] [id number], ??[place], [place] ??[address] ?? CLIA # [id number] us Gunner Cassidy MD LAB PATHOLOGY ORDERABL ES Final Result * (ABNORMAL) eGFR (12/26/2023 6:55 AM STENCIL MAKER) eGFR 38(L) >=60 mL/min/1. 73 m2 Comment: [...] last reviewed 2020. Blood 12/26/2023 6:55 AM STENCIL MAKER 12/26/2023 7:27 AM STENCIL MAKER us Julia Espinosa MD LAB BLOOD ORDERABLES Final Re sult [facility] [address] [facility] Department [place] [address] * Differential, auto (12/26/2023 6:55 AM STENCIL MAKER) Pathologist [facility] [place] Neutrophil abs 5.8 1.5 - 6.5 K/cumm Imm gran abs 0.1 0.0 - 0.1 K/cumm [facility] Lymphocyte abs 0.9 0.8 - 3.3 K/cumm [facility] Monocyte abs 0.6 0.2 - 0.8 K/cumm [facility] Eosinophil abs 0.1 0.0 - 0.5 K/cumm [facility] Basophil abs 0.0 0.0 - 0.1 K/cumm [facility] Neutrophil pct 78.2 % [facility] Comment: Interpretive Data Percent cell count reference ranges are not reported, since discordance with absolute values may lead to misinterpretation of CBC data. Current Interpretive Data was last revised on 2017. Imm gran pct 1.4 % [facility] Comment: Interpretive Data Percent cell count reference ranges are not reported, since discordance with absolute values may lead to misinterpretation of CBC data. Current Interpretive Data was last revised on 2017. Lymphocyte pct 11.9 % [facility] Comment: Interpretive Data Percent cell count reference ranges are not reported, since discordance with absolute values may lead to misinterpretation of CBC data. Current Interpretive Data was last revised on 2017. Monocyte pct 7.5 % [facility] Comment: Interpretive Data Percent cell count reference ranges are not reported, since discordance with absolute values may lead to misinterpretation of CBC data. Current Interpretive Data was last revised on 2017. Eosinophil pct 0.7 % [facility] Comment: Interpretive Data Percent cell count reference ranges are not reported, since discordance with absolute values may lead to misinterpretation of CBC data. Current Interpretive Data was last revised on 2017. Basophil pct 0.3 % [facility] Comment: Interpretive Data Percent cell count reference ranges are not reported, since discordance with absolute values may lead to misinterpretation of CBC data. Current Interpretive Data was last revised on 2017. Blood 12/26/2023 6:55 AM STENCIL MAKER 12/26/2023 7:26 AM STENCIL MAKER Julia Espinosa MD LAB BLOOD ORDERABLES Final Re sult Performing Organization Address [facility] Co de Phone Number [facility] [address] [employer] [place] [address] * (ABNORMAL) CBC with auto differential (12/26/2023 6:55 AM STENCIL MAKER) WBC 7.3 3.8 - 9.9 K/cumm Hgb 9.7(L) 11.9 - 15.5 g/dL [facility] Hct 30.5(L) 35.6 - 45.5 % [facility] Plt 243 150 - 400 K/cumm [facility] MPV 10.5 9.1 - 12.3 fL [facility] RBC 3.06(L) 3.90 - 5.20 M/cumm [facility] MCV 99.7(H) 81.3 - 96.4 fL [facility] MCH 31.7 27.1 - 33.3 pg [facility] MCHC 31.8(L) 32.3 - 35.7 g/dL [facility] RDW CV 17.0(H) 11.1 - 14.9 % [facility] RDW SD 61.6(H) 35.7 - 48.1 fL [facility] NRBC abs 0.00 0.00 - 0.01 K/cumm [facility] Blood 12/26/2023 6:55 AM STENCIL MAKER 12/26/2023 7:26 AM STENCIL MAKER Julia Espinosa MD LAB BLOOD ORDERABLES Final Re sult Performing Organization Address [facility]/ZIP Co de Phone Number [facility] [address] [place] [address] * aPTT (12/26/2023 6:55 AM STENCIL MAKER) Pathologist [facility] [place] aPTT 27 22 - 37 sec Comment: Interpretive data aPTT test has not been evaluated for monitoring heparin therapy. The anti-Xa is the preferred test. Current interpretive data was last revised on 2019. Blood 12/26/2023 6:55 AM STENCIL MAKER 12/26/2023 7:26 AM STENCIL MAKER Julia Espinosa MD LAB BLOOD ORDERABLES Final Re sult Performing Organization Address [facility] de Phone Number [address] [employer] [place], [place] [id number] * Protime-INR (12/26/2023 6:55 AM STENCIL MAKER) [facility] PT 13.1 12.0 - 14.6 sec INR 1.0 0.9 - 1.2 [facility] Comment: Ref Range High Interpretive data Oral anticoagulant therapeutic ranges: Venous thromboembolism prophylaxis or treatment: 2.0-3.0 CARDIOLOGY Standard range: 2.0-3.0 High-intensity range: 2.5-3.5 Refer to indication-specific guidelines for appropriate target ranges for prosthetic heart valve replacement. Current interpretive data was last revised on 2019. Blood 12/26/2023 6:55 AM STENCIL MAKER 12/26/2023 7:26 AM STENCIL MAKER Julia Espinosa MD LAB BLOOD ORDERABLES Final Re sult Performing Organization Address [facility] de Phone Number [address] [place] [address] * (ABNORMAL) Basic metabolic panel (12/26/2023 6:55 AM STENCIL MAKER) [facility] Sodium 138 135 - 145 mmol/L Potassium, pl 4.6 3.3 - 4.9 mmol/L [facility] Chloride 114(H) 97 - 110 mmol/L [facility] CO2 17(L) 22 - 32 mmol/L [facility] Anion gap 7 2 - 15 mmol/L [facility] BUN 14 6 - 25 mg/dL [facility] Creatinine 1.35(H) 0.60 - 1.10 mg/dL [facility] Glucose 88 70 - 199 mg/dL [facility] Comment: Interpretive Data Fasting glucose >/= [...] 2022. Calcium 10.0 8.5 - 10.3 mg/dL [facility] Blood 12/26/2023 6:55 AM STENCIL MAKER 12/26/2023 7:27 AM STENCIL MAKER us Julia Espinosa MD LAB BLOOD ORDERABLES Final Re sult [facility] [address] [facility] Department [place] [address] * (ABNORMAL) eGFR (12/25/2023 7:31 AM STENCIL MAKER) Pathologist [facility] [place] eGFR 35(L) >=60 mL/min/1. 73 m2 Comment: [...] last reviewed 2020. Blood 12/25/2023 7:31 AM STENCIL MAKER 12/25/2023 7:47 AM STENCIL MAKER us Julia Espinosa MD LAB BLOOD ORDERABLES Final Re sult [facility] [address] [facility] Department [place] [address] * (ABNORMAL) Basic metabolic panel (12/25/2023 7:31 AM STENCIL MAKER) Sodium 138 135 - 145 mmol/L Potassium, pl 4.6 3.3 - 4.9 mmol/L [facility] Chloride 113(H) 97 - 110 mmol/L [facility] CO2 18(L) 22 - 32 mmol/L [facility] Anion gap 7 2 - 15 mmol/L [facility] BUN 17 6 - 25 mg/dL [facility] Creatinine 1.45(H) 0.60 - 1.10 mg/dL [facility] Glucose 84 70 - 199 mg/dL [facility] Comment: Interpretive Data Fasting glucose >/= [...] 2022. Calcium 9.6 8.5 - 10.3 mg/dL [facility] Blood 12/25/2023 7:31 AM STENCIL MAKER 12/25/2023 7:47 AM STENCIL MAKER us Julia Espinosa MD LAB BLOOD ORDERABLES Final Re sult [facility] [address] [facility] Department [place] [address] * (ABNORMAL) eGFR (12/24/2023 5:15 AM STENCIL MAKER) eGFR 34(L) >=60 mL/min/1. 73 m2 Comment: [...] was last reviewed 2020. Testing performed by: [facility], [address] [place] [address]., [address] Blood 12/24/2023 5:15 AM STENCIL MAKER 12/24/2023 5:25 AM STENCIL MAKER us Natalie Wells PA LAB BLOOD ORDERABLES Final Re sult [facility] [address] [facility] [place] [address] * (ABNORMAL) Basic metabolic panel (12/24/2023 5:15 AM STENCIL MAKER) Sodium 139 135 - 145 mmol/L Comment:Testing performed by : [address] [address] Potassium, pl 4.8 3.3 - 4.9 mmol/L [facility] Comment:Testing performed by : [address] [address] Chloride 114(H) 97 - 110 mmol/L [facility] Comment:Testing performed by : [address] [address] CO2 17(L) 22 - 32 mmol/L [facility] Comment:Testing performed by : [address] [address] Anion gap 8 2 - 15 mmol/L [facility] Comment:Testing performed by : [address] [address] BUN 23 6 - 25 mg/dL [facility] Comment:Testing performed by : [address] [address] Creatinine 1.50(H) 0.60 - 1.10 mg/dL [facility] Comment:Testing performed by : [address] [address] Glucose 99 70 - 199 mg/dL [facility] Comment: Interpretive [...] was last revised 2022. Testing performed by: [address] [address] Calcium 10.1 8.5 - 10.3 mg/dL [facility] Comment:Testing performed by : [address] [address] Blood 12/24/2023 5:15 AM STENCIL MAKER 12/24/2023 5:25 AM STENCIL MAKER us Natalie GUSMAN LAB BLOOD ORDERABLES Final Re sult [facility] [address] [facility] [place] [address] * (ABNORMAL) eGFR (12/23/2023 6:47 AM STENCIL MAKER) eGFR 31(L) >=60 mL/min/1. 73 m2 Comment: [...] was last reviewed 2020. Testing performed by: [address] [address] Blood 12/23/2023 6:47 AM STENCIL MAKER 12/23/2023 7:35 AM STENCIL MAKER us Natalie GUSMAN LAB BLOOD ORDERABLES Final Re sult [facility] [address] [facility] [place] [address] * (ABNORMAL) Differential, auto (12/23/2023 6:47 AM STENCIL MAKER) Neutrophil abs 6.6(H) 1.5 - 6.5 K/cumm Comment:Testing performed by : [address] [address] Imm gran abs 0.1 0.0 - 0.1 K/cumm [facility] Comment:Testing performed by : [address] [address] Lymphocyte abs 0.8 0.8 - 3.3 K/cumm [facility] Comment:Testing performed by : [address] [address] Monocyte abs 0.7 0.2 - 0.8 K/cumm [facility] Comment:Testing performed by : [address] [address] Eosinophil abs 0.1 0.0 - 0.5 K/cumm [facility] Comment:Testing performed by : [address] [address] Basophil abs 0.0 0.0 - 0.1 K/cumm [facility] Comment:Testing performed by : [address] [address] Neutrophil pct 79.6 % [facility] Comment: Interpretive Data Percent cell count reference ranges are not reported, since discordance with absolute values may lead to misinterpretation of CBC data. Current Interpretive Data was last revised on 2017. Testing performed by: [address] [address] Imm gran pct 0.9 % [facility] Comment: Interpretive Data Percent cell count reference ranges are not reported, since discordance with absolute values may lead to misinterpretation of CBC data. Current Interpretive Data was last revised on 2017. Testing performed by: [address] [address] Lymphocyte pct 10.2 % [facility] Comment: Interpretive Data Percent cell count reference ranges are not reported, since discordance with absolute values may lead to misinterpretation of CBC data. Current Interpretive Data was last revised on 2017. Testing performed by: [address] [address] Monocyte pct 8.0 % [facility] Comment: Interpretive Data Percent cell count reference ranges are not reported, since discordance with absolute values may lead to misinterpretation of CBC data. Current Interpretive Data was last revised on 2017. Testing performed by: [address] [address] Eosinophil pct 0.9 % [facility] Comment: Interpretive Data Percent cell count reference ranges are not reported, since discordance with absolute values may lead to misinterpretation of CBC data. Current Interpretive Data was last revised on 2017. Testing performed by: [address] [address] Basophil pct 0.4 % [facility] Comment: Interpretive Data Percent cell count reference ranges are not reported, since discordance with absolute values may lead to misinterpretation of CBC data. Current Interpretive Data was last revised on 2017. Testing performed by: [address] [address] Blood 12/23/2023 6:47 AM STENCIL MAKER 12/23/2023 7:36 AM STENCIL MAKER us Natalie GUSMAN LAB BLOOD ORDERABLES Final Re sult [facility] [address] [facility] [place] [address] * (ABNORMAL) CBC with auto differential (12/23/2023 6:47 AM STENCIL MAKER) WBC 8.2 3.8 - 9.9 K/cumm Comment:Testing performed by : [address] [address] Hgb 10.2(L) 11.9 - 15.5 g/dL [facility] Comment:Testing performed by : [address] [address] Hct 31.8(L) 35.6 - 45.5 % [facility] Comment:Testing performed by : [address] [address] Plt 249 150 - 400 K/cumm [facility] Comment:Testing performed by : [address] [address] MPV 11.2 9.1 - 12.3 fL [facility] Comment:Testing performed by : [address] [address] RBC 3.22(L) 3.90 - 5.20 M/cumm [facility] Comment:Testing performed by : [address] [address] MCV 98.8(H) 81.3 - 96.4 fL [facility] Comment:Testing performed by : [address] [address] MCH 31.7 27.1 - 33.3 pg [facility] Comment:Testing performed by : [address] [address] MCHC 32.1(L) 32.3 - 35.7 g/dL [facility] Comment:Testing performed by : [address], [address] RDW CV 16.4(H) 11.1 - 14.9 % [facility] Comment:Testing performed by : [address] [address], [address] RDW SD 59.5(H) 35.7 - 48.1 fL CERVELIA Comment:Testing performed by : [address] [address] NRBC abs 0.00 0.00 - 0.01 K/cumm GREGORIO Comment:Testing performed by : [address] [address] Blood 12/23/2023 6:47 AM STENCIL MAKER 12/23/2023 7:36 AM STENCIL MAKER us Natalie GUSMAN LAB BLOOD ORDERABLES Final Re sult [facility] [address] [facility] Department [place] [address] * (ABNORMAL) Basic metabolic panel (12/23/2023 6:47 AM STENCIL MAKER) Sodium 137 135 - 145 mmol/L Comment:Testing performed by : [address] [address] Potassium, pl 4.6 3.3 - 4.9 mmol/L GREGORIO Comment:Testing performed by : [address] [address] Chloride 111(H) 97 - 110 mmol/L GREGORIO Comment:Testing performed by : [address] [address] CO2 16(L) 22 - 32 mmol/L GREGORIO Comment:Testing performed by : [address] [address] Anion gap 10 2 - 15 mmol/L GREGORIO Comment:Testing performed by : [address] [address] BUN 28(H) 6 - 25 mg/dL GREGORIO Comment:Testing performed by : [address] [address] Creatinine 1.60(H) 0.60 - 1.10 mg/dL GREGORIO Comment:Testing performed by : [address] [address] Glucose 86 70 - 199 mg/dL GREGORIO [...] was last revised 2022. Testing performed by: [facility], [address] [place] [address]., [address] Calcium 10.4(H) 8.5 - 10.3 mg/dL GREGORIO ENRIQUEZ Comment:Testing performed by : [facility], [address] [place] [address]., [address] Blood 12/23/2023 6:47 AM STENCIL MAKER 12/23/2023 7:35 AM STENCIL MAKER us Natalie GUSMAN LAB BLOOD ORDERABLES Final Re sult GREGORIO ENRIQUEZ [address] [facility] Department [place] [address] * US Kidney Complete (aka RENAL) (12/22/2023 3:56 PM STENCIL MAKER) Anatomical Region Laterality Modality Kidney N/A Ultrasound 12/22/2023 5:59 PM STENCIL MAKER Narrative 12/22/2023 6:01 PM STENCIL MAKER EXAM DESCRIPTION: US KIDNEY COMPLETE REASON FOR [...] PM T: ??12/22/2023 6:01 PM Report ID: [id number] Reading Location: ??[id number] Procedure Note Megan Granados MD - 12/22/2023 [...] Megan Flores M.D. FT: FT Report ID: [id number] Reading Location: [id number] us Evens Collins MD IMG US PROCEDURES Final Re sult * (ABNORMAL) eGFR (12/22/2023 7:12 AM STENCIL MAKER) eGFR 27(L) >=60 mL/min/1. 73 m2 Comment: [...] was last reviewed 2020. Testing performed by: [facility], [address] [place] [address]., [address] Blood 12/22/2023 7:12 AM STENCIL MAKER 12/22/2023 7:21 AM STENCIL MAKER us Natalie GUSMAN LAB BLOOD ORDERABLES Final Re sult GREGORIO [address] [facility] Department [place] [address] * (ABNORMAL) Differential, auto (12/22/2023 7:12 AM STENCIL MAKER) Neutrophil abs 7.6(H) 1.5 - 6.5 K/cumm Comment:Testing performed by : [address] [address] Imm gran abs 0.1 0.0 - 0.1 K/cumm CERVELIA Comment:Testing performed by : [address] [address] Lymphocyte abs 0.8 0.8 - 3.3 K/cumm GREGORIO Comment:Testing performed by : [address] [address] Monocyte abs 0.7 0.2 - 0.8 K/cumm [facility] Comment:Testing performed by : [address] [address] Eosinophil abs 0.1 0.0 - 0.5 K/cumm [facility] Comment:Testing performed by : [address] [address] Basophil abs 0.0 0.0 - 0.1 K/cumm [facility] Comment:Testing performed by : [address] [address] Neutrophil pct 82.1 % [facility] Comment: Interpretive Data Percent cell count reference ranges are not reported, since discordance with absolute values may lead to misinterpretation of CBC data. Current Interpretive Data was last revised on 2017. Testing performed by: [address] [address] Imm gran pct 1.3 % [facility] Comment: Interpretive Data Percent cell count reference ranges are not reported, since discordance with absolute values may lead to misinterpretation of CBC data. Current Interpretive Data was last revised on 2017. Testing performed by: [address] [address] Lymphocyte pct 8.4 % [facility] Comment: Interpretive Data Percent cell count reference ranges are not reported, since discordance with absolute values may lead to misinterpretation of CBC data. Current Interpretive Data was last revised on 2017. Testing performed by: [address] [address] Monocyte pct 7.2 % [facility] Comment: Interpretive Data Percent cell count reference ranges are not reported, since discordance with absolute values may lead to misinterpretation of CBC data. Current Interpretive Data was last revised on 2017. Testing performed by: [address] [address] Eosinophil pct 0.8 % GREGORIO ENRIQUEZ Comment: Interpretive Data Percent cell count reference ranges are not reported, since discordance with absolute values may lead to misinterpretation of CBC data. Current Interpretive Data was last revised on 2017. Testing performed by: [address] [address] Basophil pct 0.2 % GREGORIO ENRIQUEZ Comment: Interpretive Data Percent cell count reference ranges are not reported, since discordance with absolute values may lead to misinterpretation of CBC data. Current Interpretive Data was last revised on 2017. Testing performed by: [address] [address] Blood 12/22/2023 7:12 AM STENCIL MAKER 12/22/2023 7:25 AM STENCIL MAKER us Natalie GUSMAN LAB BLOOD ORDERABLES Final Re sult [facility]REGORIO [facility] Department [place] [address] * (ABNORMAL) CBC with auto differential (12/22/2023 7:12 AM STENCIL MAKER) WBC 9.2 3.8 - 9.9 K/cumm Comment:Testing performed by : [address] [address] Hgb 10.1(L) 11.9 - 15.5 g/dL GREGORIO ENRIQUEZ Comment:Testing performed by : [address] [address] Hct 31.5(L) 35.6 - 45.5 % GREGORIO ENRIQUEZ Comment:Testing performed by : [address] [address] Plt 234 150 - 400 K/cumm GREGORIO ENRIQUEZ Comment:Testing performed by : [address] [address] MPV 10.8 9.1 - 12.3 fL GREGORIO ENRIQUEZ Comment:Testing performed by : [address] [address] RBC 3.21(L) 3.90 - 5.20 M/cumm GREGORIO Comment:Testing performed by : [address] [address] MCV 98.1(H) 81.3 - 96.4 fL GREGORIO Comment:Testing performed by : [address] [address] MCH 31.5 27.1 - 33.3 pg GREGORIO Comment:Testing performed by : [address] [address] MCHC 32.1(L) 32.3 - 35.7 g/dL GREGORIO Comment:Testing performed by : [address], [address] RDW CV 16.5(H) 11.1 - 14.9 % GREGORIO Comment:Testing performed by : [address], [address] RDW SD 59.6(H) 35.7 - 48.1 fL GREGORIO Comment:Testing performed by : [address] [address] NRBC abs 0.00 0.00 - 0.01 K/cumm GREGORIO Comment:Testing performed by : [address], [address] Blood 12/22/2023 7:12 AM STENCIL MAKER 12/22/2023 7:25 AM STENCIL MAKER us Natalie GUSMAN LAB BLOOD ORDERABLES Final Re sult GREGORIO [address] [facility] Department of Laboratories [place], [place] [id number] * TSH (12/22/2023 7:12 AM STENCIL MAKER) Thyroid Stimulating Hormone 1.82 0.30 - 4.20 mcIUnit/mL Comment:Testing performed by : [address], [address] Blood 12/22/2023 7:12 AM STENCIL MAKER 12/22/2023 7:21 AM STENCIL MAKER us Evens Collins MD LAB BLOOD ORDERABLES Final Result GREGORIO [address] [facility] Department [place] [address] * (ABNORMAL) Basic metabolic panel (12/22/2023 7:12 AM STENCIL MAKER) Sodium 135 135 - 145 mmol/L Comment:Testing performed by : [address] [address] Potassium, pl 5.0(H) 3.3 - 4.9 mmol/L GREGORIO Comment:Testing performed by : [address] [address] Chloride 110 97 - 110 mmol/L GREGORIO Comment:Testing performed by : [address] [address] CO2 16(L) 22 - 32 mmol/L GREGORIO Comment:Testing performed by : [address] [address] Anion gap 9 2 - 15 mmol/L GREGORIO Comment:Testing performed by : [address] [address] BUN 38(H) 6 - 25 mg/dL GREGORIO Comment:Testing performed by : [address] [address] Creatinine 1.80(H) 0.60 - 1.10 mg/dL GREGORIO Comment:Testing performed by : [address] [address] Glucose 80 70 - 199 mg/dL GREGORIO Comment: Interpretive [...] was last revised 2022. Testing performed by: [facility], [address] [place] [address]., [address] Calcium 10.7(H) 8.5 - 10.3 mg/dL GREGORIO Comment:Testing performed by : [address] [address] Blood 12/22/2023 7:12 AM STENCIL MAKER 12/22/2023 7:21 AM STENCIL MAKER Natalie GUSMAN LAB BLOOD ORDERABLES Final Re sult Performing Organization Address [facility] Co de Phone Number [address] [employer]) [place] [address] * Cancer antigen 19-9 (12/21/2023 2:41 PM STENCIL MAKER) CA 19-9 ag 24.6 0.0 - 35.0 units/mL Comment: Interpretive Data The Rodrick CA 19-9 assay procedure was used. Results from different manufacturers or methods may not be comparable. Serial testing should be performed using the same method. Testing performed by: [address] [address] Blood 12/21/2023 2:41 PM STENCIL MAKER 12/21/2023 3:05 PM STENCIL MAKER Fide Reno NP LAB BLOOD ORDERABLES Edit ed Result - Final Performing Organization Address City/[facility]/ZIP Co de Phone Number [address] [place] [address] * Lactate dehydrogenase (LD) (12/21/2023 2:41 PM STENCIL MAKER) Lactate dehydrogenase (LDH) 203 100 - 250 Units/L Blood 12/21/2023 2:41 PM STENCIL MAKER 12/21/2023 4:39 PM STENCIL MAKER Fide M. Vandeloo CLOTH HAULER LAB BLOOD ORDERABLES Kaci l Result Performing Organization Address [facility] de Phone Number [place] [id number] [facility] [place] [address] * (ABNORMAL) CEA (12/21/2023 2:41 PM STENCIL MAKER) CEA 11.5(H) <=5.0 ng/mL Comment: Interpretive Data: Reference Range: Non-Smokers: 0.0 ? 5.0 ng/mL Smokers: 0.0 ? 6.5 ng/mL The Rodrick CEA assay procedure was used. Results from different manufacturers or methods may not be comparable. Serial testing should be performed using the same method. Current interpretive data was last revised 2022. Testing performed by: [facility], [address] [place] [address]., [address] Blood 12/21/2023 2:41 PM STENCIL MAKER 12/21/2023 3:05 PM STENCIL MAKER Fide Reno CLOTH HAULER LAB BLOOD ORDERABLES Kaci l Result Performing Organization Address [facility] de Phone Number [place] [phone] [facility] [place] [address] * Vein Duplex Lower Extremity Bilateral Complete (12/21/2023 12:07 PM STENCIL MAKER) Anatomical Region Laterality Modality Vascular Bilateral Ultrasound 12/21/2023 Narrative 12/26/2023 7:09 AM STENCIL MAKER Piggybackr Job ID: [id number] Piggybackr Document ID: [id number] Dictated date/time: [id number] BILATERAL LOWER EXTREMITY VENOUS DUPLEX. REASON FOR [...] bilateral lower extremities. Job ID/Internal Job ID: ??[id number] us Natalie GUSMAN IMG US PROCEDURES Final Resul t * (ABNORMAL) eGFR (12/21/2023 9:16 AM STENCIL MAKER) eGFR 22(L) >=60 mL/min/1. 73 m2 Comment: [...] was last reviewed 2020. Testing performed by: [facility], [address] [place] [address]., [address] Blood 12/21/2023 9:16 AM STENCIL MAKER 12/21/2023 9:21 AM STENCIL MAKER us Natalie GUSMAN LAB BLOOD ORDERABLES Final Re sult GREGORIO [address] [facility] Department [place] [address] * (ABNORMAL) Differential, auto (12/21/2023 9:16 AM STENCIL MAKER) [facility] Neutrophil abs 8.7(H) 1.5 - 6.5 K/cumm Comment:Testing performed by : [address] [address] Imm gran abs 0.1 0.0 - 0.1 K/cumm [facility] Comment:Testing performed by : [address], [place]., [address] Lymphocyte abs 0.8 0.8 - 3.3 K/cumm [facility] Comment:Testing performed by : [address] [address] Monocyte abs 0.7 0.2 - 0.8 K/cumm [facility] Comment:Testing performed by : [address] [address] Eosinophil abs 0.1 0.0 - 0.5 K/cumm [facility] Comment:Testing performed by : [address] [address] Basophil abs 0.0 0.0 - 0.1 K/cumm [facility] Comment:Testing performed by : [address] [address] Neutrophil pct 84.2 % [facility] Comment: Interpretive Data Percent cell count reference ranges are not reported, since discordance with absolute values may lead to misinterpretation of CBC data. Current Interpretive Data was last revised on 2017. Testing performed by: [address] [address] Imm gran pct 0.7 % [facility] Comment: Interpretive Data Percent cell count reference ranges are not reported, since discordance with absolute values may lead to misinterpretation of CBC data. Current Interpretive Data was last revised on 2017. Testing performed by: [address] [address] Lymphocyte pct 7.5 % [facility] Comment: Interpretive Data Percent cell count reference ranges are not reported, since discordance with absolute values may lead to misinterpretation of CBC data. Current Interpretive Data was last revised on 2017. Testing performed by: [address] [address] Monocyte pct 6.9 % GREGORIO ENRIQUEZ Comment: Interpretive Data Percent cell count reference ranges are not reported, since discordance with absolute values may lead to misinterpretation of CBC data. Current Interpretive Data was last revised on 2017. Testing performed by: [address] [address] Eosinophil pct 0.5 % GREGORIO ENRIQUEZ Comment: Interpretive Data Percent cell count reference ranges are not reported, since discordance with absolute values may lead to misinterpretation of CBC data. Current Interpretive Data was last revised on 2017. Testing performed by: [address] [address] Basophil pct 0.2 % GREGORIO ENRIQUEZ Comment: Interpretive Data Percent cell count reference ranges are not reported, since discordance with absolute values may lead to misinterpretation of CBC data. Current Interpretive Data was last revised on 2017. Testing performed by: [address] [address] Blood 12/21/2023 9:16 AM STENCIL MAKER 12/21/2023 9:21 AM STENCIL MAKER us Natalie GUSMAN LAB BLOOD ORDERABLES Final Re sult GREGORIO [address] [facility] Department of Laboratories [place], [place] [id number] * (ABNORMAL) CBC with auto differential (12/21/2023 9:16 AM STENCIL MAKER) WBC 10.3(H) 3.8 - 9.9 K/cumm Comment:Testing performed by : [address] [address] Hgb 10.9(L) 11.9 - 15.5 g/dL GREGORIO ENRIQUEZ Comment:Testing performed by : [address] [address] Hct 33.7(L) 35.6 - 45.5 % GREGORIO ENRIQUEZ Comment:Testing performed by : [address] [address] Plt 286 150 - 400 K/cumm GREGORIO ENRIQUEZ Comment:Testing performed by : [address] [address] MPV 10.7 9.1 - 12.3 fL GREGORIO Comment:Testing performed by : [address] [address] RBC 3.42(L) 3.90 - 5.20 M/cumm GREGORIO ENRIQUEZ Comment:Testing performed by : [address] [address] MCV 98.5(H) 81.3 - 96.4 fL GREGORIO Comment:Testing performed by : [address] [address] MCH 31.9 27.1 - 33.3 pg GREGORIO Comment:Testing performed by : [address] [address] MCHC 32.3 32.3 - 35.7 g/dL GREGORIO Comment:Testing performed by : [address] [address] RDW CV 16.5(H) 11.1 - 14.9 % GREGORIO Comment:Testing performed by : [address] [address] RDW SD 59.5(H) 35.7 - 48.1 fL GREGORIO Comment:Testing performed by : [address] [address] NRBC abs 0.00 0.00 - 0.01 K/cumm GREGORIO Comment:Testing performed by : [address] [address] Blood 12/21/2023 9:16 AM STENCIL MAKER 12/21/2023 9:21 AM STENCIL MAKER us Natalie GUSMAN LAB BLOOD ORDERABLES Final Re sult GREGORIO ENRIQUEZ [address] [facility] Department [place] [address] * PTH (12/21/2023 9:16 AM STENCIL MAKER) Pathologist [facility] [place] PTH 25 15 - 65 pg/mL Comment:Testing performed by : [address] [address] Blood 12/21/2023 9:16 AM STENCIL MAKER 12/21/2023 9:21 AM STENCIL MAKER us Natalie GUSMAN LAB BLOOD ORDERABLES Final Re sult [facility] [address] [facility] Department [place] [address] * (ABNORMAL) Basic metabolic panel (12/21/2023 9:16 AM STENCIL MAKER) Pathologist [facility] [place] Sodium 138 135 - 145 mmol/L Comment:Testing performed by : [address] [address] Potassium, pl 5.3(H) 3.3 - 4.9 mmol/L GREGORIO Comment:Testing performed by : [address] [address] Chloride 112(H) 97 - 110 mmol/L GREGORIO Comment:Testing performed by : [address] [address] CO2 16(L) 22 - 32 mmol/L GREGORIO Comment:Testing performed by : [address] [address] Anion gap 10 2 - 15 mmol/L GREGORIO Comment:Testing performed by : [address] [address] BUN 47(H) 6 - 25 mg/dL GREGORIO Comment:Testing performed by : [address] [address] Creatinine 2.10(H) 0.60 - 1.10 mg/dL GREGORIO Comment:Testing performed by : [address] [address] Glucose 84 70 - 199 mg/dL GREGORIO Comment: Interpretive [...] was last revised 2022. Testing performed by: [address] [address] Calcium 12.1(H) 8.5 - 10.3 mg/dL [facility] Comment:Testing performed by : [address] [address] Blood 12/21/2023 9:16 AM STENCIL MAKER 12/21/2023 9:21 AM STENCIL MAKER us Natalie GUSMAN LAB BLOOD ORDERABLES Final Re sult Performing Organization Address City/[facility]/ZIP Co de Phone Number [address] [employer] [place] [address] * Potassium (12/20/2023 8:12 PM STENCIL MAKER) Potassium, pl 4.7 3.3 - 4.9 mmol/L Comment:Testing performed by : [address] [address] Blood 12/20/2023 8:12 PM STENCIL MAKER 12/20/2023 8:32 PM STENCIL MAKER Jesus Hart MD LAB BLOOD ORDERABLES F inal Result Performing Organization Address City/[facility]/ZIP Co de Phone Number [address] [employer]) [place] [address] * (ABNORMAL) Calcium, ionized (12/20/2023 5:24 PM STENCIL MAKER) Calcium, Ionized 6.91(C) 4.50 - 5.10 mg/dL Comment:Critical result call ed to and read back by ÁNGELA Bashir on 12/20/2023 19:44:10 STENCIL MAKER to [id number]. Blood 12/20/2023 5:24 PM STENCIL MAKER 12/20/2023 6:39 PM STENCIL MAKER Natalie GUSMAN LAB BLOOD ORDERABLES Final Re sult Performing Organization Address [facility] Co de Phone Number YESSICA[address] [address] * (ABNORMAL) Vitamin D 25 hydroxy (12/20/2023 5:24 PM STENCIL MAKER) Vitamin D 25-OH 89.0(H) 30.0 - 80.0 ng/mL Blood 12/20/2023 5:24 PM STENCIL MAKER 12/20/2023 8:36 PM STENCIL MAKER Natalie GUSMAN LAB BLOOD ORDERABLES Final Re sult Performing Organization Address [facility] Co de Phone Number [address] [address] * POCT glucose (12/20/2023 5:05 PM STENCIL MAKER) Glucose, POC 77 70 - 199 mg/dL Comment:Testing performed by : [address] [address] Blood 12/20/2023 5:05 PM STENCIL MAKER 12/20/2023 5:05 PM STENCIL MAKER Evens Collins MD LAB POCT ORDERABLES - ANGEL CE Final Result Performing Organization Address [facility] Co de Phone Number [address] [address] * POCT glucose (12/20/2023 3:02 PM STENCIL MAKER) Glucose, POC 81 70 - 199 mg/dL Comment:Testing performed by : [address] [address] Blood 12/20/2023 3:02 PM STENCIL MAKER 12/20/2023 3:02 PM STENCIL MAKER Evens Collins MD LAB POCT ORDERABLES - ANGEL CE Final Result Performing Organization Address [facility] Co de Phone Number GREGORIO [address] [address] * Potassium (12/20/2023 11:25 AM STENCIL MAKER) [facility] Potassium, pl 4.9 3.3 - 4.9 mmol/L Comment:Testing performed by : [address] [address] Blood 12/20/2023 11:2 5 AM STENCIL MAKER 12/20/2023 11:29 AM STENCIL MAKER Jesus Hart MD LAB BLOOD ORDERABLES F inal Result Performing Organization Address [facility] de Phone Number [address] [address] * (ABNORMAL) Magnesium (12/20/2023 11:25 AM STENCIL MAKER) [facility] Magnesium 2.6(H) 1.4 - 2.5 mg/dL Comment:Testing performed by : [address] [address] Blood 12/20/2023 11:2 5 AM STENCIL MAKER 12/20/2023 11:29 AM STENCIL MAKER Evens Collins MD LAB BLOOD ORDERABLES Final Result Performing Organization Address [facility] Co de Phone Number YESSICA[address] [address] * ECG 12 lead (12/20/2023 9:47 AM STENCIL MAKER) [facility] Ventricular Rate EKG/Min 102 BPM [facility] Atrial Rate 375 BPM [facility] QRS-Interval (MSEC) 80 ms [facility] QT-Interval (MSEC) 286 ms [facility] QTc 372 ms [facility] R [place] -3 degrees [facility] T [place] -14 degrees [facility] Diagnosis Atrial fibrillation with rapid ventricular response 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 ([id number]) on 12/20/2023 2:43:17 PM [facility] 12/20/2023 9:47 AM STENCIL MAKER 12/20/2023 2:43 PM STENCIL MAKER us Jesus Hart MD ECG ORDERABLES Final Result [facility] * XR Chest 1 Vw Portable (12/20/2023 9:27 AM STENCIL MAKER) Anatomical Region Laterality Modality Body, Chest N/A Computed Radiogr aphy 12/20/2023 9:46 AM STENCIL MAKER Narrative 12/20/2023 9:48 AM STENCIL MAKER EXAM DESCRIPTION: XR CHEST 1 VIEW REASON [...] AM T: ??12/20/2023 9:48 AM Report ID: [id number] Reading Location: ??[id number] Procedure Note Gunner Jean MD - 12/20/2023 [...] Gunner Jean M.D. KN: HERBERT Report ID: [id number] Reading Location: [place] [address] Jesus Hart MD IMG XR PROCEDURES Kaci l Result * POCT glucose (12/20/2023 9:14 AM STENCIL MAKER) [facility] Signature Glucose, POC 106 70 - 199 mg/dL Comment:Testing performed by : [facility], [address] [place] [address]., [address] Blood 12/20/2023 9:14 AM STENCIL MAKER 12/20/2023 9:14 AM STENCIL MAKER Jesus Hart MD LAB POCT ORDERABLES - DEVICE Final Result GREGORIO [address] [facility] Department [place] [address] * CT Abdomen Pelvis WO Contrast (12/20/2023 9:00 AM STENCIL MAKER) Anatomical Region Laterality Modality Body N/A Computed Tomogra phy 12/20/2023 9:06 AM STENCIL MAKER Narrative 12/20/2023 9:18 AM STENCIL MAKER EXAM DESCRIPTION: ?? CT ABDOMEN PELVIS WO [...] 9:18 AM - Electronically signed by ??Angel Smith.D. 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 Heterogeneous sclerotic lesion of the [...] 9:18 AM - Electronically signed by Angel Shaffer M.D. JR: Report ID: [id number] Reading Location: [place] [address] Jesus Hart MD IMG CT PROCEDURES Kaci l Result * Sepsis Lactate w/ Reflex (12/20/2023 8:46 AM STENCIL MAKER) Sepsis Lactate 1.1 0.7 - 2.0 mmol/L Comment:Testing performed by : [facility], [address] [place] [address]., [address] Blood 12/20/2023 8:46 AM STENCIL MAKER 12/20/2023 8:54 AM STENCIL MAKER Jesus Hart MD LAB BLOOD ORDERABLES F inal Result [facility] [address] [facility] Department [place] [address] * Blood culture Blood Peripheral (12/20/2023 8:46 AM STENCIL MAKER) Pathologist [facility] [place] Report Final Report: No growth Comment:Testing performed by : [facility], [address] [place] [address], [place]., [address] Blood (Peripheral) 12/20/2023 8:46 AM STENCIL MAKER 12/20/2023 1:33 PM STENCIL MAKER Narrative [facility] - 12/24/2023 4:00 PM STENCIL MAKER From a different site than #1. Draw [...] organism identification may be performed using the [employer] Gram-Positive Blood Culture Assay. This assay detects microbial DNA in positive blood culture broth via hybridization of target DNA to capture oligonucleotides on a microarray. This assay has been cleared by the [place] Food and Drug Administration and its performance characteristics have been verified by the [facility] Microbiology Laboratory. 5. ?For questions about this culture, contact the Microbiology Laboratory at [phone]. Interpretive data was last revised on 2019. Jesus Hart MD LAB MICROBIOLOGY - GEN ERAL ORDERABLES Final Result GREGORIO [address] [facility] Department [place] [address] * Blood culture Blood Peripheral (12/20/2023 8:32 AM STENCIL MAKER) Report Final Report: No growth Comment:Testing performed by : [facility], [address] [facility] [place]., [address] Blood (Peripheral) 12/20/2023 8:32 AM STENCIL MAKER 12/20/2023 1:33 PM STENCIL MAKER Narrative GREGORIO - 12/24/2023 4:00 PM STENCIL MAKER Draw Blood cultures before administration of Antibiotics [...] organism identification may be performed using the [employer] Reality[employer] Gram-Positive Blood Culture Assay. This assay detects microbial DNA in positive blood culture broth via hybridization of target DNA to capture oligonucleotides on a microarray. This assay has been cleared by the [place] Food and Drug Administration and its performance characteristics have been verified by the [facility] Microbiology Laboratory. 5. ?For questions about this culture, contact the Microbiology Laboratory at [phone]. Interpretive data was last revised on 2019. Jesus Hart MD LAB MICROBIOLOGY - GEN ERAL ORDERABLES Final Result GREGORIO [address] [facility] Department of Laboratories [place], [place] [id number] * (ABNORMAL) Urinalysis reflex to microscopic and culture Urine (12/20/2023 7:30 AM STENCIL MAKER) Color, ur Yellow Yellow Comment:Testing performed by : [address] [address] Clarity, ur Clear Clear GREGORIO Comment:Testing performed by : [address] [address] Specific gravity, ur 1.021 1.003 - 1.030 GREGORIO Comment:Testing performed by : [address] [address] pH, urine 5.0 GREGORIO Comment: Interpretive Data ? Urine pH is affected by diet, medications, systemic acid-base disturbances, and renal tubular function. ??pH may affect urinary stone formation. ??For example, urine pH below 6.0 may help reduce the tendency for calcium phosphate stones and pH greater than 6.0 may reduce the tendency for uric acid stone formation. Source: [facility] [employer] Current Interpretive Data was last revised on 2017 Testing performed by: [address] [address] Protein, ur ql Trace(A) Negative GREGORIO Comment:Testing performed by : [address], [place]., [address] Glucose, ur ql Negative Negative GREGORIO Comment:Testing performed by : [address], [place]., [address] Ketones, ur Negative Negative GREGORIO Comment:Testing performed by : [address], [place]., [address] Bilirubin, ur Negative Negative GREGORIO Comment:Testing performed by : [address], [place]., [address] Blood, ur Negative Negative GREGORIO Comment:Testing performed by : [address], [place]., [address] Urobilinogen, ur <2.0 <2.0 mg/dL GREGORIO Comment:Testing performed by : [address], [place]., [address] Nitrite, ur Negative Negative GREGORIO Comment:Testing performed by : [address], [place]., [address] Leukocyte esterase, ur Negative Negative GREGORIO Comment:Testing performed by : [address] [address] UA reflex comment Reflex to microscopic UA will be performed. GREGORIO Comment:Testing performed by : [address], [place]., [address] Urine 12/20/2023 7:30 AM STENCIL MAKER 12/20/2023 7:33 AM STENCIL MAKER us Jesus Hart MD LAB MICROBIOLOGY - GEN ERAL ORDERABLES Final Result GREGORIO ENRIQUEZ [address] [facility] Department [place] [address] * (ABNORMAL) Urinalysis, microscopic only (12/20/2023 7:30 AM STENCIL MAKER) WBC, ur 0-5 0 - 5 /HPF Comment:Testing performed by : [address] [address] RBC, ur 0-2 0 - 2 /HPF GREGORIO Comment:Testing performed by : [address] [address] Mucous, ur Present(A) GREGORIO ENRIQUEZ Comment:Testing performed by : [address], [place]., [address] Hyaline casts, ur 1-5 0 - 10 /LPF GREGORIO Comment:Testing performed by : [address] [address] Culture Reflex Comment Reflex conditions for urine culture (WBC >10) not met. GREGORIO Comment:Testing performed by : [address] [address] Urine 12/20/2023 7:30 AM STENCIL MAKER 12/20/2023 7:33 AM STENCIL MAKER us Jesus Hart MD LAB URINE ORDERABLES F inal Result [facility] [address] [facility] Department of Laboratories [place], [place] [id number] * (ABNORMAL) eGFR (12/20/2023 5:32 AM STENCIL MAKER) eGFR 15(L) >=60 mL/min/1. 73 m2 Comment: [...] was last reviewed 2020. Testing performed by: [address] [address] Blood 12/20/2023 5:32 AM STENCIL MAKER 12/20/2023 5:35 AM STENCIL MAKER us Jesus Hart MD LAB BLOOD ORDERABLES F inal Result GREGORIO [address] [facility] Department [place] [address] * (ABNORMAL) Differential, auto (12/20/2023 5:32 AM STENCIL MAKER) Neutrophil abs 10.6(H) 1.5 - 6.5 K/cumm Comment:Testing performed by : [address] [address] Imm gran abs 0.1 0.0 - 0.1 K/cumm GREGORIO Comment:Testing performed by : [address] [address] Lymphocyte abs 1.1 0.8 - 3.3 K/cumm GREGORIO Comment:Testing performed by : [address] [address] Monocyte abs 1.1(H) 0.2 - 0.8 K/cumm GREGORIO Comment:Testing performed by : [address] [address] Eosinophil abs 0.0 0.0 - 0.5 K/cumm GREGORIO Comment:Testing performed by : [address] [address] Basophil abs 0.0 0.0 - 0.1 K/cumm GREGORIO Comment:Testing performed by : [address] [address] Neutrophil pct 82.1 % [facility] Comment: Interpretive Data Percent cell count reference ranges are not reported, since discordance with absolute values may lead to misinterpretation of CBC data. Current Interpretive Data was last revised on 2017. Testing performed by: [address] [address] Imm gran pct 0.7 % CERNER Comment: Interpretive Data Percent cell count reference ranges are not reported, since discordance with absolute values may lead to misinterpretation of CBC data. Current Interpretive Data was last revised on 2017. Testing performed by: [address] [address] Lymphocyte pct 8.3 % CERNER Comment: Interpretive Data Percent cell count reference ranges are not reported, since discordance with absolute values may lead to misinterpretation of CBC data. Current Interpretive Data was last revised on 2017. Testing performed by: [address] [address] Monocyte pct 8.5 % CERNER Comment: Interpretive Data Percent cell count reference ranges are not reported, since discordance with absolute values may lead to misinterpretation of CBC data. Current Interpretive Data was last revised on 2017. Testing performed by: [address] [address] Eosinophil pct 0.2 % CERNER Comment: Interpretive Data Percent cell count reference ranges are not reported, since discordance with absolute values may lead to misinterpretation of CBC data. Current Interpretive Data was last revised on 2017. Testing performed by: [address] [address] Basophil pct 0.2 % [facility] Comment: Interpretive Data Percent cell count reference ranges are not reported, since discordance with absolute values may lead to misinterpretation of CBC data. Current Interpretive Data was last revised on 2017. Testing performed by: [address] [address] Blood 12/20/2023 5:32 AM STENCIL MAKER 12/20/2023 5:35 AM STENCIL MAKER us Jesus Hart MD LAB BLOOD ORDERABLES F inal Result [facility] [address] [facility] Department [place] [address] * (ABNORMAL) CBC with auto differential (12/20/2023 5:32 AM STENCIL MAKER) WBC 12.9(H) 3.8 - 9.9 K/cumm Comment:Testing performed by : [address] [address] Hgb 11.5(L) 11.9 - 15.5 g/dL GREGORIO Comment:Testing performed by : [address] [address] Hct 35.2(L) 35.6 - 45.5 % GREGORIO Comment:Testing performed by : [address] [address] Plt 315 150 - 400 K/cumm GREGORIO Comment:Testing performed by : [address] [address] MPV 10.6 9.1 - 12.3 fL GREGORIO Comment:Testing performed by : [address] [address] RBC 3.59(L) 3.90 - 5.20 M/cumm GREGORIO Comment:Testing performed by : [address] [address] MCV 98.1(H) 81.3 - 96.4 fL GREGORIO Comment:Testing performed by : [address] [address] MCH 32.0 27.1 - 33.3 pg GREGORIO Comment:Testing performed by : [address] [address] MCHC 32.7 32.3 - 35.7 g/dL GREGORIO Comment:Testing performed by : [address] [address] RDW CV 16.6(H) 11.1 - 14.9 % GREGORIO ENRIQUEZ Comment:Testing performed by : [address] [address] RDW SD 59.3(H) 35.7 - 48.1 fL GREGORIO ENRIQUEZ Comment:Testing performed by : [address] [address] NRBC abs 0.00 0.00 - 0.01 K/cumm GREGORIO ENRIQUEZ Comment:Testing performed by : [address] [address] Blood 12/20/2023 5:32 AM STENCIL MAKER 12/20/2023 5:35 AM STENCIL MAKER Jesus Hart MD LAB BLOOD ORDERABLES F inal Result Performing Organization Address City/[facility]/ZIP Co de Phone Number [id number] [employer] [place] [address] * Creatine kinase (CK), total (12/20/2023 5:32 AM STENCIL MAKER) Pathologist [facility] [place] CK 46 30 - 200 Units/L Comment:Testing performed by : [address], [address] Blood 12/20/2023 5:32 AM STENCIL MAKER 12/20/2023 5:35 AM STENCIL MAKER Jesus Hart MD LAB BLOOD ORDERABLES F inal Result Performing Organization Address City/[facility] Co de Phone Number [address] [place] [address] * (ABNORMAL) Comprehensive metabolic panel (12/20/2023 5:32 AM STENCIL MAKER) Sodium 137 135 - 145 mmol/L Comment:Testing performed by : [address] [address] Potassium, pl 5.8(H) 3.3 - 4.9 mmol/L GREGORIO ENRIQUEZ Comment:Testing performed by : [address] [address] Chloride 109 97 - 110 mmol/L GREGORIO Comment:Testing performed by : [facility], [address] [place] [address], [place]., [address] CO2 17(L) 22 - 32 mmol/L GREGORIO Comment:Testing performed by : [address], [place]., [address] Anion gap 11 2 - 15 mmol/L GREGORIO Comment:Testing performed by : [address], [place]., [address] BUN 62(H) 6 - 25 mg/dL GREGORIO Comment:Testing performed by : [address], [place]., [address] Creatinine 2.90(H) 0.60 - 1.10 mg/dL GREGORIO Comment:Testing performed by : [address] [address] Glucose 87 70 - 199 mg/dL GREGORIO [...] was last revised 2022. Testing performed by: [address] [address] Calcium 13.1(H) 8.5 - 10.3 mg/dL GREGORIO Comment:Testing performed by : [address] [address] Bilirubin, total 0.3 0.1 - 1.2 mg/dL GREGORIO Comment:Testing performed by : [address] [address] Protein, pl 6.7 6.5 - 8.5 g/dL GREGORIO Comment:Testing performed by : [address], [place]., [address] Albumin 3.7 3.5 - 5.0 g/dL GREGORIO ENRIQUEZ Comment:Testing performed by : [facility], [address] [place] [address]., [address] Alk phos 127 40 - 130 Units/L GREGORIO ENRIQUEZ Comment:Testing performed by : [address] [address] ALT 23 7 - 45 Units/L GREGORIO ENRIQUEZ Comment:Testing performed by : [address] [address] AST 51(H) 10 - 45 Units/L GREGORIO ENRIQUEZ Comment:Testing performed by : [facility], [address] [place] [address]., [address] Blood 12/20/2023 5:32 AM STENCIL MAKER 12/20/2023 5:35 AM STENCIL MAKER us Jesus Hart MD LAB BLOOD ORDERABLES F inal Result GREGORIO [address] [facility] [place] [address] from Last 3 Months Insurance [employer] CHOICE MEDICARE PPO [employer] CHOICE MEDICARE PPO HU[employer] CHOICE MEDICARE PPO Advance Directives For more information, please contact: [phone] * LIMITED - No CPR (Latest Code [...] 3:22 PM 12/30/2023 7:56 PM Care Teams Underwriting Sales Representative Relationship Specialty Start Date End Date Timothy Oh MD [address] [address] PCP - General 05/26/16 Abram Tabares MD [id number] [place] [address] Internal Medicine 01/12/24 Moises Conde MD [address] [address] Radiation Oncologist Radiation Oncology 01/12/24
--- OUTSIDE RECORDS SUMMARY | 2024-03-01 19:54 | XMS_ITS ---
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 Past Plans No past plan information found. Radiation Treatments * Plan Last Treated On Elapsed Days Fractions Treated Prescribed Fraction Dose Prescribed Total Dose RT_HIP 02/09/2024 7 5 400 cGy 2,000 cGy Reference Point Last Treated On Elapsed Days Session Dose Total Dose RT_HIP 02/09/2024 7 400 cGy 2,000 cGy Lifetime Dose Tracking * Chemical Lifetime Dose Automatic Entry Manual Entr y Fluoro Time 0.417 minutes 0.417 minutes 0 minutes Air kerma at the reference point (Ka,r) 4.5 mGy 4 .5 mGy 0 mGy Resolved Problems Problem Noted Date Diagnosed Date Resolved Date Systolic murmur 05/29/2020 07/12/2022 Dyslipidemia 01/21/2020 06/08/2021 Lipid screening 03/20/2018 12/17/2021
--- OUTSIDE RECORDS SUMMARY | 2024-03-01 20:00 | XMS_ITS | Clinical Summary ---
Author Organization [employer] [facility] Address [address] [place] [address] Care Team Providers Care Licensed Land Surveyor Name Role Phone Timothy Oh MD Primary Care Provider [phone] Allergies Active Allergy Reactions Criticality Noted Date Comments Shellfish Containing Products Swelling Medium 2019 Swelling Medications beta-carotene,A ,-vits C,E/mins (OCUVITE ORAL) Take by mouth. Active diphenhydrAMINE (BENADRYL) 25 mg capsule Take 25 mg by mouth daily at bedtime. Active levothyroxine 50 mcg tablet Take 50 mcg by mouth daily in the morning. Active calcium-choleca lciferol (OS-RICHELLE 500+D) 500 mg-5 mcg (200 unit) tablet Take 1 Tablet by mouth daily. Active apixaban (Eliquis) 5 mg tablet Take 1 Tablet (5 mg) by mouth 2 times daily. 180 Tablet 3 08/17/2023 Active lisinopriL (PRINIVIL) 40 mg tablet Take 1 Tablet (40 mg) by mouth daily. 90 Tablet 3 08/17/2023 Active spironolactone (ALDACTONE) 25 mg tablet Take 1 Tablet (25 mg) by mouth daily. 90 Tablet 3 08/17/2023 Active diltiaZEM (CARDIZEM CD) 300 mg Controlled Delivery 24 hour capsule Take 1 Capsule (300 mg) by mouth daily. 90 Capsule 3 08/17/2023 Active Active Problems Patient Care Coordination No te Formatting of this note migh t be different from the original. Clinical Office Technician Dr. 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 Acquired hypothyroidism 06/11/2016 Overview (08/17/2023): Hypothyroidism (acquired) Hypothyroidism (acquired) Chronic kidney disease 06/11/2016 Overview (08/17/2023): Chronic kidney disease, unspecified CKD stage Chronic kidney disease, unspecified CKD stage Dizziness 06/11/2016 Overview (08/17/2023): Dizziness Dizziness Intermittent hypertension 06/11/2016 Overview (08/17/2023): Uncontrolled hypertension Uncontrolled hypertension Encounters Date Type Department Care Team Description 03/01/2024 External Device Data [facility] ABSTRACTION Provider, Abstract 02/28/2024 External Device Data [facility] ABSTRACTION Provider, Abstract from Last 3 Months Family History Relation Name Status Comments Father Mother Social History Tobacco Use Types Packs/Day Years Used Date Smoking Tobacco: Never Smokeless Tobacco: Never Alcohol Use Standard Drinks/Week Comments Not Currently 0 (1 standard drink = 0.6 oz pur e alcohol) Comments No Sex and Gender Information Value Date Recorded Sex Assigned at Not on file Legal Sex Female 9:38 AM CDT Gender Identity Not on file Sexual Orientation Not on file Last Filed Vital Signs Vital Sign Reading Time Taken Comments Blood Pressure 150/86 08/17/2023 1:33 PM CDT Pulse 94 08/17/2023 1:33 PM CDT Temperature - - Respiratory Rate - - Oxygen Saturation 97% 08/17/2023 1:33 PM CDT Inhaled Oxygen Concentration - - Weight 90.7 kg (200 lb) 08/17/2023 1:33 PM CDT Height 170.2 cm (5' 7 ) 08/17/2023 1:33 PM CDT Body Mass Index 31.32 08/17/2023 1:33 PM CDT Plan of Treatment Health Maintenance Due Date Last Done Comments DTAP/TDAP/TD VACCINES (1 - Tdap) 09/18/1954 PNEUMOCOCCAL VACCINE 65+ YEARS (1 of 1 - PCV) 09/17/18 87 ZOSTER VACCINE (1 of 2) 1986 OSTEOPOROSIS SCREENING 2001 RSV VACCINE (60+ or ) (1 - 1-dose 75+ series) 09/18/2011 INFLUENZA VACCINE (#1) 2023 Medicare Advantage (ND) Prev entative Visit/Annual Wellness Visit 02/08/2024 Insurance [employer] CHOICE PPO MCR Care Teams Licensed Land Surveyor Relationship Specialty Start Date End Date Timothy Oh MD [address] [facility] [address] [place] [address] PCP - General Family Practice 08/17/23
[2024-03-01 20:27] VITALS: BP 145/61; PULSE 99; RESP 20; TEMP 36.4; O2SAT 97
[2024-03-02] MEDS: oxyCODONE HCL (*CRX) 5 MG TAB IR PO (00:15)
[2024-03-02] MEDS: LACTULOSE 20 GM/30 ML UDC PO ×4 (00:15→17:05)
[2024-03-02 05:21] VITALS: BP 129/73; PULSE 111; RESP 20; O2SAT 91
[2024-03-02] MEDS: HYDROcodone/acetaminophen (*CRX) 5-325 MG TABLET 1 TAB PO ×2 (05:23→21:08)
[2024-03-02] MEDS: LEVOTHYROXINE SODIUM 50 MCG TABLET PO (06:28)
--- NOTE | 2024-03-02 07:01 | P.CDI_ITS ---
CDI Query Clarification Request BMI: 25.1 Nutritional Diagnostic Statement: Please refer to the comprehensive nutrition assessment for further information. 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 Please specify severity if known: * Mild * Moderate * Severe * Other/Unknown <Martina Boland RN - Last Filed: 03/02/24 07:03> Provider Comments severe protein calorie malnutrition <You El MD - Last Filed: 03/03/24 16:14>
[2024-03-02 07:29] LABS: Hematocrit 30.2 % (37.0-47.0); Hemoglobin 9.4 g/dL (12.0-15.0); Mean Corpuscular HGB Conc 31.1 g/dl (32-36); Mean Corpuscular Hemoglobin 32.6 pg (26-34); Mean Corpuscular Volume 104.9 fl (80-100); Platelet Count Result 335 k/mm3 (150-375); Red Blood Count 2.88 M/mm3 (4.2-5.4); Red Cell Distribution Width 14.2 % (11.5-14.5); White Blood Count 10.5 K/mm3 (4.5-10.0)
[2024-03-02 07:45] LABS: Anion Gap 8 mmol/L (4-12); Blood Urea Nitrogen 50 mg/dL (7-17); Calcium 9.3 mg/dL (8.4-10.2); Carbon Dioxide 23 mmol/L (22-30); Chloride 103 mmol/L (98-107); Estimated CRCL calculation 17 ml/min; Estimated Glomerular Filt Rate 23; Glucose 125 mg/dL (65-110); Potassium 5.2 mmol/L (3.4-5.0); Sodium 134 mmol/L (137-145)
--- NOTE | 2024-03-02 09:13 | WPDGIPROGNO ---
Progress Note: A&P Assessment and Plan (1) Fecal impaction in rectum: Code(s): K56.41 - Fecal impaction Status: Acute Assessment and Plan: We will continue to insist on the proposed regimen, consisting in MiraLax as described above. After discussing the importance of cleaning her bowels with the patient, she agrees to mix MiraLax with orange or apple juice. Will continue to follow. (2) Rectal bleeding: Code(s): K62.5 - Hemorrhage of anus and rectum Status: Acute Subjective Date/time seen: 03/02/24 09:13 Interval history: The patient did not complete the prescribed dose of MiraLax, i.e., 32 oz of Gatorade with 118 g of MiraLax yesterday. She states that she does not like the taste of Gatorade but is willing to try a different mix. so far she has not achieved a significant bowel movement. Objective Data Vital Signs Vital Signs: Vital Signs - 24 hr 03/01/24 13:56 03/01/24 20:27 03/02/24 05:21 Temperature 97.6 F 97.5 F L Pulse Rate 94 99 111 H Respiratory Rate 16 20 20 Blood Pressure 118/55 L 145/61 H 129/73 Pulse Oximetry 96 97 91 Intake/Output Intake/Output: Intake & Output 02/28/24 02/29/24 03/01/24 03/02/24 23:59 23:59 23:59 23:59 Intake Total 120 340 340 350 Output Total 1400 1050 475 Balance 120 -1060 -710 -125 Meds/Results Medications: Active Medications Generic Name Dose Route Start Last Admin Trade Name Zacariasq PRN Reason Stop Dose Admin Acetaminophen 650 mg 02/28/24 17:21 Acetaminophen 325 Mg Tablet PO Q4H PRN Mild Pain (1-3) or Fever Hydrocodone Bitart/Acetaminophen 1 tab 02/28/24 17:21 03/02/24 05:23 Hydrocodone/Acetaminophen (*Crx) 5-325 Mg Tablet PO 1 tab Q4H PRN Administration Moderate Pain (4-6) Aspirin 81 mg 02/29/24 09:00 03/01/24 08:49 Aspirin 81 Mg Enteric Tablet PO 81 mg DAILY LAVON Administration Diltiazem HCl 300 mg 02/29/24 09:00 03/01/24 08:49 Diltiazem Hcl Cd 300 Mg Cap.24hr PO 300 mg DAILY LAVON Administration Docusate Sodium 100 mg 02/28/24 21:00 03/01/24 21:06 Docusate Sodium 100 Mg Capsule PO 100 mg Q12HR LAVON Administration Furosemide 20 mg 02/29/24 09:00 03/01/24 17:28 Furosemide 20 Mg Tablet PO 20 mg BID LAVON Administration Lactulose 20 gm 02/29/24 12:00 03/02/24 05:17 Lactulose 20 Gm/30 Ml Udc PO 20 gm Q6HR LAVON Administration Levothyroxine Sodium 50 mcg 02/29/24 06:30 03/02/24 06:28 Levothyroxine Sodium 50 Mcg Tablet PO 50 mcg DAILY@0630 LAVON Administration Ondansetron HCl 4 mg 02/28/24 17:21 Ondansetron Inj 4 Mg/2 Ml Vial IV PUSH Q6H PRN Nausea And Vomiting Oxycodone HCl 5 mg 02/28/24 17:23 03/02/24 00:15 Oxycodone Hcl (*Crx) 5 Mg Tab Ir PO 5 mg Q6H PRN Administration pain 7-10 Polyethylene Glycol 119 gm 03/01/24 12:50 03/02/24 05:16 Polyethylene Glycol 3350 238 Gm Bottle PO 03/05/24 04:51 Not Given Q8H [facility] Tamsulosin HCl 0.4 mg 02/29/24 09:00 03/01/24 08:49 Tamsulosin Hcl 0.4 Mg Capsule PO 0.4 mg QAM LAVON Administration Radiology Results: ITS Impressions Abdomen X-Ray 02/28/24 18:51 IMPRESSION: Findings suggesting fecal impaction, as detailed above. Head CT 03/01/24 05:44 Impression: No significant abnormality seen. Labs Labs: Laboratory Results - last 24 hr 03/02/24 07:08 WBC 10.5 H RBC 2.88 L Hgb 9.4 L Hct 30.2 L MCV 104.9 H MCH 32.6 MCHC 31.1 L RDW 14.2 Plt Count 335 MPV 10.0 Sodium 134 L Potassium 5.2 H Chloride 103 Carbon Dioxide 23 Anion Gap 8 BUN 50 H Creatinine 2.08 H Estim Creat Clear Calc 17 Estimated GFR 23 L Glucose 125 H Calcium 9.3
[2024-03-02] MEDS: dilTIAZem HCL CD 300 MG CAP.24HR PO (09:51)
[2024-03-02] MEDS: FUROSEMIDE 20 MG TABLET PO ×2 (09:51→18:14)
[2024-03-02] MEDS: ASPIRIN 81 MG ENTERIC TABLET PO (09:51)
[2024-03-02] MEDS: TAMSULOSIN HCL 0.4 MG CAPSULE PO (09:51)
[2024-03-02] MEDS: DOCUSATE SODIUM 100 MG CAPSULE PO ×2 (09:51→21:08)
--- NOTE | 2024-03-02 10:45 | WPDPN ---
Progress Note: A&P Assessment and Plan (1) Rectal bleeding: Code(s): K62.5 - Hemorrhage of anus and rectum Status: Acute Assessment and Plan: Rectal bleeding has slowed down. Hemoglobin remained stable. GI has her on a bowel prep regimen. They plan on doing a colonoscopy probably early next week. Await results of the colonoscopy to see if any surgical management of any hemorrhoids or other reasons for bleeding is needed. (2) Fecal impaction in rectum: Code(s): K56.41 - Fecal impaction Status: Acute Assessment and Plan: Patient had partial manual disimpaction at the bedside yesterday. She continues on a bowel prep presently a started have bowel movements. Subjective Date/time seen: 03/02/24 10:45 Interval history: . She is getting more and started to have copious amounts of liquid stool. The lower stable around 9.4. No fever. Abdomen exam is benign. Exam GI: Other: Abdomen is soft and nondistended. Abdomen is nontender. Benign. Objective Data Vital Signs Vital Signs: Vital Signs - 24 hr 03/01/24 13:56 03/01/24 20:27 03/02/24 05:21 Temperature 36.4 C 36.4 C L Pulse Rate 94 99 111 H Respiratory Rate 16 20 20 Blood Pressure 118/55 L 145/61 H 129/73 Pulse Oximetry 96 97 91 Intake/Output Intake/Output: Intake & Output 02/28/24 02/29/24 03/01/24 03/02/24 23:59 23:59 23:59 23:59 Intake Total 120 340 340 350 Output Total 1400 1050 475 Balance 120 -1060 -710 -125 Meds/Results Medications: Active Medications Generic Name Dose Route Start Last Admin Trade Name Freq PRN Reason Stop Dose Admin Acetaminophen 650 mg 02/28/24 17:21 Acetaminophen 325 Mg Tablet PO Q4H PRN Mild Pain (1-3) or Fever Hydrocodone Bitart/Acetaminophen 1 tab 02/28/24 17:21 03/02/24 05:23 Hydrocodone/Acetaminophen (*Crx) 5-325 Mg Tablet PO 1 tab Q4H PRN Administration Moderate Pain (4-6) Aspirin 81 mg 02/29/24 09:00 03/02/24 09:51 Aspirin 81 Mg Enteric Tablet PO 81 mg DAILY [facility] Administration Diltiazem HCl 300 mg 02/29/24 09:00 03/02/24 09:51 Diltiazem Hcl Cd 300 Mg Cap.24hr PO 300 mg DAILY [facility] Administration Docusate Sodium 100 mg 02/28/24 21:00 03/02/24 09:51 Docusate Sodium 100 Mg Capsule PO 100 mg Q12HR [facility] Administration Furosemide 20 mg 02/29/24 09:00 03/02/24 09:51 Furosemide 20 Mg Tablet PO 20 mg BID [facility] Administration Lactulose 20 gm 02/29/24 12:00 03/02/24 05:17 Lactulose 20 Gm/30 Ml Udc PO 20 gm Q6HR [facility] Administration Levothyroxine Sodium 50 mcg 02/29/24 06:30 03/02/24 06:28 Levothyroxine Sodium 50 Mcg Tablet PO 50 mcg DAILY@0630 [facility] Administration Ondansetron HCl 4 mg 02/28/24 17:21 Ondansetron Inj 4 Mg/2 Ml Vial IV PUSH Q6H PRN Nausea And Vomiting Oxycodone HCl 5 mg 02/28/24 17:23 03/02/24 00:15 Oxycodone Hcl (*Crx) 5 Mg Tab Ir PO 5 mg Q6H PRN Administration pain 7-10 Polyethylene Glycol 119 gm 03/01/24 12:50 03/02/24 05:16 Polyethylene Glycol 3350 238 Gm Bottle PO 03/05/24 04:51 Not Given Q8H [facility] Tamsulosin HCl 0.4 mg 02/29/24 09:00 03/02/24 09:51 Tamsulosin Hcl 0.4 Mg Capsule PO 0.4 mg QAM [facility] Administration Radiology Results: ITS Impressions Abdomen X-Ray 02/28/24 18:51 IMPRESSION: Findings suggesting fecal impaction, as detailed above. Head CT 03/01/24 05:44 Impression: No significant abnormality seen. Labs Labs: Laboratory Results - last 24 hr 03/02/24 07:08 WBC 10.5 H RBC 2.88 L Hgb 9.4 L Hct 30.2 L MCV 104.9 H MCH 32.6 MCHC 31.1 L RDW 14.2 Plt Count 335 MPV 10.0 Sodium 134 L Potassium 5.2 H Chloride 103 Carbon Dioxide 23 Anion Gap 8 BUN 50 H Creatinine 2.08 H Estim Creat Clear Calc 17 Estimated GFR 23 L Glucose 125 H Calcium 9.3
[2024-03-02] MEDS: polyethylene glycoL 3350 238 GM BOTTLE 119 GM PO ×2 (13:04→21:08)
--- NOTE | 2024-03-02 13:11 | PCNFU ---
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 Improvement to PO intake- Progressing slowly Goal: Pt current nutrition is Heart healthy diet with Ensure Compact BID (220 kcal, 9 g protein). Nutrition recommendation: No new nutrition recommendations. Continue current nutrition care plan and orders. Agree with orders Last recorded weight is 72.575 kg. Bowel Motility: +4 BMs today 03/02/24 Labs Reviewed: Hgb 9.4, Hct 30.2, Na 134, K+ 5.2, GFR 23, BUN 50, Cre 2.08, Glu 125 Meds Noted: Lactulose, miralax, lasix Skin: No pressure Additional Notes: Intakes are varied 0-85%. Pt getting laxatives to prepare for colon prep. Continue same care plan and orders. Monitoring intakes,w eights, labs, supplement tolerance, stool output, plan of care Follow up in 3 days
--- NOTE | 2024-03-02 13:31 | PCOTNOTE ---
Per nursing. pt. is not appropriate at this time for participation in OT evaluation, due to uncontrolled and continuous bowel movements. Will attempt when appropriate.
[2024-03-02 14:00] VITALS: BP 154/80; PULSE 71; RESP 20; TEMP 36.6; O2SAT 98
--- NOTE | 2024-03-02 14:07 | P.PNIM_ITS ---
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 She reported chronic constipation and had had good bowel movement for the past 6 weeks associated nausea. There was associated intermittent abdominal pain which is crampy in nature. No fever chills. Patient was then admitted to the hospital for further treatment. GI and General surgery was consulted. KUB showed fecal impaction. Eventually colonoscopy is planned however remains on bowel regimen. Also status post manual disimpaction During hospital stay she also fell and stroke her left side of the head. CT was head was negative for any bleed. Rectal bleeding on and off suspected hemorrhoid however other etiology need to rule out. 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 Chronic atrial fibrillation on systemic anticoagulation with Eliquis CKD stage 4 creatinine of 2. Mild anemia Hypertension Fecal impaction Code status full code DVT prophylaxis on Eliquis Disposition: PT OT to see Subjective Date/time seen: 03/02/24 14:07 Interval history: Patient having bowel movement now. No blood in stool. Feeling better. Denies any abdominal pain. Review of Systems Review of Systems: All systems reviewed & are unremarkable except as noted in HPI and below Exam Narrative: * GENERAL: Alert and oriented x 3. No acute distress. * HEENT: Moist mucous membranes. * LUNGS: Clear to auscultation bilaterally. No accessory muscle use. * CARDIOVASCULAR: Regular rate and rhythm. * ABDOMEN: Soft, tenderness and mild distention. Normal bowel sounds, No palpable masses. * EXTREMITIES: No edema. Non-tender * SKIN: No rashes or lesions. Skin warm, dry. * NEUROLOGIC: No focal neurological deficits. CN II-XII grossly intact * PSYCHIATRIC: Appropriate mood and affect. Objective Data Vital Signs Vital Signs: Vital Signs - 24 hr 03/01/24 20:27 03/02/24 05:21 Temperature 97.5 F L Pulse Rate 99 111 H Respiratory Rate 20 20 Blood Pressure 145/61 H 129/73 Pulse Oximetry 97 91 Intake/Output Intake/Output: Intake & Output 02/28/24 02/29/24 03/01/24 03/02/24 23:59 23:59 23:59 23:59 Intake Total 120 340 340 350 Output Total 1400 1050 475 Balance 120 -1060 -710 -125 Meds/Results Medications: Active Medications Generic Name Dose Route Start Last Admin Trade Name Freq PRN Reason Stop Dose Admin Acetaminophen 650 mg 02/28/24 17:21 Acetaminophen 325 Mg Tablet PO Q4H PRN Mild Pain (1-3) or Fever Hydrocodone Bitart/Acetaminophen 1 tab 02/28/24 17:21 03/02/24 05:23 Hydrocodone/Acetaminophen (*Crx) 5-325 Mg Tablet PO 1 tab Q4H PRN Administration Moderate Pain (4-6) Aspirin 81 mg 02/29/24 09:00 03/02/24 09:51 Aspirin 81 Mg Enteric Tablet PO 81 mg DAILY [facility] Administration Diltiazem HCl 300 mg 02/29/24 09:00 03/02/24 09:51 Diltiazem Hcl Cd 300 Mg Cap.24hr PO 300 mg DAILY [facility] Administration Docusate Sodium 100 mg 02/28/24 21:00 03/02/24 09:51 Docusate Sodium 100 Mg Capsule PO 100 mg Q12HR [facility] Administration Furosemide 20 mg 02/29/24 09:00 03/02/24 09:51 Furosemide 20 Mg Tablet PO 20 mg BID [facility] Administration Lactulose 20 gm 02/29/24 12:00 03/02/24 13:04 Lactulose 20 Gm/30 Ml Udc PO 20 gm Q6HR [facility] Administration Levothyroxine Sodium 50 mcg 02/29/24 06:30 03/02/24 06:28 Levothyroxine Sodium 50 Mcg Tablet PO 50 mcg DAILY@0630 [facility] Administration Ondansetron HCl 4 mg 02/28/24 17:21 Ondansetron Inj 4 Mg/2 Ml Vial IV PUSH Q6H PRN Nausea And Vomiting Oxycodone HCl 5 mg 02/28/24 17:23 03/02/24 00:15 Oxycodone Hcl (*Crx) 5 Mg Tab Ir PO 5 mg Q6H PRN Administration pain 7-10 Polyethylene Glycol 119 gm 03/01/24 12:50 03/02/24 13:04 Polyethylene Glycol 3350 238 Gm Bottle PO 03/05/24 04:51 119 gm Q8H [facility] Administration Tamsulosin HCl 0.4 mg 02/29/24 09:00 03/02/24 09:51 Tamsulosin Hcl 0.4 Mg Capsule PO 0.4 mg QAM [facility] Administration Radiology Results: ITS Impressions Abdomen X-Ray 02/28/24 18:51 IMPRESSION: Findings suggesting fecal impaction, as detailed above. Head CT 03/01/24 05:44 Impression: No significant abnormality seen. Labs Labs: Laboratory Results - last 24 hr 03/02/24 07:08 WBC 10.5 H RBC 2.88 L Hgb 9.4 L Hct 30.2 L MCV 104.9 H MCH 32.6 MCHC 31.1 L RDW 14.2 Plt Count 335 MPV 10.0 Sodium 134 L Potassium 5.2 H Chloride 103 Carbon Dioxide 23 Anion Gap 8 BUN 50 H Creatinine 2.08 H Estim Creat Clear Calc 17 Estimated GFR 23 L Glucose 125 H Calcium 9.3
--- NOTE | 2024-03-02 14:13 | PCPTNOTE ---
Pt is not appropriate for therapy services at this time. Per report, he is there with her at home 30/08 and assist her with all bed mobility and transfers due to safety concerns. Pt is using w/c for main mobility due to increasing hip pain and chronic bowel issues.
[2024-03-02 21:00] VITALS: BP 112/57; PULSE 88; RESP 18; TEMP 36.2; O2SAT 97
[2024-03-03] MEDS: LACTULOSE 20 GM/30 ML UDC PO ×2 (01:05→05:50)
[2024-03-03 05:35] VITALS: BP 122/64; PULSE 86; RESP 20; TEMP 36.8; O2SAT 98
[2024-03-03] MEDS: LEVOTHYROXINE SODIUM 50 MCG TABLET PO (05:50)
[2024-03-03] MEDS: polyethylene glycoL 3350 238 GM BOTTLE 119 GM PO ×2 (05:50→12:02)
[2024-03-03 06:57] LABS: Basophils Percent Auto 0.3 % (0.2-1.2); Eosinophils Absolute Auto 0.1 K/mm3 (0-0.3); Eosinophils Percent Auto 1.3 % (0-4.4); Hematocrit 27.7 % (37.0-47.0); Hemoglobin 8.7 g/dL (12.0-15.0); Immature Granulocyte Absolute 0.03 K/mm3 (0.00-0.031); Immature Granulocyte Percent A 0.4 % (0-0.5); Lymphocytes Absolute Auto 0.55 K/mm3 (0.9-3.2); Lymphocytes Percent Auto 7.1 % (18.3-44.2); Mean Corpuscular HGB Conc 31.4 g/dl (32-36); Mean Corpuscular Hemoglobin 33.3 pg (26-34); Mean Corpuscular Volume 106.1 fl (80-100); Mean Platelet Volume 10.5 fl (7.4-10.4); Monocytes Absolute Auto 0.9 K/mm3 (0.1-0.6); Monocytes Percent Auto 11.3 % (2.6-8.5); Neutrophils Absolute Auto 6.1 K/mm3 (1.3-6.7); Neutrophils Percent Auto 79.6 % (45.5-73.1); Platelet Count Result 307 k/mm3 (150-375); Red Blood Count 2.61 M/mm3 (4.2-5.4); White Blood Count 7.7 K/mm3 (4.5-10.0)
[2024-03-03 07:15] LABS: Alanine Aminotransferase 12 U/L (6-35); Albumin Level 2.8 g/dL (3.5-5.1); Alkaline Phosphatase 126 U/L (38-126); Anion Gap 9 mmol/L (4-12); Aspartate Amino Transferase 38 U/L (14-36); Bilirubin,Total 0.4 mg/dL (0.2-1.3); Blood Urea Nitrogen 52 mg/dL (7-17); Calcium 8.6 mg/dL (8.4-10.2); Carbon Dioxide 21 mmol/L (22-30); Chloride 102 mmol/L (98-107); Estimated CRCL calculation 17 ml/min; Estimated Glomerular Filt Rate 22; Glucose 74 mg/dL (65-110); Magnesium 3.3 mg/dL (1.6-2.3); Potassium 4.5 mmol/L (3.4-5.0); Sodium 132 mmol/L (137-145)
[2024-03-03 07:42] LABS: Macrocytosis 1+ (NORMAL); Platelet Estimate Adequate (Adequate); Schistocytes None Seen
[2024-03-03] MEDS: dilTIAZem HCL CD 300 MG CAP.24HR PO (08:58)
[2024-03-03] MEDS: ASPIRIN 81 MG ENTERIC TABLET PO (08:58)
[2024-03-03] MEDS: FUROSEMIDE 20 MG TABLET PO ×2 (08:58→16:17)
[2024-03-03] MEDS: DOCUSATE SODIUM 100 MG CAPSULE PO (08:58)
[2024-03-03] MEDS: TAMSULOSIN HCL 0.4 MG CAPSULE PO (08:58)
--- NOTE | 2024-03-03 09:22 | P.PNGI_ITS ---
Progress Note: A&P Assessment and Plan (1) Fecal impaction in rectum: Code(s): K56.41 - Fecal impaction Status: Acute Assessment and Plan: on laxatives with slow response, overall better family member at bedside, they would like to find out if any other abnormalities and asking hopefully to get colonoscopy will reassess tomorrow (2) Nausea and vomiting: Qualifiers: Vomiting type: unspecified Qualified Code(s): R11.2 - Nausea with vomiting, unspecified Code(s): R11.2 - Nausea with vomiting, unspecified Status: Acute Assessment and Plan: resolved (3) Rectal bleeding: Code(s): K62.5 - Hemorrhage of anus and rectum Status: Acute Assessment and Plan: probably perianal source but will consider colonoscopy to assess if any other lesions (4) CKD (chronic kidney disease), stage III: Qualifiers: Chronic kidney disease stage 3 subtype: unspecified whether 3a or 3b Qualified Code(s): N18.30 - Chronic kidney disease, stage 3 unspecified Code(s): N18.3 - Chronic kidney disease, stage 3 (moderate) Status: Chronic Assessment and Plan: stable Subjective Date/time seen: 03/03/24 09:22 Interval history: more comfortable and having more liquid brown stool, she thinks that miralax is working, tolerating diet Review of Systems Review of Systems: All systems reviewed & are unremarkable except as noted in HPI and below Exam Narrative: * GENERAL: Alert and oriented x 3. No acute distress. * HEENT: Moist mucous membranes. * LUNGS: Clear to auscultation bilaterally. No accessory muscle use. * CARDIOVASCULAR: Regular rate and rhythm. * ABDOMEN: Soft, tenderness and mild distention. Normal bowel sounds, No palpable masses. * EXTREMITIES: No edema. Non-tender * SKIN: No rashes or lesions. Skin warm, dry. * NEUROLOGIC: No focal neurological deficits. CN II-XII grossly intact * PSYCHIATRIC: Appropriate mood and affect. Objective Data Vital Signs Vital Signs: Vital Signs - 24 hr 03/02/24 14:00 03/02/24 20:00 03/02/24 21:00 Temperature 97.9 F 97.2 F L Pulse Rate 71 88 Respiratory Rate 20 18 Blood Pressure 154/80 H 112/57 L Pulse Oximetry 98 97 Oxygen Delivery Room Air 03/03/24 05:35 Temperature 98.2 F Pulse Rate 86 Respiratory Rate 20 Blood Pressure 122/64 Pulse Oximetry 98 Oxygen Delivery Intake/Output Intake/Output: Intake & Output 02/29/24 03/01/24 03/02/24 03/03/24 23:59 23:59 23:59 23:59 Intake Total 340 340 350 750 Output Total 1400 1050 775 Balance -3390 -710 -425 750 Meds/Results Medications: Active Medications Generic Name Dose Route Start Last Admin Trade Name Freq PRN Reason Stop Dose Admin Acetaminophen 650 mg 02/28/24 17:21 Acetaminophen 325 Mg Tablet PO Q4H PRN Mild Pain (1-3) or Fever Hydrocodone Bitart/Acetaminophen 1 tab 02/28/24 17:21 03/02/24 21:08 Hydrocodone/Acetaminophen (*Crx) 5-325 Mg Tablet PO 1 tab Q4H PRN Administration Moderate Pain (4-6) Aspirin 81 mg 02/29/24 09:00 03/03/24 08:58 Aspirin 81 Mg Enteric Tablet PO 81 mg DAILY [facility] Administration Diltiazem HCl 300 mg 02/29/24 09:00 03/03/24 08:58 Diltiazem Hcl Cd 300 Mg Cap.24hr PO 300 mg DAILY [facility] Administration Docusate Sodium 100 mg 02/28/24 21:00 03/03/24 08:58 Docusate Sodium 100 Mg Capsule PO 100 mg Q12HR [facility] Administration Furosemide 20 mg 02/29/24 09:00 03/03/24 08:58 Furosemide 20 Mg Tablet PO 20 mg BID [facility] Administration Lactulose 20 gm 02/29/24 12:00 03/03/24 05:50 Lactulose 20 Gm/30 Ml Udc PO 20 gm Q6HR [facility] Administration Levothyroxine Sodium 50 mcg 02/29/24 06:30 03/03/24 05:50 Levothyroxine Sodium 50 Mcg Tablet PO 50 mcg DAILY@0630 [facility] Administration Ondansetron HCl 4 mg 02/28/24 17:21 Ondansetron Inj 4 Mg/2 Ml Vial IV PUSH Q6H PRN Nausea And Vomiting Oxycodone HCl 5 mg 02/28/24 17:23 03/02/24 00:15 Oxycodone Hcl (*Crx) 5 Mg Tab Ir PO 5 mg Q6H PRN Administration pain 7-10 Polyethylene Glycol 119 gm 03/01/24 12:50 03/03/24 05:50 Polyethylene Glycol 3350 238 Gm Bottle PO 03/05/24 04:51 119 gm Q8H [facility] Administration Tamsulosin HCl 0.4 mg 02/29/24 09:00 03/03/24 08:58 Tamsulosin Hcl 0.4 Mg Capsule PO 0.4 mg QAM [facility] Administration Radiology Results: ITS Impressions Abdomen X-Ray 02/28/24 18:51 IMPRESSION: Findings suggesting fecal impaction, as detailed above. Head CT 03/01/24 05:44 Impression: No significant abnormality seen. Labs Labs: Laboratory Results - last 24 hr 03/03/24 05:43 WBC 7.7 RBC 2.61 L Hgb 8.7 L Hct 27.7 L MCV 106.1 H MCH 33.3 MCHC 31.4 L RDW 14.0 Plt Count 307 MPV 10.5 H Immature Gran % (Auto) 0.4 Neut % (Auto) 79.6 H Lymph % (Auto) 7.1 L [place] % (Auto) 11.3 H Eos % (Auto) 1.3 Baso % (Auto) 0.3 Lymph # (Auto) 0.55 L [place] # (Auto) 0.9 H Eos # (Auto) 0.1 Baso # (Auto) 0.0 Abs Immat Gran (auto) 0.03 Absolute Neuts (auto) 6.1 Absolute Nucleated RBC 0.000 Nucleated RBC % 0.0 Platelet Estimate Adequate Macrocytosis 1+ Schistocytes None seen Sodium 132 L Potassium 4.5 Chloride 102 Carbon Dioxide 21 L Anion Gap 9 BUN 52 H Creatinine 2.12 H Estim Creat Clear Calc 17 Estimated GFR 22 L Glucose 74 Calcium 8.6 Magnesium 3.3 H Total Bilirubin 0.4 AST 38 H ALT 12 Alkaline Phosphatase 126 Total Protein 6.0 L Albumin 2.8 L
--- NOTE | 2024-03-03 09:56 | P.PNIM_ITS ---
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 She reported chronic constipation and had had good bowel movement for the past 6 weeks associated nausea. There was associated intermittent abdominal pain which is crampy in nature. No fever chills. Patient was then admitted to the hospital for further treatment. GI and General surgery was consulted. KUB showed fecal impaction. Eventually colonoscopy is planned however remains on bowel regimen. Also status post manual disimpaction. Now on bowel regimen and having multiple bowel movements. Anticipate colonoscopy few days per GI During hospital stay she also fell and stroke her left side of the head. CT was head was negative for any bleed. Rectal bleeding on and off suspected hemorrhoid however other etiology need to rule out. 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 Chronic atrial fibrillation on systemic anticoagulation with Eliquis CKD stage 4 creatinine of 2. Mild anemia Hypertension Fecal impaction Code status full code DVT prophylaxis on Eliquis Disposition: PT OT to see Subjective Date/time seen: 03/03/24 09:56 Interval history: Patient having multiple bouts of bowel movement. No abdominal pain nausea vomiting. No other complaints. Review of Systems Review of Systems: All systems reviewed & are unremarkable except as noted in HPI and below Exam Narrative: * GENERAL: Alert and oriented x 3. No acute distress. * HEENT: Moist mucous membranes. * LUNGS: Clear to auscultation bilaterally. No accessory muscle use. * CARDIOVASCULAR: Regular rate and rhythm. * ABDOMEN: Soft, tenderness and mild distention. Normal bowel sounds, No palpable masses. * EXTREMITIES: No edema. Non-tender * SKIN: No rashes or lesions. Skin warm, dry. * NEUROLOGIC: No focal neurological deficits. CN II-XII grossly intact * PSYCHIATRIC: Appropriate mood and affect. Objective Data Vital Signs Vital Signs: Vital Signs - 24 hr 03/02/24 14:00 03/02/24 20:00 03/02/24 21:00 Temperature 97.9 F 97.2 F L Pulse Rate 71 88 Respiratory Rate 20 18 Blood Pressure 154/80 H 112/57 L Pulse Oximetry 98 97 Oxygen Delivery Room Air 03/03/24 05:35 Temperature 98.2 F Pulse Rate 86 Respiratory Rate 20 Blood Pressure 122/64 Pulse Oximetry 98 Oxygen Delivery Intake/Output Intake/Output: Intake & Output 02/29/24 03/01/24 03/02/24 03/03/24 23:59 23:59 23:59 23:59 Intake Total 340 340 350 750 Output Total 1400 1050 775 Balance -1060 -710 -425 750 Meds/Results Medications: Active Medications Generic Name Dose Route Start Last Admin Trade Name Freq PRN Reason Stop Dose Admin Acetaminophen 650 mg 02/28/24 17:21 Acetaminophen 325 Mg Tablet PO Q4H PRN Mild Pain (1-3) or Fever Hydrocodone Bitart/Acetaminophen 1 tab 02/28/24 17:21 03/02/24 21:08 Hydrocodone/Acetaminophen (*Crx) 5-325 Mg Tablet PO 1 tab Q4H PRN Administration Moderate Pain (4-6) Aspirin 81 mg 02/29/24 09:00 03/03/24 08:58 Aspirin 81 Mg Enteric Tablet PO 81 mg DAILY [facility] Administration Diltiazem HCl 300 mg 02/29/24 09:00 03/03/24 08:58 Diltiazem Hcl Cd 300 Mg Cap.24hr PO 300 mg DAILY [facility] Administration Docusate Sodium 100 mg 02/28/24 21:00 03/03/24 08:58 Docusate Sodium 100 Mg Capsule PO 100 mg Q12HR [facility] Administration Furosemide 20 mg 02/29/24 09:00 03/03/24 08:58 Furosemide 20 Mg Tablet PO 20 mg BID [facility] Administration Lactulose 20 gm 02/29/24 12:00 03/03/24 05:50 Lactulose 20 Gm/30 Ml Udc PO 20 gm Q6HR [facility] Administration Levothyroxine Sodium 50 mcg 02/29/24 06:30 03/03/24 05:50 Levothyroxine Sodium 50 Mcg Tablet PO 50 mcg DAILY@0630 [facility] Administration Ondansetron HCl 4 mg 02/28/24 17:21 Ondansetron Inj 4 Mg/2 Ml Vial IV PUSH Q6H PRN Nausea And Vomiting Oxycodone HCl 5 mg 02/28/24 17:23 03/02/24 00:15 Oxycodone Hcl (*Crx) 5 Mg Tab Ir PO 5 mg Q6H PRN Administration pain 7-10 Polyethylene Glycol 119 gm 03/01/24 12:50 03/03/24 05:50 Polyethylene Glycol 3350 238 Gm Bottle PO 03/05/24 04:51 119 gm Q8H [facility] Administration Tamsulosin HCl 0.4 mg 02/29/24 09:00 03/03/24 08:58 Tamsulosin Hcl 0.4 Mg Capsule PO 0.4 mg QAM [facility] Administration Radiology Results: ITS Impressions Abdomen X-Ray 02/28/24 18:51 IMPRESSION: Findings suggesting fecal impaction, as detailed above. Head CT 03/01/24 05:44 Impression: No significant abnormality seen. Labs Labs: Laboratory Results - last 24 hr 03/03/24 05:43 WBC 7.7 RBC 2.61 L Hgb 8.7 L Hct 27.7 L MCV 106.1 H MCH 33.3 MCHC 31.4 L RDW 14.0 Plt Count 307 MPV 10.5 H Immature Gran % (Auto) 0.4 Neut % (Auto) 79.6 H Lymph % (Auto) 7.1 L [place] % (Auto) 11.3 H Eos % (Auto) 1.3 Baso % (Auto) 0.3 Lymph # (Auto) 0.55 L [place] # (Auto) 0.9 H Eos # (Auto) 0.1 Baso # (Auto) 0.0 Abs Immat Gran (auto) 0.03 Absolute Neuts (auto) 6.1 Absolute Nucleated RBC 0.000 Nucleated RBC % 0.0 Platelet Estimate Adequate Macrocytosis 1+ Schistocytes None seen Sodium 132 L Potassium 4.5 Chloride 102 Carbon Dioxide 21 L Anion Gap 9 BUN 52 H Creatinine 2.12 H Estim Creat Clear Calc 17 Estimated GFR 22 L Glucose 74 Calcium 8.6 Magnesium 3.3 H Total Bilirubin 0.4 AST 38 H ALT 12 Alkaline Phosphatase 126 Total Protein 6.0 L Albumin 2.8 L
[2024-03-03 15:39] VITALS: BP 107/66; PULSE 86; RESP 18; TEMP 36.9; O2SAT 98
[2024-03-03 22:00] VITALS: BP 135/57; PULSE 78; RESP 14; TEMP 36.4; O2SAT 98
[2024-03-03] MEDS: HYDROcodone/acetaminophen (*CRX) 5-325 MG TABLET 1 TAB PO (22:03)
[2024-03-04] MEDS: polyethylene glycoL 3350 238 GM BOTTLE 119 GM PO (04:30)
[2024-03-04] MEDS: LEVOTHYROXINE SODIUM 50 MCG TABLET PO (05:30)
[2024-03-04 05:54] VITALS: BP 124/59; PULSE 91; RESP 13; TEMP 36.2; O2SAT 98
[2024-03-04 07:56] LABS: Basophils Percent Auto 0.3 % (0.2-1.2); Eosinophils Absolute Auto 0.1 K/mm3 (0-0.3); Eosinophils Percent Auto 1.4 % (0-4.4); Hematocrit 28.7 % (37.0-47.0); Immature Granulocyte Absolute 0.05 K/mm3 (0.00-0.031); Immature Granulocyte Percent A 0.7 % (0-0.5); Lymphocytes Percent Auto 8.2 % (18.3-44.2); Mean Corpuscular HGB Conc 31.4 g/dl (32-36); Mean Corpuscular Hemoglobin 32.5 pg (26-34); Mean Corpuscular Volume 103.6 fl (80-100); Mean Platelet Volume 9.6 fl (7.4-10.4); Monocytes Absolute Auto 0.8 K/mm3 (0.1-0.6); Monocytes Percent Auto 10.9 % (2.6-8.5); Neutrophils Absolute Auto 5.8 K/mm3 (1.3-6.7); Neutrophils Percent Auto 78.5 % (45.5-73.1); Platelet Count Result 317 k/mm3 (150-375); Red Blood Count 2.77 M/mm3 (4.2-5.4); Red Cell Distribution Width 13.4 % (11.5-14.5); White Blood Count 7.3 K/mm3 (4.5-10.0)
[2024-03-04 08:12] LABS: Alanine Aminotransferase 14 U/L (6-35); Albumin Level 2.8 g/dL (3.5-5.1); Alkaline Phosphatase 130 U/L (38-126); Anion Gap 5 mmol/L (4-12); Aspartate Amino Transferase 54 U/L (14-36); Bilirubin,Total 0.4 mg/dL (0.2-1.3); Blood Urea Nitrogen 46 mg/dL (7-17); Calcium 8.5 mg/dL (8.4-10.2); Carbon Dioxide 24 mmol/L (22-30); Chloride 102 mmol/L (98-107); Estimated CRCL calculation 19 ml/min; Estimated Glomerular Filt Rate 26; Glucose 88 mg/dL (65-110); Magnesium 3.1 mg/dL (1.6-2.3); Potassium 4.9 mmol/L (3.4-5.0); Sodium 131 mmol/L (137-145)
[2024-03-04] MEDS: dilTIAZem HCL CD 300 MG CAP.24HR PO (08:25)
[2024-03-04] MEDS: FUROSEMIDE 20 MG TABLET PO ×2 (08:25→16:41)
[2024-03-04] MEDS: ASPIRIN 81 MG ENTERIC TABLET PO (08:25)
[2024-03-04] MEDS: TAMSULOSIN HCL 0.4 MG CAPSULE PO (08:25)
--- NOTE | 2024-03-04 11:10 | P.PNGI_ITS ---
Progress Note: A&P Assessment and Plan (1) Fecal impaction in rectum: Code(s): K56.41 - Fecal impaction Status: Acute Assessment and Plan: resolved with bowel regimen (reviewed new KUB) family and patient agreeable for colonoscopy tomorrow, will set up (2) Nausea and vomiting: Qualifiers: Vomiting type: unspecified Qualified Code(s): R11.2 - Nausea with vomiting, unspecified Code(s): R11.2 - Nausea with vomiting, unspecified Status: Acute Assessment and Plan: resolved (3) Rectal bleeding: Code(s): K62.5 - Hemorrhage of anus and rectum Status: Acute Assessment and Plan: probably perianal source but will assess with colonoscopy to assess if any other lesions (4) CKD (chronic kidney disease), stage III: Qualifiers: Chronic kidney disease stage 3 subtype: unspecified whether 3a or 3b Qualified Code(s): N18.30 - Chronic kidney disease, stage 3 unspecified Code(s): N18.3 - Chronic kidney disease, stage 3 (moderate) Status: Chronic Assessment and Plan: stable (5) Macrocytic anemia: Code(s): D53.9 - Nutritional anemia, unspecified Status: Acute Assessment and Plan: will get labs and also colonoscopy tomorrow Subjective Date/time seen: 03/04/24 11:10 Interval history: she is having brown loose stool, comfortable family member at bedside Review of Systems Review of Systems: All systems reviewed & are unremarkable except as noted in HPI and below Exam Narrative: * GENERAL: Alert and oriented x 3. No acute distress. * HEENT: Moist mucous membranes. * LUNGS: Clear to auscultation bilaterally. No accessory muscle use. * CARDIOVASCULAR: Regular rate and rhythm. * ABDOMEN: Soft, tenderness and mild distention. Normal bowel sounds, No palpable masses. * EXTREMITIES: No edema. Non-tender * SKIN: No rashes or lesions. Skin warm, dry. * NEUROLOGIC: No focal neurological deficits. CN II-XII grossly intact * PSYCHIATRIC: Appropriate mood and affect. Objective Data Vital Signs Vital Signs: Vital Signs - 24 hr 03/03/24 15:39 03/03/24 20:00 03/03/24 22:00 Temperature 98.4 F 97.5 F L Pulse Rate 86 78 Respiratory Rate 18 14 Blood Pressure 107/66 135/57 L Pulse Oximetry 98 98 Oxygen Delivery Room Air 03/04/24 05:54 03/04/24 08:00 Temperature 97.2 F L Pulse Rate 91 Respiratory Rate 13 Blood Pressure 124/59 L Pulse Oximetry 98 Oxygen Delivery Room Air Intake/Output Intake/Output: Intake & Output 03/01/24 03/02/24 03/03/24 03/04/24 23:59 23:59 23:59 23:59 Intake Total 318 134 6061 520 Output Total 1050 775 500 750 Balance -710 -425 980 -230 Meds/Results Medications: Active Medications Generic Name Dose Route Start Last Admin Trade Name Freq PRN Reason Stop Dose Admin Acetaminophen 650 mg 02/28/24 17:21 Acetaminophen 325 Mg Tablet PO Q4H PRN Mild Pain (1-3) or Fever Hydrocodone Bitart/Acetaminophen 1 tab 02/28/24 17:21 03/03/24 22:03 Hydrocodone/Acetaminophen (*Crx) 5-325 Mg Tablet PO 1 tab Q4H PRN Administration Moderate Pain (4-6) Aspirin 81 mg 02/29/24 09:00 03/04/24 08:25 Aspirin 81 Mg Enteric Tablet PO 81 mg DAILY LAVON Administration Bisacodyl 20 mg 03/04/24 18:00 Bisacodyl 5 Mg Tablet Ec PO 03/04/24 18:01 ONCE ONE Diltiazem HCl 300 mg 02/29/24 09:00 03/04/24 08:25 Diltiazem Hcl Cd 300 Mg Cap.24hr PO 300 mg DAILY LAVON Administration Docusate Sodium 100 mg 02/28/24 21:00 03/04/24 08:24 Docusate Sodium 100 Mg Capsule PO Not Given Q12HR LAVON Furosemide 20 mg 02/29/24 09:00 03/04/24 08:25 Furosemide 20 Mg Tablet PO 20 mg BID LAVON Administration Levothyroxine Sodium 50 mcg 02/29/24 06:30 03/04/24 05:30 Levothyroxine Sodium 50 Mcg Tablet PO 50 mcg DAILY@0630 LAVON Administration Ondansetron HCl 4 mg 02/28/24 17:21 Ondansetron Inj 4 Mg/2 Ml Vial IV PUSH Q6H PRN Nausea And Vomiting Oxycodone HCl 5 mg 02/28/24 17:23 03/02/24 00:15 Oxycodone Hcl (*Crx) 5 Mg Tab Ir PO 5 mg Q6H PRN Administration pain 7-10 Polyethylene Glycol 238 gm 03/04/24 18:00 Polyethylene Glycol 3350 238 Gm Bottle PO 03/04/24 18:01 ONCE ONE Tamsulosin HCl 0.4 mg 02/29/24 09:00 03/04/24 08:25 Tamsulosin Hcl 0.4 Mg Capsule PO 0.4 mg QAM LAVON Administration Radiology Results: ITS Impressions Head CT 03/01/24 05:44 Impression: No significant abnormality seen. Abdomen X-Ray 03/03/24 10:42 IMPRESSION: 1. Nonspecific nonobstructive bowel gas pattern with resolution of the large ball of stool previously seen at the rectum. Labs Labs: Laboratory Results - last 24 hr 03/04/24 07:51 WBC 7.3 RBC 2.77 L Hgb 9.0 L Hct 28.7 L MCV 103.6 H MCH 32.5 MCHC 31.4 L RDW 13.4 Plt Count 317 MPV 9.6 Immature Gran % (Auto) 0.7 H Neut % (Auto) 78.5 H Lymph % (Auto) 8.2 L [place] % (Auto) 10.9 H Eos % (Auto) 1.4 Baso % (Auto) 0.3 Lymph # (Auto) 0.60 L [place] # (Auto) 0.8 H Eos # (Auto) 0.1 Baso # (Auto) 0.0 Abs Immat Gran (auto) 0.05 H Absolute Neuts (auto) 5.8 Absolute Nucleated RBC 0.000 Nucleated RBC % 0.0 Sodium 131 L Potassium 4.9 Chloride 102 Carbon Dioxide 24 Anion Gap 5 BUN 46 H Creatinine 1.86 H Estim Creat Clear Calc 19 Estimated GFR 26 L Glucose 88 Calcium 8.5 Magnesium 3.1 H Total Bilirubin 0.4 AST 54 H ALT 14 Alkaline Phosphatase 130 H Total Protein 6.0 L Albumin 2.8 L
--- NOTE | 2024-03-04 11:58 | PCPTNOTE ---
pt refused PT evaluation 1100-- stated she was too tired, did not sleep last night and has diarrhea. Discussed pt with Raina MOTTA.
--- NOTE | 2024-03-04 13:24 | P.PNIM_ITS ---
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 She reported chronic constipation and had had good bowel movement for the past 6 weeks associated nausea. There was associated intermittent abdominal pain which is crampy in nature. No fever chills. Patient was then admitted to the hospital for further treatment. GI and General surgery was consulted. KUB showed fecal impaction. Eventually colonoscopy is planned however remains on bowel regimen. Also status post manual disimpaction. Now on bowel regimen and having multiple bowel movements. planned colonoscopy in a.m. for GI. Follow-up x-ray abdomen with resolution of findings of fecal impaction During hospital stay she also fell and stroke her left side of the head. CT was head was negative for any bleed. Rectal bleeding on and off suspected hemorrhoid however other etiology need to rule out. 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 Chronic atrial fibrillation on systemic anticoagulation with Eliquis CKD stage 4 creatinine of 2. Mild anemia Hypertension Fecal impaction Code status full code DVT prophylaxis on Eliquis Disposition: PT OT to see Subjective Date/time seen: 03/04/24 13:24 Interval history: Patient continues to have brown loose stool. No blood. Planned for colonoscopy tomorrow. no Nausea vomiting abdominal pain Review of Systems Review of Systems: All systems reviewed & are unremarkable except as noted in HPI and below Exam Narrative: * GENERAL: Alert and oriented x 3. No acute distress. * HEENT: Moist mucous membranes. * LUNGS: Clear to auscultation bilaterally. No accessory muscle use. * CARDIOVASCULAR: Regular rate and rhythm. * ABDOMEN: Soft, less distended nontender. Normal bowel sounds, No palpable masses. * EXTREMITIES: No edema. Non-tender * SKIN: No rashes or lesions. Skin warm, dry. * NEUROLOGIC: No focal neurological deficits. CN II-XII grossly intact * PSYCHIATRIC: Appropriate mood and affect. Objective Data Vital Signs Vital Signs: Vital Signs - 24 hr 03/03/24 15:39 03/03/24 20:00 03/03/24 22:00 Temperature 98.4 F 97.5 F L Pulse Rate 86 78 Respiratory Rate 18 14 Blood Pressure 107/66 135/57 L Pulse Oximetry 98 98 Oxygen Delivery Room Air 03/04/24 05:54 03/04/24 08:00 Temperature 97.2 F L Pulse Rate 91 Respiratory Rate 13 Blood Pressure 124/59 L Pulse Oximetry 98 Oxygen Delivery Room Air Intake/Output Intake/Output: Intake & Output 03/01/24 03/02/24 03/03/24 03/04/24 23:59 23:59 23:59 23:59 Intake Total 564 110 5955 520 Output Total 1050 775 500 750 Balance -710 425 980 -230 Meds/Results Medications: Active Medications Generic Name Dose Route Start Last Admin Trade Name Freq PRN Reason Stop Dose Admin Acetaminophen 650 mg 02/28/24 17:21 Acetaminophen 325 Mg Tablet PO Q4H PRN Mild Pain (1-3) or Fever Hydrocodone Bitart/Acetaminophen 1 tab 02/28/24 17:21 03/03/24 22:03 Hydrocodone/Acetaminophen (*Crx) 5-325 Mg Tablet PO 1 tab Q4H PRN Administration Moderate Pain (4-6) Aspirin 81 mg 02/29/24 09:00 03/04/24 08:25 Aspirin 81 Mg Enteric Tablet PO 81 mg DAILY LAVON Administration Bisacodyl 20 mg 03/04/24 18:00 Bisacodyl 5 Mg Tablet Ec PO 03/04/24 18:01 ONCE ONE Diltiazem HCl 300 mg 02/29/24 09:00 03/04/24 08:25 Diltiazem Hcl Cd 300 Mg Cap.24hr PO 300 mg DAILY LAVON Administration Docusate Sodium 100 mg 02/28/24 21:00 03/04/24 08:24 Docusate Sodium 100 Mg Capsule PO Not Given Q12HR LAVON Furosemide 20 mg 02/29/24 09:00 03/04/24 08:25 Furosemide 20 Mg Tablet PO 20 mg BID LAVON Administration Levothyroxine Sodium 50 mcg 02/29/24 06:30 03/04/24 05:30 Levothyroxine Sodium 50 Mcg Tablet PO 50 mcg DAILY@0630 LAVON Administration Ondansetron HCl 4 mg 02/28/24 17:21 Ondansetron Inj 4 Mg/2 Ml Vial IV PUSH Q6H PRN Nausea And Vomiting Oxycodone HCl 5 mg 02/28/24 17:23 03/02/24 00:15 Oxycodone Hcl (*Crx) 5 Mg Tab Ir PO 5 mg Q6H PRN Administration pain 7-10 Polyethylene Glycol 238 gm 03/04/24 18:00 Polyethylene Glycol 3350 238 Gm Bottle PO 03/04/24 18:01 ONCE ONE Tamsulosin HCl 0.4 mg 02/29/24 09:00 03/04/24 08:25 Tamsulosin Hcl 0.4 Mg Capsule PO 0.4 mg QAM LAVON Administration Radiology Results: ITS Impressions Head CT 03/01/24 05:44 Impression: No significant abnormality seen. Abdomen X-Ray 03/03/24 10:42 IMPRESSION: 1. Nonspecific nonobstructive bowel gas pattern with resolution of the large ball of stool previously seen at the rectum. Labs Labs: Laboratory Results - last 24 hr 03/04/24 07:51 WBC 7.3 RBC 2.77 L Hgb 9.0 L Hct 28.7 L MCV 103.6 H MCH 32.5 MCHC 31.4 L RDW 13.4 Plt Count 317 MPV 9.6 Immature Gran % (Auto) 0.7 H Neut % (Auto) 78.5 H Lymph % (Auto) 8.2 L [place] % (Auto) 10.9 H Eos % (Auto) 1.4 Baso % (Auto) 0.3 Lymph # (Auto) 0.60 L [place] # (Auto) 0.8 H Eos # (Auto) 0.1 Baso # (Auto) 0.0 Abs Immat Gran (auto) 0.05 H Absolute Neuts (auto) 5.8 Absolute Nucleated RBC 0.000 Nucleated RBC % 0.0 Sodium 131 L Potassium 4.9 Chloride 102 Carbon Dioxide 24 Anion Gap 5 BUN 46 H Creatinine 1.86 H Estim Creat Clear Calc 19 Estimated GFR 26 L Glucose 88 Calcium 8.5 Magnesium 3.1 H Total Bilirubin 0.4 AST 54 H ALT 14 Alkaline Phosphatase 130 H Total Protein 6.0 L Albumin 2.8 L
[2024-03-04 15:28] VITALS: BP 106/63; PULSE 84; RESP 16; TEMP 37.1; O2SAT 98
[2024-03-04] MEDS: BISACODYL 5 MG TABLET EC 20 MG PO (17:53)
[2024-03-04] MEDS: polyethylene glycoL 3350 238 GM BOTTLE PO (17:53)
[2024-03-04] MEDS: DOCUSATE SODIUM 100 MG CAPSULE PO (20:06)
[2024-03-04 22:00] VITALS: BP 113/51; PULSE 90; RESP 16; TEMP 36.9; O2SAT 100
[2024-03-05] VITALS (7 sets, daily range): BP systolic 94–135; BP diastolic 47–76; PULSE 86–103; RESP 16–20; TEMP 35.8–36.2; O2SAT 96–99
[2024-03-05] MEDS: LEVOTHYROXINE SODIUM 50 MCG TABLET PO (05:29)
[2024-03-05 07:48] LABS: Basophils Percent Auto 0.3 % (0.2-1.2); Eosinophils Absolute Auto 0.1 K/mm3 (0-0.3); Eosinophils Percent Auto 1.3 % (0-4.4); Hematocrit 29.7 % (37.0-47.0); Hemoglobin 9.4 g/dL (12.0-15.0); Immature Granulocyte Absolute 0.05 K/mm3 (0.00-0.031); Immature Granulocyte Percent A 0.7 % (0-0.5); Lymphocytes Absolute Auto 0.55 K/mm3 (0.9-3.2); Lymphocytes Percent Auto 8.1 % (18.3-44.2); Mean Corpuscular HGB Conc 31.6 g/dl (32-36); Mean Corpuscular Hemoglobin 32.8 pg (26-34); Mean Corpuscular Volume 103.5 fl (80-100); Mean Platelet Volume 9.9 fl (7.4-10.4); Monocytes Absolute Auto 0.8 K/mm3 (0.1-0.6); Monocytes Percent Auto 11.3 % (2.6-8.5); Neutrophils Absolute Auto 5.3 K/mm3 (1.3-6.7); Neutrophils Percent Auto 78.3 % (45.5-73.1); Platelet Count Result 336 k/mm3 (150-375); Red Blood Count 2.87 M/mm3 (4.2-5.4); Red Cell Distribution Width 13.4 % (11.5-14.5); White Blood Count 6.8 K/mm3 (4.5-10.0)
[2024-03-05 07:56] LABS: Iron 46 ug/dL (37-170)
[2024-03-05 07:59] LABS: Alanine Aminotransferase 17 U/L (6-35); Albumin Level 2.6 g/dL (3.5-5.1); Alkaline Phosphatase 140 U/L (38-126); Anion Gap 6 mmol/L (4-12); Aspartate Amino Transferase 53 U/L (14-36); Bilirubin,Total 0.4 mg/dL (0.2-1.3); Blood Urea Nitrogen 35 mg/dL (7-17); Calcium 8.6 mg/dL (8.4-10.2); Carbon Dioxide 24 mmol/L (22-30); Chloride 102 mmol/L (98-107); Estimated CRCL calculation 22 ml/min; Estimated Glomerular Filt Rate 30; Glucose 83 mg/dL (65-110); Magnesium 2.7 mg/dL (1.6-2.3); Potassium 4.3 mmol/L (3.4-5.0); Sodium 132 mmol/L (137-145)
[2024-03-05 08:05] LABS: Percent Iron Saturation 24 % (20-50)
--- NOTE | 2024-03-05 08:22 | PCPTNOTE ---
Patient refused therapy evaluation 03/05/24 0823, too tired, has been up all night, and going for a colonoscopy soon. Will consider participating tomorrow.
[2024-03-05 09:03] LABS: Folic Acid 10.2 ng/mL (2.76->20)
[2024-03-05] MEDS: dilTIAZem HCL CD 300 MG CAP.24HR PO (09:08)
[2024-03-05] MEDS: FUROSEMIDE 20 MG TABLET PO ×2 (09:18→17:12)
--- NOTE | 2024-03-05 10:30 | WPDANESEPPF ---
Anes - Initial Pre Proc Eval Procedure: Operation Date: 03/05/24 15:30 Proposed Procedures p Colonoscopy - Leoncio Hull MD Date/Time: 03/05/24 10:30 Surgeon: Amanda Bull APRN Pre Op Diagnosis: Lower GI Bleed/Nausea Patient Data Age: 88 Gender: F Height: 1.7 m Weight: 72.575 kg Last Vital Signs Temp 36.9 C 03/04/24 22:00 Pulse 103 H 03/05/24 09:16 Resp 16 03/05/24 09:16 BP 115/62 03/05/24 09:16 Pulse Ox 99 03/05/24 09:16 O2 Del Method Room Air 03/04/24 20:00 Allergies Allergy/AdvReac Type Severity Reaction Status Date / Time shellfish Allergy Unknown Unknown Uncoded 03/05/24 10:28 Home Medications ?Medication ?Instructions ?Recorded ?Confirmed ?Type aspirin 81 mg tablet,delayed 81 mg PO DAILY 01/11/19 02/28/24 History release diltiazem HCl 300 mg 300 mg PO DAILY #90 caps 03/17/23 02/28/24 Rx capsule,extended release 24 hr (Cartia XT) levothyroxine 50 mcg tablet See Rx Instructions .Route 08/15/23 02/28/24 Rx .COMPLEX #90 tabs furosemide 20 mg tablet 20 mg PO BID #60 tabs 01/13/24 02/28/24 Rx acetaminophen 500 mg tablet 1,000 mg PO Q6H PRN fever or pain 02/28/24 02/28/24 History apixaban 5 mg tablet (Eliquis) 2.5 mg PO BID 02/28/24 02/28/24 History oxycodone 30 mg tablet 30 mg PO Q8H PRN pain 02/28/24 02/28/24 History oxycodone 5 mg tablet 5 mg PO Q6H PRN pain 02/28/24 02/28/24 History Laboratory Tests 03/05/24 07:02 WBC 6.8 K/mm3 (4.5-10.0) RBC 2.87 L M/mm3 (4.2-5.4) Hgb 9.4 L g/dL (12.0-15.0) Hct 29.7 L % (37.0-47.0) MCV 103.5 H fl (80-100) MCH 32.8 pg (26-34) MCHC 31.6 L g/dl (32-36) RDW 13.4 % (11.5-14.5) Plt Count 336 k/mm3 (150-375) MPV 9.9 fl (7.4-10.4) Immature Gran % (Auto) 0.7 H % (0-0.5) Neut % (Auto) 78.3 H % (45.5-73.1) Lymph % (Auto) 8.1 L % (18.3-44.2) [place] % (Auto) 11.3 H % (2.6-8.5) Eos % (Auto) 1.3 % (0-4.4) Baso % (Auto) 0.3 % (0.2-1.2) Lymph # (Auto) 0.55 L K/mm3 (0.9-3.2) [place] # (Auto) 0.8 H K/mm3 (0.1-0.6) Eos # (Auto) 0.1 K/mm3 (0-0.3) Baso # (Auto) 0.0 K/mm3 (0.0-0.1) Abs Immat Gran (auto) 0.05 H K/mm3 (0.00-0.031) Absolute Neuts (auto) 5.3 K/mm3 (1.3-6.7) Absolute Nucleated RBC 0.000 K/mm3 (0.0-0.012) Nucleated RBC % 0.0 % (0.0-0.2) Sodium 132 L mmol/L (137-145) Potassium 4.3 mmol/L (3.4-5.0) Chloride 102 mmol/L (98-107) Carbon Dioxide 24 mmol/L (22-30) Anion Gap 6 mmol/L (4-12) BUN 35 H D mg/dL (7-17) Creatinine 1.62 H mg/dL (0.7-1.0) Estim Creat Clear Calc 22 ml/min Estimated GFR 30 L (59 - ) Glucose 83 mg/dL (65-110) Calcium 8.6 mg/dL (8.4-10.2) Magnesium 2.7 H mg/dL (1.6-2.3) Iron 46 ug/dL (37-170) TIBC 188 L ug/dL (261-462) % Saturation 24 % (20-50) Ferritin 98.90 ng/mL (11.1-264) Total Bilirubin 0.4 mg/dL (0.2-1.3) AST 53 H U/L (14-36) ALT 17 U/L (6-35) Alkaline Phosphatase 140 H U/L (38-126) Total Protein 6.0 L g/dL (6.3-8.2) Albumin 2.6 L g/dL (3.5-5.1) Vitamin B12 811.0 pg/mL (239-931) Folate 10.2 ng/mL (2.76->20) Patient hx anesthesia problems: none Family hx anesthesia problems: none Results Review: All pre-operative results and documents have been reviewed as part of the pre-operative evaluation. [facility] Past Medical History Medical History Macrocytic anemia HLD (hyperlipidemia) Hypothyroidism CKD (chronic kidney disease), stage III Hypertension Cancer Lumbar degenerative disc disease Paroxysmal A-fib s/p cardioversion Aortic stenosis moderate Obesity Anxiety Family History Family History Mother Patient's mother is in good health Father Family history of lung cancer Patient's father is Sibling Family history of coronary artery disease Social History Social History Years smoked: 15 Smoking status: Former smoker Second hand tobacco smoke exposure: No Additional smoking assessment comments: Stopped in 60 or 70's Alcohol intake: never Drinks per week: 0 Substance use: never Substance use type: does not use Do You Feel Safe in your Home?: Yes Lack of Transportation: No Lack of Food: Never True Current Housing: I Have Housing Concerned About Future Housing: No Difficulty Paying Gas/Electric Bills: No Difficulty Paying for Meds: No Currently Unemployed: No Education: High School Diploma/GED Difficulty w/ Childcare or Family Care: No Living arrangements: with family Occupation/Education: retired Gender identity (if verbalized by the patient): Female Spiritual care concerns: No Anes - Eval Final PreProcedure Day of Procedure 03/05/24 10:30 Patient weight: normal Heart: irregular rhythm Lungs: clear to auscultation Airway: Mallampati scale class II Neurological: alert and oriented Last oral intake: >/= 8 hours ASA classification: IV Emergent: no Anesthetic plan: proceed Anesthesia type and monitoring: general GIVS and standard monitoring Results Review: All pre-operative results and documents have been reviewed as part of the pre-operative evaluation. Informed Consent: The patient's anesthetic plan and its attendant risks and benefits were discussed with the patient/family/POA. Questions were solicited and answers provided to the satisfaction of the patient/family/POA.
[2024-03-05] MEDS: LACTATED RINGERS 1,000 ML 150 ML IV CONT (10:32)
--- NOTE | 2024-03-05 10:53 | PC.NURSE ---
To GI Lab per [ ], IV [ ]. Report given to [NIKO ].
--- NOTE | 2024-03-05 11:20 | PC.NURSE ---
Returned from GI Lab. Report received from [ thi].
--- NOTE | 2024-03-05 11:22 | PCNFU ---
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 Goal:Improvement to PO intake Pt current nutrition is NPO today for colonoscopy. Nutrition recommendation: resume diet post procedure with Ensure compact BID Last recorded weight is 72.575 kg. Bowel Motility: +BM 03/05 Labs Reviewed: Hgb:9.4, HCT:29.7, Alb:2.6, NA:132, BUN:35, Cr:1.62 Meds Noted: lasix, miralax, lactulose Skin: WNL Additional Notes: Pt NPO today for colonoscopy. Was on a heart healthy diet, intake varied from 10-75% at times. Recommend to resume diet post procedure, Ensure compact BID. Encourage po intake. Monitoring intakes,w eights, labs, supplement tolerance, stool output, plan of care Follow up in 3 days
[2024-03-05] MEDS: TAMSULOSIN HCL 0.4 MG CAPSULE PO (12:20)
[2024-03-05] MEDS: ASPIRIN 81 MG ENTERIC TABLET PO (12:20)
--- NOTE | 2024-03-05 12:56 | P.PNIM_ITS ---
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 She reported chronic constipation and had had good bowel movement for the past 6 weeks associated nausea. There was associated intermittent abdominal pain which is crampy in nature. No fever chills. Patient was then admitted to the hospital for further treatment. GI and General surgery was consulted. KUB showed fecal impaction. Eventually colonoscopy is planned however remains on bowel regimen. Also status post manual disimpaction. Now on bowel regimen and having multiple bowel movements. planned colonoscopy in a.m. for GI. Follow-up x-ray abdomen with resolution of findings of fecal impaction During hospital stay she also fell and stroke her left side of the head. CT was head was negative for any bleed. Rectal bleeding on and off suspected hemorrhoid however other etiology need to rule out. Status post colonoscopy 03/05/2024: Polyps noted which were removed. Diverticulosis with no signs of bleeding. Internal hemorrhoids. 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 Chronic atrial fibrillation on systemic anticoagulation with Eliquis Urinary retention will do void trial today. CKD stage 4 creatinine of 2. Mild anemia Hypertension Fecal impaction Code status full code DVT prophylaxis on Eliquis Disposition: PT OT to see Subjective Date/time seen: 03/05/24 12:56 Interval history: Patient underwent colonoscopy today. There were couple of polyps. Diverticulosis and hemorrhoids. No signs of active bleeding. She feels hungry denies any abdominal Review of Systems Review of Systems: All systems reviewed & are unremarkable except as noted in HPI and below Exam Narrative: * GENERAL: Alert and oriented x 3. No acute distress. * HEENT: Moist mucous membranes. * LUNGS: Clear to auscultation bilaterally. No accessory muscle use. * CARDIOVASCULAR: Regular rate and rhythm. * ABDOMEN: Soft, less distended nontender. Normal bowel sounds, No palpable masses. * EXTREMITIES: No edema. Non-tender * SKIN: No rashes or lesions. Skin warm, dry. * NEUROLOGIC: No focal neurological deficits. CN II-XII grossly intact * PSYCHIATRIC: Appropriate mood and affect. Objective Data Vital Signs Vital Signs: Vital Signs - 24 hr 03/04/24 15:28 03/04/24 20:00 03/04/24 22:00 Temperature 98.8 F 98.5 F Pulse Rate 84 90 Respiratory Rate 16 16 Blood Pressure 106/63 113/51 L Pulse Oximetry 98 100 Oxygen Delivery Room Air 03/05/24 09:16 03/05/24 10:29 03/05/24 11:14 Temperature 97.1 F L Pulse Rate 103 H 100 98 Respiratory Rate 16 20 20 Blood Pressure 115/62 121/47 L 94/76 L Pulse Oximetry 99 99 98 Oxygen Delivery Room Air Room Air 03/05/24 11:24 03/05/24 11:34 03/05/24 11:45 Temperature 96.4 F L Pulse Rate 96 95 95 Respiratory Rate 20 20 20 Blood Pressure 126/59 L 120/55 L 135/64 Pulse Oximetry 98 99 97 Oxygen Delivery Room Air Room Air Intake/Output Intake/Output: Intake & Output 03/02/24 03/03/24 03/04/24 03/05/24 23:59 23:59 23:59 23:59 Intake Total 350 1480 1630 150.0 Output Total 379 691 6483 Balance -425 980 80 150.0 Meds/Results Medications: Active Medications Generic Name Dose Route Start Last Admin Trade Name Freq PRN Reason Stop Dose Admin Acetaminophen 650 mg 02/28/24 17:21 Acetaminophen 325 Mg Tablet PO Q4H PRN Mild Pain (1-3) or Fever Hydrocodone Bitart/Acetaminophen 1 tab 02/28/24 17:21 03/03/24 22:03 Hydrocodone/Acetaminophen (*Crx) 5-325 Mg Tablet PO 1 tab Q4H PRN Administration Moderate Pain (4-6) Aspirin 81 mg 02/29/24 09:00 03/05/24 12:20 Aspirin 81 Mg Enteric Tablet PO 81 mg DAILY LAVON Administration Diltiazem HCl 300 mg 02/29/24 09:00 03/05/24 09:08 Diltiazem Hcl Cd 300 Mg Cap.24hr PO 300 mg DAILY LAVON Administration Docusate Sodium 100 mg 02/28/24 21:00 03/05/24 09:09 Docusate Sodium 100 Mg Capsule PO Not Given Q12HR LAVON Furosemide 20 mg 02/29/24 09:00 03/05/24 09:18 Furosemide 20 Mg Tablet PO 20 mg BID LAVON Administration Levothyroxine Sodium 50 mcg 02/29/24 06:30 03/05/24 05:29 Levothyroxine Sodium 50 Mcg Tablet PO 50 mcg DAILY@0630 LAVON Administration Ondansetron HCl 4 mg 02/28/24 17:21 Ondansetron Inj 4 Mg/2 Ml Vial IV PUSH Q6H PRN Nausea And Vomiting Oxycodone HCl 5 mg 02/28/24 17:23 03/02/24 00:15 Oxycodone Hcl (*Crx) 5 Mg Tab Ir PO 5 mg Q6H PRN Administration pain 7-10 Polyethylene Glycol 17 gm 03/05/24 11:41 Polyethylene Glycol 3350 17 Gm Powd.Pack PO QAM PRN Constipation Tamsulosin HCl 0.4 mg 02/29/24 09:00 03/05/24 12:20 Tamsulosin Hcl 0.4 Mg Capsule PO 0.4 mg QAM LAVON Administration Radiology Results: ITS Impressions Head CT 03/01/24 05:44 Impression: No significant abnormality seen. Abdomen X-Ray 03/03/24 10:42 IMPRESSION: 1. Nonspecific nonobstructive bowel gas pattern with resolution of the large ball of stool previously seen at the rectum. Labs Labs: Laboratory Results - last 24 hr 03/05/24 07:02 WBC 6.8 RBC 2.87 L Hgb 9.4 L Hct 29.7 L MCV 103.5 H MCH 32.8 MCHC 31.6 L RDW 13.4 Plt Count 336 MPV 9.9 Immature Gran % (Auto) 0.7 H Neut % (Auto) 78.3 H Lymph % (Auto) 8.[address] [place] % (Auto) 11.3 H Eos % (Auto) 1.3 Baso % (Auto) 0.3 Lymph # (Auto) 0.[address] [place] # (Auto) 0.8 H Eos # (Auto) 0.1 Baso # (Auto) 0.0 Abs Immat Gran (auto) 0.05 H Absolute Neuts (auto) 5.3 Absolute Nucleated RBC 0.000 Nucleated RBC % 0.0 Sodium 132 L Potassium 4.3 Chloride 102 Carbon Dioxide 24 Anion Gap 6 BUN 35 H D Creatinine 1.62 H Estim Creat Clear Calc 22 Estimated GFR 30 L Glucose 83 Calcium 8.6 Magnesium 2.7 H Iron 46 TIBC 188 L % Saturation 24 Ferritin 98.90 Total Bilirubin 0.4 AST 53 H ALT 17 Alkaline Phosphatase 140 H Total Protein 6.0 L Albumin 2.6 L Vitamin B12 811.0 Folate 10.2
--- NOTE | 2024-03-05 15:37 | WPDPN ---
Progress Note: A&P Assessment and Plan (1) Fecal impaction in rectum: Code(s): K56.41 - Fecal impaction Status: Acute Assessment and Plan: Now resolved after bowel prep a manual disimpaction. Patient should stay on a bowel regimen with daily MiraLax and high-fiber diet with good hydration. (2) Rectal bleeding: Code(s): K62.5 - Hemorrhage of anus and rectum Status: Acute Assessment and Plan: Rectal bleeding most likely due to her grade 3 internal hemorrhoids which are nonthrombosed. She currently is not having any bleeding. I explained to her and her family at the bedside and at this point I think her symptoms from her hemorrhoids may improve with a good bowel regimen and avoiding constipation. As long she is not have any further bleeding then I certainly do not think any surgical management is needed at this time. I did explain the recovery process after excisional hemorrhoidectomy and that the pain would be significant and possibly even debilitating to some extent. She agrees that she does not really want to have the surgery. Patient may discharge at discretion of the hospitalist service. She does not need to follow-up general surgery after discharge. Subjective Date/time seen: 03/05/24 15:37 Interval history: Patient had her colonoscopy today after tolerating a bowel prep. Review of the colonoscopy report showed some adenomatous polyps which were removed by snare polypectomy and sent to pathology. No obvious reason for GI bleeding from these smaller polyps. Hemorrhoids were noted which were nonbleeding at the time of colonoscopy. Patient is doing well now. No longer having any bleeding from her hemorrhoids. She has decided not to undergo any further chemotherapy treatments for her metastatic neuroendocrine carcinoma. Exam GI: Other: Rectal examination reveals rate 3 nonthrombosed prolapsing internal hemorrhoids. No active bleeding is noted this time. Objective Data Vital Signs Vital Signs: Vital Signs - 24 hr 03/04/24 20:00 03/04/24 22:00 03/05/24 09:16 Temperature 36.9 C Pulse Rate 90 103 H Respiratory Rate 16 16 Blood Pressure 113/51 L 115/62 Pulse Oximetry 100 99 Oxygen Delivery Room Air 03/05/24 10:29 03/05/24 11:14 03/05/24 11:24 Temperature 36.2 C L Pulse Rate 100 98 96 Respiratory Rate 20 20 20 Blood Pressure 121/47 L 94/76 L 126/59 L Pulse Oximetry 99 98 98 Oxygen Delivery Room Air Room Air Room Air 03/05/24 11:34 03/05/24 11:45 03/05/24 13:59 Temperature 35.8 C L 35.9 C L Pulse Rate 95 95 86 Respiratory Rate 20 20 18 Blood Pressure 120/55 L 135/64 121/65 Pulse Oximetry 99 97 96 Oxygen Delivery Room Air Intake/Output Intake/Output: Intake & Output 03/02/24 03/03/24 03/04/24 03/05/24 23:59 23:59 23:59 23:59 Intake Total 350 1480 1630 150.0 Output Total 369 921 3894 50 Balance -425 980 80 100.0 Meds/Results Medications: Active Medications Generic Name Dose Route Start Last Admin Trade Name Freq PRN Reason Stop Dose Admin Acetaminophen 650 mg 02/28/24 17:21 Acetaminophen 325 Mg Tablet PO Q4H PRN Mild Pain (1-3) or Fever Hydrocodone Bitart/Acetaminophen 1 tab 02/28/24 17:21 03/03/24 22:03 Hydrocodone/Acetaminophen (*Crx) 5-325 Mg Tablet PO 1 tab Q4H PRN Administration Moderate Pain (4-6) Aspirin 81 mg 02/29/24 09:00 03/05/24 12:20 Aspirin 81 Mg Enteric Tablet PO 81 mg DAILY LAVON Administration Diltiazem HCl 300 mg 02/29/24 09:00 03/05/24 09:08 Diltiazem Hcl Cd 300 Mg Cap.24hr PO 300 mg DAILY LAVON Administration Docusate Sodium 100 mg 02/28/24 21:00 03/05/24 09:09 Docusate Sodium 100 Mg Capsule PO Not Given Q12HR LAVON Furosemide 20 mg 02/29/24 09:00 03/05/24 09:18 Furosemide 20 Mg Tablet PO 20 mg BID LAVON Administration Levothyroxine Sodium 50 mcg 02/29/24 06:30 03/05/24 05:29 Levothyroxine Sodium 50 Mcg Tablet PO 50 mcg DAILY@0630 LAVON Administration Ondansetron HCl 4 mg 02/28/24 17:21 Ondansetron Inj 4 Mg/2 Ml Vial IV PUSH Q6H PRN Nausea And Vomiting Oxycodone HCl 5 mg 02/28/24 17:23 03/02/24 00:15 Oxycodone Hcl (*Crx) 5 Mg Tab Ir PO 5 mg Q6H PRN Administration pain 7-10 Polyethylene Glycol 17 gm 03/05/24 11:41 Polyethylene Glycol 3350 17 Gm Powd.Pack PO QAM PRN Constipation Tamsulosin HCl 0.4 mg 02/29/24 09:00 03/05/24 12:20 Tamsulosin Hcl 0.4 Mg Capsule PO 0.4 mg QAM LAVON Administration Radiology Results: ITS Impressions Head CT 03/01/24 05:44 Impression: No significant abnormality seen. Abdomen X-Ray 03/03/24 10:42 IMPRESSION: 1. Nonspecific nonobstructive bowel gas pattern with resolution of the large ball of stool previously seen at the rectum. Labs Labs: Laboratory Results - last 24 hr 03/05/24 07:02 WBC 6.8 RBC 2.87 L Hgb 9.4 L Hct 29.7 L MCV 103.5 H MCH 32.8 MCHC 31.6 L RDW 13.4 Plt Count 336 MPV 9.9 Immature Gran % (Auto) 0.7 H Neut % (Auto) 78.3 H Lymph % (Auto) 8.1 L [place] % (Auto) 11.3 H Eos % (Auto) 1.3 Baso % (Auto) 0.3 Lymph # (Auto) 0.55 L [place] # (Auto) 0.8 H Eos # (Auto) 0.1 Baso # (Auto) 0.0 Abs Immat Gran (auto) 0.05 H Absolute Neuts (auto) 5.3 Absolute Nucleated RBC 0.000 Nucleated RBC % 0.0 Sodium 132 L Potassium 4.3 Chloride 102 Carbon Dioxide 24 Anion Gap 6 BUN 35 H D Creatinine 1.62 H Estim Creat Clear Calc 22 Estimated GFR 30 L Glucose 83 Calcium 8.6 Magnesium 2.7 H Iron 46 TIBC 188 L % Saturation 24 Ferritin 98.90 Total Bilirubin 0.4 AST 53 H ALT 17 Alkaline Phosphatase 140 H Total Protein 6.0 L Albumin 2.6 L Vitamin B12 811.0 Folate 10.2
--- NOTE | 2024-03-05 17:00 | P.DS_ITS ---
DS: Admitting Diagnosis Discharge Date 03/05/2024 Admitting Diagnosis Rectal bleeding DS: Discharge Diagnosis Discharge Diagnosis (1) Rectal bleeding: Code(s): K62.5 - Hemorrhage of anus and rectum Status: Acute (2) Nausea and vomiting: Qualifiers: Vomiting type: unspecified Qualified Code(s): R11.2 - Nausea with vomiting, unspecified Code(s): R11.2 - Nausea with vomiting, unspecified Status: Acute (3) CKD (chronic kidney disease), stage III: Qualifiers: Chronic kidney disease stage 3 subtype: unspecified whether 3a or 3b Qualified Code(s): N18.30 - Chronic kidney disease, stage 3 unspecified Code(s): N18.3 - Chronic kidney disease, stage 3 (moderate) Status: Chronic 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 She reported chronic constipation and had had good bowel movement for the past 6 weeks associated nausea. There was associated intermittent abdominal pain which is crampy in nature. No fever chills. Patient was then admitted to the hospital for further treatment. GI and General surgery was consulted. KUB showed fecal impaction. Eventually colonoscopy is planned however remains on bowel regimen. Also status post manual disimpaction. Now on bowel regimen and having multiple bowel movements. planned colonoscopy in a.m. for GI. Follow-up x-ray abdomen with resolution of findings of fecal impaction During hospital stay she also fell and stroke her left side of the head. CT was head was negative for any bleed. Rectal bleeding on and off suspected hemorrhoid however other etiology need to rule out. Status post colonoscopy 03/05/2024: Polyps noted which were removed. Diverticulosis with no signs of bleeding. Internal hemorrhoids. 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 Chronic atrial fibrillation on systemic anticoagulation with Eliquis Urinary retention white trial and remove the catheter CKD stage 4 creatinine of 2. Mild anemia Hypertension Fecal impaction Code status full code DVT prophylaxis on Eliquis Disposition: PT OT to see Time Spent with Patient Time attestation: Total time spent providing and/or coordinating discharge services: Exam Narrative: * GENERAL: Alert and oriented x 3. No acute distress. * HEENT: Moist mucous membranes. * LUNGS: Clear to auscultation bilaterally. No accessory muscle use. * CARDIOVASCULAR: Regular rate and rhythm. * ABDOMEN: Soft, less distended nontender. Normal bowel sounds, No palpable masses. * EXTREMITIES: No edema. Non-tender * SKIN: No rashes or lesions. Skin warm, dry. * NEUROLOGIC: No focal neurological deficits. CN II-XII grossly intact * PSYCHIATRIC: Appropriate mood and affect. DS: Data Data Completed and Pending Pending studies at discharge: Pending at discharge 03/05/24 11:09 Surgical [PTH] Routine Labs on day of discharge: Labs from last 24 hours 03/05/24 07:02 WBC 6.8 RBC 2.87 L Hgb 9.4 L Hct 29.7 L MCV 103.5 H MCH 32.8 MCHC 31.6 L RDW 13.4 Plt Count 336 MPV 9.9 Immature Gran % (Auto) 0.7 H Neut % (Auto) 78.3 H Lymph % (Auto) 8.1 L [place] % (Auto) 11.3 H Eos % (Auto) 1.3 Baso % (Auto) 0.3 Lymph # (Auto) 0.55 L [place] # (Auto) 0.8 H Eos # (Auto) 0.1 Baso # (Auto) 0.0 Abs Immat Gran (auto) 0.05 H Absolute Neuts (auto) 5.3 Absolute Nucleated RBC 0.000 Nucleated RBC % 0.0 Sodium 132 L Potassium 4.3 Chloride 102 Carbon Dioxide 24 Anion Gap 6 BUN 35 H D Creatinine 1.62 H Estim Creat Clear Calc 22 Estimated GFR 30 L Glucose 83 Calcium 8.6 Magnesium 2.7 H Iron 46 TIBC 188 L % Saturation 24 Ferritin 98.90 Total Bilirubin 0.4 AST 53 H ALT 17 Alkaline Phosphatase 140 H Total Protein 6.0 L Albumin 2.6 L Vitamin B12 811.0 Folate 10.2 Imaging Radiologist's impression: ITS Impressions Abdomen X-Ray 02/28/24 18:51 IMPRESSION: Findings suggesting fecal impaction, as detailed above. Head CT 03/01/24 05:44 Impression: No significant abnormality seen. Abdomen X-Ray 03/03/24 10:42 IMPRESSION: 1. Nonspecific nonobstructive bowel gas pattern with resolution of the large ball of stool previously seen at the rectum. Discharge Plan Discharge Attending physician on discharge: You El Consulting providers: Nelson Mari; Rashaad Herndon Discharging Clinician: You El Anticipated Discharge Date/Time: 03/05/24 17:02 Patient Disposition: Home, Self-Care Activity: as tolerated Diet: regular Discharge Instructions: Patient does not need to follow-up with General surgery after discharge. Patient should stay on bowel regimen as prescribed by GI. Patient Instructions: Antibiotic Form, High Fiber Diet (GEN) Patient Language: Spanish Stand Alone Forms: General Discharge Information Follow-up/Referrals: Timothy Oh MD [Primary Care Provider] - 1 Week Rashaad Herndon MD [Physician] - 4 Weeks Discharge Medications: New tamsulosin 0.4 mg Capsule 0.4 mg PO QAM Qty: 30 0RF docusate sodium 100 mg Capsule 100 mg PO Q12HR Qty: 60 0RF polyethylene glycol 3350 [Miralax] 17 gram Powder In Packet 17 g PO QAM Qty: 30 0RF Continued oxycodone 5 mg tablet 5 mg PO Q6H PRN (Reason: pain) acetaminophen 500 mg tablet 1,000 mg PO Q6H PRN (Reason: fever or pain) Eliquis 5 mg tablet 2.5 mg PO BID aspirin 81 mg tablet,delayed release (DR/EC) 81 mg PO DAILY diltiazem HCl [Cartia XT] 300 mg capsule,extended release 24hr 300 mg PO DAILY Qty: 90 3RF levothyroxine 50 mcg tablet See Rx Instructions .ROUTE .COMPLEX Qty: 90 2RF Dose Instruction: TAKE 1 TABLET EVERY DAY Rx Instructions: TAKE 1 TABLET EVERY DAY furosemide 20 mg tablet 20 mg PO BID Qty: 60 0RF Discontinued oxycodone 30 mg tablet 30 mg PO Q8H PRN (Reason: pain) Date of admission: 03/01/24 13:02 Primary Care Provider: Timothy Oh Admitting Provider: Miroslava Borja Attending physician on admission: Amanda Bull Condition: Improved
== END 2024-03-05 17:40 | disposition home or self-care (01) | DRG 377 ==
PROVIDERS: Internal Medicine Gastroenterology; Nurse Practitioner Family; Student in an Organized Health Care Education/Training Program; Admitting Provider Hospitalist; PCP Family Medicine; Visit Provider Internal Medicine
PROC: 0DJD8ZZ Inspection of Lower Intestinal Tract, Via Natural or Artificial Opening Endoscopic (ICD-10-PCS; CPT 45378; principal; 2024-03-05 15:30)
DX: K62.5 Hemorrhage of anus and rectum (principal); E43 Unspecified severe protein-calorie malnutrition; C7B.8 Other secondary neuroendocrine tumors; I48.20 Chronic atrial fibrillation, unspecified; K56.41 Fecal impaction; K64.2 Third degree hemorrhoids; K63.5 Polyp of colon; K57.30 Diverticulosis of large intestine without perforation or abscess without bleeding; K62.1 Rectal polyp; I12.9 Hypertensive chronic kidney disease with stage 1 through stage 4 chronic kidney disease, or unspecified chronic kidney disease; N18.30 Chronic kidney disease, stage 3 unspecified; R11.2 Nausea with vomiting, unspecified; I35.0 Nonrheumatic aortic (valve) stenosis; E03.9 Hypothyroidism, unspecified; E78.5 Hyperlipidemia, unspecified; M51.369 Other intervertebral disc degeneration, lumbar region without mention of lumbar back pain or lower extremity pain; R41.0 Disorientation, unspecified; W06.XXXA Fall from bed, initial encounter; Y92.230 Patient room in hospital as the place of occurrence of the external cause; F41.9 Anxiety disorder, unspecified; Z79.01 Long term (current) use of anticoagulants; Z87.891 Personal history of nicotine dependence; Z68.25 Body mass index [BMI] 25.0-25.9, adult; Z79.82 Long term (current) use of aspirin
CPT/HCPCS: 36415; 70450; 74018; 80048; 80053; 82607; 82728; 82746; 83540; 83550; 83735; 85025; 85027; 85610; 85730; 88305; 96374; 97165; A9270; G0378; G0379; J2470; J2704; J7120